=== PATIENT | female | born 1945 | race African-American/Black ===

== ENCOUNTER 2017-03-17 23:43 | Inpatient (IN) ==
[2017-03-18] MEDS ORDERED: NITROGLYCERIN 2% OINT 1 INCH/GM PACK TOP ONE (00:35)
[2017-03-18] MEDS ORDERED: DOCUSATE SODIUM 100 MG CAPSULE PO PRN (00:55)
[2017-03-18] MEDS ORDERED: ACETAMINOPHEN 325 MG TABLET PO PRN (00:55)
[2017-03-18] MEDS ORDERED: ONDANSETRON 4 MG/2 ML VIAL IV PRN (00:55)
--- NOTE | 2017-03-18 00:58 | Emergency Department Note ---
Neymar Mcfadden Rolonda, am scribing for, and in the presence of, Gerald Paetl M.D. 00:25. Amanda Mcfadden Howard T, M.D., personally performed the services described in this documentation, ascribed by Madeline Blackmon in my presence, and it is both accurate and complete . Arrival - Arrival Chief Complaint: Chest Pain Stated Complaint: CHest pain ED Nursing Triage Note: C/C pt went to ER with c/0 chest pain x 2-3 weeks. Pt had elevated Troponin and tranferred here for further eval. Pt was given ASA 325mg, Demerol 12.5mg, Phenergan 12.5 mg, Lovenox 60mg, Lopressor 2.5mg. Pt states she is having CP 9/10 at this time, pain non-radiating. Mode of Arrival: Stretcher Limitations: No Limitations Source: Patient, Old Records Reviewed, RN Notes Reviewed - History of Present Illness HPI Narrative: Pt is a 71 y/o female who was transferred from [place] for further evaluation of chest pain with an onset of x2-3 weeks. Pt has a PMHx of HTN, CHF, [place], and CAD. Pt has a PSHx of Cardiac Catherization and CABG. Pt stated that the pain has been going on for weeks but worsened tonight which prompted visit to ED. She states that she had been chewing ASA and placing NTG tablets under her tongue in which she did tonight but the pain did not go away. at [place] gave pt medication and IV for pain. Pt f/u with her literacy consultant recently and told him about her chest pain. She denies vomiting but confirms SOB. No other complaint/ pain in ED. Onset (ago): week(s) Consistency: constant Severity: moderate Severity scale (1-10): 4 Allergies/Adverse Reactions: Allergies Allergy/AdvReac Type Severity Reaction Status Date / Time ketorolac [From Toradol] AdvReac HIVES Verified 03/17/17 23:55 sulfamethoxazole AdvReac Swelling Verified 03/17/17 23:55 [From Bactrim] of Lip/Tongue/Throat trimethoprim [From Bactrim] AdvReac Swelling Verified 03/17/17 23:55 of Lip/Tongue/Throat Home Medications: Home Medications Medication Instructions Recorded Confirmed Type Aspirin [Ecotrin] 325 mg PO DAILY 05/28/15 10/11/16 History Atorvastatin [Lipitor] 40 mg PO BEDTIME 05/28/15 10/11/16 History Furosemide Tab [Lasix Tab] 40 mg PO DAILY 05/28/15 10/11/16 History Perphenazine/Amitriptyline HCl 1 each PO BID PRN 05/28/15 10/11/16 History [Perphen-Amitrip 2 mg-25 mg Tab] Ranolazine [Ranexa] 1,000 mg PO BID 05/28/15 10/11/16 History raNITIdine HCl [Ranitidine HCl] 300 mg PO BID 05/28/15 10/11/16 History Amiodarone HCl 200 mg PO DAILY 08/13/15 10/11/16 History Cilostazol 100 mg PO BID 08/13/15 10/11/16 History Duloxetine HCl [Duloxetine] 60 mg PO DAILY 08/13/15 10/11/16 History Omeprazole 20 mg PO BID 08/13/15 10/11/16 History Potassium Chloride 20 meq PO BID 08/13/15 10/11/16 History Zolpidem [Ambien] 5 mg PO BEDTIME PRN 08/13/15 10/11/16 History amLODIPine [Norvasc] 5 mg PO DAILY 08/13/15 10/11/16 History glipiZIDE [Glipizide] 5 mg PO DAILY 08/13/15 10/11/16 History fentaNYL 12 MCG/HR PATCH 12 mcg TOP Q3DAY 01/21/16 10/11/16 History [Duragesic 12 Patch] Carvedilol [Coreg] 25 mg PO BID #60 tablet 01/29/16 10/11/16 Rx Losartan/Hydrochlorothiazide 1 each PO DAILY #30 tablet 10/01/16 10/11/16 Rx [Losartan-Hctz 100-12.5 mg Tab] Review of System - Review of System 12 point system: reviewed and no additional remarkable complaints except as stated - Review of System Constitutional: Absent: chills, fever Eyes: Absent: pain Head/Ears/Nose/Throat: Absent: earache, epistaxis Respiratory: Present: respiratory distress (SOB). Absent: cough Cardiovascular: Present: chest pain Gastrointestinal: Absent: abdominal pain, nausea, vomiting, diarrhea Genitourinary female: Absent: dysuria Musculoskeletal: Absent: arm pain, back pain, leg pain, neck pain Skin: Absent: rash Neurological: Absent: headache, weakness, numbness, paresthesias Medical,Surgical,& Family Hx - Medical History Cardio: History of: CHF, CAD, Hypertension, [place], Cardiovascular Problems Psychological: History of: Anxiety Disorders, Depression Neurology: History of: Migraine, Seizures (seizures when child) No history of: Cerebrovascular Accident HEENT: History of: Eye Problem (CATARACT) Endocrine: History of: Diabetes Mellitus (NIDDM) No history of: Adrenal Disease Respiratory: History of: Asthma, COPD, Obstructive Sleep Apnea Renal: History of: Renal Failure Gastrointestinal: History of: GERD Musculoskeletal: History of: Back/Neck Problems (previous back surgery) - Surgical History Cardiac Surgeries: Sugical HX of: Cardiac Catheterization (stents 2008), Cardiac Surgery (CABG 2006) Thoracic Surgeries: Patient denies;: Organ Transplant, Lobectomy Neurologic Surgeries: Patient denies: Neurologic Surgery Reproductive Surgeries: Surgical HX of;: Breast Surgery (LEFT BREASE LYMPH NODE) , Hysterectomy - Family History Family History: Reports;: Family Diabetes (mother and father), Family Heart Disease (mother and father), Family Hypertension, Family Psychiatric Problems Denies;: Family Anesthesia Reaction, Family Cancer, Family Stroke - Social History Smoking Status: Never smoker Frequency of Alcohol Use: None Type of Drug Use: None Exam Vital Signs: Vital Signs Temperature 97.6 F 03/17/17 23:45 Pulse Rate 64 03/17/17 23:45 Respiratory Rate 18 03/18/17 00:01 Blood Pressure 203/80 03/17/17 23:45 O2 Sat by Pulse Oximetry 96 03/17/17 23:45 - General General appearance: alert, in no apparent distress - Head Head exam: Present: atraumatic, normocephalic - Eye Eye exam: Present: PERRL, EOMI - ENT ENT exam: Present: mucous membranes moist. Absent: mucous membranes dry - Neck Neck exam: Present: full ROM. Absent: tenderness - Chest Chest inspection: Present: symmetric chest wall rise. Absent: tenderness - Respiratory Respiratory exam: Present: normal lung sounds bilaterally. Absent: wheezes - Cardiovascular Cardiovascular exam: Present: regular rate, normal rhythm, normal heart sounds. Absent: bradycardia - Abdominal Exam Abdominal exam: Present: soft, normal bowel sounds. Absent: tenderness - Extremities Exam Extremities exam: Present: full ROM. Absent: tenderness - Back Exam Back exam: Present: full ROM. Absent: tenderness - Neurological Exam Neurological exam: Present: alert, oriented X3, CN II-XII intact - Psychiatric Psychiatric exam: Present: normal affect, normal mood - Skin Skin exam: Present: warm, dry, intact, normal color. Absent: rash Course Course Narrative: Medical decision making: Patient has cardiac history and risk factors, is concerned about pain that was not initially relieved by nitroglycerin at home, transferred and probably warrants overnight observation and perhaps cardiology evaluation in the morning. Discussed with hospitalist for admission and continued treatment Disposition Clinical Impression: Unstable angina pectoris, Chest pain Case discussed with: patient Disposition: Still a Patient Condition: Stable Time of Disposition: 00:58
[2017-03-18] MEDS ORDERED: NITROGLYCERIN SL 0.4 MG TABLET SL PRN (01:06)
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
[2017-03-18] MEDS ORDERED: GLUCAGON 1 MG VIAL IM PRN (01:32)
[2017-03-18] MEDS ORDERED: DEXTROSE 50% 25 GM/50 ML VIAL IV PRN (01:32)
[2017-03-18 05:44] LABS: Basophils % 0.2 % (0.0-0.8); Eosinophils # 0.2 10*3/uL (0.0-0.87); Eosinophils % 3.7 % (0.00-10.9); Hemoglobin 10.2 GM/DL (12.0-16.0); Immature Granulocytes % 0.7 %; Immature Granulocytes Absolute 0.03 #; Lymphocytes # 1.9 10*3/uL (1.4-4.0); Lymphocytes % 47.6 % (21.3-54.2); Mean Corpuscular HGB Conc 31.9 GM/DL (32-36); Mean Corpuscular Hemoglobin 28 PG (27-34); Mean Corpuscular Volume 87.2 FL (87-102); Mean Platelet Volume 10.8 FL (9.6-12.0); Monocytes # 0.4 10*3/uL (0.11-0.8); Monocytes % 9.2 % (1.7-12.7); Neutrophils # 1.5 10*3/uL (1.4-7.4); Neutrophils % 38.6 % (38.7-73.9); Platelet Count 180 T/CUMM (130-400); Red Blood Count 3.67 MC/CUMM (3.8-5.5); Red Cell Distribution Width 18.3 % (9.3-17.3)
[2017-03-18 06:23] LABS: Albumin 3.3 G/DL (3.4-5.0); Bilirubin,Total 0.6 MG/DL (0.2-1.0); Calcium 9.1 MG/DL (8.5-10.1); Osmolality,Calculated 279.4 MOS/KG (273-304); Potassium 3.9 MMOL/L (3.5-5.1); Total Protein 6.2 G/DL (6.4-8.3)
[2017-03-18 06:24] LABS: Risk Ratio 1.88
[2017-03-18 07:05] LABS: Eosinophils 3 % (0-10); Hypochromasia 1+; Lymphocytes 51 % (20-55); Microcytosis 1+; Ovalocytes Slight; Segmented Neutrophils 43 % (50-85); Total Cells Counted 100
[2017-03-18 07:06] LABS: Platelet Estimate Adequate
--- NOTE | 2017-03-18 07:38 | EKG Report ---
Stationary ECG Study [facility] Test Date: 03/18/2017 7:39:10 AM Pat Name: JOVANNA HILLS Department: Room: 272 Gender: F Supervisor [employer]: OSBALDO : 1945 Requested by: Adolfo Cardoza Order Number: [id number] Reading MD: NELLI AYON Intervals [place] Rate: 56 P: 93 DC: 233 QRS: 5 QRSD: 124 T: 90 QT: 476 QTc: 468 Interpretive Statements SINUS RHYTHM WITH PROLONGED DC INTERVAL MODERATE INTRAVENTRICULAR CONDUCTION DELAY Electronically Signed On 03-19-17 06:15:28 CDT by NELLI AYON [email or web address]
[2017-03-18] MEDS: INSULIN LISPRO 100 UNIT/ML SUBCUT SCH ×2 (08:23→16:34)
--- NOTE | 2017-03-18 08:25 | Cardiology History & Physical ---
Assessment and Plan (1) Chest pain Status: Acute Current Visit: Yes (2) Atypical chest pain Status: Acute Assessment and plan: The pain she is describing is atypical for angina. She apparently has chronic elevations in her troponins likely related to her renal insufficiency. Continue cycling her troponins and adjusting meds. Current Visit: No (3) CKD (chronic kidney disease) stage 4, GFR 15-29 ml/min Status: Acute Current Visit: No (4) Coronary artery disease Status: Chronic Current Visit: No Qualifiers: (5) DM2 (diabetes mellitus, type 2) Status: Chronic Current Visit: No (6) HTN (hypertension) Status: Chronic Current Visit: No Qualifiers: Hypertension type: essential hypertension Qualified Code(s): I10 - Essential (primary) hypertension History of Present Illness Chief complaint: I have been hurting in my chest History of present illness: Ms. Reeder is a 71 year old female This is a 71-year-old lady who has a history of coronary artery disease history of peripheral vascular disease elevated troponins which are chronically bumped. She has had numerous admissions. She describes chest discomfort this time which is somewhat atypical for angina. That has been her usual presentation. She does have coronary disease had 4 vessel bypass in 2006. She has had heart cath done in January 2016 was found to have no real significant restenosis at that time. She did not have what was felt to be occlusive coronary disease that would be causing symptoms at that time. She presents now with a several day history of atypical chest discomfort which she describes as a sharp jabbing discomfort which is relieved with aspirin and nitroglycerin. She is having some discomfort now in it is clearly reproducible with pressure to her anterior chest. She denies any increasing dyspnea orthopnea or PND. She has had no other real significant complaints. Her troponin is 0.163 and we are repeating. She has no history of recent fever or chills or cough or sputum production. Home Medications Medication Instructions Recorded Confirmed Type Aspirin [Ecotrin] 325 mg PO DAILY 05/28/15 03/18/17 History Atorvastatin [Lipitor] 40 mg PO BEDTIME 05/28/15 03/18/17 History Furosemide Tab [Lasix Tab] 40 mg PO DAILY 05/28/15 03/18/17 History Ranolazine [Ranexa] 1,000 mg PO BID 05/28/15 03/18/17 History raNITIdine HCl [Ranitidine HCl] 300 mg PO BID 05/28/15 03/18/17 History Cilostazol 50 mg PO BID 08/13/15 03/18/17 History Duloxetine HCl [Duloxetine] 60 mg PO DAILY 08/13/15 03/18/17 History Omeprazole 20 mg PO BID 08/13/15 03/18/17 History Potassium Chloride 20 meq PO BID 08/13/15 03/18/17 History Zolpidem [Ambien] 5 mg PO BEDTIME PRN 08/13/15 03/18/17 History amLODIPine [Norvasc] 2.5 mg PO DAILY 08/13/15 03/18/17 History glipiZIDE [Glipizide] 5 mg PO DAILY 08/13/15 03/18/17 History Losartan/Hydrochlorothiazide 1 each PO DAILY #30 tablet 10/01/16 03/18/17 Rx [Losartan-Hctz 100-12.5 mg Tab] Azelastine Nasal 137 Mcg/[place] 1 spray BID 03/18/17 03/18/17 History [Astelin Nasal [place]] Carvedilol [Coreg] 3.125 mg PO BID 03/18/17 03/18/17 History HYDROcodone/ACETAMIN 5-325 [[place] 1 tablet PO TID PRN 03/18/17 03/18/17 History 5-325] Sennosides [Senna] 8.6 mg PO DAILY 03/18/17 03/18/17 History Allergies Allergy/AdvReac Type Severity Reaction Status Date / Time ketorolac [From Toradol] AdvReac HIVES Verified 03/17/17 23:55 sulfamethoxazole AdvReac Swelling Verified 03/17/17 23:55 [From Bactrim] of Lip/Tongue/Throat trimethoprim [From Bactrim] AdvReac Swelling Verified 03/17/17 23:55 of Lip/Tongue/Throat Medical,Surgical,& Family Hx - Medical History Cardio: History of: CHF, CAD, Hypertension, [place], Cardiovascular Problems Psychological: History of: Anxiety Disorders, Depression Neurology: History of: Migraine, Seizures (seizures when child) No history of: Cerebrovascular Accident HEENT: History of: Eye Problem (CATARACT) Endocrine: History of: Diabetes Mellitus (NIDDM) No history of: Adrenal Disease Respiratory: History of: Asthma, COPD, Obstructive Sleep Apnea Renal: History of: Renal Failure Gastrointestinal: History of: GERD Musculoskeletal: History of: Back/Neck Problems (previous back surgery) - Surgical History Cardiac Surgeries: Sugical HX of: Cardiac Catheterization (stents 2008), Cardiac Surgery (CABG 2006) Thoracic Surgeries: Patient denies;: Organ Transplant, Lobectomy Neurologic Surgeries: Patient denies: Neurologic Surgery Reproductive Surgeries: Surgical HX of;: Breast Surgery (LEFT BREASE LYMPH NODE) , Hysterectomy - Family History Family History: Reports;: Family Diabetes (mother and father), Family Heart Disease (mother and father), Family Hypertension, Family Psychiatric Problems Denies;: Family Anesthesia Reaction, Family Cancer, Family Stroke - Social History Smoking Status: Never smoker Frequency of Alcohol Use: None Type of Drug Use: None Cardiology Physical Exam - Constitutional Vitals: Vital Signs Temp Pulse Resp BP Pulse Ox 97.4 F L 56 L 16 162/69 100 03/18/17 04:00 03/18/17 04:00 03/18/17 04:00 03/18/17 04:00 03/18/17 04:00 Intake and Output 03/17/17 03/18/17 03/18/17 23:59 07:59 15:59 Intake Total 120 / 120 Output Total 800 / 800 Balance -680 / -680 Intake: Oral 120 / 120 Output: Urine 800 / 800 Other: Voiding Method Bedside Commode Weight 102.965 kg 104.372 kg Patient Weight 03/18/17 23:59 Weight 104.372 kg Exam: Physical examination: General: The patient is awake and alert and oriented -3. Mood and affect are normal. HEENT: Normocephalic, sclera are clear there are no lid xanthelasmas noted. Oral mucosa is free of cyanosis or pallor. Neck: The neck is supple without JVD. Carotid upstrokes are normal volume and amplitude. There is no audible bruit. There is no palpable thyroid. Trachea is midline. Chest: Lungs: The patient is comfortable at rest without intercostal retractions or abdominal breathing. There are no adventitial sounds rales rubs rhonchi or wheezes noted. Cardiovascular: The PMI is nondisplaced. No palpable thrill S3 or S4. There is a regular rate and rhythm with no murmur rub or gallop noted. Dorsalis pedis posterior tibial are 0-1+ and femoral pulses are 2+ and equal bilaterally. Abdomen: Abdomen is soft and nontender with normal active bowel sounds. There is no palpable mass or organomegaly noted. There is no midline bruit. Extremities exam: There is no cyanosis clubbing or edema. Skin: Skin is warm and dry without ecchymosis or urticaria or skin rash. There are no palpable nodules. Musculoskeletal: There is no kyphosis or scoliosis noted. Result/EKG - Labs CBC & BMP: 03/18/17 05:17 03/18/17 05:17 Labs: Laboratory Results - last 24 hr 03/18/17 03/18/17 03/18/17 05:17 05:17 05:17 WBC 4.0 RBC 3.67 L Hgb 10.2 L Hct 32.0 L MCV 87.2 MCH 28 MCHC 31.9 L RDW 18.3 H Plt Count 180 MPV 10.8 Neut % (Auto) 38.6 L Lymph % (Auto) 47.6 [place] % (Auto) 9.2 Eos % (Auto) 3.7 Baso % (Auto) 0.2 Neut # (Auto) 1.5 Lymph # (Auto) 1.9 [place] # (Auto) 0.4 Eos # (Auto) 0.2 Baso # (Auto) 0.0 Total Counted 100 Immature Gran % 0.7 Nucleated RBC % 0.0 Immature Gran # 0.03 Segmented Neutrophils 43 L Lymphocytes 51 Monocytes 3 Eosinophils 3 Nucleated RBCs # 0.00 Platelet Estimate Adequate Hypochromasia 1+ Microcytosis 1+ Ovalocytes Slight Sodium 140 Potassium 3.9 Chloride 104 Carbon Dioxide 30 Anion Gap 9.9 BUN 18 Creatinine 1.60 H GFR Calculation 48 BUN/Creatinine Ratio 11.00 Glucose 76 POC Glucose Calculated Osmolality 279.4 Calcium 9.1 Total Bilirubin 0.60 AST 12 ALT 13 Alkaline Phosphatase 75 Troponin I Total Protein 6.2 L Albumin 3.3 L Globulin 2.9 Albumin/Globulin Ratio 1.1 Triglycerides 45 Cholesterol 197 LDL Cholesterol 82.0 VLDL Cholesterol 9.0 HDL Cholesterol 105 H Heart Disease Risk Ratio 1.88 03/18/17 03/18/17 07:56 Unknown WBC RBC Hgb Hct MCV MCH MCHC RDW Plt Count MPV Neut % (Auto) Lymph % (Auto) [place] % (Auto) Eos % (Auto) Baso % (Auto) Neut # (Auto) Lymph # (Auto) [place] # (Auto) Eos # (Auto) Baso # (Auto) Total Counted Immature Gran % Nucleated RBC % Immature Gran # Segmented Neutrophils Lymphocytes Monocytes Eosinophils Nucleated RBCs # Platelet Estimate Hypochromasia Microcytosis Ovalocytes Sodium Potassium Chloride Carbon Dioxide Anion Gap BUN Creatinine GFR Calculation BUN/Creatinine Ratio Glucose POC Glucose 80 Calculated Osmolality Calcium Total Bilirubin AST ALT Alkaline Phosphatase Troponin I 0.163 H Total Protein Albumin Globulin Albumin/Globulin Ratio Triglycerides Cholesterol LDL Cholesterol VLDL Cholesterol HDL Cholesterol Heart Disease Risk Ratio
[2017-03-18] MEDS: ASPIRIN 325 MG TABLET PO SCH (09:07)
[2017-03-18] MEDS: PANTOPRAZOLE 40 MG TABLET PO SCH (09:07)
[2017-03-18] MEDS: amLODIPine 10 MG TABLET PO SCH (09:07)
[2017-03-18] MEDS: LOSARTAN/HCTZ 50-12.5 MG TABLET PO SCH (09:08)
[2017-03-18] MEDS: CARVEDILOL 12.5 MG TABLET PO SCH ×2 (09:08→22:01)
[2017-03-18] MEDS: ENOXAPARIN 40 MG/0.4 ML SYRINGE SUBCUT SCH (09:10)
[2017-03-18] MEDS: ATORVASTATIN 40 MG TABLET PO SCH (22:01)
--- NOTE | 2017-03-19 04:51 | EKG Report ---
Stationary ECG Study [facility] ER Test Date: 03/17/2017 11:52:41 PM Pat Name: JOVANNA HILLS Department: Room: 272 Gender: F Tile Installer: PEPE : 1945 Requested by: Gerald Mata Order Number: [id number] Reading MD: NELLI AOYN Intervals [place] Rate: 61 P: 92 DC: 233 QRS: -43 QRSD: 137 T: 85 QT: 451 QTc: 454 Interpretive Statements SINUS RHYTHM WITH PROLONGED DC INTERVAL INDETERMINATE AXIS INTRAVENTRICULAR CONDUCTION DELAY POSSIBLE ANTERIOR MYOCARDIAL INFARCTION, OF INDETERMINATE AGE Electronically Signed On 03-19-17 06:14:48 CDT by NELLI AYON [email or web address]
[2017-03-19] MEDS: INSULIN LISPRO 100 UNIT/ML SUBCUT SCH ×2 (08:42→17:32)
[2017-03-19] MEDS: LOSARTAN/HCTZ 50-12.5 MG TABLET PO SCH (08:42)
[2017-03-19] MEDS: ENOXAPARIN 40 MG/0.4 ML SYRINGE SUBCUT SCH (08:42)
[2017-03-19] MEDS: ASPIRIN 325 MG TABLET PO SCH (08:43)
[2017-03-19] MEDS: PANTOPRAZOLE 40 MG TABLET PO SCH (08:43)
[2017-03-19] MEDS: CARVEDILOL 12.5 MG TABLET PO SCH ×2 (08:43→21:09)
[2017-03-19] MEDS: amLODIPine 10 MG TABLET PO SCH (08:43)
--- NOTE | 2017-03-19 09:28 | Cardiology Progress Note ---
Assessment and Plan (1) Chest pain Status: Acute Assessment and plan: The patient has atypical chest pain symptoms with history known coronary disease and for that reason we will proceed with invasive evaluation. She is agreeable to proceeding with cardiac catheterization and intervention if indicated. Current Visit: Yes (2) Atypical chest pain Status: Acute Assessment and plan: The pain she is describing is atypical for angina. She apparently has chronic elevations in her troponins likely related to her renal insufficiency. Continue cycling her troponins and adjusting meds. Current Visit: No (3) CKD (chronic kidney disease) stage 4, GFR 15-29 ml/min Status: Acute Current Visit: No (4) Coronary artery disease Status: Chronic Current Visit: No Qualifiers: (5) DM2 (diabetes mellitus, type 2) Status: Chronic Current Visit: No (6) HTN (hypertension) Status: Chronic Current Visit: No Qualifiers: Hypertension type: essential hypertension Qualified Code(s): I10 - Essential (primary) hypertension Cardiology - PN: Subj Interval history: This patient feels better today. She has had no further chest pain symptoms. He has been over a year since she has been evaluated and with continued chest pain and elevated troponins I feel it necessary to proceed with invasive evaluation. This will be scheduled for in the morning. I reviewed with her the risks benefits and alternatives of the procedure. She appears to understand these and is agreeable to proceeding. Exam (Progress Note) - Constitutional Vitals: Period Temp Pulse Resp BP Sys/Blackman Pulse Ox Last 24 Hr 97.2 F-99.1 F 50-75 16-18 119-159/55-68 94-100 Exam: Physical examination: General: The patient is awake and alert and oriented -3. Mood and affect are normal. HEENT: Normocephalic, sclera are clear there are no lid xanthelasmas noted. Oral mucosa is free of cyanosis or pallor. Neck: The neck is supple without JVD. Carotid upstrokes are normal volume and amplitude. There is no audible bruit. There is no palpable thyroid. Trachea is midline. Chest: Lungs: The patient is comfortable at rest without intercostal retractions or abdominal breathing. There are no adventitial sounds rales rubs rhonchi or wheezes noted. Cardiovascular: The PMI is nondisplaced. No palpable thrill S3 or S4. There is a regular rate and rhythm with no murmur rub or gallop noted. Dorsalis pedis posterior tibial and femoral pulses are 2+ and equal bilaterally. Abdomen: Abdomen is soft and nontender with normal active bowel sounds. There is no palpable mass or organomegaly noted. There is no midline bruit. Extremities exam: There is no cyanosis clubbing or edema. Skin: Skin is warm and dry without ecchymosis or urticaria or skin rash. There are no palpable nodules. Musculoskeletal: There is no kyphosis or scoliosis noted. Result/EKG - Labs CBC & BMP: 03/18/17 05:17 03/18/17 05:17 Labs: Laboratory Results - last 24 hr 03/18/17 03/18/17 03/18/17 12:07 12:12 16:32 POC Glucose 103 97 Troponin I 0.138 H 03/18/17 03/19/17 18:56 08:22 POC Glucose 186 H 130 H Troponin I
[2017-03-19] MEDS ORDERED: POTASSIUM CHLORIDE RIDER 10 MEQ in PREMIX 1 EACH IV PRN (09:29)
[2017-03-19] MEDS ORDERED: MAGNESIUM SULF RIDER 2 GM in PREMIX 1 EACH IV PRN (09:29)
[2017-03-19] MEDS ORDERED: diphenhydrAMINE CAP 25 MG CAPSULE PO ONE (09:29)
[2017-03-19] MEDS ORDERED: DIAZEPAM 5 MG TABLET PO ONE (09:29)
--- NOTE | 2017-03-19 13:47 | Hospitalist Progress Note ---
Assessment and Plan (1) Coronary artery disease Status: Chronic Assessment and plan: The patient is admitted to the hospital with some dull atypical chest pain. She has a history of coronary artery disease. The patient has chronic kidney disease and her troponin remains in keith zone. Dr. Manriquez anticipates coronary arteriogram tomorrow to reevaluate coronary anatomy. Current Visit: No Qualifiers: Coronary Disease-Associated Artery/Lesion type: bypass graft [place] vs. transplanted heart: [place] heart Associated angina: with stable angina Qualified Code(s): I25.708 - Atherosclerosis of coronary artery bypass graft(s) , unspecified, with other forms of angina pectoris (2) HTN (hypertension) Status: Chronic Current Visit: No Qualifiers: Hypertension type: essential hypertension Qualified Code(s): I10 - Essential (primary) hypertension (3) DM2 (diabetes mellitus, type 2) Status: Chronic Current Visit: No Hospitalist: Subjective Interval history: The patient had some dull chest discomfort through the night. Troponin test remains keith zone. Dr. Manriquez anticipates coronary arteriogram tomorrow. Exam - Constitutional Vitals: Period Temp Pulse Resp BP Sys/Blackman Pulse Ox Last 24 Hr 97.2 F-99.1 F 50-75 16-18 119-159/55-69 94-100 General appearance: normal weight - Head Head exam: Present: normal inspection - Respiratory Respiratory exam: Present: clear to auscultation bilaterally - Cardiovascular Cardiovascular exam: Present: regular rate and rhythm, other (Healed thoracotomy scar) - GI/Abdominal GI/Abdominal exam: Present: normal bowel sounds Results - Labs CBC & BMP: 03/18/17 05:17 03/18/17 05:17 Lab Results: I have reviewed the past 24 hour labs
[2017-03-19] MEDS ORDERED: ACETAMINOPHEN 325 MG TABLET PO PRN (18:44)
[2017-03-19] MEDS: guaiFENesin 200 MG/10 ML UDCUP PO PRN (18:55)
[2017-03-19] MEDS: ATORVASTATIN 40 MG TABLET PO SCH (21:09)
[2017-03-19] MEDS: MORPHINE 2 MG/1 ML SYRINGE IV PRN (22:45)
[2017-03-20] MEDS: guaiFENesin 200 MG/10 ML UDCUP PO PRN ×2 (00:57→19:54)
[2017-03-20] MEDS ORDERED: SODIUM CHLORIDE 0.45% 1,000 ML IV SCH (04:00)
[2017-03-20 05:59] LABS: Basophils % 0.3 % (0.0-0.8); Eosinophils # 0.2 10*3/uL (0.0-0.87); Eosinophils % 4.6 % (0.00-10.9); Hematocrit 30.2 VOL% (35.7-47.0); Hemoglobin 9.9 GM/DL (12.0-16.0); Immature Granulocytes % 0.5 %; Immature Granulocytes Absolute 0.02 #; Lymphocytes # 1.4 10*3/uL (1.4-4.0); Lymphocytes % 36.6 % (21.3-54.2); Mean Corpuscular HGB Conc 32.8 GM/DL (32-36); Mean Corpuscular Hemoglobin 28 PG (27-34); Mean Platelet Volume 10.3 FL (9.6-12.0); Monocytes # 0.4 10*3/uL (0.11-0.8); Neutrophils # 1.8 10*3/uL (1.4-7.4); Platelet Count 185 T/CUMM (130-400); Red Blood Count 3.51 MC/CUMM (3.8-5.5); Red Cell Distribution Width 17.3 % (9.3-17.3); White Blood Count 3.9 T/CUMM (4-12)
[2017-03-20 06:07] LABS: INR 0.9; PT Patient Result 9.9 SECS
[2017-03-20 06:33] LABS: Calcium 8.5 MG/DL (8.5-10.1); Magnesium 2.4 MG/DL (1.8-2.4); Osmolality,Calculated 274.1 MOS/KG (273-304); Potassium 4.1 MMOL/L (3.5-5.1)
[2017-03-20 06:35] LABS: Eosinophils 2 % (0-10); Hypochromasia 1+; Lymphocytes 39 % (20-55); Ovalocytes Slight; Platelet Estimate Normal; Segmented Neutrophils 45 % (50-85); Total Cells Counted 100
[2017-03-20 06:36] LABS: Microcytosis Slight
[2017-03-20] MEDS: ENOXAPARIN 40 MG/0.4 ML SYRINGE SUBCUT SCH (08:13)
[2017-03-20] MEDS: CARVEDILOL 12.5 MG TABLET PO SCH ×3 (08:14→21:31)
[2017-03-20] MEDS: ASPIRIN 325 MG TABLET PO SCH (08:14)
[2017-03-20] MEDS: PANTOPRAZOLE 40 MG TABLET PO SCH (08:14)
[2017-03-20] MEDS: amLODIPine 10 MG TABLET PO SCH (08:14)
[2017-03-20] MEDS: LOSARTAN/HCTZ 50-12.5 MG TABLET PO SCH (08:14)
[2017-03-20] MEDS: INSULIN LISPRO 100 UNIT/ML SUBCUT SCH ×2 (09:28→17:19)
--- NOTE | 2017-03-20 11:19 | XRay Report ---
History short of breath Comparison 03/17/2017 The heart is enlarged with prior median sternotomy Scarring the left lung base present without acute infiltrate seen Impression: Cardiomegaly without CHF PROCEDURE INTERPRETED AT [facility] DEPARTMENT OF RADIOLOGY Final Report Signed by: Dr. Jaqui Brandt
[2017-03-20] MEDS ORDERED: diphenhydrAMINE CAP 25 MG CAPSULE ONE (11:53)
[2017-03-20] MEDS ORDERED: DIAZEPAM 5 MG TABLET ONE (11:53)
[2017-03-20] MEDS ORDERED: HEPARIN/NACL 0.9% 2 UNITS/ML 1,000 ML IV ONE (12:03)
[2017-03-20] MEDS ORDERED: LIDOCAINE 1%/EPI INJ 20 ML VIAL ONE (12:03)
--- NOTE | 2017-03-20 12:45 | History and Physical Update ---
Sedation H&P Update - History and Physical H&P was reviewed, the patient examined and there: are no changes in the patients condition since last H&P was completed. - Sedation Plan for Sedation: moderate Patient Consent: Procedure disscussed with patient and patinet has consented., Risks and benefits were discussed with patient,including infection,, bleeding, injury to surrounding structures, seizure, temporary nerve, Patient understands and accepts potential risks/benefits and agrees to, proceed. ASA Class: III Airway Assessment: Class III: Soft palate, base of uvula visible
[2017-03-20] MEDS ORDERED: MIDAZOLAM 2 MG/2 ML VIAL ONE (12:46)
[2017-03-20] MEDS ORDERED: fentaNYL 100 MCG/2 ML VIAL ONE (12:47)
[2017-03-20] MEDS ORDERED: hydrALAZINE 20 MG/1 ML VIAL ONE (13:06)
--- NOTE | 2017-03-20 13:39 | Cardiac Catheterization ---
Date of Procedure:: 03/20/17 Pre-op Diagnosis: Chest discomfort known coronary disease for evaluation Post-op diagnosis: same Procedure: Procedures performed: Left heart catheterization Coronary arteriography Vein graft injection MYESHA graft injection Left ventriculography [Right] femoral sheath angiography Mynx closure femoral arteriotomy site After obtaining informed consent the patient was brought to the catheterization lab where the [right] groin was prepped and draped in the usual sterile manner. After intravenous sedation and local anesthesia a needle stick was made to the right femoral artery and a [6 [place] sheath] was positioned without difficulty. A left heart catheterization was undertaken using first a Familia left diagnostic catheter. The catheter was advanced under fluoroscopy over a guidewire and positioned with its tip in the ostium of the left main coronary artery. Multiple angiograms were obtained of the left coronary artery in multiple views. After adequate angiogram to left coronary obtain this catheter was withdrawn and an AMRM right coronary catheter was advanced over a guidewire under fluoroscopic control where angiography of the right coronary artery was undertaken in a single view. After adequate angiograms of the right coronary artery were obtained this catheter was withdrawn. An MYESHA graft catheter was advanced over guidewire under fluoroscopic control the ascending aorta where it was advanced under fluoroscopy into the ostium of the MYESHA graft and multiple angiograms of the MYESHA graft were undertaken in multiple views. After adequate range grams MYESHA graft were obtained this catheter was withdrawn and a right coronary bypass catheter was advanced over guidewire under fluoroscopic control using her where right coronary bypass graft was engaged and multiple angiograms the right coronary bypass graft were undertaken multiple views. After adequate range grams the right coronary bypass graft were obtained this catheter was manipulated into the origin of the diagonal vein graft. Multiple angiograms of the diagonal vein graft were undertaken multiple views. After adequate imaging of the diagonal vein graft this catheter was manipulated in the arch of the circumflex vein graft where a single injection documented graft closure. This catheter then was withdrawn and a pigtail ventriculographic catheter was advanced over a guidewire under fluoroscopic control to the ascending aorta where it was advanced across the aortic valve and intraventricular hemodynamics were measured. A ventriculogram was obtained in the VICENTE projection and afterward a pullback was obtained from the ventricle to the aorta under hemodynamic monitoring and removed. At this point the patient underwent right femoral sheath angiography which demonstrated anatomy appropriate for Mynx closure. This was performed without difficulty and good hemostasis was obtained. The patient then was transferred back to the [facility] having suffered no significant immediate complications. Hemodynamics: Please see the accompanying data sheet Coronary arteriography: Left coronary artery: The left main coronary artery is well-developed and free of significant obstructing lesions. The circumflex coronary is a large nondominant vessel that consists of a single large marginal branch. The circumflex and its branch appear to be free of significant obstructing lesions. The left anterior descending coronary artery is a large vessel that extends around the apex of the ventricle. The LAD possesses no significant lesions throughout its course. There is an intracoronary stent noted in the mid vessel which is free of significant obstructing lesions. The proximal diagonal was not noted to fill injection of the resighini left system. Right coronary artery: Right coronary is completely occluded at its origin. No filling of the distal right coronary is noted on injection of the resighini right ostium. Vein grafts: Right coronary vein graft: Right coronary vein graft is widely patent with excellent distal flow no evidence of significant flow-limiting stenosis. The distal anastomosis likewise is free of significant obstructing lesions. And there is good filling of both PDA and posterolateral branches. No significant lesions can be identified. Circumflex vein graft: Circumflex vein graft is completely occluded at its origin Diagonal vein graft: The diagonal vein graft is widely patent with excellent distal flow. No evidence of significant flow-limiting stenosis can be identified. The distal vessel is free of significant lesions. It fills the circumflex marginal promptly via collaterals. No significant lesions of the diagonal graft or its the distal anastomosis or distal vessels can be noted. MYESHA graft injection: The MYESHA graft does not fill the LAD appreciably. It appears to be occluded in its midportion. Left ventriculography: After injection of contrast left ventricle is noted normal size with normal contractility. Ejection fraction is estimated to be in the 60-65% range. Mitral and aortic structures are noted to be free of significant abnormality by ventriculography. Right femoral sheath angiography: After injection of contrast in the right femoral arterial sheath it is noted be of normal caliber and enters above the bifurcation. The distal iliac, common femoral and bifurcation appear to be free of significant obstructing lesions based on this limited angiographic study. There is moderate to severe calcification of the iliofemoral vessels on the right side. Conclusions: 3 of 4 grafts patent Severe resighini multivessel coronary artery disease Good collateral filling of the circumflex marginal from the diagonal graft No significant residual disease of the LAD proper after stenting Normal left ventricular size and function. Normal end-diastolic pressures at rest Mynx closure right femoral arteriotomy site Discussion and recommendations: The patient presents with chest discomfort. She has 3 of 4 grafts patent with good collaterals to the circumflex marginal. She is for continued medical management. She needs continued risk factor modification. Her chest pain is atypical and other etiologies of her chest discomfort will be pursued. Surgeon / Physician: Tirso Manriquez Estimated blood loss: minimal Specimens: none sent Condition: stable - Medications / Follow-up
[2017-03-20] MEDS: MORPHINE 2 MG/1 ML SYRINGE IV PRN ×2 (14:54→21:32)
--- NOTE | 2017-03-20 15:36 | Hospitalist Progress Note ---
Assessment and Plan (1) NSTEMI (non-ST elevated myocardial infarction) Status: Acute Assessment and plan: s/p heart cath by Dr. Caceres today, shows patent grafts 3 of 4, severe [place] CAD, ef 65% Current Visit: Yes (2) SOB (shortness of breath) Status: Acute Current Visit: No (3) Depression Status: Acute Current Visit: No (4) Cardiomyopathy, ischemic Status: Chronic Assessment and plan: ef on cardiac cath 65% Current Visit: No (5) CKD (chronic kidney disease) stage 3, GFR 30-59 ml/min Status: Chronic Assessment and plan: monitor after heart cath, bmp in am Current Visit: No (6) HTN (hypertension) Status: Chronic Assessment and plan: controlled on coreg, losartan/hctz, norvasc Current Visit: No Qualifiers: Hypertension type: essential hypertension Qualified Code(s): I10 - Essential (primary) hypertension (7) DM2 (diabetes mellitus, type 2) Status: Chronic Assessment and plan: BS controlled Current Visit: No (8) Anemia Status: Acute Assessment and plan: cont protonix Current Visit: Yes (9) Bronchitis Status: Acute Assessment and plan: levaquin 500 mg IV daily Current Visit: Yes Hospitalist: Subjective Interval history: Patient received a heart cath today. Patient was coughing up mucus yellow in nature. She reports that she is coughing up cold Exam - Constitutional Vitals: Period Temp Pulse Resp BP Sys/Blackman Pulse Ox Last 24 Hr 96 F-98.9 F 50-63 14-20 127-197/38-71 92-100 Exam: Heart Rate-[remberto] Lungs-[Clear but diminished GI-[+bs soft, NT, obese ] Ext-[no edema] Neuro [Motor 5/5], [alert and oriented times 3] psych [normal mood and affect] General [no acute distress] Results - Labs CBC & BMP: 03/20/17 05:38 03/20/17 05:38 Lab Results: I have reviewed the past 24 hour labs - Diagnostic Findings Procedure: Chest x-ray: report reviewed by me (CM without chf ) Quality Measures - VTE Contraindication to Pharmacological VTE Prophylaxis: High Risk of Bleeding Specialty Discharge - Follow Up or Referrals
[2017-03-20] MEDS ORDERED: LEVOFLOXACIN INJ 500 MG in PREMIX 1 EACH IV ONE (16:00)
[2017-03-20] MEDS: ALBUTEROL/IPRATROPIUM 3 ML NEB RESP TX SCH (19:35)
[2017-03-20] MEDS: ATORVASTATIN 40 MG TABLET PO SCH ×2 (19:54→21:31)
[2017-03-21] MEDS: ALBUTEROL/IPRATROPIUM 3 ML NEB RESP TX SCH ×3 (00:40→12:13)
[2017-03-21 05:54] LABS: Calcium 8.3 MG/DL (8.5-10.1); Magnesium 2.6 MG/DL (1.8-2.4); Potassium 4.3 MMOL/L (3.5-5.1)
[2017-03-21] MEDS: INSULIN LISPRO 100 UNIT/ML SUBCUT SCH (08:37)
[2017-03-21] MEDS: ASPIRIN 325 MG TABLET PO SCH (08:38)
[2017-03-21] MEDS: PANTOPRAZOLE 40 MG TABLET PO SCH (08:38)
[2017-03-21] MEDS: amLODIPine 10 MG TABLET PO SCH (08:38)
[2017-03-21] MEDS: LOSARTAN/HCTZ 50-12.5 MG TABLET PO SCH (08:38)
[2017-03-21] MEDS: CARVEDILOL 12.5 MG TABLET PO SCH (08:38)
[2017-03-21] MEDS: ENOXAPARIN 40 MG/0.4 ML SYRINGE SUBCUT SCH (08:39)
--- NOTE | 2017-03-21 09:32 | Discharge Summary ---
<Sulaiman Hernandez - Last Filed: 03/21/17 10:26> Hospital Course - Hospital Course Hospital Course: Ms. Reeder is a 71 year old female with past medical history significant for hypertension, diabetes mellitus, dyslipidemia, CAD s/p ME in 2005 requiring CABG in 2006 and cardiomyopathy. She was transferred to [facility] on 03/18/2017 from [facility] for further evaluation of chest pain. On admission, EKG revealed sinus rhythm with a first-degree heart block. She had a SBP greater than 200. She was admitted to the hospitalist service with serial troponins. Troponins remained elevated (0.138-0.163), cardiology was consulted, and the patient underwent a LHC per Dr. Manriquez on 03/20/2017 with no PCI. The remainder of her hospitalization was uncomplicated, highlighted by management of her chronic conditions. At this time she is stable for discharge. She will be discharged to self and has voiced a desire to not return home. Case management has worked with her to find a place for her to stay. Patient had some mild shortness of breath on admission but her chest x-ray was negative. She was coughing yellowish sputum. I have treated her for bronchitis. She has been instructed to follow up with Dr. Enriquez and Dr. Manriquez in 2 weeks. Patient seen and examined. Hospital course reviewed and edited. Specialty Discharge - Follow Up or Referrals Follow up with: Prudencio Enriquez DO [Primary Care Provider] - 2 Weeks Tirso Manriquez MD [Physician] - 2 Weeks Discharge Plan - Discharge Data Disposition: Disch To Home/Self Care - Discharge Medications New Ipratropium/Albuterol Inhaler [Combivent Respimat Inhaler] 1 puff INH QID #1 inhaler Levofloxacin Tab [Levaquin Tab] 500 mg PO DAILY #7 tablet Continue raNITIdine HCl [Ranitidine HCl] 300 mg PO BID Azelastine Nasal 137 Mcg/[place] [Astelin Nasal [place]] 1 spray BID Aspirin [Ecotrin] 81 mg PO DAILY #0 Cilostazol 50 mg PO BID #60 tablet Duloxetine HCl [Duloxetine] 60 mg PO DAILY #30 tablet HYDROcodone/ACETAMIN 5-325 [[place] 5-325] 1 tablet PO TID PRN #30 tablet PRN Reason: Pain Losartan/Hydrochlorothiazide [Losartan-Hctz 100-12.5 mg Tab] 1 each PO DAILY #30 tablet Omeprazole 20 mg PO BID #60 tablet Sennosides [Senna] 8.6 mg PO DAILY Atorvastatin [Lipitor] 40 mg PO BEDTIME #30 tablet glipiZIDE [Glipizide] 5 mg PO DAILY #30 tablet Ranolazine [Ranexa] 1,000 mg PO BID #30 tablet Changed Carvedilol [Coreg] 12.5 mg PO BID #60 tablet amLODIPine [Norvasc] 10 mg PO DAILY #60 tablet Discontinued Furosemide Tab [Lasix Tab] 40 mg PO DAILY Zolpidem [Ambien] 5 mg PO BEDTIME PRN PRN Reason: Insomnia Potassium Chloride 20 meq PO BID - Follow Up or Referral Follow Up: Prudencio Enriquez DO [Primary Care Provider] - 2 Weeks Tirso Manriquez MD [Physician] - 2 Weeks - Forms/Instructions Instructions: Myocardial Infarction (GEN), Coronary Artery Disease (GEN), Left Heart Catheterization (DC), Heart Healthy Diet (GEN) Exam - Constitutional Vitals: Period Temp Pulse Resp BP Sys/Blackman Pulse Ox Last 24 Hr 97.5 F-100.4 F 57-96 16-20 127-171/53-90 92-99 Discharge Results Labs on day of discharge: Labs from last 24 hours 03/21/17 03/21/17 03/20/17 07:33 03:28 19:17 Sodium 136 Potassium 4.3 Chloride 99 Carbon Dioxide 29 Anion Gap 12.3 BUN 28 H Creatinine 1.80 H GFR Calculation 41 BUN/Creatinine Ratio 15.00 Glucose 137 H POC Glucose 127 H 221 H Calculated Osmolality 279.0 Calcium 8.3 L Magnesium 2.6 H 03/20/17 03/20/17 15:40 11:22 Sodium Potassium Chloride Carbon Dioxide Anion Gap BUN Creatinine GFR Calculation BUN/Creatinine Ratio Glucose POC Glucose 125 H 134 H Calculated Osmolality Calcium Magnesium DS: Provider Date of admission: 03/18/17 00:55 Primary care physician: Prudencio Enriquez Attending physician on admission: Adolfo Cardoza MD Consults: 03/18/17 00:55 Consult to Physician [CONS] Routine Comment: Chest pain/NSTEMI Consulting Provider: Consult to Specialist Group: Cardiology When should Consulting Provider be notified: In am 03/18/17 03:21 Consult to Dietitian [CONS] Routine Reason for Dietitian: Dietary Consult 03/18/17 07:42 Consult to Physician [CONS] Routine Comment: chest pain, htn Consulting Provider: Tirso Manriquez 03/20/17 06:33 Consult to Cardiac Rehabilitation [CONS] Routine Reason for Cardiac Rehabilitation: Other Consult Comment: NSTEMI report 03/20/17 13:40 Consult to Cardiac Rehabilitation [CONS] Routine Reason for Cardiac Rehabilitation: Risk Factor Modification Discharging clinician: Sulaiman NARAYAN Expected date of discharge: 03/21/17 <Sachi Wright - Last Filed: 03/21/17 10:48> Hospital Course - Time spent with patient Time with patient DS: Greater than 30 minutes Diagnosis - Discharge Diagnosis (1) NSTEMI (non-ST elevated myocardial infarction) Status: Acute (2) SOB (shortness of breath) Status: Acute (3) Depression Status: Acute (4) Cardiomyopathy, ischemic Status: Chronic (5) CKD (chronic kidney disease) stage 3, GFR 30-59 ml/min Status: Chronic (6) HTN (hypertension) Status: Chronic (7) DM2 (diabetes mellitus, type 2) Status: Chronic (8) Anemia Status: Acute (9) Bronchitis Status: Acute Discharge Plan - Discharge Data Condition at Discharge: Stable Discharge Diet: diabetic diet Activity: resume usual activities as tolerated Hygiene: no restrictions Weight Bearing at Discharge: full weight bearing Exam - Constitutional General appearance: no acute distress, over weight - Head Head exam: Present: normal inspection, normocephalic - Respiratory Respiratory exam: Present: clear to auscultation bilaterally. Absent: rhonchi, wheezes - Cardiovascular Cardiovascular exam: Present: regular rate and rhythm. Absent: systolic murmur - GI/Abdominal GI/Abdominal exam: Present: normal bowel sounds, soft. Absent: tenderness - Extremities Exam Extremities exam: Present: normal inspection, normal capillary refill - Neurological Exam Neurological exam: Present: alert - Psychiatric Psychiatric exam: Present: normal affect, normal mood
[2017-03-21 12:10] VITALS: BP 134/61
--- NOTE | 2017-03-21 13:59 | Cardiology Progress Note ---
I, Reyna Kapadia RN, am scribing for, and in the presence of, Emery Mohr MD 13:59. Assessment and Plan (1) Chest pain Status: Acute Assessment and plan: 1. Ms. Reeder is status post catheterization yesterday which showed no new disease; her PARSON was occluded but she did not have significant LAD disease. 2. Her right groin site is without bruit hematoma or tenderness. 3. Very slight increase in her creatinine from 1.6-1.8 4. She can be transferred to [facility] today. She is very distraught about a severe dispute in her family, and she says "I do not want to go back to my house again, I lived with my cousin for the last month". It appears she does not have a place to go currently. 5. Return to follow-up with me in about 2 weeks time per Current Visit: Yes (2) CKD (chronic kidney disease) stage 3, GFR 30-59 ml/min Status: Chronic Current Visit: Yes (3) Coronary artery disease Status: Chronic Current Visit: Yes Qualifiers: Coronary Disease-Associated Artery/Lesion type: bypass graft [place] vs. transplanted heart: redding heart Associated angina: with stable angina Qualified Code(s): I25.708 - Atherosclerosis of coronary artery bypass graft(s) , unspecified, with other forms of angina pectoris (4) DM2 (diabetes mellitus, type 2) Status: Chronic Current Visit: Yes (5) HTN (hypertension) Status: Chronic Current Visit: Yes Qualifiers: Hypertension type: essential hypertension Qualified Code(s): I10 - Essential (primary) hypertension Cardiology - PN: Subj Interval history: Dog Or Animal Sitter: Dr. Mohr Summary: Ms. Reeder is a 71-year-old female who was admitted March 18, 2017 for complaints of chest pain. She has a history of CAD and PVD. She had four- vessel bypass 2006, heart cath done in January 2016 was found to have no real significant stenosis. She presented this admission with a several day history of atypical chest discomfort which she described as a sharp jabbing pain that was relieved with aspirin nitroglycerin. Troponin elevated as high as 0.163. She had heart cath by Dr. Manriquez March 20, 2017 with the following findings: 3 of 4 grafts patent Severe redding multivessel coronary artery disease Good collateral filling of the circumflex marginal from the diagonal graft No significant residual disease of the LAD proper after stenting Normal left ventricular size and function. Normal end-diastolic pressures at rest March 21, 2017: Today she is seen sitting up on side of bed in no acute distress. She is crying and is very upset regarding her home situation. Apparently she has no place to go at discharge, social work is working on getting her placement. She reports she is having some mild chest pain this morning, but states it is the same type of pain she was having for heart catheterization. The pain started after she got upset about trying to find a place to go upon discharge. Right groin is stable without evidence of bleeding or hematoma, no bruit detected. She is slightly tender at site but no pain at site or down leg. Exam (Progress Note) - Constitutional Vitals: Period Temp Pulse Resp BP Sys/Blackman Pulse Ox Last 24 Hr 97.5 F-100.4 F 57-96 16-20 127-171/53-90 92-99 General appearance: no acute distress, morbidly obese - Head Head exam: Absent: abrasion, hematoma - Eye Eye exam: Absent: periorbital swelling, laceration to eyelids - Neck Neck exam: Absent: tenderness - Respiratory Respiratory exam: Present: clear to auscultation bilaterally. Absent: accessory muscle use, chest wall tenderness - Cardiovascular Cardiovascular exam: Present: regular rate and rhythm - GI/Abdominal GI/Abdominal exam: Present: normal bowel sounds, soft. Absent: distended, tenderness - Extremities Exam Extremities exam: Present: edema, other (Right groin without evidence of bleeding or hematoma, no bruit detected). Absent: calf tenderness - Neurological Exam Neurological exam: Present: alert, oriented X3 - Psychiatric Psychiatric exam: Present: anxious, other (Crying, very visibly upset) - Skin Skin exam: Present: warm, dry Result/EKG - Labs CBC & BMP: 03/20/17 05:38 03/21/17 03:28 Lab Results: I have reviewed the past 24 hour labs Labs: Laboratory Results - last 24 hr 03/20/17 03/20/17 03/20/17 11:22 15:40 19:17 Sodium Potassium Chloride Carbon Dioxide Anion Gap BUN Creatinine GFR Calculation BUN/Creatinine Ratio Glucose POC Glucose 134 H 125 H 221 H Calculated Osmolality Calcium Magnesium 03/21/17 03/21/17 03:28 07:33 Sodium 136 Potassium 4.3 Chloride 99 Carbon Dioxide 29 Anion Gap 12.3 BUN 28 H Creatinine 1.80 H GFR Calculation 41 BUN/Creatinine Ratio 15.00 Glucose 137 H POC Glucose 127 H Calculated Osmolality 279.0 Calcium 8.3 L Magnesium 2.6 H - EKG EKG results: interpreted by me EKG shows: sinus rhythm Quality Measures - VTE Contraindication to Pharmacological VTE Prophylaxis: High Risk of Bleeding Specialty Discharge - Follow Up or Referrals Follow up with: Prudencio Enriquez DO [Primary Care Provider] - 2 Weeks Tirso Manriquez MD [Physician] - 2 Weeks Onur Mcfadden Randall Scott, MD, personally performed the services described in this documentation, ascribed by Reyna Kapadia RN in my presence, and it is both accurate and complete 359 .
[2017-03-21] MEDS ORDERED: LEVOFLOXACIN INJ 250 MG in PREMIX 1 EACH IV SCH (16:00)
--- NOTE | 2017-03-22 14:54 | Physician Query Form ---
CLICK EDIT DOCUMENT TO SELECT QUERY ANSWER --> OK --> SIGN Carol Sam RN Clinical Division Engineer W) [phone] (f) [phone] [email or web address] PROVIDERS: Make your selection(s) from the choices in EACH section by typing an "x" and enter comments in the comment section. Please use your independent medical judgment in providing your response. This request does not imply that any particular answer is desired or expected. CLINICAL INDICATORS: (Providers should not edit this section) Based on conflicting documentation of "NSTEMI". Heart catheterization report states "Severe [place] multivessel coronary artery disease. Her chest pain is atypical and other etiologies of her chest discomfort will be pursued". Troponin =0.163. Based on the above, could you clarify the appropriate diagnosis, if significant , that supports the above abnormalities and additional evaluation, monitoring, and/or treatment rendered: ( ) Pt. did have a NSTEMI ( ) Pt. did not have a NSTEMI ( x) Other, please specify: this should be answered by cardiology ( ) Clinically unable to determine COMMENTS: PLEASE ALSO DOCUMENT RESPONSE IN PROGRESS NOTES AND/OR DISCHARGE SUMMARY Use of terms such as suspected, likely, or probable (associated with a specific diagnosis that is being evaluated, monitored, or treated as if it exists) are acceptable and can be restated in the discharge summary if not ruled out. MTDD
--- NOTE | 2017-03-22 14:57 | Physician Query Form ---
CLICK EDIT DOCUMENT TO SELECT QUERY ANSWER --> OK --> SIGN Carol Sam RN Clinical Sand Polisher W) [phone] (f) [phone] [email or web address] PROVIDERS: Make your selection(s) from the choices in EACH section by typing an "x" and enter comments in the comment section. Please use your independent medical judgment in providing your response. This request does not imply that any particular answer is desired or expected. CLINICAL INDICATORS: (Providers should not edit this section) Based on documentation of "history of CHF", heart catheterization report states Ejection fraction is estimated to be in the 60-65% range. Pt. treated with Lasix as home medication. Please provide further specificity regarding CHF. TYPE: ( ) Systolic (HFrEF - heart failure with reduced systolic function/EF) ( ) Diastolic (HFpEF - heart failure with preserved systolic function/EF) ( ) Combined Systolic/Diastolic ( ) Other, please specify: ( ) Clinically unable to determine ( x) The patient does NOT have CHF COMMENTS: PLEASE ALSO DOCUMENT RESPONSE IN PROGRESS NOTES AND/OR DISCHARGE SUMMARY Use of terms such as suspected, likely, or probable (associated with a specific diagnosis that is being evaluated, monitored, or treated as if it exists) are acceptable and can be restated in the discharge summary if not ruled out. MTDD
--- NOTE | 2017-03-22 16:16 | Physician Query Form ---
CLICK EDIT DOCUMENT TO SELECT QUERY ANSWER --> OK --> SIGN Craol Sam RN Clinical Paper Products Inspector W) [phone] (f) [phone] [email or web address] PROVIDERS: Make your selection(s) from the choices in EACH section by typing an "x" and enter comments in the comment section. Please use your independent medical judgment in providing your response. This request does not imply that any particular answer is desired or expected. CLINICAL INDICATORS: (Providers should not edit this section) There is conflicting documentation of "NSTEMI". Heart catheterization report states "Severe [place] multivessel coronary artery disease. Her chest pain is atypical and other etiologies of her chest discomfort will be pursued". Troponin =0.163. As the attending physician, can you please clarify the diagnosis of NSTEMI. Based on the above, could you clarify the appropriate diagnosis, if significant , that supports the above abnormalities and additional evaluation, monitoring, and/or treatment rendered: ( ) Pt. did have a NSTEMI (x ) Pt. did not have a NSTEMI, these questions are better answered by CARDIOLOGY ( ) Other, please specify: ( ) Clinically unable to determine COMMENTS: PLEASE ALSO DOCUMENT RESPONSE IN PROGRESS NOTES AND/OR DISCHARGE SUMMARY Use of terms such as suspected, likely, or probable (associated with a specific diagnosis that is being evaluated, monitored, or treated as if it exists) are acceptable and can be restated in the discharge summary if not ruled out. MTDD
== END 2017-03-21 15:20 | disposition home or self-care (01) | DRG 287 ==
LOC: EDBD → EDUNIT# → N.ED 23:43 → SUATTDRO 03-18 00:55 → N.EDINP 03-18 00:55 → N.TELES 03-18 01:29
PROVIDERS: ADMIT Internal Medicine; ATTEND Internal Medicine

== ENCOUNTER 2017-07-11 17:12 | Inpatient (IN) ==
[2017-07-11] MEDS ORDERED: ONDANSETRON 4 MG/2 ML VIAL IV STA ×2 (17:26→20:31)
[2017-07-11] MEDS ORDERED: ENOXAPARIN 100 MG/ML SYRINGE SUBCUT STA (17:33)
[2017-07-11] MEDS ORDERED: NITROGLYCERIN 2% OINT 1 INCH/GM PACK TOP STA (17:33)
[2017-07-11] MEDS ORDERED: NITROGLYCERIN SL 0.4 MG TABLET SL PRN (17:33)
[2017-07-11] MEDS ORDERED: ONDANSETRON 4 MG/2 ML VIAL ONE ×2 (17:34→20:33)
[2017-07-11] MEDS ORDERED: MORPHINE 2 MG/1 ML SYRINGE IV STA ×2 (17:35→20:31)
[2017-07-11] MEDS ORDERED: ENOXAPARIN 100 MG/ML SYRINGE SUBCUT ONE (17:35)
[2017-07-11] MEDS ORDERED: NITROGLYCERIN 2% OINT 1 INCH/GM PACK TOP ONE (17:35)
[2017-07-11] MEDS ORDERED: MORPHINE 2 MG/1 ML SYRINGE ONE ×3 (17:38→20:33)
[2017-07-11 18:20] LABS: Basophils % 0.3 % (0.0-0.8); Eosinophils # 0.1 10*3/uL (0.0-0.87); Eosinophils % 3.1 % (0.00-10.9); Hematocrit 30.6 VOL% (35.7-47.0); Hemoglobin 9.8 GM/DL (12.0-16.0); Immature Granulocytes % 0.3 %; Immature Granulocytes Absolute 0.01 #; Lymphocytes # 1.8 10*3/uL (1.4-4.0); Lymphocytes % 47.5 % (21.3-54.2); Mean Corpuscular Hemoglobin 26 PG (27-34); Mean Corpuscular Volume 81.2 FL (87-102); Mean Platelet Volume 9.9 FL (9.6-12.0); Monocytes # 0.3 10*3/uL (0.11-0.8); Monocytes % 8.7 % (1.7-12.7); Neutrophils # 1.5 10*3/uL (1.4-7.4); Neutrophils % 40.1 % (38.7-73.9); Platelet Count 277 T/CUMM (130-400); Red Blood Count 3.77 MC/CUMM (3.8-5.5); Red Cell Distribution Width 19.1 % (9.3-17.3); White Blood Count 3.8 T/CUMM (4-12)
[2017-07-11 19:18] LABS: Albumin 3.5 G/DL (3.4-5.0); Bilirubin,Total 0.4 MG/DL (0.2-1.0); Calcium 8.2 MG/DL (8.5-10.1); Osmolality,Calculated 274.8 MOS/KG (273-304); Potassium 4.2 MMOL/L (3.5-5.1); Total Protein 6.9 G/DL (6.4-8.3)
[2017-07-11 19:23] LABS: PT Patient Result 10.9 SECS; Partial Thromboplastin Time 29.6 SECS (0-40)
[2017-07-11] MEDS ORDERED: MAGNESIUM SULF RIDER 4 GM in PREMIX 1 EACH IV PRN (20:29)
[2017-07-11] MEDS ORDERED: DEXTROSE 50% 25 GM/50 ML VIAL IV PRN (20:29)
[2017-07-11] MEDS ORDERED: MAGNESIUM SULF RIDER 2 GM in PREMIX 1 EACH IV PRN (20:29)
[2017-07-11] MEDS ORDERED: ONDANSETRON 4 MG/2 ML VIAL IV PRN (20:29)
[2017-07-11] MEDS ORDERED: GLUCAGON 1 MG VIAL IM PRN (20:29)
[2017-07-11] MEDS: ATORVASTATIN 10 MG TABLET PO SCH (23:22)
[2017-07-11] MEDS: CARVEDILOL 12.5 MG TABLET PO SCH (23:22)
[2017-07-12] MEDS ORDERED: PNEUMOCOCCAL VACCINE (13 VALENT) 0.5 ML SYRINGE IM ONE (00:11)
[2017-07-12] MEDS: NITROGLYCERIN 2% OINT 1 INCH/GM PACK TOP SCH ×2 (02:05→06:20)
[2017-07-12 09:00] LABS: Troponin I Only 0.127 NG/ML (0.00-0.045)
[2017-07-12] MEDS ORDERED: PANTOPRAZOLE 40 MG TABLET PO SCH (09:00)
[2017-07-12] MEDS ORDERED: ALBUTEROL/IPRATROPIUM 3 ML NEB RESP TX PRN (09:20)
[2017-07-12] MEDS ORDERED: DEXTROSE 50% 25 GM/50 ML VIAL IV PRN (09:20)
[2017-07-12] MEDS ORDERED: GLUCAGON 1 MG VIAL IM PRN (09:20)
[2017-07-12] MEDS ORDERED: diphenhydrAMINE CAP 25 MG CAPSULE PO PRN (09:39)
[2017-07-12] MEDS ORDERED: ONDANSETRON 4 MG/2 ML VIAL IV PRN (09:39)
[2017-07-12] MEDS ORDERED: ACETAMINOPHEN 325 MG TABLET PO PRN (09:39)
[2017-07-12] MEDS: SENNA 8.6 MG TABLET PO SCH (10:27)
[2017-07-12] MEDS: LORATADINE 10 MG TABLET PO SCH (10:27)
[2017-07-12] MEDS: PANTOPRAZOLE 40 MG TABLET PO SCH ×2 (10:27→22:14)
[2017-07-12] MEDS: FUROSEMIDE 40 MG TABLET PO SCH (10:27)
[2017-07-12] MEDS: TOPIRAMATE 25 MG TABLET PO SCH ×2 (10:27→22:14)
[2017-07-12] MEDS: RANOLAZINE 500 MG TABLET PO SCH ×2 (10:28→22:13)
[2017-07-12] MEDS: POTASSIUM CHLORIDE 20 MEQ TABLET PO SCH ×2 (10:28→22:13)
[2017-07-12] MEDS: glipiZIDE 5 MG TABLET PO SCH (10:28)
[2017-07-12] MEDS: CILOSTAZOL 50 MG TABLET PO SCH ×2 (10:28→22:13)
[2017-07-12] MEDS: ISOSORBIDE MONONITRATE 30 MG TABLET PO SCH (10:28)
[2017-07-12] MEDS: OMEGA 3 ACID ETHYL ESTERS 1 GM CAPSULE PO SCH (10:29)
[2017-07-12] MEDS: AZELASTINE NASAL 137 MCG/SPRAY 30 ML BOTTLE BOTH NARES SCH ×2 (10:29→23:10)
[2017-07-12] MEDS: DULoxetine 30 MG CAPSULE PO SCH (10:29)
[2017-07-12] MEDS: ASPIRIN EC 81 MG TABLET PO SCH (10:31)
[2017-07-12] MEDS: CARVEDILOL 12.5 MG TABLET PO SCH ×2 (10:31→17:21)
[2017-07-12] MEDS: RANITIDINE HCL 300 MG PO SCH ×2 (10:31→22:15)
[2017-07-12] MEDS: INSULIN LISPRO 100 UNIT/ML SUBCUT SCH ×3 (12:37→23:09)
[2017-07-12] MEDS ORDERED: ZALEPLON 5 MG CAPSULE PO PRN (17:13)
[2017-07-12] MEDS ORDERED: DOCUSATE SODIUM 100 MG CAPSULE PO PRN (17:13)
[2017-07-12] MEDS ORDERED: guaiFENesin 200 MG/10 ML UDCUP PO PRN (17:27)
[2017-07-12] MEDS: ATORVASTATIN 10 MG TABLET PO SCH (22:13)
[2017-07-12] MEDS: TEMAZEPAM 15 MG CAPSULE PO SCH (22:14)
[2017-07-13 04:40] LABS: Basophils % 0.2 % (0.0-0.8); Eosinophils # 0.2 10*3/uL (0.0-0.87); Eosinophils % 4.3 % (0.00-10.9); Hematocrit 27.4 VOL% (35.7-47.0); Hemoglobin 8.6 GM/DL (12.0-16.0); Immature Granulocytes % 0.2 %; Immature Granulocytes Absolute 0.01 #; Lymphocytes # 2.1 10*3/uL (1.4-4.0); Lymphocytes % 49.2 % (21.3-54.2); Mean Corpuscular HGB Conc 31.4 GM/DL (32-36); Mean Corpuscular Hemoglobin 26 PG (27-34); Mean Corpuscular Volume 81.3 FL (87-102); Mean Platelet Volume 9.3 FL (9.6-12.0); Monocytes # 0.4 10*3/uL (0.11-0.8); Monocytes % 8.6 % (1.7-12.7); Neutrophils # 1.6 10*3/uL (1.4-7.4); Neutrophils % 37.5 % (38.7-73.9); Platelet Count 249 T/CUMM (130-400); Red Blood Count 3.37 MC/CUMM (3.8-5.5); Red Cell Distribution Width 18.7 % (9.3-17.3); White Blood Count 4.2 T/CUMM (4-12)
[2017-07-13 05:14] LABS: Calcium 8.2 MG/DL (8.5-10.1); Magnesium 2.1 MG/DL (1.8-2.4); Osmolality,Calculated 278.5 MOS/KG (273-304); Potassium 4.3 MMOL/L (3.5-5.1); VLDL CHOLESTEROL 11.2 MG/DL
[2017-07-13 05:47] LABS: Burr Cells Slight; Elliptocytes Few; Eosinophils 2 % (0-10); Giant Platelets Few; Hypochromasia 1+; Lymphocytes 45 % (20-55); Platelet Estimate Adequate; Segmented Neutrophils 44 % (50-85); Total Cells Counted 100
[2017-07-13 05:48] LABS: Microcytosis Slight
[2017-07-13] MEDS: INSULIN LISPRO 100 UNIT/ML SUBCUT SCH ×4 (08:17→22:16)
[2017-07-13] MEDS: SENNA 8.6 MG TABLET PO SCH (08:37)
[2017-07-13] MEDS: FUROSEMIDE 40 MG TABLET PO SCH (08:38)
[2017-07-13] MEDS: LORATADINE 10 MG TABLET PO SCH (08:38)
[2017-07-13] MEDS: PANTOPRAZOLE 40 MG TABLET PO SCH ×2 (08:38→21:24)
[2017-07-13] MEDS: CILOSTAZOL 50 MG TABLET PO SCH ×2 (08:38→21:24)
[2017-07-13] MEDS: ASPIRIN EC 81 MG TABLET PO SCH (08:39)
[2017-07-13] MEDS: ISOSORBIDE MONONITRATE 30 MG TABLET PO SCH (08:39)
[2017-07-13] MEDS: DULoxetine 30 MG CAPSULE PO SCH (08:39)
[2017-07-13] MEDS: CARVEDILOL 12.5 MG TABLET PO SCH ×2 (08:39→18:00)
[2017-07-13] MEDS: POTASSIUM CHLORIDE 20 MEQ TABLET PO SCH ×2 (08:40→21:23)
[2017-07-13] MEDS: glipiZIDE 5 MG TABLET PO SCH (08:40)
[2017-07-13] MEDS: RANOLAZINE 500 MG TABLET PO SCH ×2 (08:40→21:24)
[2017-07-13] MEDS: TOPIRAMATE 25 MG TABLET PO SCH ×2 (08:40→21:24)
[2017-07-13] MEDS: OMEGA 3 ACID ETHYL ESTERS 1 GM CAPSULE PO SCH (08:41)
[2017-07-13] MEDS: RANITIDINE HCL 300 MG PO SCH ×2 (08:41→21:25)
[2017-07-13] MEDS: AZELASTINE NASAL 137 MCG/SPRAY 30 ML BOTTLE BOTH NARES SCH ×2 (08:42→21:25)
[2017-07-13] MEDS ORDERED: ISOSORBIDE MONONITRATE 30 MG TABLET PO SCH (21:00)
[2017-07-13] MEDS: TEMAZEPAM 15 MG CAPSULE PO SCH (21:24)
[2017-07-13] MEDS: ATORVASTATIN 10 MG TABLET PO SCH (21:24)
[2017-07-14 05:41] LABS: Basophils % 0.5 % (0.0-0.8); Eosinophils # 0.3 10*3/uL (0.0-0.87); Eosinophils % 6.3 % (0.00-10.9); Hematocrit 27.2 VOL% (35.7-47.0); Hemoglobin 8.5 GM/DL (12.0-16.0); Immature Granulocytes % 0.3 %; Immature Granulocytes Absolute 0.01 #; Lymphocytes % 49.3 % (21.3-54.2); Mean Corpuscular HGB Conc 31.3 GM/DL (32-36); Mean Corpuscular Hemoglobin 25 PG (27-34); Mean Corpuscular Volume 81.4 FL (87-102); Mean Platelet Volume 9.8 FL (9.6-12.0); Monocytes # 0.3 10*3/uL (0.11-0.8); Monocytes % 7.5 % (1.7-12.7); Neutrophils # 1.5 10*3/uL (1.4-7.4); Neutrophils % 36.1 % (38.7-73.9); Platelet Count 265 T/CUMM (130-400); Red Blood Count 3.34 MC/CUMM (3.8-5.5); Red Cell Distribution Width 18.6 % (9.3-17.3)
[2017-07-14 06:09] LABS: Eosinophils 4 % (0-10); Lymphocytes 44 % (20-55); Platelet Estimate Adequate; Segmented Neutrophils 39 % (50-85); Total Cells Counted 100
[2017-07-14 06:10] LABS: Burr Cells Slight; Giant Platelets Few; Hypochromasia 1+; Microcytosis Slight; Ovalocytes Slight
[2017-07-14 06:23] LABS: Calcium 7.9 MG/DL (8.5-10.1); Magnesium 2.3 MG/DL (1.8-2.4); Osmolality,Calculated 279.4 MOS/KG (273-304); Potassium 4.6 MMOL/L (3.5-5.1)
[2017-07-14] MEDS: CILOSTAZOL 50 MG TABLET PO SCH (09:24)
[2017-07-14] MEDS: RANOLAZINE 500 MG TABLET PO SCH (09:24)
[2017-07-14] MEDS: OMEGA 3 ACID ETHYL ESTERS 1 GM CAPSULE PO SCH (09:24)
[2017-07-14] MEDS: DULoxetine 30 MG CAPSULE PO SCH (09:24)
[2017-07-14] MEDS: FUROSEMIDE 40 MG TABLET PO SCH (09:24)
[2017-07-14] MEDS: LORATADINE 10 MG TABLET PO SCH (09:25)
[2017-07-14] MEDS: PANTOPRAZOLE 40 MG TABLET PO SCH (09:25)
[2017-07-14] MEDS: SENNA 8.6 MG TABLET PO SCH (09:25)
[2017-07-14] MEDS: ASPIRIN EC 81 MG TABLET PO SCH (09:25)
[2017-07-14] MEDS: TOPIRAMATE 25 MG TABLET PO SCH (09:25)
[2017-07-14] MEDS: POTASSIUM CHLORIDE 20 MEQ TABLET PO SCH (09:25)
[2017-07-14] MEDS: glipiZIDE 5 MG TABLET PO SCH (09:26)
[2017-07-14] MEDS: CARVEDILOL 12.5 MG TABLET PO SCH (09:26)
[2017-07-14] MEDS: RANITIDINE HCL 300 MG PO SCH (09:27)
[2017-07-14] MEDS: INSULIN LISPRO 100 UNIT/ML SUBCUT SCH ×2 (09:27→12:16)
[2017-07-14] MEDS: AZELASTINE NASAL 137 MCG/SPRAY 30 ML BOTTLE BOTH NARES SCH (09:27)
[2017-07-14] MEDS ORDERED: APIXABAN 5 MG TABLET PO SCH (09:30)
[2017-07-14] MEDS ORDERED: ASCORBIC ACID 500 MG TABLET PO SCH (11:00)
[2017-07-14 12:10] VITALS: BP 135/72
== END 2017-07-14 14:04 | disposition home or self-care (01) | DRG 303 ==
LOC: EDUNIT# → N.ED 17:12 → N.EDINP 20:29 → N.TELEN 20:56
PROVIDERS: ADMIT Internal Medicine Cardiovascular Disease; ATTEND Internal Medicine Cardiovascular Disease

== ENCOUNTER 2017-12-23 21:04 | Inpatient (IN) ==
[2017-12-23] MEDS ORDERED: ASPIRIN 325 MG TABLET PO STA (21:48)
[2017-12-23] MEDS ORDERED: MORPHINE 4 MG/1 ML VIAL IV STA (21:48)
[2017-12-23] MEDS ORDERED: ONDANSETRON 4 MG/2 ML VIAL IV STA (21:48)
[2017-12-23] MEDS ORDERED: METOPROLOL TARTRATE 5 MG/5 ML VIAL IV STA (21:48)
[2017-12-23 21:59] LABS: Basophils % 0.5 % (0.0-0.8); Eosinophils # 0.2 10*3/uL (0.0-0.87); Eosinophils % 4.3 % (0.00-10.9); Hematocrit 30.1 VOL% (35.7-47.0); Hemoglobin 9.3 GM/DL (12.0-16.0); Immature Granulocytes % 0.3 %; Immature Granulocytes Absolute 0.01 #; Lymphocytes % 49.2 % (21.3-54.2); Mean Corpuscular HGB Conc 30.9 GM/DL (32-36); Mean Corpuscular Hemoglobin 26 PG (27-34); Mean Corpuscular Volume 85.5 FL (87-102); Mean Platelet Volume 10.4 FL (9.6-12.0); Monocytes # 0.3 10*3/uL (0.11-0.8); Monocytes % 7.5 % (1.7-12.7); Neutrophils # 1.5 10*3/uL (1.4-7.4); Neutrophils % 38.2 % (38.7-73.9); Platelet Count 200 T/CUMM (130-400); Red Blood Count 3.52 MC/CUMM (3.8-5.5); Red Cell Distribution Width 18.4 % (9.3-17.3)
[2017-12-23 22:08] LABS: PT Patient Result 10.4 SECS; Partial Thromboplastin Time 27.1 SECS (0-40)
[2017-12-23 22:11] LABS: Alanine Aminotransferase 15 U/L (13-56); Albumin 3.5 G/DL (3.4-5.0); Alkaline Phosphatase 69 U/L (45-117); Aspartate Amino Transferase 16 U/L (0-37); Bilirubin,Total < 0.39 MG/DL (0.2-1.0); Blood Urea Nitrogen 22 MG/DL (7-18); Calcium 8.2 MG/DL (8.5-10.1); Glucose 157 MG/DL (74-106); Potassium 3.6 MMOL/L (3.5-5.1); Sodium 143 MMOL/L (136-145); Total Protein 6.2 G/DL (6.4-8.3)
[2017-12-23] MEDS ORDERED: ONDANSETRON 4 MG/2 ML VIAL ONE (22:21)
[2017-12-23] MEDS ORDERED: MORPHINE 10 MG/1 ML VIAL ONE (22:22)
[2017-12-23] MEDS ORDERED: METOPROLOL TARTRATE 5 MG/5 ML VIAL IV ONE (22:23)
[2017-12-23] MEDS ORDERED: NITROGLYCERIN SL 0.4 MG TABLET SL ONE (22:23)
[2017-12-23] MEDS: NITROGLYCERIN SL 0.4 MG TABLET SL PRN ×3 (22:27→22:51)
[2017-12-23 22:31] LABS: Anisocytosis 1+; Band Neutrophils 2 % (0-10); Eosinophils 2 % (0-10); Lymphocytes 47 % (20-55); Segmented Neutrophils 43 % (50-85); Total Cells Counted 100
[2017-12-23 22:32] LABS: Acanthocytes 1+; Poikilocytosis 2+; Target Cells Slight
[2017-12-23] MEDS ORDERED: LORazepam 2 MG/1 ML VIAL IV STA (23:46)
[2017-12-24] MEDS: NITROGLYCERIN SL 0.4 MG TABLET SL PRN ×3 (03:17→03:27)
[2017-12-24] MEDS ORDERED: ZOLPIDEM 5 MG TABLET PO PRN (04:45)
[2017-12-24] MEDS: CLORAZEPATE 7.5 MG TABLET PO PRN ×2 (06:11→21:16)
[2017-12-24] MEDS: ENOXAPARIN 100 MG/ML SYRINGE SUBCUT SCH ×2 (06:11→18:25)
[2017-12-24] MEDS: MORPHINE 4 MG/1 ML VIAL IV PRN (06:11)
[2017-12-24] MEDS ORDERED: ATORVASTATIN 10 MG TABLET PO SCH (09:00)
[2017-12-24] MEDS: RANOLAZINE 500 MG TABLET PO SCH ×2 (10:17→21:16)
[2017-12-24] MEDS: DULoxetine 30 MG CAPSULE PO SCH (10:17)
[2017-12-24] MEDS: CILOSTAZOL 50 MG TABLET PO SCH ×2 (10:17→21:16)
[2017-12-24] MEDS: FAMOTIDINE 20 MG TABLET PO SCH (10:17)
[2017-12-24] MEDS: LORATADINE 10 MG TABLET PO SCH (10:17)
[2017-12-24] MEDS: OMEGA 3 ACID ETHYL ESTERS 1 GM CAPSULE PO SCH ×2 (10:18→21:16)
[2017-12-24] MEDS: PANTOPRAZOLE 40 MG TABLET PO SCH ×2 (10:18→21:16)
[2017-12-24] MEDS: ASCORBIC ACID 500 MG TABLET PO SCH ×2 (10:18→21:16)
[2017-12-24] MEDS: glipiZIDE 5 MG TABLET PO SCH (10:18)
[2017-12-24] MEDS: SENNA 8.6 MG TABLET PO SCH (10:19)
[2017-12-24] MEDS: TOPIRAMATE 25 MG TABLET PO SCH ×2 (10:19→21:16)
[2017-12-24] MEDS: CARVEDILOL 12.5 MG TABLET PO SCH (10:19)
[2017-12-24] MEDS: ISOSORBIDE MONONITRATE 30 MG TABLET PO SCH (10:19)
[2017-12-24] MEDS: POTASSIUM CHLORIDE 20 MEQ TABLET PO SCH ×2 (10:20→21:16)
[2017-12-24] MEDS: FUROSEMIDE 40 MG TABLET PO SCH (10:20)
[2017-12-24] MEDS: ASPIRIN EC 81 MG TABLET PO SCH (10:20)
[2017-12-24] MEDS ORDERED: AMIODARONE INJ 150 MG in DEXTROSE 5% 100 ML IV ONE (11:40)
[2017-12-24] MEDS ORDERED: MAGNESIUM SULF RIDER 2 GM in PREMIX 1 EACH IV PRN (11:41)
[2017-12-24] MEDS ORDERED: POTASSIUM CHLORIDE RIDER 10 MEQ in PREMIX 1 EACH IV PRN (11:41)
[2017-12-24] MEDS: AMIODARONE INJ 450 MG in DEXTROSE 5% 241 ML IV SCH (13:19)
[2017-12-24] MEDS: ACETAMINOPHEN 325 MG TABLET PO PRN (13:57)
[2017-12-24] MEDS: SODIUM CHLORIDE 0.9% 1,000 ML IV SCH ×2 (18:25→21:15)
[2017-12-25] MEDS: AMIODARONE INJ 450 MG in DEXTROSE 5% 241 ML IV SCH ×3 (01:33→17:18)
[2017-12-25] MEDS: MORPHINE 4 MG/1 ML VIAL IV PRN ×3 (01:53→20:19)
[2017-12-25] MEDS: SODIUM CHLORIDE 0.9% 1,000 ML IV SCH ×4 (01:53→22:20)
[2017-12-25 04:53] LABS: Calcium 8.1 MG/DL (8.5-10.1); Potassium 4.1 MMOL/L (3.5-5.1)
[2017-12-25] MEDS ORDERED: DIAZEPAM 5 MG TABLET PO ONE (06:00)
[2017-12-25] MEDS ORDERED: diphenhydrAMINE CAP 25 MG CAPSULE PO ONE (06:00)
[2017-12-25] MEDS: ENOXAPARIN 100 MG/ML SYRINGE SUBCUT SCH (06:32)
[2017-12-25] MEDS ORDERED: HEPARIN/NACL 0.9% 2 UNITS/ML 1,000 ML IV ONE (07:25)
[2017-12-25] MEDS: RANOLAZINE 500 MG TABLET PO SCH ×3 (07:46→22:21)
[2017-12-25] MEDS: ASPIRIN EC 81 MG TABLET PO SCH ×2 (07:47→10:01)
[2017-12-25] MEDS: FAMOTIDINE 20 MG TABLET PO SCH ×2 (07:47→10:01)
[2017-12-25] MEDS: CARVEDILOL 12.5 MG TABLET PO SCH ×2 (07:47→10:01)
[2017-12-25] MEDS: ISOSORBIDE MONONITRATE 30 MG TABLET PO SCH ×2 (07:47→10:01)
[2017-12-25] MEDS ORDERED: HYDROmorphone 2 MG/1 ML VIAL ONE ×2 (08:28→08:56)
[2017-12-25] MEDS ORDERED: MIDAZOLAM 2 MG/2 ML VIAL ONE ×2 (08:29→08:56)
[2017-12-25] MEDS ORDERED: ONDANSETRON 4 MG/2 ML VIAL IV PRN (10:11)
[2017-12-25] MEDS: glipiZIDE 5 MG TABLET PO SCH (13:24)
[2017-12-25] MEDS: FUROSEMIDE 40 MG TABLET PO SCH (13:24)
[2017-12-25] MEDS: CILOSTAZOL 50 MG TABLET PO SCH ×2 (13:31→23:11)
[2017-12-25] MEDS: PANTOPRAZOLE 40 MG TABLET PO SCH ×2 (13:32→22:21)
[2017-12-25] MEDS: SENNA 8.6 MG TABLET PO SCH (13:32)
[2017-12-25] MEDS: POTASSIUM CHLORIDE 20 MEQ TABLET PO SCH ×2 (13:32→22:22)
[2017-12-25] MEDS: OMEGA 3 ACID ETHYL ESTERS 1 GM CAPSULE PO SCH ×2 (13:32→22:21)
[2017-12-25] MEDS: TOPIRAMATE 25 MG TABLET PO SCH ×2 (13:32→22:21)
[2017-12-25] MEDS: LORATADINE 10 MG TABLET PO SCH (13:32)
[2017-12-25] MEDS: ASCORBIC ACID 500 MG TABLET PO SCH ×2 (13:32→22:22)
[2017-12-25] MEDS: DULoxetine 30 MG CAPSULE PO SCH (13:32)
[2017-12-25] MEDS: ATORVASTATIN 10 MG TABLET PO SCH (22:21)
[2017-12-25] MEDS: ZALEPLON 5 MG CAPSULE PO PRN (22:21)
[2017-12-25] MEDS: CLORAZEPATE 7.5 MG TABLET PO PRN (22:21)
[2017-12-25] MEDS ORDERED: ENOXAPARIN 100 MG/ML SYRINGE SUBCUT SCH (23:30)
[2017-12-25 23:44] LABS: Basophils % 0.4 % (0.0-0.8); Eosinophils # 0.2 10*3/uL (0.0-0.87); Eosinophils % 4.3 % (0.00-10.9); Hematocrit 24.3 VOL% (35.7-47.0); Immature Granulocytes % 0.4 %; Immature Granulocytes Absolute 0.02 #; Lymphocytes # 1.5 10*3/uL (1.4-4.0); Lymphocytes % 34.5 % (21.3-54.2); Mean Corpuscular HGB Conc 29.6 GM/DL (32-36); Mean Corpuscular Hemoglobin 27 PG (27-34); Mean Corpuscular Volume 89.3 FL (87-102); Monocytes # 0.4 10*3/uL (0.11-0.8); Monocytes % 9.9 % (1.7-12.7); Neutrophils # 2.3 10*3/uL (1.4-7.4); Neutrophils % 50.5 % (38.7-73.9); Platelet Count 156 T/CUMM (130-400); Red Blood Count 2.72 MC/CUMM (3.8-5.5); Red Cell Distribution Width 18.7 % (9.3-17.3); White Blood Count 4.5 T/CUMM (4-12)
[2017-12-25 23:49] LABS: Hemoglobin 7.2 GM/DL (12.0-16.0)
[2017-12-26] MEDS: MORPHINE 4 MG/1 ML VIAL IV PRN ×3 (00:29→09:53)
[2017-12-26] MEDS ORDERED: SODIUM CHLORIDE 0.9% 1,000 ML IV PRN (00:42)
[2017-12-26] MEDS: SODIUM CHLORIDE 0.9% 1,000 ML IV SCH ×4 (05:02→22:24)
[2017-12-26] MEDS: ASPIRIN EC 81 MG TABLET PO SCH (08:21)
[2017-12-26] MEDS: glipiZIDE 5 MG TABLET PO SCH (08:21)
[2017-12-26] MEDS: RANOLAZINE 500 MG TABLET PO SCH ×2 (08:23→22:24)
[2017-12-26] MEDS: OMEGA 3 ACID ETHYL ESTERS 1 GM CAPSULE PO SCH ×2 (08:23→22:24)
[2017-12-26] MEDS: CILOSTAZOL 50 MG TABLET PO SCH ×2 (08:23→22:24)
[2017-12-26] MEDS: POTASSIUM CHLORIDE 20 MEQ TABLET PO SCH ×2 (08:24→22:23)
[2017-12-26] MEDS: ISOSORBIDE MONONITRATE 30 MG TABLET PO SCH (08:24)
[2017-12-26] MEDS: SENNA 8.6 MG TABLET PO SCH (08:24)
[2017-12-26] MEDS: CARVEDILOL 12.5 MG TABLET PO SCH (08:24)
[2017-12-26] MEDS: PANTOPRAZOLE 40 MG TABLET PO SCH ×2 (08:24→22:23)
[2017-12-26] MEDS: FAMOTIDINE 20 MG TABLET PO SCH (08:24)
[2017-12-26] MEDS: ASCORBIC ACID 500 MG TABLET PO SCH ×2 (08:24→22:24)
[2017-12-26] MEDS: FUROSEMIDE 40 MG TABLET PO SCH (08:25)
[2017-12-26] MEDS: DULoxetine 30 MG CAPSULE PO SCH (08:25)
[2017-12-26] MEDS: LORATADINE 10 MG TABLET PO SCH (08:25)
[2017-12-26] MEDS: TOPIRAMATE 25 MG TABLET PO SCH ×2 (08:25→22:24)
[2017-12-26] MEDS ORDERED: ENOXAPARIN 100 MG/ML SYRINGE SUBCUT SCH (11:00)
[2017-12-26] MEDS: AMIODARONE INJ 450 MG in DEXTROSE 5% 241 ML IV SCH (11:09)
[2017-12-26] MEDS ORDERED: HEPARIN 5,000 UNIT/1 ML VIAL ONE (11:52)
[2017-12-26] MEDS ORDERED: VANCOMYCIN INJ 1,000 MG in SODIUM CHLORIDE 0.9% 250 ML IV ONE (12:00)
[2017-12-26 13:19] LABS: Hematocrit 27.4 VOL% (35.7-47.0); Hemoglobin 8.6 GM/DL (12.0-16.0)
[2017-12-26] MEDS ORDERED: ETOMIDATE 40 MG/20 ML VIAL IV ONE (13:43)
[2017-12-26] MEDS ORDERED: MIDAZOLAM 2 MG/2 ML VIAL ONE (13:43)
[2017-12-26] MEDS ORDERED: GLYCOPYRROLATE 0.4 MG/2 ML VIAL ONE (13:43)
[2017-12-26] MEDS ORDERED: SEVOFLURANE 1 UNIT/15 MINUTE INH ONE (13:43)
[2017-12-26] MEDS ORDERED: ONDANSETRON 4 MG/2 ML VIAL ONE (13:43)
[2017-12-26] MEDS ORDERED: fentaNYL 100 MCG/2 ML VIAL ONE (13:43)
[2017-12-26] MEDS ORDERED: NEOSTIGMINE 10 MG/10 ML VIAL ONE (13:44)
[2017-12-26] MEDS ORDERED: ROCURONIUM 100 MG/10 ML VIAL IV ONE (13:44)
[2017-12-26] MEDS ORDERED: PHENYLEPHRINE 1 MG/10 ML SYRINGE IV ONE (13:44)
[2017-12-26] MEDS: CLORAZEPATE 7.5 MG TABLET PO PRN (22:23)
[2017-12-26] MEDS: ATORVASTATIN 10 MG TABLET PO SCH (22:23)
[2017-12-26] MEDS: ZALEPLON 5 MG CAPSULE PO PRN (22:23)
[2017-12-27] MEDS: AMIODARONE INJ 450 MG in DEXTROSE 5% 241 ML IV SCH ×2 (03:18→17:18)
[2017-12-27] MEDS ORDERED: MAGNESIUM HYDROXIDE SUSP 30 ML UDCUP PO PRN (05:29)
[2017-12-27] MEDS: SODIUM CHLORIDE 0.9% 1,000 ML IV SCH ×2 (05:32→13:21)
[2017-12-27] MEDS ORDERED: LACTULOSE 20 GM/30 ML UDCUP PO PRN (07:54)
[2017-12-27 08:21] LABS: Basophils % 0.1 % (0.0-0.8); Eosinophils % 0.1 % (0.00-10.9); Hematocrit 29.3 VOL% (35.7-47.0); Hemoglobin 9.5 GM/DL (12.0-16.0); Immature Granulocytes % 0.8 %; Immature Granulocytes Absolute 0.06 #; Lymphocytes # 0.8 10*3/uL (1.4-4.0); Lymphocytes % 11.6 % (21.3-54.2); Mean Corpuscular HGB Conc 32.4 GM/DL (32-36); Mean Corpuscular Hemoglobin 28 PG (27-34); Mean Corpuscular Volume 84.7 FL (87-102); Mean Platelet Volume 11.1 FL (9.6-12.0); Monocytes # 0.7 10*3/uL (0.11-0.8); Monocytes % 9.5 % (1.7-12.7); Neutrophils # 5.6 10*3/uL (1.4-7.4); Neutrophils % 77.9 % (38.7-73.9); Platelet Count 151 T/CUMM (130-400); Red Blood Count 3.46 MC/CUMM (3.8-5.5); Red Cell Distribution Width 18.1 % (9.3-17.3); White Blood Count 7.2 T/CUMM (4-12)
[2017-12-27] MEDS ORDERED: MAGNESIUM CITRATE 300 ML BOTTLE PO PRN (08:55)
[2017-12-27 08:56] LABS: Calcium 8.1 MG/DL (8.5-10.1); Osmolality,Calculated 280.7 MOS/KG (273-304); Potassium 4.5 MMOL/L (3.5-5.1)
[2017-12-27] MEDS: glipiZIDE 5 MG TABLET PO SCH (09:22)
[2017-12-27] MEDS: OMEGA 3 ACID ETHYL ESTERS 1 GM CAPSULE PO SCH ×2 (09:23→21:29)
[2017-12-27] MEDS: FAMOTIDINE 20 MG TABLET PO SCH (09:23)
[2017-12-27] MEDS: DULoxetine 30 MG CAPSULE PO SCH (09:23)
[2017-12-27] MEDS: RANOLAZINE 500 MG TABLET PO SCH ×2 (09:24→21:29)
[2017-12-27] MEDS: SENNA 8.6 MG TABLET PO SCH (09:24)
[2017-12-27] MEDS: LORATADINE 10 MG TABLET PO SCH (09:25)
[2017-12-27] MEDS: PANTOPRAZOLE 40 MG TABLET PO SCH ×2 (09:26→21:30)
[2017-12-27] MEDS: TOPIRAMATE 25 MG TABLET PO SCH ×2 (09:26→21:35)
[2017-12-27] MEDS: POTASSIUM CHLORIDE 20 MEQ TABLET PO SCH ×2 (09:26→21:30)
[2017-12-27] MEDS: ISOSORBIDE MONONITRATE 30 MG TABLET PO SCH (09:27)
[2017-12-27] MEDS: CARVEDILOL 25 MG TABLET PO SCH ×2 (09:27→21:29)
[2017-12-27] MEDS: ASCORBIC ACID 500 MG TABLET PO SCH ×2 (09:27→21:30)
[2017-12-27] MEDS: FUROSEMIDE 40 MG TABLET PO SCH (09:27)
[2017-12-27] MEDS: ASPIRIN EC 81 MG TABLET PO SCH (09:43)
[2017-12-27] MEDS: CILOSTAZOL 50 MG TABLET PO SCH ×2 (09:43→21:31)
[2017-12-27] MEDS: DOCUSATE SODIUM 100 MG CAPSULE PO SCH ×2 (18:10→21:30)
[2017-12-27] MEDS: ACETAMINOPHEN 325 MG TABLET PO PRN (21:30)
[2017-12-27] MEDS: ZALEPLON 5 MG CAPSULE PO PRN (21:30)
[2017-12-27] MEDS: AMIODARONE 200 MG TABLET PO SCH (21:30)
[2017-12-27] MEDS: ATORVASTATIN 10 MG TABLET PO SCH (21:30)
[2017-12-27] MEDS: CLORAZEPATE 7.5 MG TABLET PO PRN (21:30)
[2017-12-28] MEDS: MORPHINE 4 MG/1 ML VIAL IV PRN ×2 (05:04→21:37)
[2017-12-28 05:06] LABS: Basophils % 0.2 % (0.0-0.8); Eosinophils % 0.8 % (0.00-10.9); Hematocrit 23.7 VOL% (35.7-47.0); Hemoglobin 7.5 GM/DL (12.0-16.0); Immature Granulocytes % 0.4 %; Immature Granulocytes Absolute 0.02 #; Lymphocytes # 0.9 10*3/uL (1.4-4.0); Lymphocytes % 18.1 % (21.3-54.2); Mean Corpuscular HGB Conc 31.6 GM/DL (32-36); Mean Corpuscular Hemoglobin 27 PG (27-34); Mean Corpuscular Volume 85.9 FL (87-102); Mean Platelet Volume 10.8 FL (9.6-12.0); Monocytes # 0.6 10*3/uL (0.11-0.8); Monocytes % 12.2 % (1.7-12.7); Neutrophils # 3.5 10*3/uL (1.4-7.4); Neutrophils % 68.3 % (38.7-73.9); Platelet Count 122 T/CUMM (130-400); Red Blood Count 2.76 MC/CUMM (3.8-5.5); Red Cell Distribution Width 17.9 % (9.3-17.3); White Blood Count 5.2 T/CUMM (4-12)
[2017-12-28 05:29] LABS: Hypochromasia 1+; Lymphocytes 16 % (20-55); Ovalocytes Slight; Platelet Estimate Normal; Segmented Neutrophils 74 % (50-85); Total Cells Counted 100
[2017-12-28 05:37] LABS: Calcium 8.2 MG/DL (8.5-10.1); Osmolality,Calculated 277.5 MOS/KG (273-304); Potassium 4.8 MMOL/L (3.5-5.1)
[2017-12-28] MEDS: AMIODARONE INJ 450 MG in DEXTROSE 5% 241 ML IV SCH (05:43)
[2017-12-28] MEDS ORDERED: SODIUM CHLORIDE 0.9% 1,000 ML IV PRN ×2 (06:30→08:23)
[2017-12-28] MEDS: OMEGA 3 ACID ETHYL ESTERS 1 GM CAPSULE PO SCH ×2 (09:52→21:40)
[2017-12-28] MEDS: RANOLAZINE 500 MG TABLET PO SCH ×2 (09:53→21:28)
[2017-12-28] MEDS: FAMOTIDINE 20 MG TABLET PO SCH (09:54)
[2017-12-28] MEDS: SENNA 8.6 MG TABLET PO SCH (09:54)
[2017-12-28] MEDS: CARVEDILOL 25 MG TABLET PO SCH ×2 (09:54→21:36)
[2017-12-28] MEDS: AMIODARONE 200 MG TABLET PO SCH ×2 (09:54→21:36)
[2017-12-28] MEDS: PANTOPRAZOLE 40 MG TABLET PO SCH ×2 (09:54→21:36)
[2017-12-28] MEDS: ISOSORBIDE MONONITRATE 30 MG TABLET PO SCH (09:54)
[2017-12-28] MEDS: ACETAMINOPHEN 325 MG TABLET PO PRN (09:54)
[2017-12-28] MEDS: glipiZIDE 5 MG TABLET PO SCH (09:54)
[2017-12-28] MEDS: POTASSIUM CHLORIDE 20 MEQ TABLET PO SCH ×2 (09:54→21:28)
[2017-12-28] MEDS: CILOSTAZOL 50 MG TABLET PO SCH ×2 (09:55→21:35)
[2017-12-28] MEDS: DOCUSATE SODIUM 100 MG CAPSULE PO SCH ×2 (09:55→21:37)
[2017-12-28] MEDS: TOPIRAMATE 25 MG TABLET PO SCH ×2 (09:55→21:28)
[2017-12-28] MEDS: ASPIRIN EC 81 MG TABLET PO SCH (09:55)
[2017-12-28] MEDS: FUROSEMIDE 40 MG TABLET PO SCH (09:55)
[2017-12-28] MEDS: ASCORBIC ACID 500 MG TABLET PO SCH ×2 (09:55→21:36)
[2017-12-28] MEDS: LORATADINE 10 MG TABLET PO SCH (09:55)
[2017-12-28] MEDS: DULoxetine 30 MG CAPSULE PO SCH (10:01)
[2017-12-28 21:33] LABS: Hematocrit 29.1 VOL% (35.7-47.0); Hemoglobin 9.6 GM/DL (12.0-16.0)
[2017-12-28] MEDS: ATORVASTATIN 10 MG TABLET PO SCH (21:36)
[2017-12-28] MEDS: ZALEPLON 5 MG CAPSULE PO PRN (21:40)
[2017-12-29 06:17] LABS: Basophils % 0.4 % (0.0-0.8); Eosinophils # 0.2 10*3/uL (0.0-0.87); Eosinophils % 3.7 % (0.00-10.9); Hematocrit 27.2 VOL% (35.7-47.0); Hemoglobin 9.2 GM/DL (12.0-16.0); Immature Granulocytes % 0.4 %; Immature Granulocytes Absolute 0.02 #; Lymphocytes # 0.7 10*3/uL (1.4-4.0); Lymphocytes % 13.4 % (21.3-54.2); Mean Corpuscular HGB Conc 33.8 GM/DL (32-36); Mean Corpuscular Hemoglobin 29 PG (27-34); Mean Corpuscular Volume 84.5 FL (87-102); Mean Platelet Volume 9.8 FL (9.6-12.0); Monocytes # 0.6 10*3/uL (0.11-0.8); NRBC # 0.05 10*3/uL; Neutrophils # 3.6 10*3/uL (1.4-7.4); Neutrophils % 70.1 % (38.7-73.9); Platelet Count 129 T/CUMM (130-400); Red Blood Count 3.22 MC/CUMM (3.8-5.5); Red Cell Distribution Width 17.3 % (9.3-17.3); White Blood Count 5.1 T/CUMM (4-12)
[2017-12-29] MEDS: FAMOTIDINE 20 MG TABLET PO SCH (08:53)
[2017-12-29] MEDS: OMEGA 3 ACID ETHYL ESTERS 1 GM CAPSULE PO SCH ×2 (08:53→21:26)
[2017-12-29] MEDS: ASCORBIC ACID 500 MG TABLET PO SCH ×2 (08:54→22:08)
[2017-12-29] MEDS: DULoxetine 30 MG CAPSULE PO SCH (08:54)
[2017-12-29] MEDS: TOPIRAMATE 25 MG TABLET PO SCH ×2 (08:54→22:08)
[2017-12-29] MEDS: RANOLAZINE 500 MG TABLET PO SCH ×2 (08:54→21:26)
[2017-12-29] MEDS: CILOSTAZOL 50 MG TABLET PO SCH ×2 (08:54→21:26)
[2017-12-29] MEDS: ISOSORBIDE MONONITRATE 30 MG TABLET PO SCH (08:54)
[2017-12-29] MEDS: SENNA 8.6 MG TABLET PO SCH ×2 (08:54→09:00)
[2017-12-29] MEDS: POTASSIUM CHLORIDE 20 MEQ TABLET PO SCH ×2 (08:54→21:26)
[2017-12-29] MEDS: DOCUSATE SODIUM 100 MG CAPSULE PO SCH ×3 (08:54→21:26)
[2017-12-29] MEDS: glipiZIDE 5 MG TABLET PO SCH (08:54)
[2017-12-29] MEDS: LORATADINE 10 MG TABLET PO SCH (08:55)
[2017-12-29] MEDS: CARVEDILOL 25 MG TABLET PO SCH ×2 (08:55→21:26)
[2017-12-29] MEDS: PANTOPRAZOLE 40 MG TABLET PO SCH ×2 (08:55→21:26)
[2017-12-29] MEDS: FUROSEMIDE 40 MG TABLET PO SCH (08:55)
[2017-12-29] MEDS: AMIODARONE 200 MG TABLET PO SCH ×2 (08:55→21:26)
[2017-12-29] MEDS: ASPIRIN EC 81 MG TABLET PO SCH (08:55)
[2017-12-29] MEDS: ATORVASTATIN 10 MG TABLET PO SCH (21:26)
[2017-12-29] MEDS: ZALEPLON 5 MG CAPSULE PO PRN (21:30)
[2017-12-29] MEDS: MORPHINE 4 MG/1 ML VIAL IV PRN (22:12)
[2017-12-30] MEDS: MORPHINE 4 MG/1 ML VIAL IV PRN ×5 (02:33→21:07)
[2017-12-30 04:47] LABS: Basophils % 0.3 % (0.0-0.8); Eosinophils # 0.2 10*3/uL (0.0-0.87); Eosinophils % 5.9 % (0.00-10.9); Hematocrit 25.8 VOL% (35.7-47.0); Hemoglobin 8.5 GM/DL (12.0-16.0); Immature Granulocytes % 0.5 %; Immature Granulocytes Absolute 0.02 #; Lymphocytes # 1.1 10*3/uL (1.4-4.0); Lymphocytes % 27.2 % (21.3-54.2); Mean Corpuscular HGB Conc 32.9 GM/DL (32-36); Mean Corpuscular Hemoglobin 28 PG (27-34); Mean Corpuscular Volume 84.9 FL (87-102); Mean Platelet Volume 10.2 FL (9.6-12.0); Monocytes # 0.4 10*3/uL (0.11-0.8); Monocytes % 9.5 % (1.7-12.7); Neutrophils # 2.2 10*3/uL (1.4-7.4); Neutrophils % 56.6 % (38.7-73.9); Platelet Count 149 T/CUMM (130-400); Red Blood Count 3.04 MC/CUMM (3.8-5.5); Red Cell Distribution Width 17.9 % (9.3-17.3); White Blood Count 3.9 T/CUMM (4-12)
[2017-12-30 05:07] LABS: Calcium 7.8 MG/DL (8.5-10.1); Osmolality,Calculated 277.7 MOS/KG (273-304)
[2017-12-30] MEDS: DULoxetine 30 MG CAPSULE PO SCH (08:03)
[2017-12-30] MEDS: CILOSTAZOL 50 MG TABLET PO SCH ×2 (08:03→21:11)
[2017-12-30] MEDS: LORATADINE 10 MG TABLET PO SCH (08:03)
[2017-12-30] MEDS: CARVEDILOL 25 MG TABLET PO SCH ×2 (08:03→21:13)
[2017-12-30] MEDS: PANTOPRAZOLE 40 MG TABLET PO SCH ×2 (08:03→21:12)
[2017-12-30] MEDS: RANOLAZINE 500 MG TABLET PO SCH ×2 (08:03→21:09)
[2017-12-30] MEDS: OMEGA 3 ACID ETHYL ESTERS 1 GM CAPSULE PO SCH ×2 (08:03→21:09)
[2017-12-30] MEDS: FUROSEMIDE 40 MG TABLET PO SCH (08:03)
[2017-12-30] MEDS: FAMOTIDINE 20 MG TABLET PO SCH (08:03)
[2017-12-30] MEDS: TOPIRAMATE 25 MG TABLET PO SCH ×2 (08:04→21:13)
[2017-12-30] MEDS: ISOSORBIDE MONONITRATE 30 MG TABLET PO SCH (08:04)
[2017-12-30] MEDS: DOCUSATE SODIUM 100 MG CAPSULE PO SCH ×2 (08:04→21:10)
[2017-12-30] MEDS: ASPIRIN EC 81 MG TABLET PO SCH (08:04)
[2017-12-30] MEDS: ASCORBIC ACID 500 MG TABLET PO SCH ×2 (08:04→21:11)
[2017-12-30] MEDS: AMIODARONE 200 MG TABLET PO SCH ×2 (08:04→21:12)
[2017-12-30] MEDS: glipiZIDE 5 MG TABLET PO SCH (08:04)
[2017-12-30] MEDS: POTASSIUM CHLORIDE 20 MEQ TABLET PO SCH ×2 (08:05→21:12)
[2017-12-30] MEDS: SENNA 8.6 MG TABLET PO SCH (08:05)
[2017-12-30] MEDS: ZALEPLON 5 MG CAPSULE PO PRN (21:10)
[2017-12-30] MEDS: ATORVASTATIN 10 MG TABLET PO SCH (21:10)
[2017-12-30] MEDS: NITROGLYCERIN SL 0.4 MG TABLET SL PRN (23:49)
[2017-12-30] MEDS: CLORAZEPATE 7.5 MG TABLET PO PRN (23:55)
[2017-12-31 05:58] LABS: Basophils % 0.3 % (0.0-0.8); Eosinophils # 0.3 10*3/uL (0.0-0.87); Eosinophils % 7.8 % (0.00-10.9); Hematocrit 26.3 VOL% (35.7-47.0); Hemoglobin 8.6 GM/DL (12.0-16.0); Immature Granulocytes % 0.6 %; Immature Granulocytes Absolute 0.02 #; Lymphocytes # 0.9 10*3/uL (1.4-4.0); Lymphocytes % 26.1 % (21.3-54.2); Mean Corpuscular HGB Conc 32.7 GM/DL (32-36); Mean Corpuscular Hemoglobin 28 PG (27-34); Mean Corpuscular Volume 85.4 FL (87-102); Mean Platelet Volume 9.9 FL (9.6-12.0); Monocytes # 0.4 10*3/uL (0.11-0.8); Neutrophils % 55.2 % (38.7-73.9); Platelet Count 179 T/CUMM (130-400); Red Blood Count 3.08 MC/CUMM (3.8-5.5); Red Cell Distribution Width 17.7 % (9.3-17.3); White Blood Count 3.6 T/CUMM (4-12)
[2017-12-31 06:24] LABS: Calcium 8.4 MG/DL (8.5-10.1); Osmolality,Calculated 281.4 MOS/KG (273-304); Potassium 4.7 MMOL/L (3.5-5.1)
[2017-12-31] MEDS: CLORAZEPATE 7.5 MG TABLET PO PRN (08:25)
[2017-12-31] MEDS: CILOSTAZOL 50 MG TABLET PO SCH ×2 (08:25→22:40)
[2017-12-31] MEDS: DOCUSATE SODIUM 100 MG CAPSULE PO SCH ×2 (08:25→22:44)
[2017-12-31] MEDS: FAMOTIDINE 20 MG TABLET PO SCH (08:25)
[2017-12-31] MEDS: RANOLAZINE 500 MG TABLET PO SCH ×2 (08:25→22:41)
[2017-12-31] MEDS: OMEGA 3 ACID ETHYL ESTERS 1 GM CAPSULE PO SCH ×2 (08:25→22:41)
[2017-12-31] MEDS: DULoxetine 30 MG CAPSULE PO SCH (08:26)
[2017-12-31] MEDS: PANTOPRAZOLE 40 MG TABLET PO SCH ×2 (08:26→22:43)
[2017-12-31] MEDS: CARVEDILOL 25 MG TABLET PO SCH ×2 (08:26→22:44)
[2017-12-31] MEDS: ISOSORBIDE MONONITRATE 30 MG TABLET PO SCH (08:26)
[2017-12-31] MEDS: TOPIRAMATE 25 MG TABLET PO SCH ×2 (08:26→22:43)
[2017-12-31] MEDS: AMIODARONE 200 MG TABLET PO SCH ×2 (08:26→22:42)
[2017-12-31] MEDS: SENNA 8.6 MG TABLET PO SCH (08:26)
[2017-12-31] MEDS: ASPIRIN EC 81 MG TABLET PO SCH (08:26)
[2017-12-31] MEDS: POTASSIUM CHLORIDE 20 MEQ TABLET PO SCH ×2 (08:26→22:41)
[2017-12-31] MEDS: glipiZIDE 5 MG TABLET PO SCH (08:26)
[2017-12-31] MEDS: LORATADINE 10 MG TABLET PO SCH (08:26)
[2017-12-31] MEDS: ASCORBIC ACID 500 MG TABLET PO SCH ×2 (08:26→22:41)
[2017-12-31] MEDS: FUROSEMIDE 40 MG TABLET PO SCH (08:27)
[2017-12-31] MEDS: MORPHINE 4 MG/1 ML VIAL IV PRN (12:39)
[2017-12-31] MEDS: LISINOPRIL 2.5 MG TABLET PO SCH (16:23)
[2017-12-31] MEDS: oxyCODONE/ACETAMINOPHEN 5-325 MG TABLET PO PRN ×2 (16:24→22:44)
[2017-12-31] MEDS: ZALEPLON 5 MG CAPSULE PO PRN (22:40)
[2017-12-31] MEDS: ATORVASTATIN 10 MG TABLET PO SCH (22:43)
[2018-01-01] MEDS: ACETAMINOPHEN 325 MG TABLET PO PRN (00:29)
[2018-01-01 05:18] LABS: Basophils % 0.3 % (0.0-0.8); Eosinophils # 0.2 10*3/uL (0.0-0.87); Eosinophils % 6.6 % (0.00-10.9); Hematocrit 27.3 VOL% (35.7-47.0); Hemoglobin 8.8 GM/DL (12.0-16.0); Immature Granulocytes % 0.5 %; Immature Granulocytes Absolute 0.02 #; Lymphocytes % 28.6 % (21.3-54.2); Mean Corpuscular HGB Conc 32.2 GM/DL (32-36); Mean Corpuscular Hemoglobin 28 PG (27-34); Mean Corpuscular Volume 86.7 FL (87-102); Mean Platelet Volume 9.3 FL (9.6-12.0); Monocytes # 0.4 10*3/uL (0.11-0.8); Monocytes % 11.8 % (1.7-12.7); Neutrophils # 1.9 10*3/uL (1.4-7.4); Neutrophils % 52.2 % (38.7-73.9); Platelet Count 189 T/CUMM (130-400); Red Blood Count 3.15 MC/CUMM (3.8-5.5); Red Cell Distribution Width 17.7 % (9.3-17.3); White Blood Count 3.6 T/CUMM (4-12)
[2018-01-01 05:46] LABS: Calcium 8.3 MG/DL (8.5-10.1); Osmolality,Calculated 281.4 MOS/KG (273-304); Potassium 4.6 MMOL/L (3.5-5.1)
[2018-01-01] MEDS: SENNA 8.6 MG TABLET PO SCH (08:40)
[2018-01-01] MEDS: OMEGA 3 ACID ETHYL ESTERS 1 GM CAPSULE PO SCH (08:40)
[2018-01-01] MEDS: LISINOPRIL 2.5 MG TABLET PO SCH (08:40)
[2018-01-01] MEDS: CILOSTAZOL 50 MG TABLET PO SCH (08:40)
[2018-01-01] MEDS: FUROSEMIDE 40 MG TABLET PO SCH (08:40)
[2018-01-01] MEDS: AMIODARONE 200 MG TABLET PO SCH (08:40)
[2018-01-01] MEDS: RANOLAZINE 500 MG TABLET PO SCH (08:40)
[2018-01-01] MEDS: DOCUSATE SODIUM 100 MG CAPSULE PO SCH (08:40)
[2018-01-01] MEDS: glipiZIDE 5 MG TABLET PO SCH (08:41)
[2018-01-01] MEDS: ISOSORBIDE MONONITRATE 30 MG TABLET PO SCH (08:41)
[2018-01-01] MEDS: ASPIRIN EC 81 MG TABLET PO SCH (08:41)
[2018-01-01] MEDS: LORATADINE 10 MG TABLET PO SCH (08:41)
[2018-01-01] MEDS: DULoxetine 30 MG CAPSULE PO SCH (08:41)
[2018-01-01] MEDS: ASCORBIC ACID 500 MG TABLET PO SCH (08:41)
[2018-01-01] MEDS: TOPIRAMATE 25 MG TABLET PO SCH (08:41)
[2018-01-01] MEDS: POTASSIUM CHLORIDE 20 MEQ TABLET PO SCH (08:41)
[2018-01-01] MEDS: CARVEDILOL 25 MG TABLET PO SCH (08:41)
[2018-01-01] MEDS: FAMOTIDINE 20 MG TABLET PO SCH (08:41)
[2018-01-01] MEDS: PANTOPRAZOLE 40 MG TABLET PO SCH (08:41)
[2018-01-01 12:30] VITALS: BP 184/81
[2018-01-02] MEDS ORDERED: AMIODARONE 200 MG TABLET PO SCH (09:00)
== END 2018-01-01 14:22 | disposition home or self-care (01) | DRG 253 ==
LOC: EDUNIT# → EDBD → N.ED 21:04 → N.EDINP 23:38 → N.TELES 23:58
PROVIDERS: ADMIT Internal Medicine Cardiovascular Disease; ATTEND Internal Medicine Cardiovascular Disease

== ENCOUNTER 2018-02-07 12:55 | Observation (INO) ==
[2018-02-07] MEDS ORDERED: ENOXAPARIN 100 MG/ML SYRINGE SUBCUT STA (13:24)
[2018-02-07 13:58] LABS: Basophils % 0.6 % (0.0-0.8); Eosinophils # 0.1 10*3/uL (0.0-0.87); Eosinophils % 2.9 % (0.00-10.9); Hematocrit 31.1 VOL% (35.7-47.0); Immature Granulocytes % 0.6 %; Immature Granulocytes Absolute 0.02 #; Lymphocytes # 0.9 10*3/uL (1.4-4.0); Lymphocytes % 26.9 % (21.3-54.2); Mean Corpuscular HGB Conc 32.2 GM/DL (32-36); Mean Corpuscular Hemoglobin 29 PG (27-34); Mean Corpuscular Volume 89.9 FL (87-102); Mean Platelet Volume 11.4 FL (9.6-12.0); Monocytes # 0.3 10*3/uL (0.11-0.8); Monocytes % 8.3 % (1.7-12.7); Neutrophils # 2.1 10*3/uL (1.4-7.4); Neutrophils % 60.7 % (38.7-73.9); Platelet Count 203 T/CUMM (130-400); Red Blood Count 3.46 MC/CUMM (3.8-5.5); White Blood Count 3.5 T/CUMM (4-12)
[2018-02-07] MEDS ORDERED: NITROGLYCERIN SL 0.4 MG TABLET SL STA (14:32)
[2018-02-07 14:37] LABS: Albumin 3.5 G/DL (3.4-5.0); Bilirubin,Total 0.4 MG/DL (0.2-1.0); Calcium 8.1 MG/DL (8.5-10.1); Potassium 4.3 MMOL/L (3.5-5.1); Total Protein 6.3 G/DL (6.4-8.3)
[2018-02-07] MEDS ORDERED: ONDANSETRON 4 MG/2 ML VIAL IV PRN (16:22)
[2018-02-07] MEDS ORDERED: LACTULOSE 20 GM/30 ML UDCUP PO PRN (16:22)
[2018-02-07] MEDS ORDERED: ACETAMINOPHEN 325 MG TABLET PO PRN (16:22)
[2018-02-07] MEDS ORDERED: AZELASTINE NASAL 137 MCG/SPRAY 30 ML BOTTLE BOTH NARES PRN (16:24)
[2018-02-07] MEDS ORDERED: ALBUTEROL/IPRATROPIUM 3 ML NEB RESP TX PRN (16:24)
[2018-02-07] MEDS ORDERED: NITROGLYCERIN SL 0.4 MG TABLET SL PRN (16:24)
[2018-02-07] MEDS ORDERED: ZALEPLON 5 MG CAPSULE PO PRN (16:24)
[2018-02-07] MEDS ORDERED: GLUCAGON 1 MG VIAL IM PRN (16:27)
[2018-02-07] MEDS ORDERED: DEXTROSE 50% 25 GM/50 ML VIAL IV PRN (16:27)
[2018-02-07] MEDS ORDERED: PANTOPRAZOLE 40 MG TABLET PO SCH (16:30)
[2018-02-07] MEDS: MORPHINE 4 MG/1 ML VIAL IV PRN ×2 (18:49→22:42)
[2018-02-07] MEDS: INSULIN LISPRO 100 UNIT/ML SUBCUT SCH ×2 (19:36→21:16)
[2018-02-07] MEDS: CILOSTAZOL 50 MG TABLET PO SCH (21:15)
[2018-02-07] MEDS: ISOSORBIDE MONONITRATE 30 MG TABLET PO SCH (21:15)
[2018-02-07] MEDS: FAMOTIDINE 20 MG TABLET PO SCH (21:15)
[2018-02-07] MEDS: ATORVASTATIN 10 MG TABLET PO SCH (21:16)
[2018-02-07] MEDS: PANTOPRAZOLE 40 MG TABLET PO SCH (21:16)
[2018-02-07] MEDS: TOPIRAMATE 25 MG TABLET PO SCH (21:16)
[2018-02-07] MEDS: AMIODARONE 200 MG TABLET PO SCH (21:16)
[2018-02-07] MEDS: RANOLAZINE 500 MG TABLET PO SCH (21:16)
[2018-02-07] MEDS: CARVEDILOL 25 MG TABLET PO SCH (21:16)
[2018-02-07] MEDS: OMEGA 3 ACID ETHYL ESTERS 1 GM CAPSULE PO SCH (21:16)
[2018-02-07] MEDS: APIXABAN 5 MG TABLET PO SCH (21:16)
[2018-02-07] MEDS: ASCORBIC ACID 500 MG TABLET PO SCH (21:16)
[2018-02-07] MEDS: POTASSIUM CHLORIDE 20 MEQ TABLET PO SCH (21:16)
[2018-02-08] MEDS: MORPHINE 4 MG/1 ML VIAL IV PRN ×3 (02:25→10:20)
[2018-02-08 06:32] LABS: Calcium 8.2 MG/DL (8.5-10.1); Osmolality,Calculated 284.3 MOS/KG (273-304); Potassium 3.7 MMOL/L (3.5-5.1)
[2018-02-08] MEDS: INSULIN LISPRO 100 UNIT/ML SUBCUT SCH ×4 (08:02→20:38)
[2018-02-08] MEDS ORDERED: LISINOPRIL 2.5 MG TABLET PO SCH (09:00)
[2018-02-08] MEDS: SENNA 8.6 MG TABLET PO SCH (09:33)
[2018-02-08] MEDS: RANOLAZINE 500 MG TABLET PO SCH ×2 (09:33→21:32)
[2018-02-08] MEDS: TOPIRAMATE 25 MG TABLET PO SCH ×2 (09:33→21:34)
[2018-02-08] MEDS: POTASSIUM CHLORIDE 20 MEQ TABLET PO SCH ×2 (09:33→21:33)
[2018-02-08] MEDS: ASCORBIC ACID 500 MG TABLET PO SCH ×2 (09:33→21:34)
[2018-02-08] MEDS: FAMOTIDINE 20 MG TABLET PO SCH ×2 (09:33→21:32)
[2018-02-08] MEDS: OMEGA 3 ACID ETHYL ESTERS 1 GM CAPSULE PO SCH ×2 (09:33→21:33)
[2018-02-08] MEDS: CILOSTAZOL 50 MG TABLET PO SCH ×2 (09:33→21:34)
[2018-02-08] MEDS: LISINOPRIL 5 MG TABLET PO SCH (09:34)
[2018-02-08] MEDS: ASPIRIN EC 81 MG TABLET PO SCH (09:34)
[2018-02-08] MEDS: AMIODARONE 200 MG TABLET PO SCH ×2 (09:34→21:32)
[2018-02-08] MEDS: FUROSEMIDE 40 MG TABLET PO SCH (09:34)
[2018-02-08] MEDS: APIXABAN 5 MG TABLET PO SCH ×2 (09:34→21:33)
[2018-02-08] MEDS: CARVEDILOL 25 MG TABLET PO SCH ×2 (09:34→21:34)
[2018-02-08] MEDS: PANTOPRAZOLE 40 MG TABLET PO SCH ×2 (09:34→21:33)
[2018-02-08] MEDS: DULoxetine 30 MG CAPSULE PO SCH (09:34)
[2018-02-08] MEDS: glipiZIDE 5 MG TABLET PO SCH (09:34)
[2018-02-08] MEDS ORDERED: traMADol 50 MG TABLET PO ONE (17:50)
[2018-02-08] MEDS ORDERED: GABAPENTIN 100 MG CAPSULE PO ONE (17:51)
[2018-02-08] MEDS: ATORVASTATIN 10 MG TABLET PO SCH (21:33)
[2018-02-08] MEDS: ISOSORBIDE MONONITRATE 30 MG TABLET PO SCH (21:33)
[2018-02-09 07:32] VITALS: BP 149/60
[2018-02-09] MEDS: INSULIN LISPRO 100 UNIT/ML SUBCUT SCH (08:31)
[2018-02-09] MEDS: AMIODARONE 200 MG TABLET PO SCH (08:52)
[2018-02-09] MEDS: DULoxetine 30 MG CAPSULE PO SCH (08:52)
[2018-02-09] MEDS: RANOLAZINE 500 MG TABLET PO SCH (08:52)
[2018-02-09] MEDS: SENNA 8.6 MG TABLET PO SCH (08:52)
[2018-02-09] MEDS: OMEGA 3 ACID ETHYL ESTERS 1 GM CAPSULE PO SCH (08:53)
[2018-02-09] MEDS: ASCORBIC ACID 500 MG TABLET PO SCH (08:53)
[2018-02-09] MEDS: CARVEDILOL 25 MG TABLET PO SCH (08:53)
[2018-02-09] MEDS: TOPIRAMATE 25 MG TABLET PO SCH (08:53)
[2018-02-09] MEDS: FAMOTIDINE 20 MG TABLET PO SCH (08:53)
[2018-02-09] MEDS: POTASSIUM CHLORIDE 20 MEQ TABLET PO SCH (08:53)
[2018-02-09] MEDS: PANTOPRAZOLE 40 MG TABLET PO SCH (08:54)
[2018-02-09] MEDS: ASPIRIN EC 81 MG TABLET PO SCH (08:54)
[2018-02-09] MEDS: FUROSEMIDE 40 MG TABLET PO SCH (08:54)
[2018-02-09] MEDS: glipiZIDE 5 MG TABLET PO SCH (08:54)
[2018-02-09] MEDS: APIXABAN 5 MG TABLET PO SCH (08:54)
[2018-02-09] MEDS: LISINOPRIL 5 MG TABLET PO SCH (08:55)
[2018-02-09] MEDS: CILOSTAZOL 50 MG TABLET PO SCH (08:55)
[2018-02-09 09:23] LABS: Calcium 8.2 MG/DL (8.5-10.1); Osmolality,Calculated 285.3 MOS/KG (273-304); Potassium 4.8 MMOL/L (3.5-5.1)
[2018-02-09 09:48] LABS: Basophils % 0.2 % (0.0-0.8); Eosinophils # 0.2 10*3/uL (0.0-0.87); Eosinophils % 3.7 % (0.00-10.9); Hematocrit 32.3 VOL% (35.7-47.0); Hemoglobin 10.2 GM/DL (12.0-16.0); Immature Granulocytes % 0.9 %; Immature Granulocytes Absolute 0.04 #; Lymphocytes % 23.6 % (21.3-54.2); Mean Corpuscular HGB Conc 31.6 GM/DL (32-36); Mean Corpuscular Hemoglobin 29 PG (27-34); Mean Platelet Volume 10.9 FL (9.6-12.0); Monocytes # 0.4 10*3/uL (0.11-0.8); Monocytes % 8.3 % (1.7-12.7); Neutrophils # 2.7 10*3/uL (1.4-7.4); Neutrophils % 63.3 % (38.7-73.9); Platelet Count 174 T/CUMM (130-400); Red Blood Count 3.51 MC/CUMM (3.8-5.5); Red Cell Distribution Width 20.6 % (9.3-17.3); White Blood Count 4.3 T/CUMM (4-12)
[2018-02-09] MEDS ORDERED: MECLIZINE 12.5 MG TABLET PO PRN (10:40)
== END 2018-02-09 11:02 | disposition home or self-care (01) ==
LOC: EDBD → EDUNIT# → N.ED 12:55 → N.EDINP 12:55 → SUATTDRO 16:22 → N.TELEN 17:00
PROVIDERS: ADMIT Internal Medicine; ATTEND Internal Medicine

== ENCOUNTER 2018-03-18 19:11 | Inpatient (IN) ==
[2018-03-20 07:54] VITALS: BP 103/44
== END 2018-03-20 10:27 | disposition home or self-care (01) | DRG 881 ==
LOC: N.ED 19:11 → N.EDINP 22:06 → N.TELEN 23:35
PROVIDERS: ADMIT Internal Medicine Cardiovascular Disease; ATTEND Internal Medicine Cardiovascular Disease

== ENCOUNTER 2018-06-30 16:19 | Inpatient (IN) ==
[2018-06-30] MEDS ORDERED: SODIUM CHLORIDE 0.9% 500 ML IV STA (16:40)
[2018-06-30] MEDS ORDERED: ONDANSETRON 4 MG/2 ML VIAL IV STA (16:40)
[2018-06-30] MEDS ORDERED: PANTOPRAZOLE 40 MG VIAL IV STA (16:40)
[2018-06-30 17:16] LABS: Basophils % 0.3 % (0.0-0.8); Eosinophils # 0.2 10*3/uL (0.0-0.87); Eosinophils % 5.8 % (0.00-10.9); Hematocrit 33.1 VOL% (35.7-47.0); Hemoglobin 10.4 GM/DL (12.0-16.0); Immature Granulocytes % 0.3 %; Immature Granulocytes Absolute 0.01 #; Lymphocytes # 1.3 10*3/uL (1.4-4.0); Lymphocytes % 33.7 % (21.3-54.2); Mean Corpuscular HGB Conc 31.4 GM/DL (32-36); Mean Corpuscular Hemoglobin 28 PG (27-34); Mean Corpuscular Volume 89.2 FL (87-102); Mean Platelet Volume 11.1 FL (9.6-12.0); Monocytes # 0.4 10*3/uL (0.11-0.8); Monocytes % 10.1 % (1.7-12.7); Neutrophils # 1.9 10*3/uL (1.4-7.4); Neutrophils % 49.8 % (38.7-73.9); Platelet Count 201 T/CUMM (130-400); Red Blood Count 3.71 MC/CUMM (3.8-5.5); Red Cell Distribution Width 16.7 % (9.3-17.3); White Blood Count 3.8 T/CUMM (4-12)
[2018-06-30 17:28] LABS: INR 1.1; PT Patient Result 11.4 SECS; Partial Thromboplastin Time 28.9 SECS (0-40)
[2018-06-30 17:58] LABS: Alanine Aminotransferase 25 U/L (13-56); Albumin 3.3 G/DL (3.4-5.0); Alkaline Phosphatase 61 U/L (45-117); Aspartate Amino Transferase 17 U/L (0-37); Blood Urea Nitrogen 17 MG/DL (7-18); Calcium 8.5 MG/DL (8.5-10.1); Glucose 62 MG/DL (74-106); Osmolality,Calculated 280.3 MOS/KG (273-304); Sodium 141 MMOL/L (136-145); Total Protein 6.2 G/DL (6.4-8.3)
[2018-06-30 17:59] LABS: Troponin I 0.098 NG/ML (0.00-0.045)
[2018-06-30 18:49] LABS: Apearance,Urine Slightly Hazy (Clear); Bacteria,Urine Occasional /HPF (Few); Bilirubin,Urine Negative (Negative); Blood, Urine Moderate mg/dL (Negative); Glucose,Urine (UA) Negative (Negative); Ketones,Urine Negative (Negative); Mucus,Urine Occasional /LPF (Occasional); Nitrite,Urine Negative (Negative); Protein,Urine Negative; RBC,Urine 1 /HPF (0-4); Squamous Epithelial Cell,Urine Occasional /HPF (0-10); Urine Color Yellow (Yellow); Urine Specific Gravity 1.006 (1.001-1.035); Urine Urobilinogen < 2.0 EU/DL (0.2-1.0); WBC,Urine 2 /HPF (0-6)
[2018-06-30] MEDS ORDERED: ACETAMINOPHEN 325 MG TABLET PO PRN (19:09)
[2018-06-30] MEDS ORDERED: ONDANSETRON 4 MG/2 ML VIAL IV PRN (19:09)
[2018-06-30] MEDS: DEXTROSE 5% NACL 0.9% 1,000 ML IV SCH (19:32)
[2018-06-30] MEDS: NITROGLYCERIN SL 0.4 MG TABLET SL PRN ×3 (20:16→20:27)
[2018-06-30] MEDS: MORPHINE 4 MG/1 ML VIAL IV PRN ×2 (20:21→20:26)
[2018-06-30] MEDS ORDERED: ASPIRIN CHEW 81 MG TABLET PO ONE (20:30)
[2018-06-30 20:57] LABS: Hematocrit 27.5 VOL% (35.7-47.0); Hemoglobin 8.7 GM/DL (12.0-16.0)
[2018-06-30 21:21] LABS: Albumin 2.8 G/DL (3.4-5.0); Bilirubin,Total 0.5 MG/DL (0.2-1.0); Calcium 8.1 MG/DL (8.5-10.1); Potassium 3.8 MMOL/L (3.5-5.1); Total Protein 5.5 G/DL (6.4-8.3)
[2018-06-30] MEDS: RANOLAZINE 500 MG TABLET PO SCH (22:47)
[2018-06-30] MEDS: PANTOPRAZOLE 40 MG TABLET PO SCH (22:47)
[2018-06-30] MEDS: FAMOTIDINE 20 MG TABLET PO SCH (22:47)
[2018-06-30] MEDS: TOPIRAMATE 25 MG TABLET PO SCH (22:47)
[2018-07-01] MEDS ORDERED: ZALEPLON 5 MG CAPSULE PO ONE (00:30)
[2018-07-01 02:16] LABS: Basophils % 0.3 % (0.0-0.8); Eosinophils # 0.2 10*3/uL (0.0-0.87); Eosinophils % 6.4 % (0.00-10.9); Hematocrit 27.2 VOL% (35.7-47.0); Hemoglobin 8.4 GM/DL (12.0-16.0); Immature Granulocytes % 0.3 %; Immature Granulocytes Absolute 0.01 #; Lymphocytes # 1.1 10*3/uL (1.4-4.0); Lymphocytes % 36.5 % (21.3-54.2); Mean Corpuscular HGB Conc 30.9 GM/DL (32-36); Mean Corpuscular Hemoglobin 28 PG (27-34); Mean Corpuscular Volume 89.8 FL (87-102); Mean Platelet Volume 10.2 FL (9.6-12.0); Monocytes # 0.3 10*3/uL (0.11-0.8); Neutrophils # 1.4 10*3/uL (1.4-7.4); Neutrophils % 47.5 % (38.7-73.9); Platelet Count 155 T/CUMM (130-400); Red Blood Count 3.03 MC/CUMM (3.8-5.5); Red Cell Distribution Width 16.9 % (9.3-17.3)
[2018-07-01 02:34] LABS: Calcium 7.7 MG/DL (8.5-10.1); Osmolality,Calculated 287.3 MOS/KG (273-304); Potassium 3.8 MMOL/L (3.5-5.1)
[2018-07-01 02:42] LABS: Troponin I 0.09 NG/ML (0.00-0.045)
[2018-07-01 02:53] LABS: Acanthocytes 1+; Ovalocytes 1+; Platelet Estimate Normal; Schistocytes Few
[2018-07-01 02:55] LABS: Poikilocytosis 1+
[2018-07-01] MEDS: DEXTROSE 5% NACL 0.9% 1,000 ML IV SCH ×3 (03:29→19:12)
[2018-07-01] MEDS ORDERED: MORPHINE 4 MG/1 ML VIAL IV ONE (03:30)
[2018-07-01 07:51] LABS: Hematocrit 28.6 VOL% (35.7-47.0); Hemoglobin 8.9 GM/DL (12.0-16.0)
[2018-07-01] MEDS: PANTOPRAZOLE 40 MG TABLET PO SCH ×2 (09:25→20:11)
[2018-07-01] MEDS: TOPIRAMATE 25 MG TABLET PO SCH ×2 (09:25→20:10)
[2018-07-01] MEDS: RANOLAZINE 500 MG TABLET PO SCH ×2 (09:25→20:11)
[2018-07-01] MEDS: FAMOTIDINE 20 MG TABLET PO SCH ×2 (09:25→20:11)
[2018-07-01] MEDS: NITROGLYCERIN SL 0.4 MG TABLET SL PRN ×2 (13:13→13:20)
[2018-07-01] MEDS: MORPHINE 4 MG/1 ML VIAL IV PRN (13:28)
[2018-07-01] MEDS: ZALEPLON 5 MG CAPSULE PO PRN (22:34)
[2018-07-02] MEDS: DEXTROSE 5% NACL 0.9% 1,000 ML IV SCH ×3 (03:20→20:15)
[2018-07-02 06:44] LABS: Basophils % 0.6 % (0.0-0.8); Eosinophils # 0.2 10*3/uL (0.0-0.87); Hematocrit 27.1 VOL% (35.7-47.0); Hemoglobin 8.5 GM/DL (12.0-16.0); Immature Granulocytes % 0.6 %; Immature Granulocytes Absolute 0.02 #; Lymphocytes # 1.1 10*3/uL (1.4-4.0); Lymphocytes % 32.2 % (21.3-54.2); Mean Corpuscular HGB Conc 31.4 GM/DL (32-36); Mean Corpuscular Hemoglobin 29 PG (27-34); Mean Corpuscular Volume 91.2 FL (87-102); Mean Platelet Volume 9.4 FL (9.6-12.0); Monocytes # 0.4 10*3/uL (0.11-0.8); Monocytes % 10.7 % (1.7-12.7); Neutrophils # 1.7 10*3/uL (1.4-7.4); Neutrophils % 49.9 % (38.7-73.9); Platelet Count 143 T/CUMM (130-400); Red Blood Count 2.97 MC/CUMM (3.8-5.5); Red Cell Distribution Width 17.1 % (9.3-17.3); White Blood Count 3.4 T/CUMM (4-12)
[2018-07-02 07:07] LABS: Calcium 7.9 MG/DL (8.5-10.1); Potassium 3.6 MMOL/L (3.5-5.1)
[2018-07-02] MEDS: FAMOTIDINE 20 MG TABLET PO SCH (08:53)
[2018-07-02] MEDS: PANTOPRAZOLE 40 MG TABLET PO SCH ×2 (08:53→21:51)
[2018-07-02] MEDS: TOPIRAMATE 25 MG TABLET PO SCH ×2 (08:54→21:51)
[2018-07-02] MEDS: RANOLAZINE 500 MG TABLET PO SCH ×2 (08:54→21:51)
[2018-07-02] MEDS: hydrALAZINE 25 MG TABLET PO SCH ×2 (14:38→21:51)
[2018-07-02] MEDS: ISOSORBIDE MONONITRATE 30 MG TABLET PO SCH (21:51)
[2018-07-02] MEDS: CARVEDILOL 25 MG TABLET PO SCH (21:51)
[2018-07-02] MEDS: POLYETHYLENE GLYCOL POWDER 17 GM PACK PO SCH (21:52)
[2018-07-02] MEDS: ZALEPLON 5 MG CAPSULE PO PRN (21:57)
[2018-07-03] MEDS ORDERED: diphenhydrAMINE 50 MG/1 ML VIAL IV ONE (00:05)
[2018-07-03] MEDS ORDERED: PROCHLORPERAZINE 5 MG TABLET PO PRN (00:05)
[2018-07-03] MEDS ORDERED: BUTALBITAL/ACETAMIN/CAFFEINE 50-325-40 MG TABLET PO PRN (00:05)
[2018-07-03] MEDS ORDERED: METOCLOPRAMIDE 10 MG/2 ML VIAL IV PRN (00:05)
[2018-07-03] MEDS ORDERED: diphenhydrAMINE CAP 25 MG CAPSULE PO ONE (01:00)
[2018-07-03] MEDS: DEXTROSE 5% NACL 0.9% 1,000 ML IV SCH ×3 (04:22→20:15)
[2018-07-03 08:49] LABS: Basophils % 0.3 % (0.0-0.8); Eosinophils # 0.2 10*3/uL (0.0-0.87); Eosinophils % 5.1 % (0.00-10.9); Hematocrit 27.4 VOL% (35.7-47.0); Hemoglobin 8.5 GM/DL (12.0-16.0); Immature Granulocytes % 0.6 %; Immature Granulocytes Absolute 0.02 #; Lymphocytes # 0.9 10*3/uL (1.4-4.0); Lymphocytes % 27.9 % (21.3-54.2); Mean Corpuscular Hemoglobin 29 PG (27-34); Mean Corpuscular Volume 92.6 FL (87-102); Mean Platelet Volume 11.4 FL (9.6-12.0); Monocytes # 0.3 10*3/uL (0.11-0.8); Monocytes % 9.6 % (1.7-12.7); Neutrophils # 1.9 10*3/uL (1.4-7.4); Neutrophils % 56.5 % (38.7-73.9); Platelet Count 161 T/CUMM (130-400); Red Blood Count 2.96 MC/CUMM (3.8-5.5); Red Cell Distribution Width 17.3 % (9.3-17.3); White Blood Count 3.3 T/CUMM (4-12)
[2018-07-03] MEDS ORDERED: FERROUS SULFATE 325 MG TABLET PO SCH (09:00)
[2018-07-03 09:13] LABS: Calcium 7.9 MG/DL (8.5-10.1); Osmolality,Calculated 286.8 MOS/KG (273-304); Potassium 3.8 MMOL/L (3.5-5.1)
[2018-07-03] MEDS: hydrALAZINE 25 MG TABLET PO SCH ×3 (09:15→20:18)
[2018-07-03] MEDS: ATORVASTATIN 10 MG TABLET PO SCH (09:16)
[2018-07-03] MEDS: POLYETHYLENE GLYCOL POWDER 17 GM PACK PO SCH ×4 (09:16→20:19)
[2018-07-03] MEDS: CARVEDILOL 25 MG TABLET PO SCH ×2 (09:16→20:18)
[2018-07-03] MEDS: amLODIPine 5 MG TABLET PO SCH (09:16)
[2018-07-03] MEDS: LISINOPRIL 5 MG TABLET PO SCH (09:16)
[2018-07-03] MEDS: PANTOPRAZOLE 40 MG TABLET PO SCH ×2 (09:17→20:18)
[2018-07-03] MEDS: RANOLAZINE 500 MG TABLET PO SCH ×2 (09:17→20:18)
[2018-07-03] MEDS: TOPIRAMATE 25 MG TABLET PO SCH ×2 (09:17→20:17)
[2018-07-03] MEDS: ISOSORBIDE MONONITRATE 30 MG TABLET PO SCH (20:18)
[2018-07-03] MEDS: ZALEPLON 5 MG CAPSULE PO PRN (20:18)
[2018-07-04] MEDS: NITROGLYCERIN SL 0.4 MG TABLET SL PRN ×3 (00:45→00:56)
[2018-07-04] MEDS ORDERED: MORPHINE 4 MG/1 ML VIAL IV ONE (01:04)
[2018-07-04 01:27] LABS: Basophils % 0.3 % (0.0-0.8); Eosinophils # 0.2 10*3/uL (0.0-0.87); Eosinophils % 5.1 % (0.00-10.9); Hemoglobin 7.9 GM/DL (12.0-16.0); Lymphocytes # 1.2 10*3/uL (1.4-4.0); Lymphocytes % 34.6 % (21.3-54.2); Mean Corpuscular HGB Conc 30.4 GM/DL (32-36); Mean Corpuscular Hemoglobin 28 PG (27-34); Mean Corpuscular Volume 92.2 FL (87-102); Mean Platelet Volume 10.4 FL (9.6-12.0); Monocytes # 0.4 10*3/uL (0.11-0.8); Monocytes % 10.4 % (1.7-12.7); Neutrophils # 1.8 10*3/uL (1.4-7.4); Neutrophils % 49.6 % (38.7-73.9); Platelet Count 152 T/CUMM (130-400); Red Blood Count 2.82 MC/CUMM (3.8-5.5); Red Cell Distribution Width 17.3 % (9.3-17.3); White Blood Count 3.6 T/CUMM (4-12)
[2018-07-04] MEDS: DEXTROSE 5% NACL 0.9% 1,000 ML IV SCH (03:06)
[2018-07-04 03:36] LABS: Calcium 8.1 MG/DL (8.5-10.1); Osmolality,Calculated 284.1 MOS/KG (273-304); Potassium 3.8 MMOL/L (3.5-5.1)
[2018-07-04] MEDS ORDERED: ASPIRIN CHEW 81 MG TABLET PO ONE (04:33)
[2018-07-04 07:59] VITALS: BP 142/74
[2018-07-04] MEDS: hydrALAZINE 25 MG TABLET PO SCH (09:30)
[2018-07-04] MEDS: CARVEDILOL 25 MG TABLET PO SCH (09:31)
[2018-07-04] MEDS: amLODIPine 5 MG TABLET PO SCH (09:31)
[2018-07-04] MEDS: LISINOPRIL 5 MG TABLET PO SCH (09:31)
[2018-07-04] MEDS: TOPIRAMATE 25 MG TABLET PO SCH (09:31)
[2018-07-04] MEDS: RANOLAZINE 500 MG TABLET PO SCH (09:31)
[2018-07-04] MEDS: PANTOPRAZOLE 40 MG TABLET PO SCH (09:31)
[2018-07-04] MEDS: ATORVASTATIN 10 MG TABLET PO SCH (09:31)
[2018-07-04] MEDS: POLYETHYLENE GLYCOL POWDER 17 GM PACK PO SCH (09:34)
== END 2018-07-04 11:35 | disposition home health service (06) | DRG 813 ==
LOC: EDUNIT# → EDBD → N.ED 16:19 → SUATTDRO 18:18 → N.EDINP 18:18 → N.3E 19:08
PROVIDERS: ADMIT Hospitalist; ATTEND Hospitalist

== ENCOUNTER 2018-07-09 05:50 | Inpatient (IN) ==
[2018-07-09] MEDS ORDERED: FUROSEMIDE 100 MG/10 ML VIAL IV STA (06:28)
[2018-07-09] MEDS ORDERED: ONDANSETRON ODT 4 MG TABLET PO STA (06:28)
[2018-07-09 06:54] LABS: Basophils % 0.2 % (0.0-0.8); Eosinophils # 0.1 10*3/uL (0.0-0.87); Eosinophils % 3.2 % (0.00-10.9); Hematocrit 28.2 VOL% (35.7-47.0); Hemoglobin 8.9 GM/DL (12.0-16.0); Immature Granulocytes % 0.5 %; Immature Granulocytes Absolute 0.02 #; Lymphocytes % 24.7 % (21.3-54.2); Mean Corpuscular HGB Conc 31.6 GM/DL (32-36); Mean Corpuscular Hemoglobin 28 PG (27-34); Mean Corpuscular Volume 89.8 FL (87-102); Mean Platelet Volume 11.1 FL (9.6-12.0); Monocytes # 0.5 10*3/uL (0.11-0.8); Monocytes % 11.7 % (1.7-12.7); Neutrophils # 2.4 10*3/uL (1.4-7.4); Neutrophils % 59.7 % (38.7-73.9); Platelet Count 179 T/CUMM (130-400); Red Blood Count 3.14 MC/CUMM (3.8-5.5); Red Cell Distribution Width 19.1 % (9.3-17.3)
[2018-07-09 07:03] LABS: PT Patient Result 10.8 SECS; Partial Thromboplastin Time 27.2 SECS (0-40)
[2018-07-09 07:19] LABS: Albumin 3.2 G/DL (3.4-5.0); Bilirubin,Total 0.6 MG/DL (0.2-1.0); Calcium 8.8 MG/DL (8.5-10.1); Osmolality,Calculated 282.3 MOS/KG (273-304); Potassium 3.8 MMOL/L (3.5-5.1); Total Protein 6.2 G/DL (6.4-8.3)
[2018-07-09] MEDS ORDERED: LEVOFLOXACIN INJ 500 MG in PREMIX 1 EACH IV STA (07:55)
[2018-07-09] MEDS ORDERED: diphenhydrAMINE CAP 25 MG CAPSULE PO PRN (08:24)
[2018-07-09] MEDS ORDERED: DOCUSATE SODIUM 100 MG CAPSULE PO PRN (08:24)
[2018-07-09] MEDS ORDERED: DEXTROSE 50% 25 GM/50 ML VIAL IV PRN (08:24)
[2018-07-09] MEDS ORDERED: ACETAMINOPHEN 325 MG TABLET PO PRN (08:24)
[2018-07-09] MEDS ORDERED: ONDANSETRON 4 MG/2 ML VIAL IV PRN (08:24)
[2018-07-09] MEDS ORDERED: GLUCAGON 1 MG VIAL IM PRN (08:24)
[2018-07-09] MEDS ORDERED: NITROGLYCERIN SL 0.4 MG TABLET SL PRN (08:28)
[2018-07-09] MEDS ORDERED: BENZONATATE 100 MG CAPSULE PO PRN (08:29)
[2018-07-09] MEDS ORDERED: ALBUTEROL 2.5 MG/3 ML NEB RESP TX PRN (08:29)
[2018-07-09] MEDS ORDERED: FUROSEMIDE 40 MG TABLET PO SCH (09:00)
[2018-07-09] MEDS ORDERED: LISINOPRIL 5 MG TABLET PO SCH (09:00)
[2018-07-09] MEDS: MORPHINE 4 MG/1 ML VIAL IV PRN ×2 (10:27→18:45)
[2018-07-09] MEDS: AZITHROMYCIN INJ 500 MG in SODIUM CHLORIDE 0.9% 250 ML IV SCH (12:18)
[2018-07-09] MEDS: SENNA 8.6 MG TABLET PO SCH (12:21)
[2018-07-09] MEDS: ATORVASTATIN 10 MG TABLET PO SCH (12:21)
[2018-07-09] MEDS: ASCORBIC ACID 500 MG TABLET PO SCH ×2 (12:23→21:07)
[2018-07-09] MEDS: DULoxetine 30 MG CAPSULE PO SCH (12:23)
[2018-07-09] MEDS: RANOLAZINE 500 MG TABLET PO SCH ×2 (12:24→21:09)
[2018-07-09] MEDS: FERROUS SULFATE 325 MG TABLET PO SCH (12:24)
[2018-07-09] MEDS: POTASSIUM CHLORIDE 20 MEQ TABLET PO SCH ×2 (12:25→21:09)
[2018-07-09] MEDS: MULTIVITAMIN (CENTRUM) TABLET PO SCH (12:25)
[2018-07-09] MEDS: OMEGA 3 ACID ETHYL ESTERS 1 GM CAPSULE PO SCH ×2 (12:25→17:21)
[2018-07-09] MEDS: amLODIPine 5 MG TABLET PO SCH (12:25)
[2018-07-09] MEDS: PANTOPRAZOLE 40 MG TABLET PO SCH (12:26)
[2018-07-09] MEDS: CARVEDILOL 25 MG TABLET PO SCH ×2 (12:26→21:09)
[2018-07-09] MEDS: ASPIRIN EC 81 MG TABLET PO SCH (12:27)
[2018-07-09] MEDS: TOPIRAMATE 25 MG TABLET PO SCH ×2 (12:27→21:09)
[2018-07-09] MEDS: hydrALAZINE 25 MG TABLET PO SCH ×3 (12:27→21:08)
[2018-07-09] MEDS: CALCIUM CARBONATE CHEW 500 MG TABLET PO SCH (12:28)
[2018-07-09] MEDS: ALBUTEROL/IPRATROPIUM 3 ML NEB RESP TX SCH ×2 (13:38→19:47)
[2018-07-09] MEDS: glipiZIDE 5 MG TABLET PO SCH (14:13)
[2018-07-09] MEDS: cefTRIAXone 1,000 MG in SYRINGE 1 EACH IV SCH ×2 (14:14→17:31)
[2018-07-09] MEDS: INSULIN LISPRO 100 UNIT/ML SUBCUT SCH ×2 (14:15→16:11)
[2018-07-09] MEDS: FUROSEMIDE 40 MG/4 ML VIAL IV SCH (17:21)
[2018-07-09] MEDS: ISOSORBIDE MONONITRATE 30 MG TABLET PO SCH (21:07)
[2018-07-10] MEDS: MORPHINE 4 MG/1 ML VIAL IV PRN ×2 (00:52→11:06)
[2018-07-10] MEDS: ALBUTEROL/IPRATROPIUM 3 ML NEB RESP TX SCH ×4 (01:54→20:17)
[2018-07-10 04:09] LABS: Basophils % 0.3 % (0.0-0.8); Eosinophils # 0.2 10*3/uL (0.0-0.87); Eosinophils % 5.2 % (0.00-10.9); Hematocrit 25.1 VOL% (35.7-47.0); Hemoglobin 7.6 GM/DL (12.0-16.0); Immature Granulocytes % 0.3 %; Immature Granulocytes Absolute 0.01 #; Lymphocytes % 29.6 % (21.3-54.2); Mean Corpuscular HGB Conc 30.3 GM/DL (32-36); Mean Corpuscular Hemoglobin 28 PG (27-34); Mean Corpuscular Volume 91.3 FL (87-102); Mean Platelet Volume 11.4 FL (9.6-12.0); Monocytes # 0.4 10*3/uL (0.11-0.8); Monocytes % 12.3 % (1.7-12.7); Neutrophils # 1.7 10*3/uL (1.4-7.4); Neutrophils % 52.3 % (38.7-73.9); Platelet Count 168 T/CUMM (130-400); Red Blood Count 2.75 MC/CUMM (3.8-5.5); White Blood Count 3.2 T/CUMM (4-12)
[2018-07-10] MEDS ORDERED: POTASSIUM CHLORIDE 20 MEQ TABLET PO PRN (04:31)
[2018-07-10 04:41] LABS: Calcium 8.2 MG/DL (8.5-10.1); Osmolality,Calculated 282.4 MOS/KG (273-304); Potassium 3.8 MMOL/L (3.5-5.1)
[2018-07-10] MEDS: CALCIUM CARBONATE CHEW 500 MG TABLET PO SCH (08:21)
[2018-07-10] MEDS: DULoxetine 30 MG CAPSULE PO SCH (08:21)
[2018-07-10] MEDS: MULTIVITAMIN (CENTRUM) TABLET PO SCH (08:21)
[2018-07-10] MEDS: SENNA 8.6 MG TABLET PO SCH (08:22)
[2018-07-10] MEDS: RANOLAZINE 500 MG TABLET PO SCH ×2 (08:22→21:07)
[2018-07-10] MEDS: CARVEDILOL 25 MG TABLET PO SCH ×2 (08:22→21:08)
[2018-07-10] MEDS: TOPIRAMATE 25 MG TABLET PO SCH ×2 (08:22→21:08)
[2018-07-10] MEDS: ASCORBIC ACID 500 MG TABLET PO SCH ×2 (08:23→21:08)
[2018-07-10] MEDS: POTASSIUM CHLORIDE 20 MEQ TABLET PO SCH ×2 (08:23→21:08)
[2018-07-10] MEDS: FERROUS SULFATE 325 MG TABLET PO SCH (08:23)
[2018-07-10] MEDS: glipiZIDE 5 MG TABLET PO SCH (08:24)
[2018-07-10] MEDS: hydrALAZINE 25 MG TABLET PO SCH ×3 (08:24→21:08)
[2018-07-10] MEDS: PANTOPRAZOLE 40 MG TABLET PO SCH (08:24)
[2018-07-10] MEDS: ATORVASTATIN 10 MG TABLET PO SCH (08:25)
[2018-07-10] MEDS: ASPIRIN EC 81 MG TABLET PO SCH (08:25)
[2018-07-10] MEDS: OMEGA 3 ACID ETHYL ESTERS 1 GM CAPSULE PO SCH ×3 (08:25→17:40)
[2018-07-10] MEDS: FUROSEMIDE 40 MG/4 ML VIAL IV SCH ×2 (08:26→14:50)
[2018-07-10] MEDS: amLODIPine 5 MG TABLET PO SCH (08:29)
[2018-07-10] MEDS: AZITHROMYCIN INJ 500 MG in SODIUM CHLORIDE 0.9% 250 ML IV SCH (12:17)
[2018-07-10] MEDS ORDERED: AZITHROMYCIN INJ 500 MG in SODIUM CHLORIDE 0.9% 250 ML IV SCH (12:30)
[2018-07-10] MEDS: INSULIN LISPRO 100 UNIT/ML SUBCUT SCH ×3 (13:06→19:18)
[2018-07-10] MEDS: cefTRIAXone 1,000 MG in SYRINGE 1 EACH IV SCH (13:07)
[2018-07-10] MEDS: DICLOFENAC 1% GEL 100 GM TUBE TOP SCH ×3 (14:17→21:10)
[2018-07-10] MEDS: ISOSORBIDE MONONITRATE 30 MG TABLET PO SCH (21:07)
[2018-07-10] MEDS: ZOLPIDEM 5 MG TABLET PO PRN (22:36)
[2018-07-11] MEDS: ALBUTEROL/IPRATROPIUM 3 ML NEB RESP TX SCH ×4 (00:17→19:08)
[2018-07-11 03:56] LABS: Basophils % 0.2 % (0.0-0.8); Eosinophils # 0.3 10*3/uL (0.0-0.87); Eosinophils % 6.5 % (0.00-10.9); Hematocrit 23.8 VOL% (35.7-47.0); Hemoglobin 7.4 GM/DL (12.0-16.0); Immature Granulocytes % 0.7 %; Immature Granulocytes Absolute 0.03 #; Lymphocytes # 1.1 10*3/uL (1.4-4.0); Mean Corpuscular HGB Conc 31.1 GM/DL (32-36); Mean Corpuscular Hemoglobin 28 PG (27-34); Mean Corpuscular Volume 91.2 FL (87-102); Mean Platelet Volume 11.8 FL (9.6-12.0); Monocytes # 0.5 10*3/uL (0.11-0.8); Monocytes % 13.2 % (1.7-12.7); Neutrophils # 2.1 10*3/uL (1.4-7.4); Neutrophils % 52.4 % (38.7-73.9); Platelet Count 167 T/CUMM (130-400); Red Blood Count 2.61 MC/CUMM (3.8-5.5); Red Cell Distribution Width 18.7 % (9.3-17.3)
[2018-07-11 04:29] LABS: Calcium 8.1 MG/DL (8.5-10.1); Potassium 4.5 MMOL/L (3.5-5.1)
[2018-07-11] MEDS ORDERED: POLYETHYLENE GLYCOL POWDER 17 GM PACK PO PRN (06:18)
[2018-07-11] MEDS: INSULIN LISPRO 100 UNIT/ML SUBCUT SCH ×3 (07:21→16:36)
[2018-07-11] MEDS: DULoxetine 30 MG CAPSULE PO SCH (08:39)
[2018-07-11] MEDS: POTASSIUM CHLORIDE 20 MEQ TABLET PO SCH ×2 (08:40→21:10)
[2018-07-11] MEDS: CALCIUM CARBONATE CHEW 500 MG TABLET PO SCH (08:40)
[2018-07-11] MEDS: hydrALAZINE 25 MG TABLET PO SCH ×3 (08:40→21:10)
[2018-07-11] MEDS: CARVEDILOL 25 MG TABLET PO SCH ×2 (08:40→21:10)
[2018-07-11] MEDS: OMEGA 3 ACID ETHYL ESTERS 1 GM CAPSULE PO SCH ×3 (08:40→16:36)
[2018-07-11] MEDS: AZITHROMYCIN 250 MG TABLET PO SCH (08:40)
[2018-07-11] MEDS: PANTOPRAZOLE 40 MG TABLET PO SCH (08:41)
[2018-07-11] MEDS: ATORVASTATIN 10 MG TABLET PO SCH (08:41)
[2018-07-11] MEDS: FERROUS SULFATE 325 MG TABLET PO SCH (08:41)
[2018-07-11] MEDS: MULTIVITAMIN (CENTRUM) TABLET PO SCH (08:41)
[2018-07-11] MEDS: ASCORBIC ACID 500 MG TABLET PO SCH ×2 (08:41→21:10)
[2018-07-11] MEDS: amLODIPine 5 MG TABLET PO SCH (08:41)
[2018-07-11] MEDS: ASPIRIN EC 81 MG TABLET PO SCH (08:41)
[2018-07-11] MEDS: SENNA 8.6 MG TABLET PO SCH (08:41)
[2018-07-11] MEDS: RANOLAZINE 500 MG TABLET PO SCH ×2 (08:41→21:10)
[2018-07-11] MEDS: glipiZIDE 5 MG TABLET PO SCH (08:41)
[2018-07-11] MEDS: cefTRIAXone 1,000 MG in SYRINGE 1 EACH IV SCH (08:42)
[2018-07-11] MEDS: DICLOFENAC 1% GEL 100 GM TUBE TOP SCH ×4 (08:42→21:10)
[2018-07-11] MEDS: FUROSEMIDE 40 MG/4 ML VIAL IV SCH ×2 (08:42→16:36)
[2018-07-11] MEDS: TOPIRAMATE 25 MG TABLET PO SCH ×2 (08:47→21:10)
[2018-07-11] MEDS ORDERED: AZITHROMYCIN 250 MG TABLET PO SCH (09:00)
[2018-07-11] MEDS: MAGNESIUM HYDROXIDE SUSP 30 ML UDCUP PO PRN (14:41)
[2018-07-11] MEDS: ISOSORBIDE MONONITRATE 30 MG TABLET PO SCH (21:10)
[2018-07-11] MEDS: ZOLPIDEM 5 MG TABLET PO PRN (21:10)
[2018-07-12] MEDS: ALBUTEROL/IPRATROPIUM 3 ML NEB RESP TX SCH ×3 (00:09→12:58)
[2018-07-12 03:49] LABS: Basophils % 0.3 % (0.0-0.8); Eosinophils # 0.2 10*3/uL (0.0-0.87); Eosinophils % 6.8 % (0.00-10.9); Hematocrit 24.7 VOL% (35.7-47.0); Hemoglobin 7.7 GM/DL (12.0-16.0); Immature Granulocytes % 0.3 %; Immature Granulocytes Absolute 0.01 #; Lymphocytes % 28.3 % (21.3-54.2); Mean Corpuscular HGB Conc 31.2 GM/DL (32-36); Mean Corpuscular Hemoglobin 28 PG (27-34); Mean Corpuscular Volume 89.5 FL (87-102); Mean Platelet Volume 10.7 FL (9.6-12.0); Monocytes # 0.4 10*3/uL (0.11-0.8); Monocytes % 12.1 % (1.7-12.7); Neutrophils # 1.8 10*3/uL (1.4-7.4); Neutrophils % 52.2 % (38.7-73.9); Platelet Count 162 T/CUMM (130-400); Red Blood Count 2.76 MC/CUMM (3.8-5.5); Red Cell Distribution Width 18.6 % (9.3-17.3); White Blood Count 3.4 T/CUMM (4-12)
[2018-07-12 04:08] LABS: Calcium 8.3 MG/DL (8.5-10.1); Potassium 4.5 MMOL/L (3.5-5.1)
[2018-07-12] MEDS: INSULIN LISPRO 100 UNIT/ML SUBCUT SCH ×2 (08:05→12:20)
[2018-07-12] MEDS: MAGNESIUM HYDROXIDE SUSP 30 ML UDCUP PO PRN (09:35)
[2018-07-12] MEDS: glipiZIDE 5 MG TABLET PO SCH (09:39)
[2018-07-12] MEDS: ASCORBIC ACID 500 MG TABLET PO SCH (09:39)
[2018-07-12] MEDS: amLODIPine 5 MG TABLET PO SCH (09:39)
[2018-07-12] MEDS: CARVEDILOL 25 MG TABLET PO SCH (09:39)
[2018-07-12] MEDS: MULTIVITAMIN (CENTRUM) TABLET PO SCH (09:40)
[2018-07-12] MEDS: RANOLAZINE 500 MG TABLET PO SCH (09:40)
[2018-07-12] MEDS: CALCIUM CARBONATE CHEW 500 MG TABLET PO SCH (09:40)
[2018-07-12] MEDS: ASPIRIN EC 81 MG TABLET PO SCH (09:40)
[2018-07-12] MEDS: DULoxetine 30 MG CAPSULE PO SCH (09:40)
[2018-07-12] MEDS: PANTOPRAZOLE 40 MG TABLET PO SCH (09:41)
[2018-07-12] MEDS: OMEGA 3 ACID ETHYL ESTERS 1 GM CAPSULE PO SCH ×2 (09:41→12:07)
[2018-07-12] MEDS: FERROUS SULFATE 325 MG TABLET PO SCH (09:41)
[2018-07-12] MEDS: SENNA 8.6 MG TABLET PO SCH (09:41)
[2018-07-12] MEDS: POTASSIUM CHLORIDE 20 MEQ TABLET PO SCH (09:41)
[2018-07-12] MEDS: ATORVASTATIN 10 MG TABLET PO SCH (09:42)
[2018-07-12] MEDS: hydrALAZINE 25 MG TABLET PO SCH ×2 (09:42→15:56)
[2018-07-12] MEDS: TOPIRAMATE 25 MG TABLET PO SCH (09:43)
[2018-07-12] MEDS: FUROSEMIDE 40 MG/4 ML VIAL IV SCH ×2 (09:43→15:57)
[2018-07-12] MEDS: DICLOFENAC 1% GEL 100 GM TUBE TOP SCH ×2 (09:43→13:04)
[2018-07-12] MEDS: AZITHROMYCIN 250 MG TABLET PO SCH (09:43)
[2018-07-12] MEDS: cefTRIAXone 1,000 MG in SYRINGE 1 EACH IV SCH (09:44)
[2018-07-12 15:55] VITALS: BP 122/55
== END 2018-07-12 16:45 | disposition home health service (06) | DRG 193 ==
LOC: EDUNIT# → N.ED 05:50 → N.EDINP 08:24 → N.5E 08:58 → N.2W 09:26 → N.TELEN 11:56
PROVIDERS: ADMIT Internal Medicine; ATTEND Internal Medicine

== ENCOUNTER 2018-07-14 19:08 | Observation (INO) ==
[2018-07-14] MEDS ORDERED: methylPREDNISolone SOD SUC 125 MG/2 ML VIAL IV STA (19:31)
[2018-07-14] MEDS: ALBUTEROL 2.5 MG/3 ML NEB RESP TX SCH ×3 (19:59→20:40)
[2018-07-14 20:03] LABS: Basophils % 0.5 % (0.0-0.8); Eosinophils # 0.1 10*3/uL (0.0-0.87); Eosinophils % 3.2 % (0.00-10.9); Hematocrit 28.4 VOL% (35.7-47.0); Hemoglobin 9.2 GM/DL (12.0-16.0); Immature Granulocytes % 0.3 %; Immature Granulocytes Absolute 0.01 #; Lymphocytes # 1.2 10*3/uL (1.4-4.0); Lymphocytes % 33.5 % (21.3-54.2); Mean Corpuscular HGB Conc 32.4 GM/DL (32-36); Mean Corpuscular Hemoglobin 29 PG (27-34); Mean Corpuscular Volume 89.3 FL (87-102); Monocytes # 0.4 10*3/uL (0.11-0.8); Monocytes % 11.1 % (1.7-12.7); Neutrophils # 1.9 10*3/uL (1.4-7.4); Neutrophils % 51.4 % (38.7-73.9); Platelet Count 194 T/CUMM (130-400); Red Blood Count 3.18 MC/CUMM (3.8-5.5); Red Cell Distribution Width 19.2 % (9.3-17.3); White Blood Count 3.7 T/CUMM (4-12)
[2018-07-14 20:15] LABS: Apearance,Urine CLEAR (Clear); Bilirubin,Urine Negative (Negative); Blood, Urine Negative (Negative); Glucose,Urine (UA) Negative (Negative); Ketones,Urine Negative (Negative); Nitrite,Urine Negative (Negative); Protein,Urine Negative; RBC,Urine 1 /HPF (0-4); Squamous Epithelial Cell,Urine Occasional /HPF (0-10); Urine Color Yellow (Yellow); Urine Specific Gravity 1.009 (1.001-1.035); Urine Urobilinogen < 2.0 EU/DL (0.2-1.0); WBC,Urine <1 /HPF (0-6)
[2018-07-14 20:19] LABS: Albumin 3.4 G/DL (3.4-5.0); Bilirubin,Total 0.5 MG/DL (0.2-1.0); Calcium 8.9 MG/DL (8.5-10.1); Osmolality,Calculated 281.3 MOS/KG (273-304); Potassium 4.5 MMOL/L (3.5-5.1); Total Protein 6.1 G/DL (6.4-8.3)
[2018-07-14] MEDS ORDERED: FUROSEMIDE 40 MG/4 ML VIAL IV STA (21:39)
[2018-07-14] MEDS ORDERED: ACETAMINOPHEN 325 MG TABLET PO PRN (22:52)
[2018-07-14] MEDS ORDERED: DEXTROSE 50% 25 GM/50 ML VIAL IV PRN (22:52)
[2018-07-14] MEDS ORDERED: GLUCAGON 1 MG VIAL IM PRN (22:52)
[2018-07-14] MEDS ORDERED: ONDANSETRON 4 MG/2 ML VIAL IV PRN (22:52)
[2018-07-14] MEDS ORDERED: ALBUTEROL 2.5 MG/3 ML NEB RESP TX PRN (23:03)
[2018-07-15] MEDS: ALBUTEROL/IPRATROPIUM 3 ML NEB RESP TX SCH ×2 (01:10→07:05)
[2018-07-15] MEDS ORDERED: ZALEPLON 5 MG CAPSULE PO PRN (01:23)
[2018-07-15] MEDS ORDERED: AZELASTINE NASAL 137 MCG/SPRAY 30 ML BOTTLE BOTH NARES PRN (04:47)
[2018-07-15] MEDS ORDERED: NITROGLYCERIN SL 0.4 MG TABLET SL PRN (04:47)
[2018-07-15 05:32] LABS: Hematocrit 27.1 VOL% (35.7-47.0); Hemoglobin 8.7 GM/DL (12.0-16.0); Immature Granulocytes % 0.7 %; Immature Granulocytes Absolute 0.02 #; Lymphocytes # 0.5 10*3/uL (1.4-4.0); Lymphocytes % 19.3 % (21.3-54.2); Mean Corpuscular HGB Conc 32.1 GM/DL (32-36); Mean Corpuscular Hemoglobin 29 PG (27-34); Mean Corpuscular Volume 88.9 FL (87-102); Monocytes # 0.1 10*3/uL (0.11-0.8); Monocytes % 1.9 % (1.7-12.7); Neutrophils # 2.1 10*3/uL (1.4-7.4); Neutrophils % 78.1 % (38.7-73.9); Platelet Count 188 T/CUMM (130-400); Red Blood Count 3.05 MC/CUMM (3.8-5.5); Red Cell Distribution Width 19.3 % (9.3-17.3); White Blood Count 2.7 T/CUMM (4-12)
[2018-07-15 05:59] LABS: Calcium 8.8 MG/DL (8.5-10.1); Osmolality,Calculated 283.4 MOS/KG (273-304); Potassium 4.1 MMOL/L (3.5-5.1)
[2018-07-15] MEDS ORDERED: amLODIPine 5 MG TABLET PO SCH (07:00)
[2018-07-15] MEDS ORDERED: hydrALAZINE 25 MG TABLET PO SCH (07:00)
[2018-07-15] MEDS ORDERED: LISINOPRIL 5 MG TABLET PO SCH (07:00)
[2018-07-15] MEDS ORDERED: glipiZIDE 5 MG TABLET PO SCH (08:00)
[2018-07-15] MEDS ORDERED: FUROSEMIDE 40 MG/4 ML VIAL IV SCH (08:00)
[2018-07-15] MEDS ORDERED: CILOSTAZOL 50 MG TABLET PO SCH (09:00)
[2018-07-15] MEDS ORDERED: FAMOTIDINE 20 MG TABLET PO SCH (09:00)
[2018-07-15] MEDS ORDERED: CARVEDILOL 25 MG TABLET PO SCH (09:00)
[2018-07-15] MEDS ORDERED: CEFUROXIME 250 MG TABLET PO SCH (09:00)
[2018-07-15] MEDS ORDERED: CALCIUM CARBONATE CHEW 500 MG TABLET PO SCH (09:00)
[2018-07-15] MEDS ORDERED: ASCORBIC ACID 500 MG TABLET PO SCH (09:00)
[2018-07-15] MEDS ORDERED: ASPIRIN EC 81 MG TABLET PO SCH (09:00)
[2018-07-15] MEDS ORDERED: POTASSIUM CHLORIDE 20 MEQ TABLET PO SCH (09:00)
[2018-07-15] MEDS ORDERED: SENNA 8.6 MG TABLET PO SCH (09:00)
[2018-07-15] MEDS ORDERED: DULoxetine 30 MG CAPSULE PO SCH (09:00)
[2018-07-15] MEDS ORDERED: ENOXAPARIN 40 MG/0.4 ML SYRINGE SUBCUT SCH (09:00)
[2018-07-15] MEDS ORDERED: MULTIVITAMIN (CENTRUM) TABLET PO SCH (09:00)
[2018-07-15] MEDS ORDERED: DICLOFENAC 1% GEL 100 GM TUBE TOP SCH (09:00)
[2018-07-15] MEDS ORDERED: predniSONE 20 MG TABLET PO SCH (09:00)
[2018-07-15] MEDS ORDERED: PANTOPRAZOLE 40 MG TABLET PO SCH (09:00)
[2018-07-15] MEDS ORDERED: RANOLAZINE 500 MG TABLET PO SCH (09:00)
[2018-07-15] MEDS ORDERED: TOPIRAMATE 25 MG TABLET PO SCH (09:00)
[2018-07-15] MEDS ORDERED: APIXABAN 2.5 MG TABLET PO SCH (09:00)
[2018-07-15] MEDS ORDERED: ATORVASTATIN 10 MG TABLET PO SCH (09:00)
[2018-07-15] MEDS ORDERED: FERROUS SULFATE 325 MG TABLET PO SCH (09:00)
[2018-07-15] MEDS: INSULIN LISPRO 100 UNIT/ML SUBCUT SCH ×2 (09:31→11:36)
[2018-07-15] MEDS: OMEGA 3 ACID ETHYL ESTERS 1 GM CAPSULE PO SCH ×2 (09:57→11:36)
[2018-07-15 11:42] VITALS: BP 166/87
[2018-07-15] MEDS ORDERED: ISOSORBIDE MONONITRATE 30 MG TABLET PO SCH (21:00)
== END 2018-07-15 13:56 | disposition home or self-care (01) ==
LOC: EDBD → EDUNIT# → N.ED 19:08 → N.EDINP 19:08 → N.2E 23:51
PROVIDERS: ADMIT Internal Medicine; ATTEND Internal Medicine

== ENCOUNTER 2018-11-10 14:29 | Inpatient (IN) ==
[2018-11-10 15:25] LABS: Basophils % 0.4 % (0.0-0.8); Eosinophils # 0.1 10*3/uL (0.0-0.87); Eosinophils % 3.2 % (0.00-10.9); Hematocrit 31.9 VOL% (35.7-47.0); Hemoglobin 9.8 GM/DL (12.0-16.0); Immature Granulocytes % 0.7 %; Immature Granulocytes Absolute 0.02 #; Lymphocytes # 0.9 10*3/uL (1.4-4.0); Lymphocytes % 32.4 % (21.3-54.2); Mean Corpuscular HGB Conc 30.7 GM/DL (32-36); Mean Corpuscular Hemoglobin 28 PG (27-34); Mean Corpuscular Volume 90.1 FL (87-102); Mean Platelet Volume 12.7 FL (9.6-12.0); Monocytes # 0.3 10*3/uL (0.11-0.8); Monocytes % 10.8 % (1.7-12.7); Neutrophils # 1.5 10*3/uL (1.4-7.4); Neutrophils % 52.5 % (38.7-73.9); Platelet Count 165 T/CUMM (130-400); Red Blood Count 3.54 MC/CUMM (3.8-5.5); White Blood Count 2.8 T/CUMM (4-12)
[2018-11-10 15:35] LABS: Calcium 8.8 MG/DL (8.5-10.1); Potassium 4.9 MMOL/L (3.5-5.1)
[2018-11-10] MEDS ORDERED: FUROSEMIDE 40 MG/4 ML VIAL IV STA (15:44)
[2018-11-10] MEDS ORDERED: NITROGLYCERIN SL 0.4 MG TABLET SL STA (15:50)
[2018-11-10] MEDS ORDERED: DEXTROSE 50% 25 GM/50 ML SYRINGE IV PRN (16:58)
[2018-11-10] MEDS ORDERED: GLUCAGON 1 MG VIAL IM PRN (16:58)
[2018-11-10] MEDS ORDERED: ONDANSETRON 4 MG/2 ML VIAL IV PRN (16:58)
[2018-11-10] MEDS ORDERED: NITROGLYCERIN SL 0.4 MG TABLET SL PRN (17:01)
[2018-11-10] MEDS ORDERED: MAGNESIUM SULF RIDER 2 GM in PREMIX 1 EACH IV PRN (17:02)
[2018-11-10] MEDS ORDERED: POTASSIUM CHLORIDE 20 MEQ TABLET PO PRN (17:02)
[2018-11-10] MEDS: ENOXAPARIN 30 MG/0.3 ML SYRINGE SUBCUT SCH (17:58)
[2018-11-10] MEDS ORDERED: ACETAMINOPHEN 325 MG TABLET ONE (19:15)
[2018-11-10] MEDS: ACETAMINOPHEN 325 MG TABLET PO PRN ×2 (19:18→23:10)
[2018-11-10] MEDS: FAMOTIDINE 20 MG TABLET PO SCH (21:21)
[2018-11-10] MEDS: RANOLAZINE 500 MG TABLET PO SCH (21:22)
[2018-11-10] MEDS: FUROSEMIDE 40 MG TABLET PO SCH (21:22)
[2018-11-10] MEDS: MONTELUKAST 10 MG TABLET PO SCH (21:22)
[2018-11-10] MEDS: ISOSORBIDE MONONITRATE 30 MG TABLET PO SCH (21:22)
[2018-11-10] MEDS: TOPIRAMATE 25 MG TABLET PO SCH (21:22)
[2018-11-10] MEDS: CARVEDILOL 25 MG TABLET PO SCH (21:22)
[2018-11-10] MEDS: ZALEPLON 5 MG CAPSULE PO SCH (21:23)
[2018-11-10] MEDS: POTASSIUM CHLORIDE 20 MEQ TABLET PO SCH (21:24)
[2018-11-10] MEDS: INSULIN REGULAR 100 UNIT/ML SUBCUT SCH (21:24)
[2018-11-10] MEDS: PANTOPRAZOLE 40 MG TABLET PO SCH (21:24)
[2018-11-11 04:51] LABS: Basophils % 0.3 % (0.0-0.8); Eosinophils # 0.1 10*3/uL (0.0-0.87); Eosinophils % 3.8 % (0.00-10.9); Hematocrit 26.1 VOL% (35.7-47.0); Hemoglobin 8.2 GM/DL (12.0-16.0); Immature Granulocytes % 0.7 %; Immature Granulocytes Absolute 0.02 #; Lymphocytes # 1.2 10*3/uL (1.4-4.0); Lymphocytes % 40.6 % (21.3-54.2); Mean Corpuscular HGB Conc 31.4 GM/DL (32-36); Mean Corpuscular Hemoglobin 28 PG (27-34); Mean Corpuscular Volume 87.6 FL (87-102); Mean Platelet Volume 12.1 FL (9.6-12.0); Monocytes # 0.3 10*3/uL (0.11-0.8); Monocytes % 10.1 % (1.7-12.7); Neutrophils # 1.3 10*3/uL (1.4-7.4); Neutrophils % 44.5 % (38.7-73.9); Platelet Count 147 T/CUMM (130-400); Red Blood Count 2.98 MC/CUMM (3.8-5.5); Red Cell Distribution Width 17.8 % (9.3-17.3); White Blood Count 2.9 T/CUMM (4-12)
[2018-11-11 05:05] LABS: % Iron Saturation 25.7 % (18-50); Ferritin 31.7 ng/ml (8-252); Iron 57 UG/DL (50-170); Iron Binding Capacity 222 UG/DL (250-450); Rheumatoid Factor < 15 IU/ML (<15)
[2018-11-11 05:07] LABS: Albumin 3.3 G/DL (3.4-5.0); Bilirubin,Direct 0.18 MG/DL (0.0-0.20); Bilirubin,Indirect 0.6 MG/DL (0.0-1.0); Bilirubin,Total 0.8 MG/DL (0.2-1.0); Calcium 8.6 MG/DL (8.5-10.1); Osmolality,Calculated 284.4 MOS/KG (273-304); Potassium 4.6 MMOL/L (3.5-5.1); Risk Ratio 1.78; Total Protein 6.1 G/DL (6.4-8.3)
[2018-11-11 05:26] LABS: Hypochromasia Slight; Platelet Estimate Adequate; Polychromasia Few
[2018-11-11 08:32] LABS: Basophils % 0.4 % (0.0-0.8); Eosinophils # 0.1 10*3/uL (0.0-0.87); Eosinophils % 3.7 % (0.00-10.9); Hematocrit 26.7 VOL% (35.7-47.0); Hemoglobin 8.2 GM/DL (12.0-16.0); Lymphocytes # 1.1 10*3/uL (1.4-4.0); Lymphocytes % 45.7 % (21.3-54.2); Mean Corpuscular HGB Conc 30.7 GM/DL (32-36); Mean Corpuscular Hemoglobin 27 PG (27-34); Mean Platelet Volume 11.1 FL (9.6-12.0); Monocytes # 0.3 10*3/uL (0.11-0.8); Monocytes % 12.2 % (1.7-12.7); Neutrophils # 0.9 10*3/uL (1.4-7.4); Platelet Count 142 T/CUMM (130-400); Red Cell Distribution Width 17.8 % (9.3-17.3); White Blood Count 2.5 T/CUMM (4-12)
[2018-11-11] MEDS: INSULIN REGULAR 100 UNIT/ML SUBCUT SCH ×4 (08:56→21:02)
[2018-11-11] MEDS ORDERED: CLOPIDOGREL 75 MG TABLET PO SCH (09:00)
[2018-11-11 09:04] LABS: Eosinophils 4 % (0-10); Hypochromasia 1+; Lymphocytes 45 % (20-55); Platelet Estimate Adequate; Segmented Neutrophils 43 % (50-85); Total Cells Counted 100
[2018-11-11 09:05] LABS: Ovalocytes Slight
[2018-11-11] MEDS: LISINOPRIL 5 MG TABLET PO SCH (09:09)
[2018-11-11] MEDS: ASPIRIN EC 81 MG TABLET PO SCH (09:09)
[2018-11-11] MEDS: POTASSIUM CHLORIDE 20 MEQ TABLET PO SCH ×2 (09:10→21:02)
[2018-11-11] MEDS: glipiZIDE 5 MG TABLET PO SCH (09:10)
[2018-11-11] MEDS: PANTOPRAZOLE 40 MG TABLET PO SCH ×2 (09:10→21:02)
[2018-11-11] MEDS: DULoxetine 30 MG CAPSULE PO SCH (09:10)
[2018-11-11] MEDS: TOPIRAMATE 25 MG TABLET PO SCH ×2 (09:11→21:01)
[2018-11-11] MEDS: RANOLAZINE 500 MG TABLET PO SCH ×2 (09:11→21:01)
[2018-11-11] MEDS: amLODIPine 5 MG TABLET PO SCH (09:11)
[2018-11-11] MEDS: BISACODYL 5 MG TABLET PO SCH (09:11)
[2018-11-11] MEDS: FUROSEMIDE 40 MG TABLET PO SCH ×2 (09:11→21:02)
[2018-11-11] MEDS: ATORVASTATIN 10 MG TABLET PO SCH (09:11)
[2018-11-11] MEDS: CARVEDILOL 25 MG TABLET PO SCH ×2 (09:11→21:02)
[2018-11-11] MEDS: FAMOTIDINE 20 MG TABLET PO SCH (09:12)
[2018-11-11] MEDS: SENNA 8.6 MG TABLET PO SCH (09:12)
[2018-11-11 09:42] LABS: Sedimentation Rate-Westergren 15 MM/HR (0-30)
[2018-11-11] MEDS: ENOXAPARIN 30 MG/0.3 ML SYRINGE SUBCUT SCH (17:33)
[2018-11-11] MEDS: ZALEPLON 5 MG CAPSULE PO SCH (21:01)
[2018-11-11] MEDS: MONTELUKAST 10 MG TABLET PO SCH (21:01)
[2018-11-11] MEDS: ISOSORBIDE MONONITRATE 30 MG TABLET PO SCH (21:02)
[2018-11-12 05:43] LABS: Basophils % 0.7 % (0.0-0.8); Eosinophils # 0.1 10*3/uL (0.0-0.87); Eosinophils % 3.8 % (0.00-10.9); Immature Granulocytes % 0.3 %; Immature Granulocytes Absolute 0.01 #; Lymphocytes # 1.2 10*3/uL (1.4-4.0); Mean Corpuscular HGB Conc 30.8 GM/DL (32-36); Mean Corpuscular Hemoglobin 27 PG (27-34); Mean Corpuscular Volume 88.4 FL (87-102); Mean Platelet Volume 11.8 FL (9.6-12.0); Monocytes # 0.4 10*3/uL (0.11-0.8); Monocytes % 12.6 % (1.7-12.7); Neutrophils # 1.2 10*3/uL (1.4-7.4); Neutrophils % 41.6 % (38.7-73.9); Platelet Count 131 T/CUMM (130-400); Red Blood Count 2.94 MC/CUMM (3.8-5.5); Red Cell Distribution Width 17.6 % (9.3-17.3); White Blood Count 2.9 T/CUMM (4-12)
[2018-11-12 05:55] LABS: Calcium 8.5 MG/DL (8.5-10.1); Osmolality,Calculated 276.1 MOS/KG (273-304); Potassium 4.5 MMOL/L (3.5-5.1)
[2018-11-12 06:08] LABS: Elliptocytes Few; Hypochromasia 1+; Platelet Estimate Adequate
[2018-11-12] MEDS: INSULIN REGULAR 100 UNIT/ML SUBCUT SCH ×4 (08:58→21:30)
[2018-11-12] MEDS: RANOLAZINE 500 MG TABLET PO SCH ×2 (09:03→21:30)
[2018-11-12] MEDS: FUROSEMIDE 40 MG TABLET PO SCH ×3 (09:03→21:30)
[2018-11-12] MEDS: LISINOPRIL 5 MG TABLET PO SCH (09:03)
[2018-11-12] MEDS: ASPIRIN EC 81 MG TABLET PO SCH (09:04)
[2018-11-12] MEDS: DULoxetine 30 MG CAPSULE PO SCH (09:04)
[2018-11-12] MEDS: SENNA 8.6 MG TABLET PO SCH (09:05)
[2018-11-12] MEDS: ATORVASTATIN 10 MG TABLET PO SCH (09:05)
[2018-11-12] MEDS: PANTOPRAZOLE 40 MG TABLET PO SCH ×2 (09:06→21:30)
[2018-11-12] MEDS: amLODIPine 5 MG TABLET PO SCH (09:06)
[2018-11-12] MEDS: CARVEDILOL 25 MG TABLET PO SCH (09:06)
[2018-11-12] MEDS: glipiZIDE 5 MG TABLET PO SCH (09:06)
[2018-11-12] MEDS: POTASSIUM CHLORIDE 20 MEQ TABLET PO SCH ×2 (09:06→21:30)
[2018-11-12] MEDS: TOPIRAMATE 25 MG TABLET PO SCH ×2 (09:06→21:30)
[2018-11-12] MEDS: FAMOTIDINE 20 MG TABLET PO SCH (09:06)
[2018-11-12] MEDS: BISACODYL 5 MG TABLET PO SCH (09:06)
[2018-11-12 09:14] LABS: Hemoglobin A1 (Alkaline) 97.8 % (96.5-98.5); Hemoglobin A2 (Alkaline) 2.2 % (1.5-3.5)
[2018-11-12] MEDS ORDERED: ALUM/MAG/SIMETH/LIDO VISC 1:1 30 ML BOTTLE PO ONE (11:21)
[2018-11-12 13:54] LABS: Folate 9.5 NG/ML (5.4-24.0); Vitamin B12 234 PG/ML (211-911)
[2018-11-12] MEDS: CARVEDILOL 12.5 MG TABLET PO SCH (21:30)
[2018-11-12] MEDS: ZALEPLON 5 MG CAPSULE PO SCH (21:30)
[2018-11-12] MEDS: ISOSORBIDE MONONITRATE 30 MG TABLET PO SCH (21:30)
[2018-11-12] MEDS: MONTELUKAST 10 MG TABLET PO SCH (21:30)
[2018-11-13 04:29] LABS: Basophils % 0.7 % (0.0-0.8); Eosinophils # 0.1 10*3/uL (0.0-0.87); Eosinophils % 3.4 % (0.00-10.9); Hematocrit 26.6 VOL% (35.7-47.0); Hemoglobin 8.5 GM/DL (12.0-16.0); Immature Granulocytes % 0.3 %; Immature Granulocytes Absolute 0.01 #; Lymphocytes # 1.2 10*3/uL (1.4-4.0); Lymphocytes % 40.6 % (21.3-54.2); Mean Corpuscular Hemoglobin 28 PG (27-34); Mean Corpuscular Volume 87.2 FL (87-102); Mean Platelet Volume 10.9 FL (9.6-12.0); Monocytes # 0.4 10*3/uL (0.11-0.8); Monocytes % 11.7 % (1.7-12.7); Neutrophils # 1.3 10*3/uL (1.4-7.4); Neutrophils % 43.3 % (38.7-73.9); Platelet Count 129 T/CUMM (130-400); Red Blood Count 3.05 MC/CUMM (3.8-5.5); Red Cell Distribution Width 17.5 % (9.3-17.3)
[2018-11-13 05:03] LABS: Platelet Estimate Decreased
[2018-11-13 05:06] LABS: Polychromasia Few
[2018-11-13] MEDS: INSULIN REGULAR 100 UNIT/ML SUBCUT SCH ×4 (10:06→21:00)
[2018-11-13] MEDS: RANOLAZINE 500 MG TABLET PO SCH ×2 (10:17→21:13)
[2018-11-13] MEDS: DULoxetine 30 MG CAPSULE PO SCH (10:17)
[2018-11-13] MEDS: TOPIRAMATE 25 MG TABLET PO SCH ×2 (10:18→21:14)
[2018-11-13] MEDS: ATORVASTATIN 10 MG TABLET PO SCH (10:18)
[2018-11-13] MEDS: POTASSIUM CHLORIDE 20 MEQ TABLET PO SCH ×2 (10:18→21:13)
[2018-11-13] MEDS: amLODIPine 5 MG TABLET PO SCH (10:18)
[2018-11-13] MEDS: glipiZIDE 5 MG TABLET PO SCH (10:18)
[2018-11-13] MEDS: LISINOPRIL 5 MG TABLET PO SCH (10:18)
[2018-11-13] MEDS: CARVEDILOL 12.5 MG TABLET PO SCH ×2 (10:18→21:12)
[2018-11-13] MEDS: SENNA 8.6 MG TABLET PO SCH (10:19)
[2018-11-13] MEDS: PANTOPRAZOLE 40 MG TABLET PO SCH ×2 (10:19→21:13)
[2018-11-13] MEDS: FUROSEMIDE 40 MG TABLET PO SCH (10:19)
[2018-11-13] MEDS: BISACODYL 5 MG TABLET PO SCH (10:19)
[2018-11-13] MEDS ORDERED: LIDOCAINE 2% 5 ML VIAL ONE (12:30)
[2018-11-13] MEDS ORDERED: PROPOFOL 200 MG/20 ML VIAL IV ONE (12:30)
[2018-11-13] MEDS: ISOSORBIDE MONONITRATE 30 MG TABLET PO SCH (21:12)
[2018-11-13] MEDS: ZALEPLON 5 MG CAPSULE PO SCH (21:13)
[2018-11-13] MEDS: MONTELUKAST 10 MG TABLET PO SCH (21:13)
[2018-11-14] MEDS: INSULIN REGULAR 100 UNIT/ML SUBCUT SCH ×4 (09:40→21:55)
[2018-11-14] MEDS: amLODIPine 5 MG TABLET PO SCH (12:03)
[2018-11-14] MEDS: RANOLAZINE 500 MG TABLET PO SCH ×2 (12:04→21:48)
[2018-11-14] MEDS: POTASSIUM CHLORIDE 20 MEQ TABLET PO SCH ×2 (12:04→21:48)
[2018-11-14] MEDS: DULoxetine 30 MG CAPSULE PO SCH (12:04)
[2018-11-14] MEDS: CARVEDILOL 12.5 MG TABLET PO SCH ×2 (12:04→21:48)
[2018-11-14] MEDS: PANTOPRAZOLE 40 MG TABLET PO SCH ×2 (12:05→21:48)
[2018-11-14] MEDS: glipiZIDE 5 MG TABLET PO SCH (12:05)
[2018-11-14] MEDS: ATORVASTATIN 10 MG TABLET PO SCH (12:05)
[2018-11-14] MEDS: SENNA 8.6 MG TABLET PO SCH (12:05)
[2018-11-14] MEDS: BISACODYL 5 MG TABLET PO SCH (12:06)
[2018-11-14] MEDS: TOPIRAMATE 25 MG TABLET PO SCH ×2 (12:06→21:49)
[2018-11-14] MEDS: FUROSEMIDE 40 MG TABLET PO SCH (12:06)
[2018-11-14] MEDS: LISINOPRIL 5 MG TABLET PO SCH (12:09)
[2018-11-14] MEDS: CHOLECALCIFEROL 1,000 UNIT TABLET PO SCH (14:12)
[2018-11-14] MEDS: ISOSORBIDE MONONITRATE 30 MG TABLET PO SCH (21:48)
[2018-11-14] MEDS: ACETAMINOPHEN 325 MG TABLET PO PRN (21:49)
[2018-11-14] MEDS: MONTELUKAST 10 MG TABLET PO SCH (21:49)
[2018-11-14] MEDS: ZALEPLON 5 MG CAPSULE PO SCH (21:49)
[2018-11-15 08:13] VITALS: BP 126/47
[2018-11-15] MEDS: RANOLAZINE 500 MG TABLET PO SCH (08:40)
[2018-11-15] MEDS: CHOLECALCIFEROL 1,000 UNIT TABLET PO SCH (08:40)
[2018-11-15] MEDS: POTASSIUM CHLORIDE 20 MEQ TABLET PO SCH (08:40)
[2018-11-15] MEDS: amLODIPine 5 MG TABLET PO SCH (08:41)
[2018-11-15] MEDS: DULoxetine 30 MG CAPSULE PO SCH (08:41)
[2018-11-15] MEDS: ASPIRIN EC 81 MG TABLET PO SCH (08:41)
[2018-11-15] MEDS: PANTOPRAZOLE 40 MG TABLET PO SCH (08:41)
[2018-11-15] MEDS: ATORVASTATIN 10 MG TABLET PO SCH (08:41)
[2018-11-15] MEDS: glipiZIDE 5 MG TABLET PO SCH (08:41)
[2018-11-15] MEDS: TOPIRAMATE 25 MG TABLET PO SCH (08:41)
[2018-11-15] MEDS: FUROSEMIDE 40 MG TABLET PO SCH (08:41)
[2018-11-15] MEDS: CARVEDILOL 12.5 MG TABLET PO SCH (08:41)
[2018-11-15] MEDS: SENNA 8.6 MG TABLET PO SCH (08:41)
[2018-11-15] MEDS: LISINOPRIL 5 MG TABLET PO SCH (08:41)
[2018-11-15] MEDS: BISACODYL 5 MG TABLET PO SCH (08:42)
[2018-11-15] MEDS: INSULIN REGULAR 100 UNIT/ML SUBCUT SCH (08:44)
== END 2018-11-15 12:53 | disposition home health service (06) | DRG 391 ==
LOC: N.ED 14:29 → N.EDINP 14:29 → SUATTDRO 16:58 → N.TELEN 19:17
PROVIDERS: ADMIT Hospitalist; ATTEND Hospitalist

== ENCOUNTER 2018-11-25 19:12 | Observation (INO) ==
[2018-11-25] MEDS ORDERED: NITROGLYCERIN 2% OINT 1 INCH/GM PACK TOP STA (19:43)
[2018-11-25] MEDS ORDERED: ASPIRIN EC 325 MG TABLET PO STA (19:43)
[2018-11-25] MEDS ORDERED: MORPHINE 4 MG/1 ML VIAL IV STA (19:43)
[2018-11-25 19:45] LABS: Basophils % 0.3 % (0.0-0.8); Eosinophils # 0.1 10*3/uL (0.0-0.87); Eosinophils % 2.4 % (0.00-10.9); Hematocrit 29.7 VOL% (35.7-47.0); Hemoglobin 9.2 GM/DL (12.0-16.0); Immature Granulocytes % 0.3 %; Immature Granulocytes Absolute 0.01 #; Lymphocytes # 1.2 10*3/uL (1.4-4.0); Lymphocytes % 36.7 % (21.3-54.2); Mean Corpuscular Hemoglobin 28 PG (27-34); Mean Corpuscular Volume 90.3 FL (87-102); Mean Platelet Volume 10.6 FL (9.6-12.0); Monocytes # 0.4 10*3/uL (0.11-0.8); Monocytes % 12.8 % (1.7-12.7); Neutrophils # 1.6 10*3/uL (1.4-7.4); Neutrophils % 47.5 % (38.7-73.9); Platelet Count 206 T/CUMM (130-400); Red Blood Count 3.29 MC/CUMM (3.8-5.5); White Blood Count 3.4 T/CUMM (4-12)
[2018-11-25 19:52] LABS: PT Patient Result 10.7 SECS
[2018-11-25 19:52] LABS: Albumin 3.8 G/DL (3.4-5.0); Bilirubin,Total 0.4 MG/DL (0.2-1.0); Calcium 8.6 MG/DL (8.5-10.1); Osmolality,Calculated 284.4 MOS/KG (273-304); Potassium 4.5 MMOL/L (3.5-5.1); Total Protein 6.9 G/DL (6.4-8.3)
[2018-11-25] MEDS ORDERED: ONDANSETRON 4 MG/2 ML VIAL ONE (20:38)
[2018-11-25] MEDS ORDERED: DEXTROSE 50% 25 GM/50 ML SYRINGE IV PRN (20:44)
[2018-11-25] MEDS ORDERED: DOCUSATE SODIUM 100 MG CAPSULE PO PRN (20:44)
[2018-11-25] MEDS ORDERED: ONDANSETRON 4 MG/2 ML VIAL IV PRN (20:44)
[2018-11-25] MEDS ORDERED: GLUCAGON 1 MG VIAL IM PRN (20:44)
[2018-11-25] MEDS ORDERED: ONDANSETRON 4 MG/2 ML VIAL IV STA (20:50)
[2018-11-25] MEDS: MORPHINE 4 MG/1 ML VIAL IV PRN (22:58)
[2018-11-25] MEDS: INSULIN LISPRO 100 UNIT/ML SUBCUT SCH (23:12)
[2018-11-26] MEDS: NITROGLYCERIN SL 0.4 MG TABLET SL PRN ×3 (00:59→02:04)
[2018-11-26 02:46] LABS: Basophils % 0.3 % (0.0-0.8); Eosinophils # 0.1 10*3/uL (0.0-0.87); Eosinophils % 3.9 % (0.00-10.9); Hematocrit 25.7 VOL% (35.7-47.0); Hemoglobin 7.9 GM/DL (12.0-16.0); Immature Granulocytes % 0.3 %; Immature Granulocytes Absolute 0.01 #; Lymphocytes # 1.3 10*3/uL (1.4-4.0); Lymphocytes % 42.1 % (21.3-54.2); Mean Corpuscular HGB Conc 30.7 GM/DL (32-36); Mean Corpuscular Hemoglobin 28 PG (27-34); Mean Corpuscular Volume 90.2 FL (87-102); Mean Platelet Volume 10.1 FL (9.6-12.0); Monocytes # 0.4 10*3/uL (0.11-0.8); Monocytes % 12.5 % (1.7-12.7); Neutrophils # 1.3 10*3/uL (1.4-7.4); Neutrophils % 40.9 % (38.7-73.9); Platelet Count 160 T/CUMM (130-400); Red Blood Count 2.85 MC/CUMM (3.8-5.5); Red Cell Distribution Width 17.6 % (9.3-17.3); White Blood Count 3.1 T/CUMM (4-12)
[2018-11-26] MEDS: MORPHINE 4 MG/1 ML VIAL IV PRN ×3 (03:07→12:20)
[2018-11-26 03:17] LABS: Calcium 8.1 MG/DL (8.5-10.1); Potassium 3.9 MMOL/L (3.5-5.1)
[2018-11-26] MEDS ORDERED: ZALEPLON 5 MG CAPSULE PO PRN (04:28)
[2018-11-26 06:06] LABS: Hypochromasia Slight; Platelet Estimate Adequate; Polychromasia Few
[2018-11-26] MEDS: INSULIN LISPRO 100 UNIT/ML SUBCUT SCH ×3 (06:45→15:48)
[2018-11-26] MEDS ORDERED: amLODIPine 5 MG TABLET PO SCH (09:00)
[2018-11-26] MEDS ORDERED: RANOLAZINE 500 MG TABLET PO SCH (09:00)
[2018-11-26] MEDS ORDERED: ISOSORBIDE MONONITRATE 60 MG TABLET PO SCH (09:00)
[2018-11-26] MEDS ORDERED: DULoxetine 30 MG CAPSULE PO SCH ×2 (09:00)
[2018-11-26] MEDS ORDERED: POTASSIUM CHLORIDE 20 MEQ TABLET PO SCH (09:00)
[2018-11-26] MEDS ORDERED: FUROSEMIDE 40 MG TABLET PO SCH (09:00)
[2018-11-26] MEDS ORDERED: ASPIRIN EC 81 MG TABLET PO SCH (09:00)
[2018-11-26] MEDS ORDERED: ENOXAPARIN 30 MG/0.3 ML SYRINGE SUBCUT SCH (09:00)
[2018-11-26] MEDS ORDERED: TOPIRAMATE 25 MG TABLET PO SCH (09:00)
[2018-11-26] MEDS ORDERED: glipiZIDE 5 MG TABLET PO SCH (09:00)
[2018-11-26] MEDS ORDERED: CARVEDILOL 25 MG TABLET PO SCH (09:00)
[2018-11-26] MEDS ORDERED: PANTOPRAZOLE 40 MG TABLET PO SCH (09:00)
[2018-11-26] MEDS ORDERED: LISINOPRIL 5 MG TABLET PO SCH (09:00)
[2018-11-26] MEDS ORDERED: ATORVASTATIN 10 MG TABLET PO SCH (09:00)
[2018-11-26] MEDS ORDERED: BISACODYL 5 MG TABLET PO SCH (09:00)
[2018-11-26] MEDS ORDERED: CARVEDILOL 12.5 MG TABLET PO SCH (09:00)
[2018-11-26] MEDS ORDERED: SENNA 8.6 MG TABLET PO SCH (09:00)
[2018-11-26] MEDS: ACETAMINOPHEN 325 MG TABLET PO PRN ×2 (10:10→15:00)
[2018-11-26] MEDS ORDERED: METHOCARBAMOL 500 MG TABLET PO PRN (11:25)
[2018-11-26 16:54] VITALS: BP 115/34
[2018-11-26] MEDS ORDERED: ISOSORBIDE MONONITRATE 30 MG TABLET PO SCH (21:00)
[2018-11-26] MEDS ORDERED: FAMOTIDINE 20 MG TABLET PO SCH (21:00)
[2018-11-26] MEDS ORDERED: MONTELUKAST 10 MG TABLET PO SCH (21:00)
== END 2018-11-26 17:04 | disposition home or self-care (01) ==
LOC: EDUNIT# → N.EDINP 19:12 → N.ED 19:12 → N.TELEN 21:39
PROVIDERS: ADMIT Internal Medicine; ATTEND Internal Medicine

== ENCOUNTER 2018-12-06 17:55 | Observation (INO) ==
[2018-12-06 18:34] LABS: Basophils % 0.3 % (0.0-0.8); Eosinophils # 0.1 10*3/uL (0.0-0.87); Eosinophils % 2.7 % (0.00-10.9); Hemoglobin 9.3 GM/DL (12.0-16.0); Immature Granulocytes % 0.3 %; Immature Granulocytes Absolute 0.01 #; Lymphocytes # 0.8 10*3/uL (1.4-4.0); Lymphocytes % 27.6 % (21.3-54.2); Mean Corpuscular Hemoglobin 28 PG (27-34); Mean Corpuscular Volume 90.1 FL (87-102); Mean Platelet Volume 10.7 FL (9.6-12.0); Monocytes # 0.3 10*3/uL (0.11-0.8); Monocytes % 9.3 % (1.7-12.7); Neutrophils # 1.8 10*3/uL (1.4-7.4); Neutrophils % 59.8 % (38.7-73.9); Platelet Count 176 T/CUMM (130-400); Red Blood Count 3.33 MC/CUMM (3.8-5.5); Red Cell Distribution Width 17.5 % (9.3-17.3)
[2018-12-06 18:43] LABS: PT Patient Result 10.6 SECS; Partial Thromboplastin Time 23.5 SECS (0-40)
[2018-12-06 18:54] LABS: Albumin 3.7 G/DL (3.4-5.0); Bilirubin,Total 0.8 MG/DL (0.2-1.0); Calcium 8.2 MG/DL (8.5-10.1); Osmolality,Calculated 282.7 MOS/KG (273-304); Potassium 4.5 MMOL/L (3.5-5.1); Total Protein 6.6 G/DL (6.4-8.3)
[2018-12-06] MEDS ORDERED: DEXTROSE 50% 25 GM/50 ML SYRINGE IV ONE (18:58)
[2018-12-06] MEDS ORDERED: DEXTROSE 50% 25 GM/50 ML VIAL IV STA (19:08)
[2018-12-06] MEDS ORDERED: MORPHINE 4 MG/1 ML VIAL IV STA (20:08)
[2018-12-06] MEDS ORDERED: ONDANSETRON 4 MG/2 ML VIAL IV ONE (20:08)
[2018-12-06] MEDS: DEXTROSE 5% NACL 0.45% 1,000 ML IV SCH (20:56)
[2018-12-06] MEDS ORDERED: ONDANSETRON 4 MG/2 ML VIAL IV PRN (21:04)
[2018-12-06] MEDS ORDERED: GLUCAGON 1 MG VIAL IM PRN (21:04)
[2018-12-06] MEDS ORDERED: NITROGLYCERIN SL 0.4 MG TABLET SL PRN (21:08)
[2018-12-06] MEDS ORDERED: ZALEPLON 5 MG CAPSULE PO PRN (21:08)
[2018-12-06] MEDS ORDERED: ENOXAPARIN 40 MG/0.4 ML SYRINGE SUBCUT SCH (21:30)
[2018-12-07 04:55] LABS: Calcium 7.9 MG/DL (8.5-10.1); Osmolality,Calculated 282.8 MOS/KG (273-304); Potassium 4.5 MMOL/L (3.5-5.1)
[2018-12-07 05:19] LABS: Risk Ratio 1.91; VLDL CHOLESTEROL 8.2 MG/DL
[2018-12-07 07:53] VITALS: BP 155/45
[2018-12-07] MEDS: INSULIN REGULAR 100 UNIT/ML SUBCUT SCH ×2 (08:21→12:39)
[2018-12-07] MEDS ORDERED: TOPIRAMATE 25 MG TABLET PO SCH (09:00)
[2018-12-07] MEDS ORDERED: CARVEDILOL 25 MG TABLET PO SCH (09:00)
[2018-12-07] MEDS ORDERED: POTASSIUM CHLORIDE 20 MEQ TABLET PO SCH (09:00)
[2018-12-07] MEDS ORDERED: ATORVASTATIN 10 MG TABLET PO SCH (09:00)
[2018-12-07] MEDS ORDERED: DULoxetine 30 MG CAPSULE PO SCH (09:00)
[2018-12-07] MEDS ORDERED: amLODIPine 5 MG TABLET PO SCH (09:00)
[2018-12-07] MEDS ORDERED: SENNA 8.6 MG TABLET PO SCH (09:00)
[2018-12-07] MEDS ORDERED: CARVEDILOL 12.5 MG TABLET PO SCH (09:00)
[2018-12-07] MEDS ORDERED: BISACODYL 5 MG TABLET PO SCH (09:00)
[2018-12-07] MEDS ORDERED: RANOLAZINE 500 MG TABLET PO SCH (09:00)
[2018-12-07] MEDS ORDERED: PANTOPRAZOLE 40 MG TABLET PO SCH (09:00)
[2018-12-07] MEDS ORDERED: ASPIRIN EC 81 MG TABLET PO SCH (09:00)
[2018-12-07] MEDS ORDERED: FUROSEMIDE 40 MG TABLET PO SCH (09:00)
[2018-12-07] MEDS ORDERED: ENOXAPARIN 30 MG/0.3 ML SYRINGE SUBCUT SCH (09:00)
[2018-12-07] MEDS: DEXTROSE 5% NACL 0.45% 1,000 ML IV SCH (09:38)
[2018-12-07] MEDS ORDERED: GABAPENTIN 100 MG CAPSULE PO ONE (09:38)
[2018-12-07] MEDS ORDERED: ACETAMINOPHEN 325 MG TABLET PO SCH (10:00)
[2018-12-07] MEDS ORDERED: GABAPENTIN 100 MG CAPSULE PO SCH (15:00)
[2018-12-07] MEDS ORDERED: LORATADINE 10 MG TABLET PO SCH (15:30)
[2018-12-07] MEDS ORDERED: MONTELUKAST 10 MG TABLET PO SCH (21:00)
[2018-12-07] MEDS ORDERED: ISOSORBIDE MONONITRATE 60 MG TABLET PO SCH (21:00)
[2018-12-07] MEDS ORDERED: CARVEDILOL 3.125 MG TABLET PO SCH (21:00)
== END 2018-12-07 15:35 | disposition home or self-care (01) ==
LOC: EDUNIT# → N.ED 17:55 → N.EDINP 17:55 → SUATTDRO 21:04 → N.TELES 21:58
PROVIDERS: ADMIT Internal Medicine; ATTEND Internal Medicine

== ENCOUNTER 2019-02-02 21:31 | Observation (INO) ==
[2019-02-02 22:16] LABS: Basophils % 0.2 % (0.0-0.8); Eosinophils # 0.1 10*3/uL (0.0-0.87); Hemoglobin 9.5 GM/DL (12.0-16.0); Immature Granulocytes % 0.4 %; Immature Granulocytes Absolute 0.02 #; Lymphocytes # 0.8 10*3/uL (1.4-4.0); Lymphocytes % 16.3 % (21.3-54.2); Mean Corpuscular HGB Conc 30.6 GM/DL (32-36); Mean Corpuscular Volume 89.6 FL (87-102); Mean Platelet Volume 10.9 FL (9.6-12.0); Monocytes % 10.8 % (1.7-12.7); Neutrophils % 71.3 % (38.7-73.9); Platelet Count 172 T/CUMM (130-400); Red Blood Count 3.46 MC/CUMM (3.8-5.5); Red Cell Distribution Width 15.8 % (9.3-17.3)
[2019-02-02 22:41] LABS: Alanine Aminotransferase 12 U/L (13-56); Albumin 3.1 G/DL (3.4-5.0); Alkaline Phosphatase 63 U/L (45-117); Aspartate Amino Transferase 13 U/L (0-37); Blood Urea Nitrogen 22 MG/DL (7-18); Glucose 98 MG/DL (74-106); Osmolality,Calculated 281.4 MOS/KG (273-304); Total Protein 6.4 G/DL (6.4-8.3)
[2019-02-02 22:42] LABS: Troponin I 0.308 NG/ML (0.00-0.045)
[2019-02-02] MEDS ORDERED: ENOXAPARIN 80 MG/0.8 ML SYRINGE SUBCUT STA (23:22)
[2019-02-02] MEDS ORDERED: ASPIRIN 325 MG TABLET PO STA (23:22)
[2019-02-02] MEDS ORDERED: ONDANSETRON 4 MG/2 ML VIAL IV STA (23:45)
[2019-02-02] MEDS ORDERED: MORPHINE 4 MG/1 ML VIAL IV STA (23:45)
[2019-02-02] MEDS ORDERED: ACETAMINOPHEN 325 MG TABLET PO PRN (23:48)
[2019-02-02] MEDS ORDERED: BISACODYL 5 MG TABLET PO PRN (23:48)
[2019-02-02] MEDS ORDERED: ZALEPLON 5 MG CAPSULE PO PRN (23:48)
[2019-02-02] MEDS ORDERED: ONDANSETRON 4 MG/2 ML VIAL IV PRN (23:48)
[2019-02-02] MEDS ORDERED: NICOTINE 21 MG/24 HR PATCH TRANSDERM PRN (23:48)
[2019-02-02] MEDS ORDERED: guaiFENesin/DM ER 600-30 MG TABLET PO PRN (23:48)
[2019-02-03 00:20] LABS: Risk Ratio 1.92; Thyroid Stimulating Hormone 2.16 uIU/ml (0.358-3.74); VLDL CHOLESTEROL 12.8 MG/DL
[2019-02-03] MEDS ORDERED: PANTOPRAZOLE 40 MG TABLET PO SCH (09:00)
[2019-02-03] MEDS: NITROGLYCERIN SL 0.4 MG TABLET SL PRN ×3 (10:23→10:33)
[2019-02-03] MEDS: GABAPENTIN 100 MG CAPSULE PO SCH ×2 (15:10→21:30)
[2019-02-03] MEDS: MORPHINE 4 MG/1 ML VIAL IV PRN ×3 (15:10→23:35)
[2019-02-03] MEDS: BUDESONIDE/FORMOTEROL 160-4.5 INHALER 6 GM INH SCH (21:28)
[2019-02-03] MEDS: FAMOTIDINE 20 MG TABLET PO SCH (21:29)
[2019-02-03] MEDS: ISOSORBIDE MONONITRATE 60 MG TABLET PO SCH (21:29)
[2019-02-03] MEDS: MONTELUKAST 10 MG TABLET PO SCH (21:29)
[2019-02-03] MEDS: CARVEDILOL 12.5 MG TABLET PO SCH (21:30)
[2019-02-03] MEDS: PANTOPRAZOLE 40 MG TABLET PO SCH (21:30)
[2019-02-03] MEDS: POTASSIUM CHLORIDE 20 MEQ TABLET PO SCH (21:30)
[2019-02-03] MEDS: TOPIRAMATE 25 MG TABLET PO SCH (21:30)
[2019-02-03] MEDS: RANOLAZINE 500 MG TABLET PO SCH (21:30)
[2019-02-03] MEDS: ZALEPLON 5 MG CAPSULE PO PRN (23:35)
[2019-02-04] MEDS: MORPHINE 4 MG/1 ML VIAL IV PRN ×5 (07:31→23:02)
[2019-02-04] MEDS: DULoxetine 30 MG CAPSULE PO SCH (08:18)
[2019-02-04] MEDS: RANOLAZINE 500 MG TABLET PO SCH ×2 (08:18→22:06)
[2019-02-04] MEDS: GABAPENTIN 100 MG CAPSULE PO SCH ×3 (08:19→22:08)
[2019-02-04] MEDS: SENNA 8.6 MG TABLET PO SCH (08:19)
[2019-02-04] MEDS: LISINOPRIL 5 MG TABLET PO SCH (08:20)
[2019-02-04] MEDS: FUROSEMIDE 40 MG TABLET PO SCH (08:20)
[2019-02-04] MEDS: PANTOPRAZOLE 40 MG TABLET PO SCH ×2 (08:20→22:07)
[2019-02-04] MEDS: POTASSIUM CHLORIDE 20 MEQ TABLET PO SCH ×2 (08:21→22:07)
[2019-02-04] MEDS: amLODIPine 5 MG TABLET PO SCH (08:21)
[2019-02-04] MEDS: TOPIRAMATE 25 MG TABLET PO SCH ×2 (08:21→22:06)
[2019-02-04] MEDS: ASPIRIN EC 81 MG TABLET PO SCH (08:21)
[2019-02-04] MEDS: CARVEDILOL 12.5 MG TABLET PO SCH ×2 (08:21→22:07)
[2019-02-04] MEDS: ATORVASTATIN 10 MG TABLET PO SCH (08:21)
[2019-02-04] MEDS: BUDESONIDE/FORMOTEROL 160-4.5 INHALER 6 GM INH SCH ×2 (08:22→22:12)
[2019-02-04] MEDS ORDERED: methylPREDNISolone 4 MG TABLET PO SCH (14:00)
[2019-02-04] MEDS: LIDOCAINE 5% PATCH TRANSDERM SCH (15:02)
[2019-02-04] MEDS: methylPREDNISolone 4 MG TABLET PO SCH ×2 (18:42→22:09)
[2019-02-04] MEDS: FAMOTIDINE 20 MG TABLET PO SCH (22:06)
[2019-02-04] MEDS: ISOSORBIDE MONONITRATE 60 MG TABLET PO SCH (22:08)
[2019-02-04] MEDS: MONTELUKAST 10 MG TABLET PO SCH (22:08)
[2019-02-04] MEDS: ZALEPLON 5 MG CAPSULE PO PRN (22:09)
[2019-02-05] MEDS: MORPHINE 4 MG/1 ML VIAL IV PRN (05:11)
[2019-02-05 05:55] LABS: Eosinophils % 0.8 % (0.00-10.9); Hematocrit 29.8 VOL% (35.7-47.0); Hemoglobin 9.3 GM/DL (12.0-16.0); Immature Granulocytes % 0.4 %; Immature Granulocytes Absolute 0.01 #; Lymphocytes # 0.4 10*3/uL (1.4-4.0); Lymphocytes % 15.6 % (21.3-54.2); Mean Corpuscular HGB Conc 31.2 GM/DL (32-36); Mean Corpuscular Volume 89.8 FL (87-102); Mean Platelet Volume 12.4 FL (9.6-12.0); Monocytes % 5.1 % (1.7-12.7); Neutrophils % 78.1 % (38.7-73.9); Platelet Count 127 T/CUMM (130-400); Red Blood Count 3.32 MC/CUMM (3.8-5.5); Red Cell Distribution Width 15.6 % (9.3-17.3); White Blood Count 2.6 T/CUMM (4-12)
[2019-02-05 06:07] LABS: Calcium 9.1 MG/DL (8.5-10.1); Osmolality,Calculated 280.8 MOS/KG (273-304)
[2019-02-05 06:19] LABS: Acanthocytes Few; Hypochromasia 1+; Microcytosis 1+
[2019-02-05 06:20] LABS: Target Cells Slight
[2019-02-05 08:21] VITALS: BP 148/70
[2019-02-05] MEDS: RANOLAZINE 500 MG TABLET PO SCH (08:50)
[2019-02-05] MEDS: LISINOPRIL 5 MG TABLET PO SCH (08:50)
[2019-02-05] MEDS: DULoxetine 30 MG CAPSULE PO SCH (08:50)
[2019-02-05] MEDS: methylPREDNISolone 4 MG TABLET PO SCH (08:50)
[2019-02-05] MEDS: TOPIRAMATE 25 MG TABLET PO SCH (08:50)
[2019-02-05] MEDS: GABAPENTIN 100 MG CAPSULE PO SCH (08:50)
[2019-02-05] MEDS: CARVEDILOL 12.5 MG TABLET PO SCH (08:51)
[2019-02-05] MEDS: SENNA 8.6 MG TABLET PO SCH (08:51)
[2019-02-05] MEDS: amLODIPine 5 MG TABLET PO SCH (08:51)
[2019-02-05] MEDS: ATORVASTATIN 10 MG TABLET PO SCH (08:52)
[2019-02-05] MEDS: PANTOPRAZOLE 40 MG TABLET PO SCH (08:52)
[2019-02-05] MEDS: FUROSEMIDE 40 MG TABLET PO SCH (08:52)
[2019-02-05] MEDS: LIDOCAINE 5% PATCH TRANSDERM SCH (08:53)
[2019-02-05] MEDS: ASPIRIN EC 81 MG TABLET PO SCH (08:53)
[2019-02-05] MEDS: BUDESONIDE/FORMOTEROL 160-4.5 INHALER 6 GM INH SCH (09:59)
== END 2019-02-05 12:10 | disposition home or self-care (01) ==
LOC: EDUNIT# → N.ED 21:31 → N.EDINP 21:31 → SUATTDRO 23:48 → N.TELEN 02-03 00:51
PROVIDERS: ADMIT Internal Medicine; ATTEND Internal Medicine

== ENCOUNTER 2019-03-03 05:07 | Inpatient (IN) ==
[2019-03-03] MEDS ORDERED: ALBUTEROL/IPRATROPIUM 3 ML NEB RESP TX STA (05:22)
[2019-03-03] MEDS ORDERED: methylPREDNISolone SOD SUC 125 MG/2 ML VIAL IV STA (05:22)
[2019-03-03] MEDS ORDERED: FUROSEMIDE 100 MG/10 ML VIAL IV STA (05:22)
[2019-03-03 05:29] LABS: Basophils % 0.5 % (0.0-0.8); Eosinophils # 0.2 10*3/uL (0.0-0.87); Eosinophils % 5.3 % (0.00-10.9); Hematocrit 32.8 VOL% (35.7-47.0); Hemoglobin 10.4 GM/DL (12.0-16.0); Immature Granulocytes % 0.3 %; Immature Granulocytes Absolute 0.01 #; Lymphocytes # 1.3 10*3/uL (1.4-4.0); Lymphocytes % 35.6 % (21.3-54.2); Mean Corpuscular HGB Conc 31.7 GM/DL (32-36); Mean Corpuscular Volume 87.7 FL (87-102); Mean Platelet Volume 11.4 FL (9.6-12.0); Monocytes % 9.6 % (1.7-12.7); Neutrophils % 48.7 % (38.7-73.9); Platelet Count 212 T/CUMM (130-400); Red Blood Count 3.74 MC/CUMM (3.8-5.5); Red Cell Distribution Width 16.6 % (9.3-17.3); White Blood Count 3.8 T/CUMM (4-12)
[2019-03-03 05:35] LABS: PT Patient Result 10.6 SECS
[2019-03-03 05:45] LABS: Albumin 4.1 G/DL (3.4-5.0); Bilirubin,Total 0.5 MG/DL (0.2-1.0); Calcium 9.3 MG/DL (8.5-10.1); Osmolality,Calculated 280.7 MOS/KG (273-304); Total Protein 7.7 G/DL (6.4-8.3)
[2019-03-03] MEDS ORDERED: NITROGLYCERIN 2% OINT 1 INCH/GM PACK TOP STA (05:53)
[2019-03-03] MEDS ORDERED: ONDANSETRON 4 MG/2 ML VIAL IV ONE (05:55)
[2019-03-03] MEDS ORDERED: MORPHINE 4 MG/1 ML VIAL IV STA (05:55)
[2019-03-03] MEDS ORDERED: LEVOFLOXACIN INJ 500 MG in PREMIX 1 EACH IV STA (05:58)
[2019-03-03] MEDS ORDERED: guaiFENesin/DM ER 600-30 MG TABLET PO PRN (06:42)
[2019-03-03] MEDS ORDERED: DEXTROSE 50% 25 GM/50 ML VIAL IV PRN (06:42)
[2019-03-03] MEDS ORDERED: GLUCAGON 1 MG VIAL IM PRN (06:42)
[2019-03-03] MEDS ORDERED: DOCUSATE SODIUM 100 MG CAPSULE PO PRN (06:42)
[2019-03-03] MEDS ORDERED: ONDANSETRON 4 MG/2 ML VIAL IV PRN (06:42)
[2019-03-03] MEDS ORDERED: NITROGLYCERIN SL 0.4 MG TABLET SL PRN (06:45)
[2019-03-03 07:03] LABS: Apearance,Urine CLEAR (Clear); Bilirubin,Urine Negative (Negative); Blood, Urine Negative (Negative); Glucose,Urine (UA) Negative (Negative); Hyaline Casts,Urine 1 /LPF (0-3); Ketones,Urine Negative (Negative); Nitrite,Urine Negative (Negative); Protein,Urine Negative; RBC,Urine 1 /HPF (0-4); Squamous Epithelial Cell,Urine Occasional /HPF (0-10); Urine Color Yellow (Yellow); Urine Specific Gravity 1.008 (1.001-1.035); Urine Urobilinogen < 2.0 EU/DL (0.2-1.0); WBC,Urine 2 /HPF (0-6)
[2019-03-03] MEDS: ALBUTEROL/IPRATROPIUM 3 ML NEB RESP TX SCH ×3 (08:12→19:36)
[2019-03-03] MEDS ORDERED: amLODIPine 5 MG TABLET PO SCH (09:00)
[2019-03-03] MEDS ORDERED: LISINOPRIL 5 MG TABLET PO SCH (09:00)
[2019-03-03] MEDS ORDERED: amLODIPine 5 MG TABLET PO ONE (09:30)
[2019-03-03] MEDS: ENOXAPARIN 40 MG/0.4 ML SYRINGE SUBCUT SCH (09:51)
[2019-03-03] MEDS: cefTRIAXone 2,000 MG in SYRINGE 1 EACH IV SCH (09:51)
[2019-03-03] MEDS: glipiZIDE 5 MG TABLET PO SCH (09:52)
[2019-03-03] MEDS: ACETAMINOPHEN 325 MG TABLET PO PRN (09:52)
[2019-03-03] MEDS: RANOLAZINE 500 MG TABLET PO SCH ×2 (09:52→20:26)
[2019-03-03] MEDS: DULoxetine 30 MG CAPSULE PO SCH (09:52)
[2019-03-03] MEDS: CARVEDILOL 12.5 MG TABLET PO SCH ×2 (09:53→20:26)
[2019-03-03] MEDS: ATORVASTATIN 10 MG TABLET PO SCH (09:53)
[2019-03-03] MEDS: SENNA 8.6 MG TABLET PO SCH (09:53)
[2019-03-03] MEDS: GABAPENTIN 100 MG CAPSULE PO SCH ×3 (09:54→20:26)
[2019-03-03] MEDS: PANTOPRAZOLE 40 MG TABLET PO SCH (09:54)
[2019-03-03] MEDS: BISACODYL 5 MG TABLET PO SCH (09:55)
[2019-03-03] MEDS: ASPIRIN EC 81 MG TABLET PO SCH (09:57)
[2019-03-03] MEDS: AZITHROMYCIN INJ 500 MG in SODIUM CHLORIDE 0.9% 250 ML IV SCH (10:13)
[2019-03-03] MEDS: BUDESONIDE/FORMOTEROL 160-4.5 INHALER 6 GM INH SCH ×2 (10:14→20:29)
[2019-03-03 10:20] LABS: Troponin I 0.229 NG/ML (0.00-0.045)
[2019-03-03 10:23] LABS: Risk Ratio 1.65; Thyroid Stimulating Hormone 1.68 uIU/ml (0.358-3.74)
[2019-03-03] MEDS: MORPHINE 4 MG/1 ML VIAL IV PRN ×2 (14:16→20:29)
[2019-03-03] MEDS: FUROSEMIDE 40 MG/4 ML VIAL IV SCH (16:39)
[2019-03-03] MEDS: ZOLPIDEM 5 MG TABLET PO PRN (20:26)
[2019-03-03] MEDS: ISOSORBIDE MONONITRATE 30 MG TABLET PO SCH (20:29)
[2019-03-03] MEDS: MONTELUKAST 10 MG TABLET PO SCH (20:29)
[2019-03-04] MEDS: ALBUTEROL/IPRATROPIUM 3 ML NEB RESP TX SCH ×4 (00:42→19:57)
[2019-03-04] MEDS: MORPHINE 4 MG/1 ML VIAL IV PRN (03:35)
[2019-03-04 04:04] LABS: Hematocrit 28.4 VOL% (35.7-47.0); Hemoglobin 8.5 GM/DL (12.0-16.0); Immature Granulocytes % 0.4 %; Immature Granulocytes Absolute 0.01 #; Lymphocytes # 0.6 10*3/uL (1.4-4.0); Lymphocytes % 22.6 % (21.3-54.2); Mean Corpuscular HGB Conc 29.9 GM/DL (32-36); Mean Corpuscular Volume 89.9 FL (87-102); Mean Platelet Volume 11.1 FL (9.6-12.0); Monocytes % 12.7 % (1.7-12.7); Neutrophils % 64.3 % (38.7-73.9); Platelet Count 188 T/CUMM (130-400); Red Blood Count 3.16 MC/CUMM (3.8-5.5); Red Cell Distribution Width 16.3 % (9.3-17.3); White Blood Count 2.8 T/CUMM (4-12)
[2019-03-04 04:21] LABS: Calcium 8.5 MG/DL (8.5-10.1); Osmolality,Calculated 286.8 MOS/KG (273-304)
[2019-03-04 04:29] LABS: Troponin I 0.426 NG/ML (0.00-0.045)
[2019-03-04] MEDS: FUROSEMIDE 40 MG/4 ML VIAL IV SCH ×2 (09:00→15:41)
[2019-03-04] MEDS: cefTRIAXone 2,000 MG in SYRINGE 1 EACH IV SCH (09:14)
[2019-03-04] MEDS: DULoxetine 30 MG CAPSULE PO SCH (09:43)
[2019-03-04] MEDS: BISACODYL 5 MG TABLET PO SCH (09:43)
[2019-03-04] MEDS: ENOXAPARIN 40 MG/0.4 ML SYRINGE SUBCUT SCH (09:43)
[2019-03-04] MEDS: ASPIRIN EC 81 MG TABLET PO SCH (09:43)
[2019-03-04] MEDS: GABAPENTIN 100 MG CAPSULE PO SCH ×3 (09:43→20:55)
[2019-03-04] MEDS: PANTOPRAZOLE 40 MG TABLET PO SCH (09:44)
[2019-03-04] MEDS: amLODIPine 10 MG TABLET PO SCH (09:44)
[2019-03-04] MEDS: glipiZIDE 5 MG TABLET PO SCH (09:44)
[2019-03-04] MEDS: SENNA 8.6 MG TABLET PO SCH (09:44)
[2019-03-04] MEDS: RANOLAZINE 500 MG TABLET PO SCH ×2 (09:44→20:55)
[2019-03-04] MEDS: ATORVASTATIN 10 MG TABLET PO SCH (09:44)
[2019-03-04] MEDS: CARVEDILOL 12.5 MG TABLET PO SCH ×2 (09:46→20:55)
[2019-03-04] MEDS: AZITHROMYCIN INJ 500 MG in SODIUM CHLORIDE 0.9% 250 ML IV SCH (09:52)
[2019-03-04] MEDS: BUDESONIDE/FORMOTEROL 160-4.5 INHALER 6 GM INH SCH ×2 (10:02→20:56)
[2019-03-04] MEDS: ACETAMINOPHEN 325 MG TABLET PO PRN (17:32)
[2019-03-04] MEDS: ISOSORBIDE MONONITRATE 30 MG TABLET PO SCH (20:55)
[2019-03-04] MEDS: ZOLPIDEM 5 MG TABLET PO PRN (20:56)
[2019-03-04] MEDS: MONTELUKAST 10 MG TABLET PO SCH (20:56)
[2019-03-05] MEDS: ALBUTEROL/IPRATROPIUM 3 ML NEB RESP TX SCH ×2 (01:14→07:20)
[2019-03-05 04:56] LABS: Eosinophils % 0.9 % (0.00-10.9); Hematocrit 25.2 VOL% (35.7-47.0); Hemoglobin 7.8 GM/DL (12.0-16.0); Immature Granulocytes % 0.3 %; Immature Granulocytes Absolute 0.01 #; Lymphocytes % 30.9 % (21.3-54.2); Mean Corpuscular Volume 88.1 FL (87-102); Mean Platelet Volume 11.1 FL (9.6-12.0); Neutrophils % 57.9 % (38.7-73.9); Platelet Count 171 T/CUMM (130-400); Red Blood Count 2.86 MC/CUMM (3.8-5.5); Red Cell Distribution Width 16.3 % (9.3-17.3); White Blood Count 3.2 T/CUMM (4-12)
[2019-03-05 05:20] LABS: Calcium 8.4 MG/DL (8.5-10.1); Osmolality,Calculated 285.7 MOS/KG (273-304)
[2019-03-05] MEDS ORDERED: LEVOFLOXACIN INJ 750 MG in PREMIX 1 EACH IV SCH (07:00)
[2019-03-05 08:07] LABS: Hematocrit 26.8 VOL% (35.7-47.0); Hemoglobin 8.3 GM/DL (12.0-16.0)
[2019-03-05] MEDS: ENOXAPARIN 40 MG/0.4 ML SYRINGE SUBCUT SCH (09:30)
[2019-03-05] MEDS: cefTRIAXone 2,000 MG in SYRINGE 1 EACH IV SCH (09:30)
[2019-03-05] MEDS: RANOLAZINE 500 MG TABLET PO SCH (09:31)
[2019-03-05] MEDS: DULoxetine 30 MG CAPSULE PO SCH (09:31)
[2019-03-05] MEDS: amLODIPine 10 MG TABLET PO SCH (09:32)
[2019-03-05] MEDS: PANTOPRAZOLE 40 MG TABLET PO SCH (09:32)
[2019-03-05] MEDS: ASPIRIN EC 81 MG TABLET PO SCH (09:32)
[2019-03-05] MEDS: CARVEDILOL 12.5 MG TABLET PO SCH (09:32)
[2019-03-05] MEDS: BISACODYL 5 MG TABLET PO SCH (09:32)
[2019-03-05] MEDS: ATORVASTATIN 10 MG TABLET PO SCH (09:32)
[2019-03-05] MEDS: SENNA 8.6 MG TABLET PO SCH (09:32)
[2019-03-05] MEDS: glipiZIDE 5 MG TABLET PO SCH (09:32)
[2019-03-05] MEDS: GABAPENTIN 100 MG CAPSULE PO SCH (09:32)
[2019-03-05] MEDS: FUROSEMIDE 40 MG/4 ML VIAL IV SCH (09:33)
[2019-03-05] MEDS: BUDESONIDE/FORMOTEROL 160-4.5 INHALER 6 GM INH SCH (09:34)
[2019-03-05] MEDS: AZITHROMYCIN INJ 500 MG in SODIUM CHLORIDE 0.9% 250 ML IV SCH (09:41)
[2019-03-05 12:23] VITALS: BP 117/51
== END 2019-03-05 14:10 | disposition home or self-care (01) | DRG 190 ==
LOC: EDBD → EDUNIT# → SUATTDRO → N.ED 05:07 → N.EDINP 06:42 → N.TELEN 07:24
PROVIDERS: ADMIT Internal Medicine; ATTEND Internal Medicine

== ENCOUNTER 2019-03-16 17:11 | Observation (INO) ==
[2019-03-16 18:32] LABS: Basophils % 0.3 % (0.0-0.8); Eosinophils # 0.1 10*3/uL (0.0-0.87); Eosinophils % 4.5 % (0.00-10.9); Immature Granulocytes % 0.3 %; Immature Granulocytes Absolute 0.01 #; Lymphocytes # 1.2 10*3/uL (1.4-4.0); Lymphocytes % 37.6 % (21.3-54.2); Mean Corpuscular Volume 89.6 FL (87-102); Mean Platelet Volume 9.7 FL (9.6-12.0); Monocytes % 11.9 % (1.7-12.7); Neutrophils % 45.4 % (38.7-73.9); Platelet Count 217 T/CUMM (130-400); Red Blood Count 3.35 MC/CUMM (3.8-5.5); Red Cell Distribution Width 16.4 % (9.3-17.3); White Blood Count 3.1 T/CUMM (4-12)
[2019-03-16 18:41] LABS: PT Patient Result 10.4 SECS
[2019-03-16 18:52] LABS: Alanine Aminotransferase 21 U/L (13-56); Albumin 3.7 G/DL (3.4-5.0); Alkaline Phosphatase 68 U/L (45-117); Aspartate Amino Transferase 24 U/L (0-37); Bilirubin,Total < 0.39 MG/DL (0.2-1.0); Blood Urea Nitrogen 31 MG/DL (7-18); Calcium 8.9 MG/DL (8.5-10.1); Glucose 98 MG/DL (74-106); Osmolality,Calculated 287.3 MOS/KG (273-304); Total Protein 6.9 G/DL (6.4-8.3)
[2019-03-16] MEDS ORDERED: MORPHINE 4 MG/1 ML VIAL IV STA (18:56)
[2019-03-16] MEDS ORDERED: ONDANSETRON 4 MG/2 ML VIAL IV ONE (18:56)
[2019-03-16] MEDS ORDERED: GLUCAGON 1 MG VIAL IM PRN (21:01)
[2019-03-16] MEDS ORDERED: ACETAMINOPHEN 325 MG TABLET PO PRN (21:01)
[2019-03-16] MEDS ORDERED: DEXTROSE 50% 25 GM/50 ML VIAL IV PRN (21:01)
[2019-03-16] MEDS ORDERED: MORPHINE 4 MG/1 ML VIAL IV ONE (23:18)
[2019-03-16] MEDS ORDERED: MORPHINE 4 MG/1 ML VIAL IV PRN (23:22)
[2019-03-17] MEDS: SODIUM CHLORIDE 0.9% 1,000 ML IV SCH ×2 (01:46→14:05)
[2019-03-17 06:11] LABS: Basophils % 0.3 % (0.0-0.8); Eosinophils # 0.2 10*3/uL (0.0-0.87); Eosinophils % 4.8 % (0.00-10.9); Hematocrit 27.4 VOL% (35.7-47.0); Hemoglobin 8.4 GM/DL (12.0-16.0); Immature Granulocytes % 0.3 %; Immature Granulocytes Absolute 0.01 #; Lymphocytes # 1.3 10*3/uL (1.4-4.0); Mean Corpuscular HGB Conc 30.7 GM/DL (32-36); Mean Corpuscular Volume 88.7 FL (87-102); Mean Platelet Volume 10.6 FL (9.6-12.0); Monocytes % 8.7 % (1.7-12.7); Neutrophils % 47.9 % (38.7-73.9); Platelet Count 193 T/CUMM (130-400); Red Blood Count 3.09 MC/CUMM (3.8-5.5); Red Cell Distribution Width 16.4 % (9.3-17.3); White Blood Count 3.3 T/CUMM (4-12)
[2019-03-17 06:50] LABS: Albumin 3.4 G/DL (3.4-5.0); Bilirubin,Total 0.6 MG/DL (0.2-1.0); Osmolality,Calculated 288.1 MOS/KG (273-304); Risk Ratio 1.79; Thyroid Stimulating Hormone 1.32 uIU/ml (0.358-3.74); Total Protein 6.1 G/DL (6.4-8.3); VLDL CHOLESTEROL 8.8 MG/DL
[2019-03-17] MEDS ORDERED: NITROGLYCERIN SL 0.4 MG TABLET SL PRN (08:37)
[2019-03-17] MEDS ORDERED: ENOXAPARIN 30 MG/0.3 ML SYRINGE SUBCUT SCH (09:00)
[2019-03-17] MEDS ORDERED: CARVEDILOL 12.5 MG TABLET PO SCH (09:00)
[2019-03-17] MEDS ORDERED: ZALEPLON 5 MG CAPSULE PO PRN (09:00)
[2019-03-17] MEDS ORDERED: ATORVASTATIN 10 MG TABLET PO SCH (09:00)
[2019-03-17] MEDS: amLODIPine 5 MG TABLET PO SCH (10:24)
[2019-03-17] MEDS: RANOLAZINE 500 MG TABLET PO SCH ×2 (10:24→20:24)
[2019-03-17] MEDS: ISOSORBIDE MONONITRATE 30 MG TABLET PO SCH (10:24)
[2019-03-17] MEDS: ASPIRIN CHEW 81 MG TABLET PO SCH (10:24)
[2019-03-17] MEDS: DULoxetine 30 MG CAPSULE PO SCH (10:25)
[2019-03-17] MEDS: PANTOPRAZOLE 40 MG TABLET PO SCH (10:25)
[2019-03-17] MEDS: BUDESONIDE/FORMOTEROL 160-4.5 INHALER 6 GM INH SCH ×2 (10:51→20:25)
[2019-03-17] MEDS: FUROSEMIDE 40 MG TABLET PO SCH (16:00)
[2019-03-17] MEDS: CARVEDILOL 25 MG TABLET PO SCH ×2 (16:00→20:24)
[2019-03-17] MEDS ORDERED: MONTELUKAST 10 MG TABLET PO SCH (21:00)
[2019-03-17] MEDS ORDERED: SENNA 8.6 MG TABLET PO SCH (21:00)
[2019-03-17] MEDS ORDERED: FAMOTIDINE 20 MG TABLET PO SCH (21:00)
[2019-03-18] MEDS ORDERED: APIXABAN 2.5 MG TABLET PO SCH (09:00)
[2019-03-18] MEDS ORDERED: ATORVASTATIN 40 MG TABLET PO SCH (09:00)
[2019-03-18] MEDS: ASPIRIN CHEW 81 MG TABLET PO SCH (09:33)
[2019-03-18] MEDS: CARVEDILOL 25 MG TABLET PO SCH (09:33)
[2019-03-18] MEDS: ISOSORBIDE MONONITRATE 30 MG TABLET PO SCH (09:33)
[2019-03-18] MEDS: PANTOPRAZOLE 40 MG TABLET PO SCH (09:34)
[2019-03-18] MEDS: RANOLAZINE 500 MG TABLET PO SCH (09:34)
[2019-03-18] MEDS: DULoxetine 30 MG CAPSULE PO SCH (09:34)
[2019-03-18] MEDS: FUROSEMIDE 40 MG TABLET PO SCH (09:34)
[2019-03-18] MEDS: amLODIPine 5 MG TABLET PO SCH (09:34)
[2019-03-18] MEDS: BUDESONIDE/FORMOTEROL 160-4.5 INHALER 6 GM INH SCH (09:37)
[2019-03-18 12:15] VITALS: BP 125/58
== END 2019-03-18 15:30 | disposition home or self-care (01) ==
LOC: EDBD → EDUNIT# → N.TELES 17:11 → N.ED 17:11 → N.TELES 23:45
PROVIDERS: ADMIT Internal Medicine; ATTEND Internal Medicine

== ENCOUNTER 2019-04-30 23:24 | Inpatient (IN) ==
[2019-05-01 00:39] LABS: Basophils % 0.6 % (0.0-0.8); Eosinophils # 0.2 10*3/uL (0.0-0.87); Eosinophils % 6.1 % (0.00-10.9); Hematocrit 27.6 VOL% (35.7-47.0); Hemoglobin 8.3 GM/DL (12.0-16.0); Immature Granulocytes % 0.8 %; Immature Granulocytes Absolute 0.03 #; Lymphocytes # 0.9 10*3/uL (1.4-4.0); Lymphocytes % 25.4 % (21.3-54.2); Mean Corpuscular HGB Conc 30.1 GM/DL (32-36); Mean Corpuscular Volume 87.3 FL (87-102); Mean Platelet Volume 10.9 FL (9.6-12.0); Monocytes % 11.3 % (1.7-12.7); Neutrophils % 55.8 % (38.7-73.9); Platelet Count 171 T/CUMM (130-400); Red Blood Count 3.16 MC/CUMM (3.8-5.5); Red Cell Distribution Width 18.3 % (9.3-17.3); White Blood Count 3.6 T/CUMM (4-12)
[2019-05-01 01:22] LABS: Bilirubin,Total 0.4 MG/DL (0.2-1.0); Calcium 8.6 MG/DL (8.5-10.1); Total Protein 6.8 G/DL (6.4-8.3)
[2019-05-01 01:23] LABS: Albumin 3.5 G/DL (3.4-5.0); Osmolality,Calculated 286.7 MOS/KG (273-304)
[2019-05-01] MEDS ORDERED: LEVOFLOXACIN INJ 750 MG in PREMIX 1 EACH IV SCH (07:03)
[2019-05-01] MEDS ORDERED: ONDANSETRON 4 MG/2 ML VIAL IV PRN (07:03)
[2019-05-01] MEDS ORDERED: NITROGLYCERIN SL 0.4 MG TABLET SL PRN (07:03)
[2019-05-01] MEDS ORDERED: DOCUSATE SODIUM 100 MG CAPSULE PO PRN (07:03)
[2019-05-01] MEDS ORDERED: DEXTROSE 50% 25 GM/50 ML VIAL IV PRN (07:03)
[2019-05-01] MEDS ORDERED: GLUCAGON 1 MG VIAL IM PRN (07:03)
[2019-05-01] MEDS ORDERED: ALBUTEROL/IPRATROPIUM 3 ML NEB RESP TX PRN (07:03)
[2019-05-01] MEDS: ACETAMINOPHEN 325 MG TABLET PO PRN ×2 (07:34→15:34)
[2019-05-01] MEDS: INSULIN LISPRO 100 UNIT/ML SUBCUT SCH ×4 (07:39→22:03)
[2019-05-01] MEDS ORDERED: ATORVASTATIN 40 MG TABLET PO SCH (09:00)
[2019-05-01] MEDS: PANTOPRAZOLE 40 MG TABLET PO SCH ×2 (09:14→22:03)
[2019-05-01] MEDS: ASPIRIN CHEW 81 MG TABLET PO SCH (09:15)
[2019-05-01] MEDS: FUROSEMIDE 40 MG TABLET PO SCH (09:18)
[2019-05-01] MEDS ORDERED: MORPHINE 4 MG/1 ML VIAL IV STA (11:26)
[2019-05-01] MEDS: APIXABAN 2.5 MG TABLET PO SCH ×2 (11:56→22:03)
[2019-05-01] MEDS: RANOLAZINE 500 MG TABLET PO SCH ×2 (11:57→22:02)
[2019-05-01] MEDS: DULoxetine 30 MG CAPSULE PO SCH (11:57)
[2019-05-01] MEDS: ISOSORBIDE MONONITRATE 30 MG TABLET PO SCH (11:58)
[2019-05-01] MEDS: INDOMETHACIN 25 MG CAPSULE PO SCH ×2 (11:58→16:05)
[2019-05-01] MEDS: CARVEDILOL 25 MG TABLET PO SCH ×2 (11:58→22:02)
[2019-05-01] MEDS: tiZANidine 4 MG TABLET PO SCH ×3 (11:58→22:02)
[2019-05-01] MEDS: BUDESONIDE/FORMOTEROL 160-4.5 INHALER 6 GM INH SCH ×2 (12:01→22:17)
[2019-05-01] MEDS: amLODIPine 5 MG TABLET PO SCH (12:03)
[2019-05-01] MEDS: ALBUTEROL/IPRATROPIUM 3 ML NEB RESP TX SCH (19:46)
[2019-05-01] MEDS: IBUPROFEN 800 MG TABLET PO PRN (22:01)
[2019-05-01] MEDS: FAMOTIDINE 20 MG TABLET PO SCH (22:02)
[2019-05-01] MEDS: MONTELUKAST 10 MG TABLET PO SCH (22:02)
[2019-05-01] MEDS: ATORVASTATIN 40 MG TABLET PO SCH (22:02)
[2019-05-01] MEDS: SENNA 8.6 MG TABLET PO SCH (22:03)
[2019-05-01] MEDS: ZALEPLON 5 MG CAPSULE PO PRN (22:19)
[2019-05-02] MEDS: ALBUTEROL/IPRATROPIUM 3 ML NEB RESP TX SCH ×4 (00:26→20:15)
[2019-05-02 00:52] LABS: Basophils % 0.4 % (0.0-0.8); Eosinophils # 0.2 10*3/uL (0.0-0.87); Eosinophils % 7.3 % (0.00-10.9); Immature Granulocytes % 0.4 %; Immature Granulocytes Absolute 0.01 #; Lymphocytes # 0.7 10*3/uL (1.4-4.0); Lymphocytes % 31.8 % (21.3-54.2); Mean Corpuscular HGB Conc 30.4 GM/DL (32-36); Mean Corpuscular Volume 85.2 FL (87-102); Mean Platelet Volume 10.6 FL (9.6-12.0); Monocytes % 12.9 % (1.7-12.7); Neutrophils % 47.2 % (38.7-73.9); Platelet Count 153 T/CUMM (130-400); Red Cell Distribution Width 18.2 % (9.3-17.3); White Blood Count 2.3 T/CUMM (4-12)
[2019-05-02 01:14] LABS: Calcium 8.3 MG/DL (8.5-10.1); Osmolality,Calculated 289.5 MOS/KG (273-304)
[2019-05-02 04:29] LABS: Platelet Estimate Decreased; Polychromasia Few
[2019-05-02] MEDS: INSULIN LISPRO 100 UNIT/ML SUBCUT SCH ×4 (07:46→22:07)
[2019-05-02] MEDS: DULoxetine 30 MG CAPSULE PO SCH (09:18)
[2019-05-02] MEDS: RANOLAZINE 500 MG TABLET PO SCH ×2 (09:18→22:03)
[2019-05-02] MEDS: PANTOPRAZOLE 40 MG TABLET PO SCH ×2 (09:19→22:05)
[2019-05-02] MEDS: ASPIRIN CHEW 81 MG TABLET PO SCH (09:19)
[2019-05-02] MEDS: FUROSEMIDE 40 MG TABLET PO SCH (09:19)
[2019-05-02] MEDS: amLODIPine 5 MG TABLET PO SCH (09:20)
[2019-05-02] MEDS: tiZANidine 4 MG TABLET PO SCH ×3 (09:20→22:04)
[2019-05-02] MEDS: ISOSORBIDE MONONITRATE 30 MG TABLET PO SCH (09:20)
[2019-05-02] MEDS: APIXABAN 2.5 MG TABLET PO SCH ×2 (09:21→22:03)
[2019-05-02] MEDS: CARVEDILOL 25 MG TABLET PO SCH ×3 (09:21→22:06)
[2019-05-02] MEDS: BUDESONIDE/FORMOTEROL 160-4.5 INHALER 6 GM INH SCH ×2 (09:22→22:07)
[2019-05-02] MEDS: IBUPROFEN 800 MG TABLET PO PRN (12:15)
[2019-05-02] MEDS: FUROSEMIDE 40 MG/4 ML VIAL IV SCH (16:08)
[2019-05-02] MEDS ORDERED: SODIUM CHLORIDE 0.9% 1,000 ML IV PRN ×2 (17:19→17:42)
[2019-05-02 17:52] LABS: % Iron Saturation 7.1 % (18-50)
[2019-05-02] MEDS: SENNA 8.6 MG TABLET PO SCH (22:03)
[2019-05-02] MEDS: MONTELUKAST 10 MG TABLET PO SCH (22:04)
[2019-05-02] MEDS: FAMOTIDINE 20 MG TABLET PO SCH (22:11)
[2019-05-02] MEDS: ZALEPLON 5 MG CAPSULE PO PRN (22:11)
[2019-05-02] MEDS: ATORVASTATIN 40 MG TABLET PO SCH (22:11)
[2019-05-03] MEDS: ALBUTEROL/IPRATROPIUM 3 ML NEB RESP TX SCH ×4 (00:44→20:19)
[2019-05-03 04:43] LABS: Basophils % 0.6 % (0.0-0.8); Eosinophils # 0.2 10*3/uL (0.0-0.87); Eosinophils % 6.5 % (0.00-10.9); Hematocrit 27.5 VOL% (35.7-47.0); Hemoglobin 8.7 GM/DL (12.0-16.0); Immature Granulocytes % 0.3 %; Immature Granulocytes Absolute 0.01 #; Lymphocytes # 0.8 10*3/uL (1.4-4.0); Lymphocytes % 22.8 % (21.3-54.2); Mean Corpuscular HGB Conc 31.6 GM/DL (32-36); Mean Corpuscular Volume 86.2 FL (87-102); Mean Platelet Volume 10.4 FL (9.6-12.0); Monocytes % 12.7 % (1.7-12.7); Neutrophils % 57.1 % (38.7-73.9); Platelet Count 149 T/CUMM (130-400); Red Blood Count 3.19 MC/CUMM (3.8-5.5); Red Cell Distribution Width 17.5 % (9.3-17.3); White Blood Count 3.4 T/CUMM (4-12)
[2019-05-03 05:14] LABS: Calcium 8.3 MG/DL (8.5-10.1)
[2019-05-03] MEDS: LEVOFLOXACIN INJ 750 MG in PREMIX 1 EACH IV SCH (06:29)
[2019-05-03] MEDS: INSULIN LISPRO 100 UNIT/ML SUBCUT SCH ×4 (08:39→21:25)
[2019-05-03] MEDS: FUROSEMIDE 40 MG/4 ML VIAL IV SCH (10:12)
[2019-05-03] MEDS: RANOLAZINE 500 MG TABLET PO SCH ×2 (10:13→20:43)
[2019-05-03] MEDS: PANTOPRAZOLE 40 MG TABLET PO SCH (10:13)
[2019-05-03] MEDS: CARVEDILOL 25 MG TABLET PO SCH ×2 (10:14→20:43)
[2019-05-03] MEDS: ASPIRIN CHEW 81 MG TABLET PO SCH (10:14)
[2019-05-03] MEDS: APIXABAN 2.5 MG TABLET PO SCH ×2 (10:14→20:43)
[2019-05-03] MEDS: DULoxetine 30 MG CAPSULE PO SCH (10:14)
[2019-05-03] MEDS: ISOSORBIDE MONONITRATE 30 MG TABLET PO SCH (10:15)
[2019-05-03] MEDS: amLODIPine 5 MG TABLET PO SCH (10:15)
[2019-05-03] MEDS: IRON SUCROSE 200 MG in SODIUM CHLORIDE 0.9% 100 ML IV SCH (10:15)
[2019-05-03] MEDS: BUDESONIDE/FORMOTEROL 160-4.5 INHALER 6 GM INH SCH ×2 (10:15→20:45)
[2019-05-03] MEDS: tiZANidine 4 MG TABLET PO SCH ×3 (10:15→20:45)
[2019-05-03] MEDS: FAMOTIDINE 20 MG TABLET PO SCH (20:43)
[2019-05-03] MEDS: ATORVASTATIN 40 MG TABLET PO SCH (20:43)
[2019-05-03] MEDS: MIRTAZAPINE 15 MG TABLET PO SCH (20:44)
[2019-05-03] MEDS: MONTELUKAST 10 MG TABLET PO SCH (20:44)
[2019-05-03] MEDS: SENNA 8.6 MG TABLET PO SCH (20:46)
[2019-05-03] MEDS: ZALEPLON 5 MG CAPSULE PO PRN (20:50)
[2019-05-04] MEDS: ALBUTEROL/IPRATROPIUM 3 ML NEB RESP TX SCH ×4 (01:25→19:36)
[2019-05-04] MEDS: CARVEDILOL 25 MG TABLET PO SCH ×2 (10:02→20:50)
[2019-05-04] MEDS: RANOLAZINE 500 MG TABLET PO SCH ×2 (10:02→20:49)
[2019-05-04] MEDS: DULoxetine 30 MG CAPSULE PO SCH (10:02)
[2019-05-04] MEDS: ASPIRIN CHEW 81 MG TABLET PO SCH (10:03)
[2019-05-04] MEDS: amLODIPine 5 MG TABLET PO SCH (10:03)
[2019-05-04] MEDS: APIXABAN 2.5 MG TABLET PO SCH ×2 (10:03→20:50)
[2019-05-04] MEDS: ISOSORBIDE MONONITRATE 30 MG TABLET PO SCH (10:03)
[2019-05-04] MEDS: PANTOPRAZOLE 40 MG TABLET PO SCH (10:04)
[2019-05-04] MEDS: IRON SUCROSE 200 MG in SODIUM CHLORIDE 0.9% 100 ML IV SCH (10:04)
[2019-05-04] MEDS: tiZANidine 4 MG TABLET PO SCH ×3 (10:04→20:50)
[2019-05-04] MEDS: INSULIN LISPRO 100 UNIT/ML SUBCUT SCH ×4 (10:05→20:50)
[2019-05-04] MEDS: BUDESONIDE/FORMOTEROL 160-4.5 INHALER 6 GM INH SCH ×2 (10:10→20:50)
[2019-05-04] MEDS: MONTELUKAST 10 MG TABLET PO SCH (20:49)
[2019-05-04] MEDS: FAMOTIDINE 20 MG TABLET PO SCH (20:49)
[2019-05-04] MEDS: SENNA 8.6 MG TABLET PO SCH (20:50)
[2019-05-04] MEDS: MIRTAZAPINE 15 MG TABLET PO SCH (20:50)
[2019-05-04] MEDS: ZALEPLON 5 MG CAPSULE PO PRN (20:50)
[2019-05-04] MEDS: ATORVASTATIN 40 MG TABLET PO SCH (20:50)
[2019-05-05] MEDS: ALBUTEROL/IPRATROPIUM 3 ML NEB RESP TX SCH ×3 (00:35→15:32)
[2019-05-05 06:41] LABS: Calcium 8.7 MG/DL (8.5-10.1); Osmolality,Calculated 279.2 MOS/KG (273-304)
[2019-05-05] MEDS: LEVOFLOXACIN INJ 750 MG in PREMIX 1 EACH IV SCH (07:06)
[2019-05-05] MEDS: INSULIN LISPRO 100 UNIT/ML SUBCUT SCH ×2 (08:06→14:57)
[2019-05-05] MEDS: BUDESONIDE/FORMOTEROL 160-4.5 INHALER 6 GM INH SCH (09:05)
[2019-05-05] MEDS: DULoxetine 30 MG CAPSULE PO SCH (09:06)
[2019-05-05] MEDS: CARVEDILOL 25 MG TABLET PO SCH (09:06)
[2019-05-05] MEDS: APIXABAN 2.5 MG TABLET PO SCH (09:06)
[2019-05-05] MEDS: RANOLAZINE 500 MG TABLET PO SCH (09:06)
[2019-05-05] MEDS: amLODIPine 5 MG TABLET PO SCH (09:06)
[2019-05-05] MEDS: ISOSORBIDE MONONITRATE 30 MG TABLET PO SCH (09:06)
[2019-05-05] MEDS: ASPIRIN CHEW 81 MG TABLET PO SCH (09:07)
[2019-05-05] MEDS: PANTOPRAZOLE 40 MG TABLET PO SCH (09:07)
[2019-05-05] MEDS: tiZANidine 4 MG TABLET PO SCH ×2 (09:07→15:28)
[2019-05-05] MEDS: IRON SUCROSE 200 MG in SODIUM CHLORIDE 0.9% 100 ML IV SCH (09:08)
[2019-05-05 12:47] VITALS: BP 124/61
== END 2019-05-05 16:15 | disposition home health service (06) | DRG 194 ==
LOC: EDBD → EDUNIT# → N.ED 23:24 → N.EDINP 05-01 05:53 → N.2E 05-01 12:35
PROVIDERS: ADMIT Internal Medicine; ATTEND Internal Medicine

== ENCOUNTER 2019-05-12 09:18 | Inpatient (IN) ==
[2019-05-12] MEDS ORDERED: ASPIRIN 325 MG TABLET PO STA (09:47)
[2019-05-12] MEDS ORDERED: DILTIAZEM 50 MG/10 ML VIAL IV STA ×2 (09:47→10:29)
[2019-05-12] MEDS ORDERED: NITROGLYCERIN 2% OINT 1 INCH/GM PACK TOP STA (09:47)
[2019-05-12] MEDS ORDERED: ONDANSETRON 4 MG/2 ML VIAL IV ONE (09:47)
[2019-05-12] MEDS ORDERED: ALBUTEROL/IPRATROPIUM 3 ML NEB RESP TX STA (09:47)
[2019-05-12] MEDS ORDERED: FUROSEMIDE 40 MG/4 ML VIAL IV STA (10:29)
[2019-05-12] MEDS ORDERED: ALBUTEROL 2.5 MG/3 ML NEB RESP TX STA (10:29)
[2019-05-12] MEDS ORDERED: methylPREDNISolone SOD SUC 125 MG/2 ML VIAL IV STA (10:29)
[2019-05-12] MEDS ORDERED: MORPHINE 4 MG/1 ML VIAL IV ONE (10:30)
[2019-05-12 11:00] LABS: Basophils % 0.4 % (0.0-0.8); Eosinophils # 0.2 10*3/uL (0.0-0.87); Eosinophils % 2.2 % (0.00-10.9); Hematocrit 36.4 VOL% (35.7-47.0); Hemoglobin 11.3 GM/DL (12.0-16.0); Immature Granulocytes % 0.4 %; Immature Granulocytes Absolute 0.03 #; Lymphocytes # 1.6 10*3/uL (1.4-4.0); Mean Corpuscular Volume 87.7 FL (87-102); Mean Platelet Volume 11.7 FL (9.6-12.0); Monocytes % 7.8 % (1.7-12.7); Neutrophils % 67.2 % (38.7-73.9); Platelet Count 203 T/CUMM (130-400); Red Blood Count 4.15 MC/CUMM (3.8-5.5); Red Cell Distribution Width 20.1 % (9.3-17.3); White Blood Count 7.2 T/CUMM (4-12)
[2019-05-12 11:10] LABS: PT Patient Result 11.2 SECS (9.6-12.2)
[2019-05-12 11:20] LABS: Albumin 3.9 G/DL (3.4-5.0); Bilirubin,Total 1.2 MG/DL (0.2-1.0); Calcium 8.9 MG/DL (8.5-10.1); Osmolality,Calculated 290.1 MOS/KG (273-304); Total Protein 7.3 G/DL (6.4-8.3)
[2019-05-12 11:25] LABS: ABG Base Excess -3.3 MMOL/L (-2.5-2.5); ABG HCO3 23.1 MMOL/L (20-26); ABG PCO2 47.3 MM HG (35-48); ABG PH 7.306 (7.35-7.45); ABG PO2 63.5 MM HG (80-95); ABG TCO2 24.5 MMOL/L (23-27)
[2019-05-12 11:25] LABS: Troponin I 0.212 NG/ML (0.00-0.045)
[2019-05-12] MEDS ORDERED: PROMETHAZINE 25 MG TABLET PO PRN (11:51)
[2019-05-12] MEDS ORDERED: ACETAMINOPHEN 325 MG TABLET PO PRN (11:51)
[2019-05-12] MEDS ORDERED: DEXTROSE 50% 25 GM/50 ML VIAL IV PRN (11:54)
[2019-05-12] MEDS ORDERED: GLUCAGON 1 MG VIAL IM PRN (11:54)
[2019-05-12] MEDS ORDERED: POTASSIUM CHLORIDE RIDER 10 MEQ in PREMIX 1 EACH IV PRN (11:58)
[2019-05-12] MEDS ORDERED: POTASSIUM CHLORIDE 20 MEQ TABLET PO PRN (11:58)
[2019-05-12] MEDS ORDERED: MAGNESIUM SULF RIDER 2 GM in PREMIX 1 EACH IV PRN (11:58)
[2019-05-12] MEDS ORDERED: MAGNESIUM SULF RIDER 4 GM in PREMIX 1 EACH IV PRN (11:58)
[2019-05-12] MEDS ORDERED: NITROGLYCERIN SL 0.4 MG TABLET SL PRN (11:59)
[2019-05-12] MEDS ORDERED: PANTOPRAZOLE 40 MG TABLET PO SCH (12:00)
[2019-05-12] MEDS ORDERED: ENOXAPARIN 40 MG/0.4 ML SYRINGE SUBCUT SCH (12:00)
[2019-05-12 13:02] LABS: Apearance,Urine CLEAR (Clear); Bilirubin,Urine Negative (Negative); Blood, Urine Small mg/dL (Negative); Glucose,Urine (UA) Negative (Negative); Hyaline Casts,Urine 9 /LPF (0-3); Ketones,Urine Negative (Negative); Mucus,Urine Occasional /LPF (Occasional); Nitrite,Urine Negative (Negative); Protein,Urine Negative; RBC,Urine 1 /HPF (0-4); Squamous Epithelial Cell,Urine Occasional /HPF (0-10); Urine Color Yellow (Yellow); Urine Specific Gravity 1.012 (1.001-1.035); Urine Urobilinogen < 2.0 EU/DL (0.2-1.0); WBC,Urine 1 /HPF (0-6)
[2019-05-12] MEDS: SPIRONOLACTONE 25 MG TABLET PO SCH ×2 (14:04→20:27)
[2019-05-12] MEDS: metOLazone 5 MG TABLET PO SCH (14:04)
[2019-05-12] MEDS: FUROSEMIDE INJ 100 MG in SODIUM CHLORIDE 0.9% 90 ML IV SCH (14:04)
[2019-05-12] MEDS: METOPROLOL TARTRATE 25 MG TABLET PO SCH ×2 (14:06→20:26)
[2019-05-12] MEDS: ENOXAPARIN 80 MG/0.8 ML SYRINGE SUBCUT SCH (15:45)
[2019-05-12] MEDS: INSULIN LISPRO 100 UNIT/ML SUBCUT SCH ×2 (15:52→20:25)
[2019-05-12] MEDS: MORPHINE 4 MG/1 ML VIAL IV PRN (20:01)
[2019-05-12] MEDS: LISINOPRIL 5 MG TABLET PO SCH (20:26)
[2019-05-12] MEDS: MIRTAZAPINE 15 MG TABLET PO SCH (20:26)
[2019-05-12] MEDS: MONTELUKAST 10 MG TABLET PO SCH (20:26)
[2019-05-12] MEDS: SENNA 8.6 MG TABLET PO SCH (20:26)
[2019-05-12] MEDS: ISOSORBIDE MONONITRATE 30 MG TABLET PO SCH (20:27)
[2019-05-12] MEDS: POTASSIUM CHLORIDE 20 MEQ TABLET PO SCH (20:27)
[2019-05-12] MEDS: FAMOTIDINE 20 MG TABLET PO SCH (20:27)
[2019-05-12] MEDS: RANOLAZINE 500 MG TABLET PO SCH (20:27)
[2019-05-12] MEDS: ATORVASTATIN 10 MG TABLET PO SCH (20:27)
[2019-05-12] MEDS: BUDESONIDE/FORMOTEROL 160-4.5 INHALER 6 GM INH SCH (20:28)
[2019-05-13] MEDS: MORPHINE 4 MG/1 ML VIAL IV PRN ×3 (00:01→20:44)
[2019-05-13 05:35] LABS: Hematocrit 33.2 VOL% (35.7-47.0); Hemoglobin 10.2 GM/DL (12.0-16.0); Immature Granulocytes % 0.3 %; Immature Granulocytes Absolute 0.01 #; Lymphocytes # 0.5 10*3/uL (1.4-4.0); Mean Corpuscular HGB Conc 30.7 GM/DL (32-36); Mean Corpuscular Volume 88.8 FL (87-102); Mean Platelet Volume 11.2 FL (9.6-12.0); Monocytes % 6.9 % (1.7-12.7); Neutrophils % 79.8 % (38.7-73.9); Platelet Count 193 T/CUMM (130-400); Red Blood Count 3.74 MC/CUMM (3.8-5.5); Red Cell Distribution Width 19.8 % (9.3-17.3); White Blood Count 3.8 T/CUMM (4-12)
[2019-05-13 06:15] LABS: Albumin 3.4 G/DL (3.4-5.0); Bilirubin,Total 0.8 MG/DL (0.2-1.0); Calcium 8.6 MG/DL (8.5-10.1); Osmolality,Calculated 289.5 MOS/KG (273-304); Risk Ratio 2.04; Thyroid Stimulating Hormone 0.506 uIU/ml (0.358-3.74); Total Protein 6.8 G/DL (6.4-8.3); VLDL CHOLESTEROL 8.6 MG/DL
[2019-05-13] MEDS: RANOLAZINE 500 MG TABLET PO SCH ×2 (09:46→22:06)
[2019-05-13] MEDS: SPIRONOLACTONE 25 MG TABLET PO SCH ×2 (09:46→22:07)
[2019-05-13] MEDS: amLODIPine 2.5 MG TABLET PO SCH (09:47)
[2019-05-13] MEDS: DULoxetine 30 MG CAPSULE PO SCH (09:47)
[2019-05-13] MEDS: LISINOPRIL 5 MG TABLET PO SCH ×2 (09:47→22:04)
[2019-05-13] MEDS: metOLazone 5 MG TABLET PO SCH (09:47)
[2019-05-13] MEDS: METOPROLOL TARTRATE 25 MG TABLET PO SCH ×2 (09:48→22:08)
[2019-05-13] MEDS: FERROUS SULFATE 325 MG TABLET PO SCH (09:48)
[2019-05-13] MEDS: ASPIRIN CHEW 81 MG TABLET PO SCH (09:48)
[2019-05-13] MEDS: glipiZIDE 5 MG TABLET PO SCH (09:48)
[2019-05-13] MEDS: PANTOPRAZOLE 40 MG TABLET PO SCH (09:49)
[2019-05-13] MEDS: INSULIN LISPRO 100 UNIT/ML SUBCUT SCH ×4 (10:05→22:10)
[2019-05-13] MEDS: POTASSIUM CHLORIDE 20 MEQ TABLET PO SCH ×2 (10:12→22:11)
[2019-05-13] MEDS: FUROSEMIDE INJ 100 MG in SODIUM CHLORIDE 0.9% 90 ML IV SCH ×3 (11:21→20:42)
[2019-05-13] MEDS: BUDESONIDE/FORMOTEROL 160-4.5 INHALER 6 GM INH SCH (12:59)
[2019-05-13] MEDS: ENOXAPARIN 80 MG/0.8 ML SYRINGE SUBCUT SCH (15:48)
[2019-05-13] MEDS: ONDANSETRON 4 MG/2 ML VIAL IV PRN (20:44)
[2019-05-13] MEDS: MIRTAZAPINE 15 MG TABLET PO SCH (22:06)
[2019-05-13] MEDS: SENNA 8.6 MG TABLET PO SCH (22:07)
[2019-05-13] MEDS: ISOSORBIDE MONONITRATE 30 MG TABLET PO SCH (22:08)
[2019-05-13] MEDS: ATORVASTATIN 10 MG TABLET PO SCH (22:09)
[2019-05-13] MEDS: MONTELUKAST 10 MG TABLET PO SCH (22:10)
[2019-05-13] MEDS: FAMOTIDINE 20 MG TABLET PO SCH (22:36)
[2019-05-14] MEDS: ZALEPLON 5 MG CAPSULE PO PRN ×2 (00:07→21:36)
[2019-05-14] MEDS: BUDESONIDE/FORMOTEROL 160-4.5 INHALER 6 GM INH SCH ×3 (01:31→23:52)
[2019-05-14] MEDS: ONDANSETRON 4 MG/2 ML VIAL IV PRN (02:40)
[2019-05-14] MEDS: MORPHINE 4 MG/1 ML VIAL IV PRN (02:40)
[2019-05-14] MEDS: FUROSEMIDE INJ 100 MG in SODIUM CHLORIDE 0.9% 90 ML IV SCH (05:23)
[2019-05-14] MEDS: RANOLAZINE 500 MG TABLET PO SCH ×2 (09:40→21:34)
[2019-05-14] MEDS: METOPROLOL TARTRATE 25 MG TABLET PO SCH ×2 (09:40→21:34)
[2019-05-14] MEDS: POTASSIUM CHLORIDE 20 MEQ TABLET PO SCH ×2 (09:40→21:37)
[2019-05-14] MEDS: DULoxetine 30 MG CAPSULE PO SCH (09:41)
[2019-05-14] MEDS: PANTOPRAZOLE 40 MG TABLET PO SCH (09:41)
[2019-05-14] MEDS: FERROUS SULFATE 325 MG TABLET PO SCH (09:41)
[2019-05-14] MEDS: metOLazone 5 MG TABLET PO SCH (09:41)
[2019-05-14] MEDS: LISINOPRIL 5 MG TABLET PO SCH ×2 (09:42→21:33)
[2019-05-14] MEDS: ASPIRIN CHEW 81 MG TABLET PO SCH (09:42)
[2019-05-14] MEDS: glipiZIDE 5 MG TABLET PO SCH (09:42)
[2019-05-14] MEDS: amLODIPine 2.5 MG TABLET PO SCH (09:42)
[2019-05-14] MEDS: SPIRONOLACTONE 25 MG TABLET PO SCH ×2 (09:42→21:35)
[2019-05-14] MEDS: INSULIN LISPRO 100 UNIT/ML SUBCUT SCH ×4 (10:19→21:41)
[2019-05-14 10:26] LABS: Calcium 8.6 MG/DL (8.5-10.1); Osmolality,Calculated 286.8 MOS/KG (273-304)
[2019-05-14] MEDS: ENOXAPARIN 80 MG/0.8 ML SYRINGE SUBCUT SCH (16:00)
[2019-05-14] MEDS: SENNA 8.6 MG TABLET PO SCH (21:35)
[2019-05-14] MEDS: ISOSORBIDE MONONITRATE 30 MG TABLET PO SCH (21:35)
[2019-05-14] MEDS: ATORVASTATIN 10 MG TABLET PO SCH (21:36)
[2019-05-14] MEDS: MONTELUKAST 10 MG TABLET PO SCH (21:37)
[2019-05-14] MEDS: FAMOTIDINE 20 MG TABLET PO SCH (21:37)
[2019-05-14] MEDS: MIRTAZAPINE 15 MG TABLET PO SCH (21:41)
[2019-05-15] MEDS: metOLazone 5 MG TABLET PO SCH (08:50)
[2019-05-15] MEDS: DULoxetine 30 MG CAPSULE PO SCH (08:50)
[2019-05-15] MEDS: LISINOPRIL 5 MG TABLET PO SCH ×2 (08:50→22:14)
[2019-05-15] MEDS: amLODIPine 2.5 MG TABLET PO SCH (08:50)
[2019-05-15] MEDS: POTASSIUM CHLORIDE 20 MEQ TABLET PO SCH ×2 (08:51→22:15)
[2019-05-15] MEDS: RANOLAZINE 500 MG TABLET PO SCH ×2 (08:51→22:14)
[2019-05-15] MEDS: SPIRONOLACTONE 25 MG TABLET PO SCH ×2 (08:51→22:15)
[2019-05-15] MEDS: FERROUS SULFATE 325 MG TABLET PO SCH (08:51)
[2019-05-15] MEDS: ASPIRIN CHEW 81 MG TABLET PO SCH (08:51)
[2019-05-15] MEDS: glipiZIDE 5 MG TABLET PO SCH (08:51)
[2019-05-15] MEDS: PANTOPRAZOLE 40 MG TABLET PO SCH (08:52)
[2019-05-15] MEDS: FUROSEMIDE 40 MG TABLET PO SCH (08:52)
[2019-05-15] MEDS: METOPROLOL TARTRATE 25 MG TABLET PO SCH ×2 (08:52→22:15)
[2019-05-15] MEDS: INSULIN LISPRO 100 UNIT/ML SUBCUT SCH ×4 (08:56→22:13)
[2019-05-15] MEDS: BUDESONIDE/FORMOTEROL 160-4.5 INHALER 6 GM INH SCH ×2 (08:56→22:20)
[2019-05-15 09:01] LABS: Calcium 8.4 MG/DL (8.5-10.1); Osmolality,Calculated 278.4 MOS/KG (273-304)
[2019-05-15] MEDS: ENOXAPARIN 80 MG/0.8 ML SYRINGE SUBCUT SCH (15:48)
[2019-05-15] MEDS: ZALEPLON 5 MG CAPSULE PO PRN (22:14)
[2019-05-15] MEDS: MONTELUKAST 10 MG TABLET PO SCH (22:14)
[2019-05-15] MEDS: ATORVASTATIN 10 MG TABLET PO SCH (22:15)
[2019-05-15] MEDS: SENNA 8.6 MG TABLET PO SCH (22:15)
[2019-05-15] MEDS: ISOSORBIDE MONONITRATE 30 MG TABLET PO SCH (22:16)
[2019-05-15] MEDS: FAMOTIDINE 20 MG TABLET PO SCH (22:16)
[2019-05-15] MEDS: MIRTAZAPINE 15 MG TABLET PO SCH (22:16)
[2019-05-16] MEDS: INSULIN LISPRO 100 UNIT/ML SUBCUT SCH ×2 (07:46→13:21)
[2019-05-16] MEDS: SPIRONOLACTONE 25 MG TABLET PO SCH (09:23)
[2019-05-16] MEDS: METOPROLOL TARTRATE 25 MG TABLET PO SCH (09:23)
[2019-05-16] MEDS: POTASSIUM CHLORIDE 20 MEQ TABLET PO SCH (09:23)
[2019-05-16] MEDS: amLODIPine 2.5 MG TABLET PO SCH (09:23)
[2019-05-16] MEDS: PANTOPRAZOLE 40 MG TABLET PO SCH (09:23)
[2019-05-16] MEDS: DULoxetine 30 MG CAPSULE PO SCH (09:23)
[2019-05-16] MEDS: LISINOPRIL 5 MG TABLET PO SCH (09:23)
[2019-05-16] MEDS: FUROSEMIDE 40 MG TABLET PO SCH (09:23)
[2019-05-16] MEDS: metOLazone 5 MG TABLET PO SCH (09:23)
[2019-05-16] MEDS: RANOLAZINE 500 MG TABLET PO SCH (09:24)
[2019-05-16] MEDS: ASPIRIN CHEW 81 MG TABLET PO SCH (09:24)
[2019-05-16] MEDS: glipiZIDE 5 MG TABLET PO SCH (09:24)
[2019-05-16] MEDS: FERROUS SULFATE 325 MG TABLET PO SCH (09:24)
[2019-05-16] MEDS: BUDESONIDE/FORMOTEROL 160-4.5 INHALER 6 GM INH SCH (10:51)
[2019-05-16 11:55] VITALS: BP 128/52
== END 2019-05-16 14:12 | disposition home health service (06) | DRG 291 ==
LOC: EDUNIT# → EDBD → N.ED 09:18 → N.EDINP 11:51 → SUATTDRO 11:51 → N.2E 12:15 → N.TELEN 12:56
PROVIDERS: ADMIT Internal Medicine Infectious Disease; ATTEND Internal Medicine

== ENCOUNTER 2019-06-18 15:06 | Inpatient (IN) ==
[2019-06-18] MEDS ORDERED: ALBUTEROL/IPRATROPIUM 3 ML NEB RESP TX STA (16:03)
[2019-06-18 17:40] LABS: Apearance,Urine CLEAR (Clear); Bacteria,Urine Moderate /HPF (Few); Bilirubin,Urine Negative (Negative); Blood, Urine Negative (Negative); Glucose,Urine (UA) Negative (Negative); Hyaline Casts,Urine 9 /LPF (0-3); Ketones,Urine Negative (Negative); Mucus,Urine Occasional /LPF (Occasional); Nitrite,Urine Negative (Negative); Protein,Urine Negative; RBC,Urine 1 /HPF (0-4); Squamous Epithelial Cell,Urine Occasional /HPF (0-10); Urine Color Yellow (Yellow); Urine Specific Gravity 1.008 (1.001-1.035); Urine Urobilinogen < 2.0 EU/DL (0.2-1.0); WBC,Urine 2 /HPF (0-6)
[2019-06-18 17:46] LABS: Barbiturates Screen,Urine Negative (Negative); Benzodiazepines Screen,Urine Negative (Negative); Cannabinoid Screen,Urine Negative (Negative); Opiate Screen,Urine Negative (Negative); Phencyclidine Screen,Urine Negative (Negative)
[2019-06-18] MEDS ORDERED: KETOROLAC 30 MG/1 ML VIAL IV STA (17:47)
[2019-06-18] MEDS ORDERED: KETOROLAC 30 MG/1 ML VIAL ONE (17:48)
[2019-06-18] MEDS ORDERED: AMPICILLIN/SULBACTAM 3,000 MG in SODIUM CHLORIDE 0.9% 100 ML IV STA (17:52)
[2019-06-18 18:09] LABS: Basophils % 0.8 % (0.0-0.8); Eosinophils # 0.3 10*3/uL (0.0-0.87); Eosinophils % 8.6 % (0.00-10.9); Hematocrit 33.3 VOL% (35.7-47.0); Hemoglobin 10.5 GM/DL (12.0-16.0); Immature Granulocytes % 0.3 %; Immature Granulocytes Absolute 0.01 #; Lymphocytes # 1.3 10*3/uL (1.4-4.0); Lymphocytes % 35.7 % (21.3-54.2); Mean Corpuscular HGB Conc 31.5 GM/DL (32-36); Neutrophils % 43.6 % (38.7-73.9); Platelet Count 178 T/CUMM (130-400); White Blood Count 3.7 T/CUMM (4-12)
[2019-06-18 18:21] LABS: PT Patient Result 10.4 SECS (9.6-12.2); Partial Thromboplastin Time 25.1 SECS (20.8-36.0)
[2019-06-18 18:29] LABS: Alanine Aminotransferase 30 U/L (13-56); Albumin 3.8 G/DL (3.4-5.0); Alkaline Phosphatase 110 U/L (45-117); Aspartate Amino Transferase 25 U/L (0-37); Blood Urea Nitrogen 36 MG/DL (7-18); Calcium 9.2 MG/DL (8.5-10.1); Estimated Glom Filtration Rate 41 ML/MIN; Glucose 101 MG/DL (74-106)
[2019-06-18 18:31] LABS: Troponin I 0.206 NG/ML (0.00-0.045)
[2019-06-18] MEDS ORDERED: SODIUM CHLORIDE 0.9% 500 ML IV STA (18:40)
[2019-06-18] MEDS ORDERED: NICOTINE 21 MG/24 HR PATCH TRANSDERM PRN (21:32)
[2019-06-18] MEDS ORDERED: diphenhydrAMINE CAP 25 MG CAPSULE PO PRN (21:32)
[2019-06-18] MEDS ORDERED: BISACODYL 5 MG TABLET PO PRN (21:32)
[2019-06-18] MEDS ORDERED: ALBUTEROL/IPRATROPIUM 3 ML NEB RESP TX PRN (21:32)
[2019-06-18] MEDS: MORPHINE 4 MG/1 ML VIAL IV PRN (22:06)
[2019-06-18] MEDS ORDERED: NITROGLYCERIN SL 0.4 MG TABLET SL PRN (23:55)
[2019-06-19] MEDS: MORPHINE 4 MG/1 ML VIAL IV PRN ×5 (01:45→22:17)
[2019-06-19] MEDS: RANOLAZINE 500 MG TABLET PO SCH ×3 (01:46→20:19)
[2019-06-19] MEDS: MONTELUKAST 10 MG TABLET PO SCH ×2 (01:46→20:18)
[2019-06-19] MEDS: MIRTAZAPINE 15 MG TABLET PO SCH ×2 (01:46→20:18)
[2019-06-19] MEDS: SENNA 8.6 MG TABLET PO SCH ×2 (01:47→20:19)
[2019-06-19] MEDS: LISINOPRIL 5 MG TABLET PO SCH ×3 (01:47→20:19)
[2019-06-19] MEDS: PANTOPRAZOLE 40 MG TABLET PO SCH ×3 (01:48→20:19)
[2019-06-19] MEDS: ATORVASTATIN 10 MG TABLET PO SCH ×2 (01:48→20:19)
[2019-06-19] MEDS: ISOSORBIDE MONONITRATE 30 MG TABLET PO SCH ×2 (01:48→20:20)
[2019-06-19] MEDS: ZOLPIDEM 5 MG TABLET PO PRN ×2 (01:50→20:19)
[2019-06-19 02:31] LABS: Bilirubin,Total 0.5 MG/DL (0.2-1.0); Calcium 8.6 MG/DL (8.5-10.1); Osmolality,Calculated 284.8 MOS/KG (273-304); Total Protein 6.1 G/DL (6.4-8.3)
[2019-06-19] MEDS ORDERED: GLUCAGON 1 MG VIAL IM PRN ×2 (05:48→12:11)
[2019-06-19] MEDS ORDERED: DEXTROSE 50% 25 GM/50 ML VIAL IV PRN ×2 (05:48→12:11)
[2019-06-19] MEDS: amLODIPine 2.5 MG TABLET PO SCH (08:48)
[2019-06-19] MEDS: FUROSEMIDE 40 MG TABLET PO SCH (08:49)
[2019-06-19] MEDS: DULoxetine 30 MG CAPSULE PO SCH (08:49)
[2019-06-19] MEDS: carvediloL 12.5 MG TABLET PO SCH ×2 (08:49→16:06)
[2019-06-19] MEDS: FERROUS SULFATE 325 MG TABLET PO SCH (08:49)
[2019-06-19] MEDS: ASPIRIN CHEW 81 MG TABLET PO SCH (08:50)
[2019-06-19] MEDS: BUDESONIDE/FORMOTEROL 160-4.5 INHALER 6 GM INH SCH ×2 (08:51→20:22)
[2019-06-19] MEDS: POTASSIUM CHLORIDE 20 MEQ TABLET PO SCH ×2 (12:08→20:19)
[2019-06-19] MEDS: INSULIN REGULAR 100 UNIT/ML SUBCUT SCH ×3 (14:16→20:29)
[2019-06-19] MEDS: cefTRIAXone 2,000 MG in SYRINGE 1 EACH IV SCH (15:23)
[2019-06-19] MEDS: RANITIDINE HCL 300 MG PO SCH (20:20)
[2019-06-20] MEDS: MORPHINE 4 MG/1 ML VIAL IV PRN ×5 (02:12→22:43)
[2019-06-20] MEDS: AMPICILLIN/SULBACTAM 3,000 MG in SODIUM CHLORIDE 0.9% 100 ML IV SCH (05:03)
[2019-06-20 05:22] LABS: Basophils % 0.6 % (0.0-0.8); Eosinophils # 0.3 10*3/uL (0.0-0.87); Eosinophils % 6.8 % (0.00-10.9); Hematocrit 28.8 VOL% (35.7-47.0); Hemoglobin 8.9 GM/DL (12.0-16.0); Immature Granulocytes % 0.4 %; Immature Granulocytes Absolute 0.02 #; Lymphocytes % 20.2 % (21.3-54.2); Mean Corpuscular HGB Conc 30.9 GM/DL (32-36); Mean Corpuscular Volume 91.1 FL (87-102); Mean Platelet Volume 10.6 FL (9.6-12.0); Monocytes % 13.2 % (1.7-12.7); Neutrophils % 58.8 % (38.7-73.9); Platelet Count 148 T/CUMM (130-400); Red Blood Count 3.16 MC/CUMM (3.8-5.5); White Blood Count 4.8 T/CUMM (4-12)
[2019-06-20 07:50] LABS: Osmolality,Calculated 279.2 MOS/KG (273-304)
[2019-06-20] MEDS: PANTOPRAZOLE 40 MG TABLET PO SCH ×2 (09:20→20:55)
[2019-06-20] MEDS: FERROUS SULFATE 325 MG TABLET PO SCH (09:20)
[2019-06-20] MEDS: RANOLAZINE 500 MG TABLET PO SCH (09:21)
[2019-06-20] MEDS: carvediloL 12.5 MG TABLET PO SCH ×2 (09:21→16:40)
[2019-06-20] MEDS: ASPIRIN CHEW 81 MG TABLET PO SCH (09:21)
[2019-06-20] MEDS: FUROSEMIDE 40 MG TABLET PO SCH (09:22)
[2019-06-20] MEDS: DULoxetine 30 MG CAPSULE PO SCH (09:22)
[2019-06-20] MEDS: LISINOPRIL 5 MG TABLET PO SCH (09:22)
[2019-06-20] MEDS: amLODIPine 2.5 MG TABLET PO SCH (09:22)
[2019-06-20] MEDS: INSULIN REGULAR 100 UNIT/ML SUBCUT SCH ×4 (09:24→21:35)
[2019-06-20] MEDS: BUDESONIDE/FORMOTEROL 160-4.5 INHALER 6 GM INH SCH ×2 (09:26→20:59)
[2019-06-20] MEDS: POTASSIUM CHLORIDE 20 MEQ TABLET PO SCH (09:26)
[2019-06-20] MEDS ORDERED: SODIUM POLYSTYRENE SULFATE 15 GM/60 ML BOTTLE PO ONE (11:18)
[2019-06-20] MEDS: ONDANSETRON 4 MG/2 ML VIAL IV PRN ×2 (12:30→17:59)
[2019-06-20] MEDS: cefTRIAXone 2,000 MG in SYRINGE 1 EACH IV SCH (12:31)
[2019-06-20] MEDS: guaiFENesin/DM ER 600-30 MG TABLET PO PRN (20:54)
[2019-06-20] MEDS: SENNA 8.6 MG TABLET PO SCH (20:54)
[2019-06-20] MEDS: ATORVASTATIN 10 MG TABLET PO SCH (20:54)
[2019-06-20] MEDS: ISOSORBIDE MONONITRATE 30 MG TABLET PO SCH (20:55)
[2019-06-20] MEDS: ZOLPIDEM 5 MG TABLET PO PRN (20:55)
[2019-06-20] MEDS: MONTELUKAST 10 MG TABLET PO SCH (20:55)
[2019-06-20] MEDS: MIRTAZAPINE 15 MG TABLET PO SCH (20:55)
[2019-06-20] MEDS: RANITIDINE HCL 300 MG PO SCH (20:56)
[2019-06-21] MEDS: MORPHINE 4 MG/1 ML VIAL IV PRN ×5 (04:45→21:09)
[2019-06-21 04:50] LABS: Basophils % 0.5 % (0.0-0.8); Eosinophils # 0.2 10*3/uL (0.0-0.87); Eosinophils % 5.6 % (0.00-10.9); Hematocrit 27.1 VOL% (35.7-47.0); Hemoglobin 8.3 GM/DL (12.0-16.0); Immature Granulocytes % 0.3 %; Immature Granulocytes Absolute 0.01 #; Lymphocytes # 0.9 10*3/uL (1.4-4.0); Lymphocytes % 23.5 % (21.3-54.2); Mean Corpuscular HGB Conc 30.6 GM/DL (32-36); Mean Corpuscular Volume 91.2 FL (87-102); Mean Platelet Volume 10.6 FL (9.6-12.0); Monocytes % 15.2 % (1.7-12.7); Neutrophils % 54.9 % (38.7-73.9); Platelet Count 131 T/CUMM (130-400); Red Blood Count 2.97 MC/CUMM (3.8-5.5); Red Cell Distribution Width 20.1 % (9.3-17.3)
[2019-06-21 05:10] LABS: Calcium 8.1 MG/DL (8.5-10.1); Osmolality,Calculated 280.7 MOS/KG (273-304)
[2019-06-21] MEDS: RANITIDINE HCL 300 MG PO SCH ×2 (07:59→21:08)
[2019-06-21] MEDS: POTASSIUM CHLORIDE 20 MEQ TABLET PO SCH (08:00)
[2019-06-21] MEDS: AMPICILLIN/SULBACTAM 3,000 MG in SODIUM CHLORIDE 0.9% 100 ML IV SCH ×2 (08:01→08:02)
[2019-06-21] MEDS: INSULIN REGULAR 100 UNIT/ML SUBCUT SCH ×4 (08:11→21:08)
[2019-06-21] MEDS: DULoxetine 30 MG CAPSULE PO SCH (09:46)
[2019-06-21] MEDS: amLODIPine 2.5 MG TABLET PO SCH (09:46)
[2019-06-21] MEDS: ASPIRIN CHEW 81 MG TABLET PO SCH (09:47)
[2019-06-21] MEDS: PANTOPRAZOLE 40 MG TABLET PO SCH ×2 (09:47→21:06)
[2019-06-21] MEDS: carvediloL 12.5 MG TABLET PO SCH ×2 (09:47→16:55)
[2019-06-21] MEDS: FERROUS SULFATE 325 MG TABLET PO SCH (09:47)
[2019-06-21] MEDS: BUDESONIDE/FORMOTEROL 160-4.5 INHALER 6 GM INH SCH ×2 (09:47→21:08)
[2019-06-21] MEDS ORDERED: SODIUM POLYSTYRENE SULFATE 15 GM/60 ML BOTTLE PO STA (10:31)
[2019-06-21] MEDS: SODIUM CHLORIDE 0.45% 1,000 ML IV SCH (13:59)
[2019-06-21] MEDS: cefTRIAXone 2,000 MG in SYRINGE 1 EACH IV SCH (14:00)
[2019-06-21] MEDS: ZOLPIDEM 5 MG TABLET PO PRN (21:06)
[2019-06-21] MEDS: MONTELUKAST 10 MG TABLET PO SCH (21:06)
[2019-06-21] MEDS: guaiFENesin/DM ER 600-30 MG TABLET PO PRN (21:06)
[2019-06-21] MEDS: ATORVASTATIN 10 MG TABLET PO SCH (21:06)
[2019-06-21] MEDS: TAMSULOSIN 0.4 MG CAPSULE PO SCH (21:06)
[2019-06-21] MEDS: ISOSORBIDE MONONITRATE 30 MG TABLET PO SCH (21:06)
[2019-06-21] MEDS: MIRTAZAPINE 15 MG TABLET PO SCH (21:07)
[2019-06-21] MEDS: SENNA 8.6 MG TABLET PO SCH (21:08)
[2019-06-22] MEDS: MORPHINE 4 MG/1 ML VIAL IV PRN ×3 (01:18→10:33)
[2019-06-22 05:14] LABS: Basophils % 0.3 % (0.0-0.8); Eosinophils # 0.1 10*3/uL (0.0-0.87); Eosinophils % 3.6 % (0.00-10.9); Hematocrit 25.1 VOL% (35.7-47.0); Hemoglobin 7.8 GM/DL (12.0-16.0); Immature Granulocytes % 0.3 %; Immature Granulocytes Absolute 0.01 #; Lymphocytes # 0.7 10*3/uL (1.4-4.0); Lymphocytes % 16.8 % (21.3-54.2); Mean Corpuscular HGB Conc 31.1 GM/DL (32-36); Mean Corpuscular Volume 90.6 FL (87-102); Mean Platelet Volume 11.5 FL (9.6-12.0); Monocytes % 15.1 % (1.7-12.7); Neutrophils % 63.9 % (38.7-73.9); Platelet Count 122 T/CUMM (130-400); Red Blood Count 2.77 MC/CUMM (3.8-5.5); Red Cell Distribution Width 19.7 % (9.3-17.3); White Blood Count 3.9 T/CUMM (4-12)
[2019-06-22 05:40] LABS: Calcium 7.8 MG/DL (8.5-10.1)
[2019-06-22 05:47] LABS: Calcium 7.6 MG/DL (8.5-10.1); Osmolality,Calculated 283.2 MOS/KG (273-304)
[2019-06-22] MEDS: INSULIN REGULAR 100 UNIT/ML SUBCUT SCH ×4 (07:49→22:36)
[2019-06-22] MEDS: FERROUS SULFATE 325 MG TABLET PO SCH (09:07)
[2019-06-22] MEDS: BUDESONIDE/FORMOTEROL 160-4.5 INHALER 6 GM INH SCH ×2 (09:07→22:39)
[2019-06-22] MEDS: ASPIRIN CHEW 81 MG TABLET PO SCH (09:07)
[2019-06-22] MEDS: carvediloL 12.5 MG TABLET PO SCH ×2 (09:07→16:24)
[2019-06-22] MEDS: DULoxetine 30 MG CAPSULE PO SCH (09:07)
[2019-06-22] MEDS: amLODIPine 2.5 MG TABLET PO SCH (09:07)
[2019-06-22] MEDS: PANTOPRAZOLE 40 MG TABLET PO SCH ×2 (09:07→22:35)
[2019-06-22] MEDS: SODIUM CHLORIDE 0.45% 1,000 ML IV SCH (10:38)
[2019-06-22 15:57] LABS: % Iron Saturation 13.9 % (18-50)
[2019-06-22] MEDS: ACETAMINOPHEN 325 MG TABLET PO PRN (17:34)
[2019-06-22] MEDS: guaiFENesin/DM ER 600-30 MG TABLET PO PRN (19:37)
[2019-06-22] MEDS: SENNA 8.6 MG TABLET PO SCH (22:36)
[2019-06-22] MEDS: MONTELUKAST 10 MG TABLET PO SCH (22:36)
[2019-06-22] MEDS: TAMSULOSIN 0.4 MG CAPSULE PO SCH (22:36)
[2019-06-22] MEDS: ATORVASTATIN 10 MG TABLET PO SCH (22:36)
[2019-06-22] MEDS: ISOSORBIDE MONONITRATE 30 MG TABLET PO SCH (22:36)
[2019-06-22] MEDS: RANITIDINE HCL 300 MG PO SCH (22:37)
[2019-06-22] MEDS: MIRTAZAPINE 15 MG TABLET PO SCH (22:59)
[2019-06-23] MEDS: ACETAMINOPHEN 325 MG TABLET PO PRN ×2 (02:41→09:22)
[2019-06-23] MEDS: SODIUM CHLORIDE 0.45% 1,000 ML IV SCH (04:49)
[2019-06-23 06:31] LABS: Basophils % 0.3 % (0.0-0.8); Eosinophils # 0.2 10*3/uL (0.0-0.87); Hematocrit 26.2 VOL% (35.7-47.0); Hemoglobin 8.2 GM/DL (12.0-16.0); Immature Granulocytes % 0.3 %; Immature Granulocytes Absolute 0.01 #; Lymphocytes # 0.6 10*3/uL (1.4-4.0); Lymphocytes % 20.7 % (21.3-54.2); Mean Corpuscular HGB Conc 31.3 GM/DL (32-36); Mean Corpuscular Volume 89.1 FL (87-102); Mean Platelet Volume 11.1 FL (9.6-12.0); Neutrophils % 57.7 % (38.7-73.9); Platelet Count 145 T/CUMM (130-400); Red Blood Count 2.94 MC/CUMM (3.8-5.5); Red Cell Distribution Width 19.7 % (9.3-17.3)
[2019-06-23 06:55] LABS: Calcium 8.4 MG/DL (8.5-10.1); Osmolality,Calculated 293.1 MOS/KG (273-304)
[2019-06-23 07:15] LABS: Anisocytosis 1+; Band Neutrophils 2 % (0-10); Eosinophils 7 % (0-10); Lymphocytes 20 % (20-55); Microcytosis 1+; Ovalocytes 1+; Platelet Estimate Adequate; Segmented Neutrophils 54 % (50-85); Total Cells Counted 100
[2019-06-23 07:25] LABS: Osmolality,Calculated 288.5 MOS/KG (273-304)
[2019-06-23] MEDS: INSULIN REGULAR 100 UNIT/ML SUBCUT SCH ×2 (08:49→12:12)
[2019-06-23] MEDS: DULoxetine 30 MG CAPSULE PO SCH (09:21)
[2019-06-23] MEDS: PANTOPRAZOLE 40 MG TABLET PO SCH (09:21)
[2019-06-23] MEDS: FERROUS SULFATE 325 MG TABLET PO SCH (09:21)
[2019-06-23] MEDS: amLODIPine 2.5 MG TABLET PO SCH (09:21)
[2019-06-23] MEDS: BUDESONIDE/FORMOTEROL 160-4.5 INHALER 6 GM INH SCH (09:22)
[2019-06-23] MEDS: ASPIRIN CHEW 81 MG TABLET PO SCH (09:22)
[2019-06-23] MEDS: carvediloL 12.5 MG TABLET PO SCH (09:22)
[2019-06-23 12:19] VITALS: BP 181/83
== END 2019-06-23 16:02 | disposition home health service (06) | DRG 292 ==
LOC: EDBD → EDUNIT# → N.ED 15:06 → N.EDINP 21:32 → N.TELES 22:52
PROVIDERS: ADMIT Hospitalist; ATTEND Hospitalist

== ENCOUNTER 2019-06-24 08:05 | Inpatient (IN) ==
[2019-06-24] MEDS ORDERED: MAGNESIUM SULF RIDER 2 GM in PREMIX 1 EACH IV STA (08:13)
[2019-06-24] MEDS ORDERED: ALBUTEROL 2.5 MG/3 ML NEB RESP TX SCH (08:30)
[2019-06-24] MEDS ORDERED: NITROGLYCERIN DRIP 50 MG/250 ML BOTTLE IV SCH (08:30)
[2019-06-24] MEDS ORDERED: FUROSEMIDE 40 MG/4 ML VIAL IV STA (08:32)
[2019-06-24] MEDS ORDERED: PIPERACILLIN/TAZOBACTAM 3,375 MG in SODIUM CHLORIDE 0.9% 100 ML IV STA (08:32)
[2019-06-24 08:53] LABS: Basophils # 0.1 10*3/uL (0.0-0.2); Basophils % 0.9 % (0.0-0.8); Eosinophils # 0.2 10*3/uL (0.0-0.87); Eosinophils % 2.8 % (0.00-10.9); Hematocrit 34.7 VOL% (35.7-47.0); Hemoglobin 10.6 GM/DL (12.0-16.0); Immature Granulocytes % 0.3 %; Immature Granulocytes Absolute 0.02 #; Lymphocytes # 2.5 10*3/uL (1.4-4.0); Lymphocytes % 39.3 % (21.3-54.2); Mean Corpuscular HGB Conc 30.5 GM/DL (32-36); Mean Corpuscular Volume 91.6 FL (87-102); Mean Platelet Volume 10.3 FL (9.6-12.0); Monocytes % 10.6 % (1.7-12.7); Neutrophils % 46.1 % (38.7-73.9); Platelet Count 200 T/CUMM (130-400); Red Blood Count 3.79 MC/CUMM (3.8-5.5); Red Cell Distribution Width 20.3 % (9.3-17.3); White Blood Count 6.3 T/CUMM (4-12)
[2019-06-24 08:57] LABS: PT Patient Result 10.8 SECS (9.6-12.2)
[2019-06-24 09:00] LABS: Albumin 3.6 G/DL (3.4-5.0); Bilirubin,Total 0.7 MG/DL (0.2-1.0); Calcium 9.2 MG/DL (8.5-10.1); Osmolality,Calculated 290.3 MOS/KG (273-304); Total Protein 7.5 G/DL (6.4-8.3)
[2019-06-24] MEDS ORDERED: MORPHINE 4 MG/1 ML VIAL ONE (09:03)
[2019-06-24] MEDS ORDERED: MORPHINE 4 MG/1 ML VIAL IV STA (09:05)
[2019-06-24] MEDS ORDERED: ASPIRIN CHEW 81 MG TABLET PO STA (09:30)
[2019-06-24 09:39] LABS: Apearance,Urine CLEAR (Clear); Bacteria,Urine Occasional /HPF (Few); Bilirubin,Urine Negative (Negative); Blood, Urine Moderate mg/dL (Negative); Glucose,Urine (UA) Negative (Negative); Hyaline Casts,Urine 3 /LPF (0-3); Ketones,Urine Negative (Negative); Mucus,Urine Occasional /LPF (Occasional); Nitrite,Urine Negative (Negative); Protein,Urine Negative; RBC,Urine 1 /HPF (0-4); Squamous Epithelial Cell,Urine Occasional /HPF (0-10); Urine Color Yellow (Yellow); Urine Urobilinogen < 2.0 EU/DL (0.2-1.0); WBC,Urine 2 /HPF (0-6)
[2019-06-24] MEDS ORDERED: ALBUTEROL 2.5 MG/3 ML NEB RESP TX PRN (10:17)
[2019-06-24 10:30] LABS: ABG Base Excess -5.9 MMOL/L (-2.5-2.5); ABG HCO3 19.2 MMOL/L (20-26); ABG Oxygen Saturation 71.7 % (95-100); ABG PCO2 57.3 MM HG (35-48); ABG PO2 49.4 MM HG (80-95); ABG TCO2 21.3 MMOL/L (23-27); Allen Test Positive; Pt O2 Delivery Device Other
[2019-06-24 10:32] LABS: ABG PH 7.207 (7.35-7.45)
[2019-06-24] MEDS: FUROSEMIDE 100 MG/10 ML VIAL IV SCH ×2 (10:39→18:18)
[2019-06-24] MEDS ORDERED: ETOMIDATE 20 MG/10 ML VIAL IV ONE ×2 (11:07→11:10)
[2019-06-24] MEDS ORDERED: SUCCINYLCHOLINE 200 MG/10 ML VIAL ONE (11:08)
[2019-06-24] MEDS ORDERED: SUCCINYLCHOLINE 200 MG/10 ML VIAL IV ONE (11:10)
[2019-06-24] MEDS ORDERED: NOREPINEPHRINE 8 MG in SODIUM CHLORIDE 0.9% 242 ML IV PRN (11:20)
[2019-06-24] MEDS ORDERED: LIDOCAINE 2% 20 ML VIAL ONE (11:22)
[2019-06-24] MEDS ORDERED: PROPOFOL 1,000 MG/100 ML BOTTLE IV ONE (11:29)
[2019-06-24] MEDS: PROPOFOL 1,000 MG/100 ML BOTTLE IV SCH ×3 (11:30→21:16)
[2019-06-24] MEDS: dilTIAZem Drip 125 MG/125 ML PREMIX IV SCH (11:30)
[2019-06-24 11:45] LABS: ABG Base Excess -1.9 MMOL/L (-2.5-2.5); ABG HCO3 22.8 MMOL/L (20-26); ABG Oxygen Saturation 99.9 % (95-100); ABG PCO2 47.1 MM HG (35-48); ABG PH 7.322 (7.35-7.45); ABG TCO2 22.2 MMOL/L (23-27)
[2019-06-24] MEDS: MORPHINE 4 MG/1 ML VIAL IV PRN (11:50)
[2019-06-24 11:58] LABS: Barbiturates Screen,Urine Negative (Negative); Benzodiazepines Screen,Urine Negative (Negative); Cannabinoid Screen,Urine Negative (Negative); Opiate Screen,Urine Positive (Negative); Phencyclidine Screen,Urine Negative (Negative)
[2019-06-24] MEDS: CARVEDILOL 12.5 MG TABLET PO SCH ×2 (14:59→22:29)
[2019-06-24] MEDS: NITROGLYCERIN 2% OINT 1 INCH/GM PACK TOP SCH ×2 (14:59→22:30)
[2019-06-24] MEDS: amLODIPine 5 MG TABLET PO SCH (15:00)
[2019-06-24] MEDS: PANTOPRAZOLE 40 MG VIAL IV SCH (15:00)
[2019-06-24] MEDS ORDERED: GLUCAGON 1 MG VIAL IM PRN (21:14)
[2019-06-24] MEDS ORDERED: DEXTROSE 50% 25 GM/50 ML VIAL IV PRN (21:14)
[2019-06-24] MEDS: ENOXAPARIN 40 MG/0.4 ML SYRINGE SUBCUT SCH (22:29)
[2019-06-24] MEDS: INSULIN REGULAR 100 UNIT/ML SUBCUT SCH (22:43)
[2019-06-25 04:11] LABS: ABG Base Excess 2.1 MMOL/L (-2.5-2.5); ABG HCO3 25.3 MMOL/L (20-26); ABG Oxygen Saturation 99.4 % (95-100); ABG PCO2 34.1 MM HG (35-48); ABG PH 7.489 (7.35-7.45); ABG PO2 252.7 MM HG (80-95); ABG TCO2 26.4 MMOL/L (23-27); Allen Test Positive; Pt O2 Delivery Device Ventilator
[2019-06-25 05:04] LABS: Basophils % 0.1 % (0.0-0.8); Hemoglobin 8.7 GM/DL (12.0-16.0); Immature Granulocytes % 0.5 %; Immature Granulocytes Absolute 0.04 #; Lymphocytes # 0.7 10*3/uL (1.4-4.0); Lymphocytes % 8.5 % (21.3-54.2); Mean Corpuscular HGB Conc 32.2 GM/DL (32-36); Mean Corpuscular Volume 87.1 FL (87-102); Mean Platelet Volume 10.8 FL (9.6-12.0); Monocytes % 7.1 % (1.7-12.7); Neutrophils % 83.8 % (38.7-73.9); Platelet Count 181 T/CUMM (130-400); Red Cell Distribution Width 19.7 % (9.3-17.3); White Blood Count 7.9 T/CUMM (4-12)
[2019-06-25 05:40] LABS: Albumin 2.8 G/DL (3.4-5.0); Bilirubin,Total 0.7 MG/DL (0.2-1.0); Calcium 8.9 MG/DL (8.5-10.1); Osmolality,Calculated 296.7 MOS/KG (273-304)
[2019-06-25] MEDS: PROPOFOL 1,000 MG/100 ML BOTTLE IV SCH ×3 (06:16→20:02)
[2019-06-25] MEDS: INSULIN REGULAR 100 UNIT/ML SUBCUT SCH ×4 (07:44→21:25)
[2019-06-25] MEDS: FUROSEMIDE 100 MG/10 ML VIAL IV SCH ×2 (08:29→17:43)
[2019-06-25] MEDS: CARVEDILOL 12.5 MG TABLET PO SCH ×2 (08:29→21:42)
[2019-06-25] MEDS: NITROGLYCERIN 2% OINT 1 INCH/GM PACK TOP SCH (08:30)
[2019-06-25] MEDS: amLODIPine 5 MG TABLET PO SCH (08:30)
[2019-06-25] MEDS: dilTIAZem Drip 125 MG/125 ML PREMIX IV SCH (11:05)
[2019-06-25] MEDS: MORPHINE 4 MG/1 ML VIAL IV PRN ×4 (11:40→22:43)
[2019-06-25] MEDS: ASPIRIN CHEW 81 MG TABLET PO SCH (12:58)
[2019-06-25] MEDS: PANTOPRAZOLE 40 MG VIAL IV SCH (12:58)
[2019-06-25] MEDS: ISOSORBIDE DINITRATE 10 MG TABLET PO SCH ×2 (17:30→21:43)
[2019-06-25] MEDS: ONDANSETRON 4 MG/2 ML VIAL IV PRN ×2 (17:42→22:40)
[2019-06-25] MEDS: ATORVASTATIN 40 MG TABLET PO SCH (21:42)
[2019-06-25] MEDS: ENOXAPARIN 40 MG/0.4 ML SYRINGE SUBCUT SCH (21:43)
[2019-06-26] MEDS: PROPOFOL 1,000 MG/100 ML BOTTLE IV SCH ×3 (02:44→10:53)
[2019-06-26 03:25] LABS: Basophils % 0.3 % (0.0-0.8); Eosinophils # 0.2 10*3/uL (0.0-0.87); Eosinophils % 3.1 % (0.00-10.9); Hematocrit 26.5 VOL% (35.7-47.0); Hemoglobin 8.4 GM/DL (12.0-16.0); Immature Granulocytes % 0.5 %; Immature Granulocytes Absolute 0.03 #; Lymphocytes # 1.3 10*3/uL (1.4-4.0); Lymphocytes % 21.3 % (21.3-54.2); Mean Corpuscular HGB Conc 31.7 GM/DL (32-36); Mean Corpuscular Volume 88.6 FL (87-102); Mean Platelet Volume 10.8 FL (9.6-12.0); Monocytes % 12.2 % (1.7-12.7); Neutrophils % 62.6 % (38.7-73.9); Platelet Count 176 T/CUMM (130-400); Red Blood Count 2.99 MC/CUMM (3.8-5.5); Red Cell Distribution Width 20.2 % (9.3-17.3); White Blood Count 6.1 T/CUMM (4-12)
[2019-06-26 03:50] LABS: Calcium 8.3 MG/DL (8.5-10.1); Osmolality,Calculated 291.1 MOS/KG (273-304)
[2019-06-26] MEDS: MORPHINE 4 MG/1 ML VIAL IV PRN ×4 (04:05→23:09)
[2019-06-26 04:53] LABS: Allen Test Positive; Pt O2 Delivery Device Ventilator
[2019-06-26 04:54] LABS: ABG Base Excess 3.1 MMOL/L (-2.5-2.5); ABG HCO3 27.2 MMOL/L (20-26); ABG Oxygen Saturation 99.8 % (95-100); ABG PCO2 37.2 MM HG (35-48); ABG PH 7.467 (7.35-7.45); ABG TCO2 24.8 MMOL/L (23-27)
[2019-06-26] MEDS: INSULIN REGULAR 100 UNIT/ML SUBCUT SCH ×4 (08:18→20:34)
[2019-06-26] MEDS: FUROSEMIDE 100 MG/10 ML VIAL IV SCH (08:33)
[2019-06-26] MEDS: ISOSORBIDE DINITRATE 10 MG TABLET PO SCH ×3 (09:27→20:36)
[2019-06-26] MEDS: amLODIPine 5 MG TABLET PO SCH (09:27)
[2019-06-26] MEDS: ASPIRIN CHEW 81 MG TABLET PO SCH (09:27)
[2019-06-26] MEDS: CARVEDILOL 12.5 MG TABLET PO SCH ×2 (09:28→20:36)
[2019-06-26] MEDS: FUROSEMIDE 40 MG TABLET PO SCH (09:28)
[2019-06-26] MEDS ORDERED: POTASSIUM CHLORIDE 20 MEQ/15 ML UDCUP PO ONE (10:00)
[2019-06-26] MEDS: dilTIAZem Drip 125 MG/125 ML PREMIX IV SCH (10:53)
[2019-06-26] MEDS: PANTOPRAZOLE 40 MG VIAL IV SCH (10:53)
[2019-06-26] MEDS ORDERED: dilTIAZem Drip 125 MG/125 ML PREMIX IV PRN (10:55)
[2019-06-26] MEDS: CLORAZEPATE 7.5 MG TABLET PO SCH ×2 (14:16→20:35)
[2019-06-26] MEDS: ENOXAPARIN 40 MG/0.4 ML SYRINGE SUBCUT SCH (20:34)
[2019-06-26] MEDS: ATORVASTATIN 40 MG TABLET PO SCH (20:36)
[2019-06-27] MEDS: ONDANSETRON 4 MG/2 ML VIAL IV PRN (03:22)
[2019-06-27 05:08] LABS: Basophils % 0.4 % (0.0-0.8); Eosinophils # 0.4 10*3/uL (0.0-0.87); Eosinophils % 9.2 % (0.00-10.9); Hematocrit 25.4 VOL% (35.7-47.0); Hemoglobin 7.9 GM/DL (12.0-16.0); Immature Granulocytes % 0.7 %; Immature Granulocytes Absolute 0.03 #; Lymphocytes # 1.2 10*3/uL (1.4-4.0); Lymphocytes % 26.2 % (21.3-54.2); Mean Corpuscular HGB Conc 31.1 GM/DL (32-36); Mean Corpuscular Volume 90.4 FL (87-102); Mean Platelet Volume 10.3 FL (9.6-12.0); Monocytes % 9.8 % (1.7-12.7); Neutrophils % 53.7 % (38.7-73.9); Platelet Count 168 T/CUMM (130-400); Red Blood Count 2.81 MC/CUMM (3.8-5.5); Red Cell Distribution Width 19.7 % (9.3-17.3); White Blood Count 4.6 T/CUMM (4-12)
[2019-06-27 05:34] LABS: Prealbumin 13.2 MG/DL (20-40)
[2019-06-27] MEDS: MORPHINE 4 MG/1 ML VIAL IV PRN (05:34)
[2019-06-27 06:21] LABS: Calcium 8.7 MG/DL (8.5-10.1); Osmolality,Calculated 287.3 MOS/KG (273-304)
[2019-06-27] MEDS: INSULIN REGULAR 100 UNIT/ML SUBCUT SCH ×4 (07:47→23:56)
[2019-06-27] MEDS: ASPIRIN CHEW 81 MG TABLET PO SCH (08:20)
[2019-06-27] MEDS: FUROSEMIDE 40 MG TABLET PO SCH (08:20)
[2019-06-27] MEDS: ISOSORBIDE DINITRATE 10 MG TABLET PO SCH ×3 (08:20→21:10)
[2019-06-27] MEDS: CARVEDILOL 12.5 MG TABLET PO SCH (08:21)
[2019-06-27] MEDS: amLODIPine 5 MG TABLET PO SCH (08:21)
[2019-06-27] MEDS: CLORAZEPATE 7.5 MG TABLET PO SCH ×3 (08:21→21:10)
[2019-06-27] MEDS ORDERED: KETOROLAC 15 MG/1 ML VIAL IV ONE (08:52)
[2019-06-27] MEDS: ACETAMINOPHEN 325 MG TABLET PO PRN ×2 (09:36→13:25)
[2019-06-27] MEDS ORDERED: NICOTINE 21 MG/24 HR PATCH TRANSDERM PRN (11:25)
[2019-06-27] MEDS ORDERED: POTASSIUM CHLORIDE 20 MEQ TABLET PO ONE (12:02)
[2019-06-27] MEDS: LIDOCAINE 5% PATCH TRANSDERM SCH (13:23)
[2019-06-27] MEDS: TAMSULOSIN 0.4 MG CAPSULE PO SCH (21:10)
[2019-06-27] MEDS: ATORVASTATIN 40 MG TABLET PO SCH (21:10)
[2019-06-27] MEDS: MIRTAZAPINE 15 MG TABLET PO SCH (21:10)
[2019-06-28 05:10] LABS: Basophils % 0.7 % (0.0-0.8); Eosinophils # 0.5 10*3/uL (0.0-0.87); Eosinophils % 11.1 % (0.00-10.9); Hematocrit 28.6 VOL% (35.7-47.0); Hemoglobin 8.7 GM/DL (12.0-16.0); Immature Granulocytes % 0.7 %; Immature Granulocytes Absolute 0.03 #; Lymphocytes # 1.2 10*3/uL (1.4-4.0); Lymphocytes % 28.3 % (21.3-54.2); Mean Corpuscular HGB Conc 30.4 GM/DL (32-36); Mean Corpuscular Volume 91.1 FL (87-102); Mean Platelet Volume 10.3 FL (9.6-12.0); Monocytes % 10.6 % (1.7-12.7); Neutrophils % 48.6 % (38.7-73.9); Platelet Count 197 T/CUMM (130-400); Red Blood Count 3.14 MC/CUMM (3.8-5.5); Red Cell Distribution Width 19.2 % (9.3-17.3); White Blood Count 4.2 T/CUMM (4-12)
[2019-06-28 05:40] LABS: Calcium 8.9 MG/DL (8.5-10.1); Eosinophils 12 % (0-10); Lymphocytes 27 % (20-55); Myelocytes 1 %; Osmolality,Calculated 286.4 MOS/KG (273-304); Segmented Neutrophils 50 % (50-85); Total Cells Counted 100
[2019-06-28 05:41] LABS: Acanthocytes Few; Hypochromasia 1+; Microcytosis 1+; Ovalocytes Slight; Platelet Estimate Normal
[2019-06-28 05:42] LABS: Anisocytosis 1+
[2019-06-28] MEDS ORDERED: PANTOPRAZOLE 40 MG TABLET PO SCH (09:00)
[2019-06-28] MEDS: INSULIN REGULAR 100 UNIT/ML SUBCUT SCH ×4 (09:40→21:56)
[2019-06-28] MEDS ORDERED: HYDROmorphone 2 MG/1 ML VIAL SUBCUT PRN (10:01)
[2019-06-28] MEDS: ISOSORBIDE DINITRATE 10 MG TABLET PO SCH ×3 (10:28→20:45)
[2019-06-28] MEDS: FERROUS SULFATE 325 MG TABLET PO SCH (10:28)
[2019-06-28] MEDS: FUROSEMIDE 40 MG TABLET PO SCH (10:28)
[2019-06-28] MEDS: DULoxetine 30 MG CAPSULE PO SCH (10:28)
[2019-06-28] MEDS: CLORAZEPATE 7.5 MG TABLET PO SCH ×3 (10:29→20:44)
[2019-06-28] MEDS: PANTOPRAZOLE 40 MG TABLET PO SCH (10:29)
[2019-06-28] MEDS: amLODIPine 5 MG TABLET PO SCH (10:29)
[2019-06-28] MEDS: HYDROmorphone 2 MG/1 ML VIAL IV PRN ×4 (10:46→20:44)
[2019-06-28] MEDS: LIDOCAINE 5% PATCH TRANSDERM SCH (12:40)
[2019-06-28] MEDS: fentaNYL 25 MCG/HR PATCH TRANSDERM SCH (15:40)
[2019-06-28] MEDS: CARVEDILOL 6.25 MG TABLET PO SCH (18:10)
[2019-06-28] MEDS: TAMSULOSIN 0.4 MG CAPSULE PO SCH (20:44)
[2019-06-28] MEDS: ATORVASTATIN 40 MG TABLET PO SCH (20:44)
[2019-06-28] MEDS: MIRTAZAPINE 15 MG TABLET PO SCH (20:45)
[2019-06-29 04:55] LABS: Basophils % 0.3 % (0.0-0.8); Eosinophils # 0.4 10*3/uL (0.0-0.87); Eosinophils % 9.8 % (0.00-10.9); Hematocrit 27.5 VOL% (35.7-47.0); Hemoglobin 8.3 GM/DL (12.0-16.0); Immature Granulocytes % 0.8 %; Immature Granulocytes Absolute 0.03 #; Lymphocytes % 26.1 % (21.3-54.2); Mean Corpuscular HGB Conc 30.2 GM/DL (32-36); Mean Corpuscular Volume 91.4 FL (87-102); Mean Platelet Volume 10.3 FL (9.6-12.0); Monocytes % 11.8 % (1.7-12.7); Neutrophils % 51.2 % (38.7-73.9); Platelet Count 213 T/CUMM (130-400); Red Blood Count 3.01 MC/CUMM (3.8-5.5); Red Cell Distribution Width 18.8 % (9.3-17.3)
[2019-06-29 05:21] LABS: Calcium 8.6 MG/DL (8.5-10.1); Osmolality,Calculated 283.5 MOS/KG (273-304)
[2019-06-29] MEDS: DULoxetine 30 MG CAPSULE PO SCH (09:10)
[2019-06-29] MEDS: ISOSORBIDE MONONITRATE 30 MG TABLET PO SCH (09:11)
[2019-06-29] MEDS: CLORAZEPATE 7.5 MG TABLET PO SCH ×3 (09:11→20:10)
[2019-06-29] MEDS: amLODIPine 5 MG TABLET PO SCH (09:11)
[2019-06-29] MEDS: CARVEDILOL 6.25 MG TABLET PO SCH ×2 (09:11→16:35)
[2019-06-29] MEDS: FERROUS SULFATE 325 MG TABLET PO SCH (09:11)
[2019-06-29] MEDS: FUROSEMIDE 40 MG TABLET PO SCH (09:11)
[2019-06-29] MEDS: PANTOPRAZOLE 40 MG TABLET PO SCH (09:11)
[2019-06-29] MEDS: LIDOCAINE 5% PATCH TRANSDERM SCH (09:12)
[2019-06-29] MEDS: INSULIN REGULAR 100 UNIT/ML SUBCUT SCH ×4 (10:42→20:11)
[2019-06-29] MEDS: HYDROmorphone 2 MG/1 ML VIAL IV PRN ×3 (13:39→19:43)
[2019-06-29] MEDS: ASPIRIN CHEW 81 MG TABLET PO SCH (16:35)
[2019-06-29] MEDS: DICLOFENAC 1% GEL 100 GM TUBE TOP SCH ×2 (16:36→20:11)
[2019-06-29] MEDS: MIRTAZAPINE 15 MG TABLET PO SCH (20:10)
[2019-06-29] MEDS: ATORVASTATIN 40 MG TABLET PO SCH (20:10)
[2019-06-29] MEDS: TAMSULOSIN 0.4 MG CAPSULE PO SCH (20:11)
[2019-06-29] MEDS: MEROPENEM 1,000 MG in SODIUM CHLORIDE 0.9% 100 ML IV SCH (22:15)
[2019-06-29] MEDS: VANCOMYCIN INJ 1,250 MG in SODIUM CHLORIDE 0.9% 250 ML IV SCH (22:50)
[2019-06-30] MEDS: HYDROmorphone 2 MG/1 ML VIAL IV PRN ×5 (02:29→21:29)
[2019-06-30 05:06] LABS: Basophils % 0.5 % (0.0-0.8); Eosinophils # 0.4 10*3/uL (0.0-0.87); Eosinophils % 9.5 % (0.00-10.9); Hematocrit 28.2 VOL% (35.7-47.0); Hemoglobin 8.5 GM/DL (12.0-16.0); Immature Granulocytes % 0.8 %; Immature Granulocytes Absolute 0.03 #; Lymphocytes # 1.1 10*3/uL (1.4-4.0); Mean Corpuscular HGB Conc 30.1 GM/DL (32-36); Mean Corpuscular Volume 92.2 FL (87-102); Mean Platelet Volume 10.4 FL (9.6-12.0); Monocytes % 13.4 % (1.7-12.7); Neutrophils % 48.8 % (38.7-73.9); Platelet Count 217 T/CUMM (130-400); Red Blood Count 3.06 MC/CUMM (3.8-5.5); Red Cell Distribution Width 18.8 % (9.3-17.3); White Blood Count 3.9 T/CUMM (4-12)
[2019-06-30 05:39] LABS: Calcium 8.3 MG/DL (8.5-10.1); Osmolality,Calculated 271.4 MOS/KG (273-304)
[2019-06-30] MEDS: INSULIN REGULAR 100 UNIT/ML SUBCUT SCH ×4 (08:23→21:30)
[2019-06-30] MEDS: DULoxetine 30 MG CAPSULE PO SCH (08:37)
[2019-06-30] MEDS: FERROUS SULFATE 325 MG TABLET PO SCH (08:37)
[2019-06-30] MEDS: CLORAZEPATE 7.5 MG TABLET PO SCH ×3 (08:37→21:29)
[2019-06-30] MEDS: PANTOPRAZOLE 40 MG TABLET PO SCH (08:37)
[2019-06-30] MEDS: ASPIRIN CHEW 81 MG TABLET PO SCH (08:38)
[2019-06-30] MEDS: amLODIPine 5 MG TABLET PO SCH (08:38)
[2019-06-30] MEDS: DICLOFENAC 1% GEL 100 GM TUBE TOP SCH ×3 (08:38→21:32)
[2019-06-30] MEDS: CARVEDILOL 6.25 MG TABLET PO SCH ×2 (08:38→17:35)
[2019-06-30] MEDS: FUROSEMIDE 40 MG TABLET PO SCH (08:38)
[2019-06-30] MEDS: ISOSORBIDE MONONITRATE 30 MG TABLET PO SCH (08:38)
[2019-06-30] MEDS: LIDOCAINE 5% PATCH TRANSDERM SCH (10:42)
[2019-06-30] MEDS: MEROPENEM 1,000 MG in SODIUM CHLORIDE 0.9% 100 ML IV SCH ×2 (10:42→21:30)
[2019-06-30] MEDS ORDERED: LACTULOSE 20 GM/30 ML UDCUP PO PRN (13:16)
[2019-06-30] MEDS: POLYETHYLENE GLYCOL POWDER 17 GM PACK PO SCH (17:37)
[2019-06-30] MEDS: TAMSULOSIN 0.4 MG CAPSULE PO SCH (21:29)
[2019-06-30] MEDS: ATORVASTATIN 40 MG TABLET PO SCH (21:29)
[2019-06-30] MEDS: MIRTAZAPINE 15 MG TABLET PO SCH (21:29)
[2019-06-30] MEDS: DOCUSATE SODIUM 100 MG CAPSULE PO SCH (21:32)
[2019-06-30] MEDS: VANCOMYCIN INJ 1,250 MG in SODIUM CHLORIDE 0.9% 250 ML IV SCH (23:36)
[2019-07-01 05:18] LABS: Basophils % 0.5 % (0.0-0.8); Eosinophils # 0.3 10*3/uL (0.0-0.87); Eosinophils % 8.1 % (0.00-10.9); Hematocrit 26.5 VOL% (35.7-47.0); Immature Granulocytes Absolute 0.04 #; Lymphocytes # 0.9 10*3/uL (1.4-4.0); Lymphocytes % 23.6 % (21.3-54.2); Mean Corpuscular HGB Conc 30.2 GM/DL (32-36); Mean Platelet Volume 10.4 FL (9.6-12.0); Neutrophils % 50.8 % (38.7-73.9); Platelet Count 228 T/CUMM (130-400); Red Blood Count 2.88 MC/CUMM (3.8-5.5); White Blood Count 3.8 T/CUMM (4-12)
[2019-07-01 05:37] LABS: Osmolality,Calculated 272.5 MOS/KG (273-304)
[2019-07-01 05:42] LABS: Atypical Lymphocytes Few; Eosinophils 9 % (0-10); Hypochromasia 1+; Lymphocytes 21 % (20-55); Metamyelocytes 1 %; Microcytosis 1+; Ovalocytes Slight; Segmented Neutrophils 57 % (50-85); Total Cells Counted 100
[2019-07-01 05:43] LABS: Acanthocytes Few
[2019-07-01] MEDS ORDERED: SODIUM CHLORIDE 0.9% 1,000 ML IV SCH (08:30)
[2019-07-01] MEDS: CLORAZEPATE 7.5 MG TABLET PO SCH ×3 (09:05→23:32)
[2019-07-01] MEDS: DICLOFENAC 1% GEL 100 GM TUBE TOP SCH ×3 (09:05→23:32)
[2019-07-01] MEDS: INSULIN REGULAR 100 UNIT/ML SUBCUT SCH ×4 (09:33→23:31)
[2019-07-01] MEDS ORDERED: PROPOFOL 200 MG/20 ML VIAL IV ONE (12:26)
[2019-07-01] MEDS ORDERED: LIDOCAINE 2% 5 ML VIAL ONE (12:26)
[2019-07-01] MEDS: ASPIRIN CHEW 81 MG TABLET PO SCH (13:46)
[2019-07-01] MEDS: DULoxetine 30 MG CAPSULE PO SCH (13:46)
[2019-07-01] MEDS: ISOSORBIDE MONONITRATE 30 MG TABLET PO SCH (13:47)
[2019-07-01] MEDS: DOCUSATE SODIUM 100 MG CAPSULE PO SCH ×2 (13:48→23:31)
[2019-07-01] MEDS: FUROSEMIDE 40 MG TABLET PO SCH (13:48)
[2019-07-01] MEDS: PANTOPRAZOLE 40 MG TABLET PO SCH (13:48)
[2019-07-01] MEDS: CARVEDILOL 6.25 MG TABLET PO SCH ×2 (13:48→23:30)
[2019-07-01] MEDS: amLODIPine 5 MG TABLET PO SCH (13:49)
[2019-07-01] MEDS: FERROUS SULFATE 325 MG TABLET PO SCH (13:49)
[2019-07-01] MEDS: LIDOCAINE 5% PATCH TRANSDERM SCH (13:50)
[2019-07-01] MEDS: MEROPENEM 1,000 MG in SODIUM CHLORIDE 0.9% 100 ML IV SCH ×2 (13:55→23:32)
[2019-07-01] MEDS: POLYETHYLENE GLYCOL POWDER 17 GM PACK PO SCH (14:00)
[2019-07-01] MEDS: HYDROmorphone 2 MG/1 ML VIAL IV PRN (14:02)
[2019-07-01] MEDS: fentaNYL 25 MCG/HR PATCH TRANSDERM SCH (16:29)
[2019-07-01 21:12] VITALS: BP 130/55
[2019-07-01] MEDS: TAMSULOSIN 0.4 MG CAPSULE PO SCH (23:31)
[2019-07-01] MEDS: ATORVASTATIN 40 MG TABLET PO SCH (23:31)
[2019-07-01] MEDS: MIRTAZAPINE 15 MG TABLET PO SCH (23:32)
== END 2019-07-01 21:11 | disposition home or self-care (01) | DRG 208 ==
LOC: EDUNIT# → EDBD → N.ED 08:05 → SUATTDRO 09:34 → N.EDINP 09:34 → N.ICU 09:51 → N.3E 06-27 14:44
PROVIDERS: ADMIT Internal Medicine; ATTEND Internal Medicine

== ENCOUNTER 2019-07-19 21:37 | Inpatient (IN) ==
[2019-07-19] MEDS ORDERED: MORPHINE 4 MG/1 ML VIAL IV STA (22:21)
[2019-07-19] MEDS ORDERED: ONDANSETRON 4 MG/2 ML VIAL IV STA (22:21)
[2019-07-19 22:35] LABS: Basophils % 0.5 % (0.0-0.8); Eosinophils # 0.5 10*3/uL (0.0-0.87); Eosinophils % 10.6 % (0.00-10.9); Hematocrit 30.8 VOL% (35.7-47.0); Hemoglobin 9.2 GM/DL (12.0-16.0); Immature Granulocytes % 0.2 %; Immature Granulocytes Absolute 0.01 #; Lymphocytes # 1.2 10*3/uL (1.4-4.0); Lymphocytes % 26.6 % (21.3-54.2); Mean Corpuscular HGB Conc 29.9 GM/DL (32-36); Mean Corpuscular Volume 91.4 FL (87-102); Mean Platelet Volume 10.4 FL (9.6-12.0); Monocytes % 12.4 % (1.7-12.7); Neutrophils % 49.7 % (38.7-73.9); Platelet Count 187 T/CUMM (130-400); Red Blood Count 3.37 MC/CUMM (3.8-5.5); Red Cell Distribution Width 18.9 % (9.3-17.3); White Blood Count 4.4 T/CUMM (4-12)
[2019-07-19 22:46] LABS: Albumin 3.2 G/DL (3.4-5.0); Bilirubin,Total 0.5 MG/DL (0.2-1.0); Calcium 8.7 MG/DL (8.5-10.1); INR 1.1; Osmolality,Calculated 285.1 MOS/KG (273-304); Total Protein 6.5 G/DL (6.4-8.3)
[2019-07-19] MEDS ORDERED: ACETAMINOPHEN 500 MG TABLET PO STA (23:10)
[2019-07-19] MEDS ORDERED: ACETAMINOPHEN 500 MG TABLET ONE (23:11)
[2019-07-20] MEDS ORDERED: MORPHINE 4 MG/1 ML VIAL IV STA (00:30)
[2019-07-20] MEDS ORDERED: MORPHINE 4 MG/1 ML VIAL IV PRN (00:31)
[2019-07-20] MEDS ORDERED: diphenhydrAMINE CAP 25 MG CAPSULE PO PRN (00:31)
[2019-07-20] MEDS ORDERED: NICOTINE 21 MG/24 HR PATCH TRANSDERM PRN (00:31)
[2019-07-20] MEDS ORDERED: ONDANSETRON 4 MG/2 ML VIAL IV PRN (00:31)
[2019-07-20] MEDS ORDERED: ZALEPLON 5 MG CAPSULE PO PRN (02:09)
[2019-07-20] MEDS: HYDROmorphone 2 MG TABLET PO PRN ×3 (03:49→16:37)
[2019-07-20] MEDS: cefTRIAXone 1,000 MG in SYRINGE 1 EACH IV SCH (04:26)
[2019-07-20] MEDS: AZITHROMYCIN INJ 500 MG in SODIUM CHLORIDE 0.9% 250 ML IV SCH (04:29)
[2019-07-20 04:54] LABS: Basophils % 0.5 % (0.0-0.8); Eosinophils # 0.4 10*3/uL (0.0-0.87); Eosinophils % 11.5 % (0.00-10.9); Hematocrit 32.1 VOL% (35.7-47.0); Hemoglobin 9.7 GM/DL (12.0-16.0); Immature Granulocytes % 0.3 %; Immature Granulocytes Absolute 0.01 #; Lymphocytes # 1.1 10*3/uL (1.4-4.0); Lymphocytes % 30.2 % (21.3-54.2); Mean Corpuscular HGB Conc 30.2 GM/DL (32-36); Mean Corpuscular Volume 90.4 FL (87-102); Mean Platelet Volume 9.8 FL (9.6-12.0); Monocytes % 12.1 % (1.7-12.7); Neutrophils % 45.4 % (38.7-73.9); Platelet Count 172 T/CUMM (130-400); Red Blood Count 3.55 MC/CUMM (3.8-5.5); Red Cell Distribution Width 18.8 % (9.3-17.3); White Blood Count 3.6 T/CUMM (4-12)
[2019-07-20] MEDS: HEPARIN DRIP 25,000 UNITS/500 ML PREMIX IV SCH (05:33)
[2019-07-20 06:22] LABS: Acanthocytes 2+; Anisocytosis 1+; Band Neutrophils 2 % (0-10); Eosinophils 14 % (0-10); Lymphocytes 28 % (20-55); Macrocytosis 1+; Ovalocytes 1+; Platelet Estimate Normal; Segmented Neutrophils 44 % (50-85); Total Cells Counted 100
[2019-07-20] MEDS ORDERED: Sacubitril-Valsartan [Entresto] 1 TABLET PO SCH (09:00)
[2019-07-20] MEDS ORDERED: FUROSEMIDE 40 MG TABLET PO SCH (09:00)
[2019-07-20] MEDS: DICLOFENAC 1% GEL 100 GM TUBE TOP SCH ×3 (09:02→20:42)
[2019-07-20] MEDS: POLYETHYLENE GLYCOL POWDER 17 GM PACK PO SCH (09:02)
[2019-07-20] MEDS: DULoxetine 30 MG CAPSULE PO SCH (09:03)
[2019-07-20] MEDS: ASPIRIN CHEW 81 MG TABLET PO SCH (09:03)
[2019-07-20] MEDS: POTASSIUM CHLORIDE 20 MEQ PACK PO SCH (09:03)
[2019-07-20] MEDS: RANOLAZINE 500 MG TABLET PO SCH ×2 (09:03→20:37)
[2019-07-20] MEDS: CITALOPRAM 20 MG TABLET PO SCH (09:03)
[2019-07-20] MEDS: AMIODARONE 200 MG TABLET PO SCH ×2 (09:04→16:37)
[2019-07-20] MEDS: DOCUSATE SODIUM 100 MG CAPSULE PO SCH ×2 (09:04→20:38)
[2019-07-20] MEDS: carvediloL 6.25 MG TABLET PO SCH ×2 (09:04→16:37)
[2019-07-20] MEDS: amLODIPine 5 MG TABLET PO SCH (09:04)
[2019-07-20] MEDS: ISOSORBIDE MONONITRATE 30 MG TABLET PO SCH (09:04)
[2019-07-20] MEDS: PANTOPRAZOLE 40 MG TABLET PO SCH (09:04)
[2019-07-20] MEDS: FERROUS SULFATE 325 MG TABLET PO SCH (09:04)
[2019-07-20] MEDS ORDERED: ERGOCALCIFEROL 50,000 UNIT CAPSULE PO SCH (09:30)
[2019-07-20] MEDS: NITROGLYCERIN SL 0.4 MG TABLET SL PRN ×3 (10:54→11:07)
[2019-07-20] MEDS ORDERED: MORPHINE 4 MG/1 ML VIAL IV ONE (11:51)
[2019-07-20] MEDS: BUDESONIDE/FORMOTEROL 160-4.5 INHALER 6 GM INH SCH ×2 (12:22→20:40)
[2019-07-20] MEDS: FUROSEMIDE 40 MG/4 ML VIAL IV SCH (16:33)
[2019-07-20] MEDS: ACETAMINOPHEN 325 MG TABLET PO PRN (20:05)
[2019-07-20] MEDS: MIRTAZAPINE 15 MG TABLET PO SCH (20:36)
[2019-07-20] MEDS: SENNA 8.6 MG TABLET PO SCH (20:37)
[2019-07-20] MEDS: ATORVASTATIN 40 MG TABLET PO SCH (20:38)
[2019-07-20] MEDS: FAMOTIDINE 20 MG TABLET PO SCH (20:38)
[2019-07-20] MEDS: TAMSULOSIN 0.4 MG CAPSULE PO SCH (20:38)
[2019-07-20] MEDS: MONTELUKAST 10 MG TABLET PO SCH (20:38)
[2019-07-21] MEDS: HEPARIN DRIP 25,000 UNITS/500 ML PREMIX IV SCH (03:50)
[2019-07-21 04:53] LABS: Basophils % 0.8 % (0.0-0.8); Eosinophils # 0.4 10*3/uL (0.0-0.87); Eosinophils % 10.9 % (0.00-10.9); Hematocrit 29.4 VOL% (35.7-47.0); Hemoglobin 8.9 GM/DL (12.0-16.0); Immature Granulocytes % 0.3 %; Immature Granulocytes Absolute 0.01 #; Lymphocytes # 0.9 10*3/uL (1.4-4.0); Lymphocytes % 23.5 % (21.3-54.2); Mean Corpuscular HGB Conc 30.3 GM/DL (32-36); Mean Corpuscular Volume 90.7 FL (87-102); Mean Platelet Volume 10.6 FL (9.6-12.0); Monocytes % 12.9 % (1.7-12.7); Neutrophils % 51.6 % (38.7-73.9); Platelet Count 158 T/CUMM (130-400); Red Blood Count 3.24 MC/CUMM (3.8-5.5); Red Cell Distribution Width 18.5 % (9.3-17.3)
[2019-07-21] MEDS: cefTRIAXone 1,000 MG in SYRINGE 1 EACH IV SCH (04:59)
[2019-07-21] MEDS: AZITHROMYCIN INJ 500 MG in SODIUM CHLORIDE 0.9% 250 ML IV SCH (05:01)
[2019-07-21 05:06] LABS: Calcium 7.9 MG/DL (8.5-10.1); Osmolality,Calculated 275.1 MOS/KG (273-304)
[2019-07-21] MEDS: POTASSIUM CHLORIDE 20 MEQ PACK PO SCH (08:49)
[2019-07-21] MEDS: POLYETHYLENE GLYCOL POWDER 17 GM PACK PO SCH (08:50)
[2019-07-21] MEDS: CITALOPRAM 20 MG TABLET PO SCH (08:50)
[2019-07-21] MEDS: FERROUS SULFATE 325 MG TABLET PO SCH (08:50)
[2019-07-21] MEDS: amLODIPine 5 MG TABLET PO SCH (08:50)
[2019-07-21] MEDS: RANOLAZINE 500 MG TABLET PO SCH ×2 (08:50→21:52)
[2019-07-21] MEDS: DULoxetine 30 MG CAPSULE PO SCH (08:50)
[2019-07-21] MEDS: AMIODARONE 200 MG TABLET PO SCH ×2 (08:50→16:48)
[2019-07-21] MEDS: PANTOPRAZOLE 40 MG TABLET PO SCH (08:50)
[2019-07-21] MEDS: carvediloL 6.25 MG TABLET PO SCH (08:50)
[2019-07-21] MEDS: DOCUSATE SODIUM 100 MG CAPSULE PO SCH ×2 (08:51→21:53)
[2019-07-21] MEDS: ISOSORBIDE MONONITRATE 30 MG TABLET PO SCH (08:51)
[2019-07-21] MEDS: ASPIRIN CHEW 81 MG TABLET PO SCH (08:51)
[2019-07-21] MEDS: FUROSEMIDE 40 MG/4 ML VIAL IV SCH ×2 (08:51→17:56)
[2019-07-21] MEDS: DICLOFENAC 1% GEL 100 GM TUBE TOP SCH ×3 (09:04→21:57)
[2019-07-21] MEDS: BUDESONIDE/FORMOTEROL 160-4.5 INHALER 6 GM INH SCH ×2 (09:04→21:57)
[2019-07-21] MEDS: HYDROmorphone 2 MG TABLET PO PRN ×2 (09:11→16:48)
[2019-07-21] MEDS: ENOXAPARIN 100 MG/ML SYRINGE SUBCUT SCH (14:06)
[2019-07-21] MEDS: ACETAMINOPHEN 325 MG TABLET PO PRN (14:31)
[2019-07-21] MEDS: carvediloL 12.5 MG TABLET PO SCH (16:48)
[2019-07-21] MEDS: MIRTAZAPINE 15 MG TABLET PO SCH (21:52)
[2019-07-21] MEDS: MONTELUKAST 10 MG TABLET PO SCH (21:52)
[2019-07-21] MEDS: TAMSULOSIN 0.4 MG CAPSULE PO SCH (21:52)
[2019-07-21] MEDS: FAMOTIDINE 20 MG TABLET PO SCH (21:53)
[2019-07-21] MEDS: SENNA 8.6 MG TABLET PO SCH (21:53)
[2019-07-21] MEDS: ATORVASTATIN 40 MG TABLET PO SCH (21:57)
[2019-07-22] MEDS: ENOXAPARIN 100 MG/ML SYRINGE SUBCUT SCH ×2 (01:26→13:33)
[2019-07-22] MEDS: HYDROmorphone 2 MG TABLET PO PRN ×2 (03:36→21:25)
[2019-07-22] MEDS: cefTRIAXone 1,000 MG in SYRINGE 1 EACH IV SCH (03:37)
[2019-07-22] MEDS: AZITHROMYCIN INJ 500 MG in SODIUM CHLORIDE 0.9% 250 ML IV SCH (03:40)
[2019-07-22 04:40] LABS: Basophils % 0.3 % (0.0-0.8); Eosinophils # 0.2 10*3/uL (0.0-0.87); Eosinophils % 5.7 % (0.00-10.9); Hematocrit 29.5 VOL% (35.7-47.0); Hemoglobin 8.9 GM/DL (12.0-16.0); Immature Granulocytes % 0.3 %; Immature Granulocytes Absolute 0.01 #; Lymphocytes # 0.8 10*3/uL (1.4-4.0); Lymphocytes % 23.4 % (21.3-54.2); Mean Corpuscular HGB Conc 30.2 GM/DL (32-36); Mean Corpuscular Volume 90.5 FL (87-102); Mean Platelet Volume 10.6 FL (9.6-12.0); Monocytes % 14.7 % (1.7-12.7); Neutrophils % 55.6 % (38.7-73.9); Platelet Count 148 T/CUMM (130-400); Red Blood Count 3.26 MC/CUMM (3.8-5.5); Red Cell Distribution Width 18.6 % (9.3-17.3); White Blood Count 3.3 T/CUMM (4-12)
[2019-07-22 05:25] LABS: Calcium 8.1 MG/DL (8.5-10.1); Osmolality,Calculated 277.1 MOS/KG (273-304); Thyroid Stimulating Hormone 0.925 uIU/ml (0.358-3.74)
[2019-07-22] MEDS ORDERED: diphenhydrAMINE CAP 50 MG CAPSULE PO ONE (08:49)
[2019-07-22] MEDS ORDERED: DIAZEPAM 5 MG TABLET PO ONE (08:51)
[2019-07-22] MEDS: ISOSORBIDE MONONITRATE 30 MG TABLET PO SCH (09:07)
[2019-07-22] MEDS: DULoxetine 30 MG CAPSULE PO SCH (09:07)
[2019-07-22] MEDS: carvediloL 12.5 MG TABLET PO SCH (09:07)
[2019-07-22] MEDS: CITALOPRAM 20 MG TABLET PO SCH (09:08)
[2019-07-22] MEDS: AMIODARONE 200 MG TABLET PO SCH ×2 (09:08→17:47)
[2019-07-22] MEDS: FERROUS SULFATE 325 MG TABLET PO SCH (09:09)
[2019-07-22] MEDS: ASPIRIN CHEW 81 MG TABLET PO SCH (09:10)
[2019-07-22] MEDS: amLODIPine 5 MG TABLET PO SCH (09:11)
[2019-07-22] MEDS: PANTOPRAZOLE 40 MG TABLET PO SCH (09:11)
[2019-07-22] MEDS ORDERED: LIDOCAINE 1% 20 ML VIAL ONE (09:30)
[2019-07-22] MEDS ORDERED: MIDAZOLAM 2 MG/2 ML VIAL ONE (09:38)
[2019-07-22] MEDS ORDERED: HYDROmorphone 2 MG/1 ML VIAL ONE (09:38)
[2019-07-22] MEDS: DOCUSATE SODIUM 100 MG CAPSULE PO SCH ×2 (13:22→21:26)
[2019-07-22] MEDS: POLYETHYLENE GLYCOL POWDER 17 GM PACK PO SCH (13:22)
[2019-07-22] MEDS: FUROSEMIDE 40 MG/4 ML VIAL IV SCH ×2 (13:33→17:42)
[2019-07-22] MEDS: POTASSIUM CHLORIDE 20 MEQ PACK PO SCH (13:33)
[2019-07-22] MEDS: RANOLAZINE 500 MG TABLET PO SCH ×2 (13:33→21:24)
[2019-07-22] MEDS: BUDESONIDE/FORMOTEROL 160-4.5 INHALER 6 GM INH SCH ×2 (13:34→21:27)
[2019-07-22] MEDS: DICLOFENAC 1% GEL 100 GM TUBE TOP SCH ×3 (13:34→21:27)
[2019-07-22 20:34] LABS: Apearance,Urine CLEAR (Clear); Bacteria,Urine Occasional /HPF (Few); Bilirubin,Urine Negative (Negative); Blood, Urine Negative (Negative); Glucose,Urine (UA) Negative (Negative); Ketones,Urine Negative (Negative); Mucus,Urine Occasional /LPF (Occasional); Nitrite,Urine Negative (Negative); Protein,Urine Negative; Squamous Epithelial Cell,Urine Occasional /HPF (0-10); Urine Color Yellow (Yellow); Urine Specific Gravity 1.011 (1.001-1.035); Urine Urobilinogen < 2.0 EU/DL (0.2-1.0)
[2019-07-22] MEDS: MONTELUKAST 10 MG TABLET PO SCH (21:24)
[2019-07-22] MEDS: MIRTAZAPINE 15 MG TABLET PO SCH (21:25)
[2019-07-22] MEDS: carvediloL 25 MG TABLET PO SCH (21:26)
[2019-07-22] MEDS: FAMOTIDINE 20 MG TABLET PO SCH (21:26)
[2019-07-22] MEDS: SENNA 8.6 MG TABLET PO SCH (21:26)
[2019-07-22] MEDS: TAMSULOSIN 0.4 MG CAPSULE PO SCH (21:26)
[2019-07-22] MEDS: ATORVASTATIN 40 MG TABLET PO SCH (21:26)
[2019-07-22] MEDS: ACETAMINOPHEN 325 MG TABLET PO PRN (23:30)
[2019-07-23] MEDS: cefTRIAXone 1,000 MG in SYRINGE 1 EACH IV SCH (04:19)
[2019-07-23] MEDS: AZITHROMYCIN INJ 500 MG in SODIUM CHLORIDE 0.9% 250 ML IV SCH (04:31)
[2019-07-23 06:02] LABS: Basophils % 0.3 % (0.0-0.8); Eosinophils # 0.1 10*3/uL (0.0-0.87); Eosinophils % 3.5 % (0.00-10.9); Hematocrit 27.1 VOL% (35.7-47.0); Hemoglobin 8.5 GM/DL (12.0-16.0); Immature Granulocytes % 0.3 %; Immature Granulocytes Absolute 0.01 #; Lymphocytes # 0.5 10*3/uL (1.4-4.0); Lymphocytes % 17.1 % (21.3-54.2); Mean Corpuscular HGB Conc 31.4 GM/DL (32-36); Mean Corpuscular Volume 88.3 FL (87-102); Mean Platelet Volume 10.4 FL (9.6-12.0); Monocytes % 12.6 % (1.7-12.7); Neutrophils % 66.2 % (38.7-73.9); Platelet Count 142 T/CUMM (130-400); Red Blood Count 3.07 MC/CUMM (3.8-5.5); Red Cell Distribution Width 18.3 % (9.3-17.3); White Blood Count 2.9 T/CUMM (4-12)
[2019-07-23 06:19] LABS: Calcium 8.3 MG/DL (8.5-10.1); Osmolality,Calculated 278.8 MOS/KG (273-304)
[2019-07-23] MEDS: RANOLAZINE 500 MG TABLET PO SCH ×2 (08:47→22:00)
[2019-07-23] MEDS: CITALOPRAM 20 MG TABLET PO SCH (08:47)
[2019-07-23] MEDS: POTASSIUM CHLORIDE 20 MEQ PACK PO SCH (08:48)
[2019-07-23] MEDS: ASPIRIN CHEW 81 MG TABLET PO SCH (08:49)
[2019-07-23] MEDS: amLODIPine 5 MG TABLET PO SCH (08:49)
[2019-07-23] MEDS: ISOSORBIDE MONONITRATE 30 MG TABLET PO SCH (08:49)
[2019-07-23] MEDS: FERROUS SULFATE 325 MG TABLET PO SCH (08:49)
[2019-07-23] MEDS: AMIODARONE 200 MG TABLET PO SCH ×2 (08:49→18:04)
[2019-07-23] MEDS: DULoxetine 30 MG CAPSULE PO SCH (08:49)
[2019-07-23] MEDS: BUDESONIDE/FORMOTEROL 160-4.5 INHALER 6 GM INH SCH ×2 (08:50→22:01)
[2019-07-23] MEDS: POLYETHYLENE GLYCOL POWDER 17 GM PACK PO SCH (08:50)
[2019-07-23] MEDS: DOCUSATE SODIUM 100 MG CAPSULE PO SCH ×2 (08:50→22:01)
[2019-07-23] MEDS: carvediloL 25 MG TABLET PO SCH ×2 (08:50→22:01)
[2019-07-23] MEDS: PANTOPRAZOLE 40 MG TABLET PO SCH (08:50)
[2019-07-23] MEDS: DICLOFENAC 1% GEL 100 GM TUBE TOP SCH ×3 (08:51→22:05)
[2019-07-23] MEDS: FUROSEMIDE 40 MG/4 ML VIAL IV SCH ×2 (08:53→18:04)
[2019-07-23] MEDS: ENOXAPARIN 30 MG/0.3 ML SYRINGE SUBCUT SCH (08:59)
[2019-07-23] MEDS ORDERED: FUROSEMIDE 40 MG/4 ML VIAL IV ONE (13:15)
[2019-07-23] MEDS: FAMOTIDINE 20 MG TABLET PO SCH (22:00)
[2019-07-23] MEDS: MONTELUKAST 10 MG TABLET PO SCH (22:00)
[2019-07-23] MEDS: TAMSULOSIN 0.4 MG CAPSULE PO SCH (22:00)
[2019-07-23] MEDS: MIRTAZAPINE 15 MG TABLET PO SCH (22:00)
[2019-07-23] MEDS: ATORVASTATIN 40 MG TABLET PO SCH (22:01)
[2019-07-23] MEDS: SENNA 8.6 MG TABLET PO SCH (22:01)
[2019-07-24] MEDS: ACETAMINOPHEN 325 MG TABLET PO PRN (00:45)
[2019-07-24] MEDS: cefTRIAXone 1,000 MG in SYRINGE 1 EACH IV SCH (03:14)
[2019-07-24] MEDS: AZITHROMYCIN INJ 500 MG in SODIUM CHLORIDE 0.9% 250 ML IV SCH (03:18)
[2019-07-24 04:02] LABS: Basophils % 0.3 % (0.0-0.8); Eosinophils # 0.2 10*3/uL (0.0-0.87); Eosinophils % 4.8 % (0.00-10.9); Hematocrit 25.6 VOL% (35.7-47.0); Immature Granulocytes % 0.3 %; Immature Granulocytes Absolute 0.01 #; Lymphocytes # 0.8 10*3/uL (1.4-4.0); Lymphocytes % 22.8 % (21.3-54.2); Mean Corpuscular HGB Conc 31.3 GM/DL (32-36); Mean Corpuscular Volume 86.8 FL (87-102); Mean Platelet Volume 10.4 FL (9.6-12.0); Monocytes % 17.1 % (1.7-12.7); Neutrophils % 54.7 % (38.7-73.9); Platelet Count 148 T/CUMM (130-400); Red Blood Count 2.95 MC/CUMM (3.8-5.5); White Blood Count 3.3 T/CUMM (4-12)
[2019-07-24 04:16] LABS: Calcium 8.5 MG/DL (8.5-10.1); Osmolality,Calculated 283.5 MOS/KG (273-304)
[2019-07-24 04:38] LABS: Eosinophils 4 % (0-10); Lymphocytes 20 % (20-55); Nucleated Red Blood Cells 2 (0-5); Segmented Neutrophils 66 % (50-85); Total Cells Counted 100
[2019-07-24 04:39] LABS: Platelet Estimate Normal
[2019-07-24 05:43] LABS: Hypochromasia 1+; Macrocytosis 1+; Ovalocytes 2+
[2019-07-24 05:44] LABS: Acanthocytes Few; Anisocytosis 1+; Burr Cells 1+; Poikilocytosis 1+; Schistocytes Few
[2019-07-24] MEDS: AMIODARONE 200 MG TABLET PO SCH ×2 (08:40→17:02)
[2019-07-24] MEDS: POTASSIUM CHLORIDE 20 MEQ PACK PO SCH (08:40)
[2019-07-24] MEDS: ENOXAPARIN 30 MG/0.3 ML SYRINGE SUBCUT SCH (08:40)
[2019-07-24] MEDS: PANTOPRAZOLE 40 MG TABLET PO SCH (08:41)
[2019-07-24] MEDS: ASPIRIN CHEW 81 MG TABLET PO SCH (08:41)
[2019-07-24] MEDS: FERROUS SULFATE 325 MG TABLET PO SCH (08:41)
[2019-07-24] MEDS: amLODIPine 5 MG TABLET PO SCH (08:41)
[2019-07-24] MEDS: DULoxetine 30 MG CAPSULE PO SCH (08:41)
[2019-07-24] MEDS: RANOLAZINE 500 MG TABLET PO SCH (08:41)
[2019-07-24] MEDS: DOCUSATE SODIUM 100 MG CAPSULE PO SCH (08:42)
[2019-07-24] MEDS: ISOSORBIDE MONONITRATE 30 MG TABLET PO SCH (08:42)
[2019-07-24] MEDS: FUROSEMIDE 40 MG/4 ML VIAL IV SCH ×2 (08:42→17:02)
[2019-07-24] MEDS: carvediloL 25 MG TABLET PO SCH (08:42)
[2019-07-24] MEDS: CITALOPRAM 20 MG TABLET PO SCH (08:42)
[2019-07-24] MEDS: BUDESONIDE/FORMOTEROL 160-4.5 INHALER 6 GM INH SCH (08:43)
[2019-07-24] MEDS: POLYETHYLENE GLYCOL POWDER 17 GM PACK PO SCH (08:43)
[2019-07-24] MEDS: DICLOFENAC 1% GEL 100 GM TUBE TOP SCH ×2 (09:32→15:29)
[2019-07-24] MEDS ORDERED: SODIUM CHLORIDE 0.9% 1,000 ML IV PRN ×4 (10:30→13:53)
[2019-07-24 17:39] VITALS: BP 152/67
== END 2019-07-24 18:59 | disposition home health service (06) | DRG 286 ==
LOC: EDUNIT# → EDBD → N.EDINP 21:37 → N.ED 21:37 → SUATTDRO 07-20 00:10 → N.EDINP 07-20 01:44 → N.TELES 07-20 02:30
PROVIDERS: ADMIT Internal Medicine; ATTEND Internal Medicine

== ENCOUNTER 2019-07-25 21:04 | Inpatient (IN) ==
[2019-07-25] MEDS ORDERED: FUROSEMIDE 100 MG/10 ML VIAL IV STA (21:38)
[2019-07-25] MEDS ORDERED: ALBUTEROL/IPRATROPIUM 3 ML NEB RESP TX STA (21:38)
[2019-07-25] MEDS ORDERED: ONDANSETRON 4 MG/2 ML VIAL IV STA (21:38)
[2019-07-25] MEDS ORDERED: NITROGLYCERIN 2% OINT 1 INCH/GM PACK TOP STA (21:38)
[2019-07-25 21:45] LABS: Basophils % 0.5 % (0.0-0.8); Eosinophils # 0.2 10*3/uL (0.0-0.87); Hematocrit 34.9 VOL% (35.7-47.0); Hemoglobin 11.1 GM/DL (12.0-16.0); Immature Granulocytes % 0.2 %; Immature Granulocytes Absolute 0.01 #; Lymphocytes # 1.1 10*3/uL (1.4-4.0); Lymphocytes % 26.1 % (21.3-54.2); Mean Corpuscular HGB Conc 31.8 GM/DL (32-36); Mean Corpuscular Volume 86.6 FL (87-102); Mean Platelet Volume 9.8 FL (9.6-12.0); Monocytes % 12.9 % (1.7-12.7); Neutrophils % 56.3 % (38.7-73.9); Platelet Count 183 T/CUMM (130-400); Red Blood Count 4.03 MC/CUMM (3.8-5.5); Red Cell Distribution Width 18.5 % (9.3-17.3)
[2019-07-25 21:52] LABS: PT Patient Result 11.3 SECS (9.6-12.2)
[2019-07-25 22:06] LABS: Albumin 3.4 G/DL (3.4-5.0); Bilirubin,Total 0.6 MG/DL (0.2-1.0); Calcium 9.1 MG/DL (8.5-10.1); Osmolality,Calculated 286.1 MOS/KG (273-304); Total Protein 6.6 G/DL (6.4-8.3)
[2019-07-25] MEDS ORDERED: MORPHINE 4 MG/1 ML VIAL IV STA (22:21)
[2019-07-25 22:23] LABS: Apearance,Urine CLEAR (Clear); Bilirubin,Urine Negative (Negative); Blood, Urine Negative (Negative); Glucose,Urine (UA) Negative (Negative); Ketones,Urine Negative (Negative); Nitrite,Urine Negative (Negative); Protein,Urine Negative; RBC,Urine 2 /HPF (0-4); Squamous Epithelial Cell,Urine Occasional /HPF (0-10); Urine Color Yellow (Yellow); Urine Specific Gravity 1.016 (1.001-1.035); Urine Urobilinogen < 2.0 EU/DL (0.2-1.0); WBC,Urine 28 /HPF (0-6)
[2019-07-26] MEDS ORDERED: NITROGLYCERIN SL 0.4 MG TABLET SL PRN (00:14)
[2019-07-26] MEDS ORDERED: ZALEPLON 5 MG CAPSULE PO PRN (00:14)
[2019-07-26] MEDS ORDERED: ACETAMINOPHEN 325 MG TABLET PO PRN (00:14)
[2019-07-26] MEDS ORDERED: ONDANSETRON 4 MG/2 ML VIAL IV PRN (00:23)
[2019-07-26] MEDS: AMOXICILLIN/CLAV 875 MG TABLET PO SCH ×2 (01:38→10:34)
[2019-07-26] MEDS: ATORVASTATIN 40 MG TABLET PO SCH ×2 (01:38→21:26)
[2019-07-26] MEDS: FAMOTIDINE 20 MG TABLET PO SCH ×2 (01:39→21:26)
[2019-07-26] MEDS: MONTELUKAST 10 MG TABLET PO SCH ×2 (01:39→21:26)
[2019-07-26] MEDS: SENNA 8.6 MG TABLET PO SCH ×2 (01:40→21:28)
[2019-07-26] MEDS: MIRTAZAPINE 15 MG TABLET PO SCH ×2 (01:40→21:25)
[2019-07-26] MEDS: TAMSULOSIN 0.4 MG CAPSULE PO SCH ×2 (01:40→21:25)
[2019-07-26] MEDS: DOCUSATE SODIUM 100 MG CAPSULE PO SCH ×3 (01:41→21:25)
[2019-07-26] MEDS: RANOLAZINE 500 MG TABLET PO SCH ×3 (01:41→21:26)
[2019-07-26] MEDS: carvediloL 25 MG TABLET PO SCH ×3 (01:42→17:41)
[2019-07-26] MEDS: HYDROmorphone 2 MG TABLET PO PRN ×3 (03:57→23:01)
[2019-07-26 05:54] LABS: Basophils % 0.3 % (0.0-0.8); Eosinophils # 0.2 10*3/uL (0.0-0.87); Eosinophils % 5.7 % (0.00-10.9); Hematocrit 29.4 VOL% (35.7-47.0); Hemoglobin 9.3 GM/DL (12.0-16.0); Immature Granulocytes % 0.6 %; Immature Granulocytes Absolute 0.02 #; Lymphocytes # 0.8 10*3/uL (1.4-4.0); Lymphocytes % 24.6 % (21.3-54.2); Mean Corpuscular HGB Conc 31.6 GM/DL (32-36); Mean Corpuscular Volume 86.5 FL (87-102); Mean Platelet Volume 10.7 FL (9.6-12.0); Monocytes % 15.3 % (1.7-12.7); Neutrophils % 53.5 % (38.7-73.9); Platelet Count 155 T/CUMM (130-400); Red Cell Distribution Width 18.2 % (9.3-17.3); White Blood Count 3.3 T/CUMM (4-12)
[2019-07-26 06:30] LABS: Calcium 8.6 MG/DL (8.5-10.1); Osmolality,Calculated 279.5 MOS/KG (273-304)
[2019-07-26] MEDS ORDERED: ERGOCALCIFEROL 50,000 UNIT CAPSULE PO SCH (09:00)
[2019-07-26] MEDS ORDERED: CITALOPRAM 20 MG TABLET PO SCH ×2 (09:00→13:55)
[2019-07-26] MEDS: POLYETHYLENE GLYCOL POWDER 17 GM PACK PO SCH (10:21)
[2019-07-26] MEDS: FUROSEMIDE 40 MG/4 ML VIAL IV SCH ×2 (10:33→17:42)
[2019-07-26] MEDS: POTASSIUM CHLORIDE 20 MEQ PACK PO SCH (10:33)
[2019-07-26] MEDS: AMIODARONE 200 MG TABLET PO SCH ×2 (10:33→17:41)
[2019-07-26] MEDS: ASPIRIN CHEW 81 MG TABLET PO SCH (10:34)
[2019-07-26] MEDS: FERROUS SULFATE 325 MG TABLET PO SCH (10:34)
[2019-07-26] MEDS: PANTOPRAZOLE 40 MG TABLET PO SCH (10:34)
[2019-07-26] MEDS: amLODIPine 5 MG TABLET PO SCH (10:34)
[2019-07-26] MEDS: ISOSORBIDE MONONITRATE 30 MG TABLET PO SCH (10:34)
[2019-07-26] MEDS: DULoxetine 30 MG CAPSULE PO SCH (10:45)
[2019-07-26] MEDS ORDERED: ALUM/MAG/SIMETH/LIDO VISC 1:1 30 ML BOTTLE PO ONE (13:52)
[2019-07-26] MEDS: DICLOFENAC 1% GEL 100 GM TUBE TOP SCH ×3 (13:53→21:29)
[2019-07-26] MEDS ORDERED: CITALOPRAM 20 MG TABLET PO ONE (13:55)
[2019-07-26] MEDS: LIDOCAINE 5% PATCH TRANSDERM SCH (14:14)
[2019-07-26] MEDS: cefTRIAXone 1,000 MG in SYRINGE 1 EACH IV SCH (17:42)
[2019-07-27 05:14] LABS: Basophils % 0.7 % (0.0-0.8); Eosinophils # 0.2 10*3/uL (0.0-0.87); Hematocrit 28.9 VOL% (35.7-47.0); Hemoglobin 9.2 GM/DL (12.0-16.0); Immature Granulocytes % 0.3 %; Immature Granulocytes Absolute 0.01 #; Lymphocytes # 0.9 10*3/uL (1.4-4.0); Lymphocytes % 31.1 % (21.3-54.2); Mean Corpuscular HGB Conc 31.8 GM/DL (32-36); Mean Corpuscular Volume 87.6 FL (87-102); Mean Platelet Volume 10.3 FL (9.6-12.0); Monocytes % 12.9 % (1.7-12.7); Platelet Count 147 T/CUMM (130-400); Red Cell Distribution Width 18.1 % (9.3-17.3)
[2019-07-27 05:39] LABS: Calcium 8.6 MG/DL (8.5-10.1)
[2019-07-27] MEDS: PANTOPRAZOLE 40 MG TABLET PO SCH (08:34)
[2019-07-27] MEDS: LIDOCAINE 5% PATCH TRANSDERM SCH (08:34)
[2019-07-27] MEDS: AMIODARONE 200 MG TABLET PO SCH ×2 (08:34→16:28)
[2019-07-27] MEDS: RANOLAZINE 500 MG TABLET PO SCH ×2 (08:34→21:23)
[2019-07-27] MEDS: DOCUSATE SODIUM 100 MG CAPSULE PO SCH ×2 (08:34→21:24)
[2019-07-27] MEDS: DULoxetine 30 MG CAPSULE PO SCH (08:34)
[2019-07-27] MEDS: carvediloL 25 MG TABLET PO SCH ×2 (08:34→16:28)
[2019-07-27] MEDS: amLODIPine 5 MG TABLET PO SCH (08:35)
[2019-07-27] MEDS: ASPIRIN CHEW 81 MG TABLET PO SCH (08:35)
[2019-07-27] MEDS: FERROUS SULFATE 325 MG TABLET PO SCH (08:35)
[2019-07-27] MEDS: ISOSORBIDE MONONITRATE 30 MG TABLET PO SCH (08:35)
[2019-07-27] MEDS: FUROSEMIDE 40 MG/4 ML VIAL IV SCH ×2 (08:38→16:10)
[2019-07-27] MEDS: BUDESONIDE/FORMOTEROL 160-4.5 INHALER 6 GM INH SCH ×2 (08:39→21:33)
[2019-07-27] MEDS: CITALOPRAM 20 MG TABLET PO SCH (08:39)
[2019-07-27] MEDS: POTASSIUM CHLORIDE 20 MEQ PACK PO SCH (08:39)
[2019-07-27] MEDS: DICLOFENAC 1% GEL 100 GM TUBE TOP SCH ×3 (08:55→21:24)
[2019-07-27] MEDS: POLYETHYLENE GLYCOL POWDER 17 GM PACK PO SCH (08:55)
[2019-07-27] MEDS: HYDROmorphone 2 MG TABLET PO PRN (13:05)
[2019-07-27] MEDS: cefTRIAXone 1,000 MG in SYRINGE 1 EACH IV SCH (16:10)
[2019-07-27] MEDS ORDERED: ALUMINUM/MAGNES/SIMETH MAX STR 30 ML UDCUP PO PRN (21:10)
[2019-07-27] MEDS: TAMSULOSIN 0.4 MG CAPSULE PO SCH (21:23)
[2019-07-27] MEDS: ATORVASTATIN 40 MG TABLET PO SCH (21:23)
[2019-07-27] MEDS: MIRTAZAPINE 15 MG TABLET PO SCH (21:23)
[2019-07-27] MEDS: MONTELUKAST 10 MG TABLET PO SCH (21:23)
[2019-07-27] MEDS: FAMOTIDINE 20 MG TABLET PO SCH (21:24)
[2019-07-27] MEDS: SENNA 8.6 MG TABLET PO SCH (21:24)
[2019-07-28 06:38] LABS: Calcium 8.8 MG/DL (8.5-10.1); Osmolality,Calculated 284.5 MOS/KG (273-304)
[2019-07-28] MEDS: LIDOCAINE 5% PATCH TRANSDERM SCH (09:09)
[2019-07-28] MEDS: CITALOPRAM 20 MG TABLET PO SCH (09:10)
[2019-07-28] MEDS: RANOLAZINE 500 MG TABLET PO SCH ×2 (09:10→20:46)
[2019-07-28] MEDS: AMIODARONE 200 MG TABLET PO SCH ×2 (09:10→17:15)
[2019-07-28] MEDS: DOCUSATE SODIUM 100 MG CAPSULE PO SCH ×2 (09:10→20:45)
[2019-07-28] MEDS: POTASSIUM CHLORIDE 20 MEQ PACK PO SCH (09:10)
[2019-07-28] MEDS: PANTOPRAZOLE 40 MG TABLET PO SCH (09:11)
[2019-07-28] MEDS: hydrALAZINE 25 MG TABLET PO SCH ×3 (09:11→20:46)
[2019-07-28] MEDS: ASPIRIN CHEW 81 MG TABLET PO SCH (09:11)
[2019-07-28] MEDS: DULoxetine 30 MG CAPSULE PO SCH (09:11)
[2019-07-28] MEDS: FERROUS SULFATE 325 MG TABLET PO SCH (09:11)
[2019-07-28] MEDS: ISOSORBIDE DINITRATE 20 MG TABLET PO SCH ×3 (09:11→20:45)
[2019-07-28] MEDS: carvediloL 25 MG TABLET PO SCH ×2 (09:11→17:15)
[2019-07-28] MEDS: DICLOFENAC 1% GEL 100 GM TUBE TOP SCH ×3 (09:12→20:51)
[2019-07-28] MEDS: POLYETHYLENE GLYCOL POWDER 17 GM PACK PO SCH (09:12)
[2019-07-28] MEDS: BUDESONIDE/FORMOTEROL 160-4.5 INHALER 6 GM INH SCH ×2 (09:19→20:50)
[2019-07-28] MEDS: FUROSEMIDE 40 MG/4 ML VIAL IV SCH (09:20)
[2019-07-28] MEDS: FUROSEMIDE 40 MG TABLET PO SCH (17:15)
[2019-07-28] MEDS: cefTRIAXone 1,000 MG in SYRINGE 1 EACH IV SCH (17:16)
[2019-07-28] MEDS: MIRTAZAPINE 15 MG TABLET PO SCH (20:44)
[2019-07-28] MEDS: TAMSULOSIN 0.4 MG CAPSULE PO SCH (20:44)
[2019-07-28] MEDS: MONTELUKAST 10 MG TABLET PO SCH (20:45)
[2019-07-28] MEDS: FAMOTIDINE 20 MG TABLET PO SCH (20:45)
[2019-07-28] MEDS: ATORVASTATIN 40 MG TABLET PO SCH (20:46)
[2019-07-28] MEDS: SENNA 8.6 MG TABLET PO SCH (20:46)
[2019-07-29 05:52] LABS: Basophils % 0.3 % (0.0-0.8); Eosinophils # 0.1 10*3/uL (0.0-0.87); Eosinophils % 4.4 % (0.00-10.9); Hematocrit 28.8 VOL% (35.7-47.0); Hemoglobin 9.2 GM/DL (12.0-16.0); Immature Granulocytes % 0.3 %; Immature Granulocytes Absolute 0.01 #; Lymphocytes # 0.8 10*3/uL (1.4-4.0); Lymphocytes % 26.3 % (21.3-54.2); Mean Corpuscular HGB Conc 31.9 GM/DL (32-36); Mean Corpuscular Volume 86.2 FL (87-102); Mean Platelet Volume 11.6 FL (9.6-12.0); Neutrophils % 54.7 % (38.7-73.9); Platelet Count 163 T/CUMM (130-400); Red Blood Count 3.34 MC/CUMM (3.8-5.5); Red Cell Distribution Width 18.3 % (9.3-17.3); White Blood Count 2.9 T/CUMM (4-12)
[2019-07-29 06:17] LABS: Calcium 8.5 MG/DL (8.5-10.1); Osmolality,Calculated 277.1 MOS/KG (273-304)
[2019-07-29] MEDS: POTASSIUM CHLORIDE 20 MEQ PACK PO SCH (09:03)
[2019-07-29] MEDS: ISOSORBIDE DINITRATE 20 MG TABLET PO SCH ×2 (09:04→15:51)
[2019-07-29] MEDS: DOCUSATE SODIUM 100 MG CAPSULE PO SCH (09:04)
[2019-07-29] MEDS: carvediloL 25 MG TABLET PO SCH (09:04)
[2019-07-29] MEDS: CITALOPRAM 20 MG TABLET PO SCH (09:04)
[2019-07-29] MEDS: DULoxetine 30 MG CAPSULE PO SCH (09:04)
[2019-07-29] MEDS: FUROSEMIDE 40 MG TABLET PO SCH (09:04)
[2019-07-29] MEDS: RANOLAZINE 500 MG TABLET PO SCH (09:04)
[2019-07-29] MEDS: AMIODARONE 200 MG TABLET PO SCH (09:04)
[2019-07-29] MEDS: hydrALAZINE 25 MG TABLET PO SCH ×2 (09:04→15:51)
[2019-07-29] MEDS: ASPIRIN CHEW 81 MG TABLET PO SCH (09:04)
[2019-07-29] MEDS: LIDOCAINE 5% PATCH TRANSDERM SCH (09:04)
[2019-07-29] MEDS: PANTOPRAZOLE 40 MG TABLET PO SCH (09:04)
[2019-07-29] MEDS: FERROUS SULFATE 325 MG TABLET PO SCH (09:04)
[2019-07-29] MEDS: POLYETHYLENE GLYCOL POWDER 17 GM PACK PO SCH (09:10)
[2019-07-29] MEDS: DICLOFENAC 1% GEL 100 GM TUBE TOP SCH ×2 (09:11→15:51)
[2019-07-29 12:09] VITALS: BP 119/59
[2019-07-29 12:31] LABS: Calcium 8.5 MG/DL (8.5-10.1); Osmolality,Calculated 278.2 MOS/KG (273-304)
[2019-07-29] MEDS: BUDESONIDE/FORMOTEROL 160-4.5 INHALER 6 GM INH SCH (15:51)
== END 2019-07-29 15:25 | disposition home health service (06) | DRG 291 ==
LOC: N.ED 21:04 → N.EDINP 23:14 → INTOOBSV 23:14 → N.5E 23:32 → SUATTDRO 07-26 14:34
PROVIDERS: ADMIT Internal Medicine; ATTEND Internal Medicine

== ENCOUNTER 2019-07-31 20:12 | Inpatient (IN) ==
[2019-07-31] MEDS ORDERED: ASPIRIN 325 MG TABLET PO STA (20:27)
[2019-07-31] MEDS ORDERED: FUROSEMIDE 40 MG/4 ML VIAL IV STA (20:27)
[2019-07-31] MEDS ORDERED: ALBUTEROL/IPRATROPIUM 3 ML NEB RESP TX STA (20:27)
[2019-07-31] MEDS ORDERED: ONDANSETRON 4 MG/2 ML VIAL IV STA (20:27)
[2019-07-31 20:34] LABS: Basophils % 0.4 % (0.0-0.8); Hemoglobin 10.4 GM/DL (12.0-16.0); Immature Granulocytes % 0.4 %; Immature Granulocytes Absolute 0.01 #; Lymphocytes # 0.6 10*3/uL (1.4-4.0); Lymphocytes % 21.2 % (21.3-54.2); Mean Corpuscular HGB Conc 31.5 GM/DL (32-36); Mean Corpuscular Volume 86.4 FL (87-102); Mean Platelet Volume 10.8 FL (9.6-12.0); Monocytes % 5.1 % (1.7-12.7); Neutrophils % 72.9 % (38.7-73.9); Platelet Count 200 T/CUMM (130-400); Red Blood Count 3.82 MC/CUMM (3.8-5.5); Red Cell Distribution Width 17.9 % (9.3-17.3); White Blood Count 2.7 T/CUMM (4-12)
[2019-07-31 20:39] LABS: INR 1.1
[2019-07-31 20:56] LABS: Albumin 3.5 G/DL (3.4-5.0); Bilirubin,Total 0.6 MG/DL (0.2-1.0); Calcium 8.8 MG/DL (8.5-10.1); Osmolality,Calculated 280.2 MOS/KG (273-304); Total Protein 6.8 G/DL (6.4-8.3)
[2019-07-31 21:10] LABS: ABG Base Excess -4.6 MMOL/L (-2.5-2.5); ABG HCO3 20.5 MMOL/L (20-26); ABG Oxygen Saturation 91.9 % (95-100); ABG PCO2 37.7 MM HG (35-48); ABG PH 7.346 (7.35-7.45); ABG PO2 68.2 MM HG (80-95); ABG TCO2 18.8 MMOL/L (23-27); Allen Test Positive
[2019-07-31] MEDS ORDERED: CALCIUM GLUCONATE 1,000 MG in SODIUM CHLORIDE 0.9% 100 ML IV ONE (21:21)
[2019-07-31] MEDS ORDERED: SODIUM POLYSTYRENE SULFATE 15 GM/60 ML BOTTLE PO STA (21:23)
[2019-07-31] MEDS ORDERED: methylPREDNISolone SOD SUC 125 MG/2 ML VIAL IV STA (21:24)
[2019-07-31] MEDS ORDERED: CALCIUM GLUCONATE 1,000 MG/10 ML VIAL IV ONE (21:47)
[2019-07-31] MEDS ORDERED: MORPHINE 4 MG/1 ML VIAL ONE (21:54)
[2019-07-31] MEDS ORDERED: MORPHINE 4 MG/1 ML VIAL IV STA (21:58)
[2019-07-31] MEDS ORDERED: NICOTINE 21 MG/24 HR PATCH TRANSDERM PRN (22:20)
[2019-07-31] MEDS ORDERED: ONDANSETRON 4 MG/2 ML VIAL IV PRN (22:20)
[2019-07-31] MEDS ORDERED: diphenhydrAMINE CAP 25 MG CAPSULE PO PRN (22:20)
[2019-07-31] MEDS ORDERED: guaiFENesin/DM ER 600-30 MG TABLET PO PRN (22:20)
[2019-07-31] MEDS ORDERED: hydrALAZINE 20 MG/1 ML VIAL IV PRN (22:20)
[2019-08-01] MEDS: ALBUTEROL/IPRATROPIUM 3 ML NEB RESP TX SCH ×4 (00:39→20:19)
[2019-08-01] MEDS: MORPHINE 4 MG/1 ML VIAL IV PRN ×6 (01:07→22:33)
[2019-08-01 06:45] LABS: Albumin 3.4 G/DL (3.4-5.0); Bilirubin,Total 0.8 MG/DL (0.2-1.0); Calcium 8.6 MG/DL (8.5-10.1); Total Protein 6.9 G/DL (6.4-8.3)
[2019-08-01 07:00] LABS: Apearance,Urine CLEAR (Clear); Bilirubin,Urine Negative (Negative); Blood, Urine Negative (Negative); Glucose,Urine (UA) Negative (Negative); Hyaline Casts,Urine 15 /LPF (0-3); Ketones,Urine Negative (Negative); Mucus,Urine Occasional /LPF (Occasional); Nitrite,Urine Negative (Negative); Protein,Urine Negative; RBC,Urine 5 /HPF (0-4); Squamous Epithelial Cell,Urine Occasional /HPF (0-10); Urine Color Yellow (Yellow); Urine Specific Gravity 1.009 (1.001-1.035); Urine Urobilinogen < 2.0 EU/DL (0.2-1.0); WBC,Urine 3 /HPF (0-6)
[2019-08-01] MEDS: FUROSEMIDE 40 MG/4 ML VIAL IV SCH ×2 (08:15→16:31)
[2019-08-01] MEDS ORDERED: ACETAMINOPHEN 325 MG TABLET PO PRN (10:45)
[2019-08-01] MEDS: ASPIRIN CHEW 81 MG TABLET PO SCH (12:22)
[2019-08-01] MEDS: carvediloL 25 MG TABLET PO SCH ×2 (12:22→22:32)
[2019-08-01] MEDS: CITALOPRAM 40 MG TABLET PO SCH (12:22)
[2019-08-01] MEDS: ERGOCALCIFEROL 50,000 UNIT CAPSULE PO SCH (12:23)
[2019-08-01] MEDS: BUDESONIDE/FORMOTEROL 160-4.5 INHALER 6 GM INH SCH ×2 (12:23→22:32)
[2019-08-01] MEDS: ISOSORBIDE DINITRATE 20 MG TABLET PO SCH ×2 (16:31→22:32)
[2019-08-01] MEDS: AMIODARONE 200 MG TABLET PO SCH (16:31)
[2019-08-01] MEDS: hydrALAZINE 25 MG TABLET PO SCH ×2 (16:31→22:33)
[2019-08-01] MEDS ORDERED: DOCUSATE SODIUM 100 MG CAPSULE PO SCH (21:00)
[2019-08-01] MEDS: POTASSIUM CHLORIDE 20 MEQ PACK PO SCH (22:23)
[2019-08-01] MEDS: MIRTAZAPINE 15 MG TABLET PO SCH (22:32)
[2019-08-01] MEDS: MONTELUKAST 10 MG TABLET PO SCH (22:32)
[2019-08-02] MEDS: ALBUTEROL/IPRATROPIUM 3 ML NEB RESP TX SCH ×4 (00:26→19:42)
[2019-08-02] MEDS: MORPHINE 4 MG/1 ML VIAL IV PRN (05:41)
[2019-08-02] MEDS ORDERED: POLYETHYLENE GLYCOL POWDER 17 GM PACK PO SCH (09:00)
[2019-08-02] MEDS: PANTOPRAZOLE 40 MG TABLET PO SCH (09:10)
[2019-08-02] MEDS: AMIODARONE 200 MG TABLET PO SCH ×2 (09:10→18:04)
[2019-08-02] MEDS: CITALOPRAM 40 MG TABLET PO SCH (09:10)
[2019-08-02] MEDS: POTASSIUM CHLORIDE 20 MEQ PACK PO SCH ×2 (09:11→22:32)
[2019-08-02] MEDS: predniSONE 20 MG TABLET PO SCH (09:11)
[2019-08-02] MEDS: FERROUS SULFATE 325 MG TABLET PO SCH (09:12)
[2019-08-02] MEDS: DULoxetine 30 MG CAPSULE PO SCH (09:12)
[2019-08-02] MEDS: carvediloL 25 MG TABLET PO SCH ×2 (09:12→22:30)
[2019-08-02] MEDS: FUROSEMIDE 40 MG/4 ML VIAL IV SCH ×2 (09:13→18:04)
[2019-08-02] MEDS: hydrALAZINE 25 MG TABLET PO SCH ×3 (09:13→22:30)
[2019-08-02] MEDS: ASPIRIN CHEW 81 MG TABLET PO SCH (09:13)
[2019-08-02] MEDS: ISOSORBIDE DINITRATE 20 MG TABLET PO SCH ×3 (09:13→22:30)
[2019-08-02] MEDS: BUDESONIDE/FORMOTEROL 160-4.5 INHALER 6 GM INH SCH ×2 (09:14→22:31)
[2019-08-02] MEDS: CHOLESTYRAMINE 4 GM PACK PO SCH ×2 (12:36→22:31)
[2019-08-02] MEDS: MONTELUKAST 10 MG TABLET PO SCH (22:30)
[2019-08-02] MEDS: MIRTAZAPINE 15 MG TABLET PO SCH (22:30)
[2019-08-03] MEDS: ALBUTEROL/IPRATROPIUM 3 ML NEB RESP TX SCH ×4 (00:07→20:12)
[2019-08-03 07:05] LABS: Eosinophils % 0.2 % (0.00-10.9); Hematocrit 30.4 VOL% (35.7-47.0); Hemoglobin 9.5 GM/DL (12.0-16.0); Immature Granulocytes % 0.7 %; Immature Granulocytes Absolute 0.03 #; Lymphocytes # 0.6 10*3/uL (1.4-4.0); Lymphocytes % 14.4 % (21.3-54.2); Mean Corpuscular HGB Conc 31.3 GM/DL (32-36); Mean Corpuscular Volume 88.4 FL (87-102); Mean Platelet Volume 10.8 FL (9.6-12.0); Monocytes % 13.3 % (1.7-12.7); NRBC # 0.04 10*3/uL; Neutrophils % 71.4 % (38.7-73.9); Platelet Count 197 T/CUMM (130-400); Red Blood Count 3.44 MC/CUMM (3.8-5.5); Red Cell Distribution Width 17.7 % (9.3-17.3); White Blood Count 4.3 T/CUMM (4-12)
[2019-08-03 07:24] LABS: Calcium 7.9 MG/DL (8.5-10.1); Osmolality,Calculated 276.7 MOS/KG (273-304)
[2019-08-03] MEDS: carvediloL 25 MG TABLET PO SCH ×2 (08:35→20:49)
[2019-08-03] MEDS: DULoxetine 30 MG CAPSULE PO SCH (08:35)
[2019-08-03] MEDS: FERROUS SULFATE 325 MG TABLET PO SCH (08:35)
[2019-08-03] MEDS: hydrALAZINE 25 MG TABLET PO SCH ×3 (08:35→21:21)
[2019-08-03] MEDS: PANTOPRAZOLE 40 MG TABLET PO SCH (08:36)
[2019-08-03] MEDS: ISOSORBIDE DINITRATE 20 MG TABLET PO SCH ×3 (08:36→20:49)
[2019-08-03] MEDS: ASPIRIN CHEW 81 MG TABLET PO SCH (08:36)
[2019-08-03] MEDS: AMIODARONE 200 MG TABLET PO SCH ×2 (08:36→17:32)
[2019-08-03] MEDS: CITALOPRAM 40 MG TABLET PO SCH (08:36)
[2019-08-03] MEDS: predniSONE 20 MG TABLET PO SCH (08:36)
[2019-08-03] MEDS: BUDESONIDE/FORMOTEROL 160-4.5 INHALER 6 GM INH SCH ×2 (08:37→21:22)
[2019-08-03] MEDS: POTASSIUM CHLORIDE 20 MEQ PACK PO SCH ×2 (08:37→20:53)
[2019-08-03] MEDS: FUROSEMIDE 40 MG/4 ML VIAL IV SCH ×2 (08:38→15:32)
[2019-08-03] MEDS: MORPHINE 4 MG/1 ML VIAL IV PRN ×4 (08:43→22:46)
[2019-08-03] MEDS: CHOLESTYRAMINE 4 GM PACK PO SCH ×2 (12:03→21:21)
[2019-08-03] MEDS: HYDROmorphone 2 MG TABLET PO PRN (15:32)
[2019-08-03] MEDS ORDERED: LOPERAMIDE 2 MG CAPSULE PO PRN (15:47)
[2019-08-03] MEDS: MONTELUKAST 10 MG TABLET PO SCH (20:49)
[2019-08-03] MEDS: MIRTAZAPINE 15 MG TABLET PO SCH (20:50)
[2019-08-04] MEDS: ALBUTEROL/IPRATROPIUM 3 ML NEB RESP TX SCH ×4 (01:28→19:31)
[2019-08-04] MEDS: MORPHINE 4 MG/1 ML VIAL IV PRN (03:17)
[2019-08-04 06:34] LABS: Eosinophils % 0.5 % (0.00-10.9); Hematocrit 30.2 VOL% (35.7-47.0); Hemoglobin 9.4 GM/DL (12.0-16.0); Immature Granulocytes % 0.2 %; Immature Granulocytes Absolute 0.01 #; Lymphocytes # 0.6 10*3/uL (1.4-4.0); Lymphocytes % 14.5 % (21.3-54.2); Mean Corpuscular HGB Conc 31.1 GM/DL (32-36); Mean Corpuscular Volume 87.3 FL (87-102); Mean Platelet Volume 11.2 FL (9.6-12.0); Monocytes % 15.5 % (1.7-12.7); NRBC # 0.05 10*3/uL; Neutrophils % 69.3 % (38.7-73.9); Platelet Count 201 T/CUMM (130-400); Red Blood Count 3.46 MC/CUMM (3.8-5.5); Red Cell Distribution Width 17.9 % (9.3-17.3); White Blood Count 4.1 T/CUMM (4-12)
[2019-08-04 06:57] LABS: Calcium 7.9 MG/DL (8.5-10.1); Osmolality,Calculated 281.4 MOS/KG (273-304)
[2019-08-04] MEDS: HYDROmorphone 2 MG TABLET PO PRN ×2 (08:00→18:51)
[2019-08-04] MEDS: hydrALAZINE 25 MG TABLET PO SCH ×3 (09:13→20:58)
[2019-08-04] MEDS: PANTOPRAZOLE 40 MG TABLET PO SCH (09:13)
[2019-08-04] MEDS: ASPIRIN CHEW 81 MG TABLET PO SCH (09:13)
[2019-08-04] MEDS: CITALOPRAM 40 MG TABLET PO SCH (09:13)
[2019-08-04] MEDS: FUROSEMIDE 40 MG/4 ML VIAL IV SCH ×2 (09:14→16:11)
[2019-08-04] MEDS: carvediloL 25 MG TABLET PO SCH ×2 (09:14→20:58)
[2019-08-04] MEDS: predniSONE 20 MG TABLET PO SCH (09:14)
[2019-08-04] MEDS: AMIODARONE 200 MG TABLET PO SCH ×2 (09:14→16:08)
[2019-08-04] MEDS: ISOSORBIDE DINITRATE 20 MG TABLET PO SCH ×3 (09:14→20:58)
[2019-08-04] MEDS: POTASSIUM CHLORIDE 20 MEQ PACK PO SCH ×2 (09:14→20:58)
[2019-08-04] MEDS: CHOLESTYRAMINE 4 GM PACK PO SCH ×2 (09:14→20:59)
[2019-08-04] MEDS: FERROUS SULFATE 325 MG TABLET PO SCH (09:14)
[2019-08-04] MEDS: DULoxetine 30 MG CAPSULE PO SCH (09:14)
[2019-08-04] MEDS: BUDESONIDE/FORMOTEROL 160-4.5 INHALER 6 GM INH SCH ×2 (09:23→20:58)
[2019-08-04] MEDS: NITROGLYCERIN SL 0.4 MG TABLET SL PRN (19:30)
[2019-08-04] MEDS: MIRTAZAPINE 15 MG TABLET PO SCH (20:58)
[2019-08-04] MEDS: MONTELUKAST 10 MG TABLET PO SCH (20:58)
[2019-08-05] MEDS: ALBUTEROL/IPRATROPIUM 3 ML NEB RESP TX SCH ×4 (00:38→19:17)
[2019-08-05] MEDS: HYDROmorphone 2 MG TABLET PO PRN ×2 (04:54→14:40)
[2019-08-05 06:57] LABS: Eosinophils % 0.3 % (0.00-10.9); Hematocrit 30.4 VOL% (35.7-47.0); Hemoglobin 9.6 GM/DL (12.0-16.0); Immature Granulocytes % 0.6 %; Immature Granulocytes Absolute 0.02 #; Lymphocytes # 0.6 10*3/uL (1.4-4.0); Lymphocytes % 18.2 % (21.3-54.2); Mean Corpuscular HGB Conc 31.6 GM/DL (32-36); Mean Corpuscular Volume 86.1 FL (87-102); Mean Platelet Volume 11.4 FL (9.6-12.0); Monocytes % 13.8 % (1.7-12.7); NRBC # 0.04 10*3/uL; Neutrophils % 67.1 % (38.7-73.9); Platelet Count 203 T/CUMM (130-400); Red Blood Count 3.53 MC/CUMM (3.8-5.5); Red Cell Distribution Width 17.7 % (9.3-17.3); White Blood Count 3.4 T/CUMM (4-12)
[2019-08-05 07:28] LABS: Calcium 8.2 MG/DL (8.5-10.1); Osmolality,Calculated 283.2 MOS/KG (273-304)
[2019-08-05] MEDS: CHOLESTYRAMINE 4 GM PACK PO SCH ×2 (08:19→22:12)
[2019-08-05] MEDS: FUROSEMIDE 40 MG/4 ML VIAL IV SCH ×2 (08:21→15:40)
[2019-08-05] MEDS: AMIODARONE 200 MG TABLET PO SCH ×2 (08:21→17:50)
[2019-08-05] MEDS: ASPIRIN CHEW 81 MG TABLET PO SCH (08:21)
[2019-08-05] MEDS: CITALOPRAM 40 MG TABLET PO SCH (08:22)
[2019-08-05] MEDS: POTASSIUM CHLORIDE 20 MEQ PACK PO SCH ×2 (08:22→22:10)
[2019-08-05] MEDS: DULoxetine 30 MG CAPSULE PO SCH (08:24)
[2019-08-05] MEDS: ISOSORBIDE DINITRATE 20 MG TABLET PO SCH ×3 (08:24→22:08)
[2019-08-05] MEDS: PANTOPRAZOLE 40 MG TABLET PO SCH (08:24)
[2019-08-05] MEDS: carvediloL 25 MG TABLET PO SCH ×2 (08:24→22:07)
[2019-08-05] MEDS: hydrALAZINE 25 MG TABLET PO SCH ×3 (08:25→22:08)
[2019-08-05] MEDS: FERROUS SULFATE 325 MG TABLET PO SCH (08:25)
[2019-08-05] MEDS: predniSONE 20 MG TABLET PO SCH (08:25)
[2019-08-05] MEDS: BUDESONIDE/FORMOTEROL 160-4.5 INHALER 6 GM INH SCH ×2 (08:25→22:15)
[2019-08-05] MEDS: NITROGLYCERIN SL 0.4 MG TABLET SL PRN (12:28)
[2019-08-05] MEDS: MIRTAZAPINE 15 MG TABLET PO SCH (22:08)
[2019-08-05] MEDS: MONTELUKAST 10 MG TABLET PO SCH (22:08)
[2019-08-05] MEDS: BISACODYL 5 MG TABLET PO PRN (22:17)
[2019-08-06] MEDS: ALBUTEROL/IPRATROPIUM 3 ML NEB RESP TX SCH ×4 (00:37→19:33)
[2019-08-06 06:24] LABS: Basophils % 0.3 % (0.0-0.8); Eosinophils % 0.8 % (0.00-10.9); Hematocrit 29.2 VOL% (35.7-47.0); Hemoglobin 9.3 GM/DL (12.0-16.0); Immature Granulocytes % 0.5 %; Immature Granulocytes Absolute 0.02 #; Lymphocytes # 0.7 10*3/uL (1.4-4.0); Lymphocytes % 17.8 % (21.3-54.2); Mean Corpuscular HGB Conc 31.8 GM/DL (32-36); Mean Corpuscular Volume 85.6 FL (87-102); Mean Platelet Volume 11.1 FL (9.6-12.0); Monocytes % 12.5 % (1.7-12.7); NRBC # 0.03 10*3/uL; Neutrophils % 68.1 % (38.7-73.9); Platelet Count 210 T/CUMM (130-400); Red Blood Count 3.41 MC/CUMM (3.8-5.5); Red Cell Distribution Width 17.7 % (9.3-17.3); White Blood Count 3.8 T/CUMM (4-12)
[2019-08-06 06:42] LABS: Calcium 8.1 MG/DL (8.5-10.1); Osmolality,Calculated 287.8 MOS/KG (273-304)
[2019-08-06] MEDS: CHOLESTYRAMINE 4 GM PACK PO SCH ×2 (09:33→20:57)
[2019-08-06] MEDS: POTASSIUM CHLORIDE 20 MEQ PACK PO SCH ×2 (09:34→20:56)
[2019-08-06] MEDS: carvediloL 25 MG TABLET PO SCH ×2 (09:34→20:57)
[2019-08-06] MEDS: DULoxetine 30 MG CAPSULE PO SCH (09:35)
[2019-08-06] MEDS: AMIODARONE 200 MG TABLET PO SCH ×2 (09:35→16:59)
[2019-08-06] MEDS: ASPIRIN CHEW 81 MG TABLET PO SCH (09:36)
[2019-08-06] MEDS: predniSONE 20 MG TABLET PO SCH (09:36)
[2019-08-06] MEDS: APIXABAN 2.5 MG TABLET PO SCH ×2 (09:36→20:57)
[2019-08-06] MEDS: FERROUS SULFATE 325 MG TABLET PO SCH (09:36)
[2019-08-06] MEDS: hydrALAZINE 25 MG TABLET PO SCH ×3 (09:36→20:56)
[2019-08-06] MEDS: CITALOPRAM 40 MG TABLET PO SCH (09:36)
[2019-08-06] MEDS: ISOSORBIDE DINITRATE 20 MG TABLET PO SCH ×3 (09:37→20:57)
[2019-08-06] MEDS: PANTOPRAZOLE 40 MG TABLET PO SCH (09:37)
[2019-08-06] MEDS: FUROSEMIDE 40 MG/4 ML VIAL IV SCH ×2 (09:37→15:55)
[2019-08-06] MEDS: BUDESONIDE/FORMOTEROL 160-4.5 INHALER 6 GM INH SCH ×2 (09:39→20:57)
[2019-08-06] MEDS ORDERED: PROPOFOL 200 MG/20 ML VIAL IV ONE (10:31)
[2019-08-06] MEDS ORDERED: LIDOCAINE 2% 5 ML VIAL ONE (10:31)
[2019-08-06] MEDS ORDERED: ETOMIDATE 40 MG/20 ML VIAL IV ONE (10:31)
[2019-08-06] MEDS: BISACODYL 5 MG TABLET PO PRN (18:20)
[2019-08-06] MEDS: MIRTAZAPINE 15 MG TABLET PO SCH (20:56)
[2019-08-06] MEDS: MONTELUKAST 10 MG TABLET PO SCH (20:57)
[2019-08-06] MEDS ORDERED: SODIUM PHOSPHATE ENEMA 133 ML BOTTLE RECTAL ONE (22:02)
[2019-08-07] MEDS: ALBUTEROL/IPRATROPIUM 3 ML NEB RESP TX SCH ×4 (00:04→19:09)
[2019-08-07 05:58] LABS: Eosinophils % 0.5 % (0.00-10.9); Hematocrit 28.5 VOL% (35.7-47.0); Hemoglobin 9.2 GM/DL (12.0-16.0); Immature Granulocytes % 0.5 %; Immature Granulocytes Absolute 0.02 #; Lymphocytes # 0.8 10*3/uL (1.4-4.0); Lymphocytes % 18.8 % (21.3-54.2); Mean Corpuscular HGB Conc 32.3 GM/DL (32-36); Mean Corpuscular Volume 86.1 FL (87-102); Mean Platelet Volume 11.4 FL (9.6-12.0); NRBC # 0.02 10*3/uL; Neutrophils % 68.2 % (38.7-73.9); Platelet Count 204 T/CUMM (130-400); Red Blood Count 3.31 MC/CUMM (3.8-5.5); Red Cell Distribution Width 18.1 % (9.3-17.3)
[2019-08-07 06:19] LABS: Calcium 8.2 MG/DL (8.5-10.1); Osmolality,Calculated 289.7 MOS/KG (273-304)
[2019-08-07 06:25] LABS: Calcium 8.2 MG/DL (8.5-10.1); Osmolality,Calculated 289.8 MOS/KG (273-304)
[2019-08-07] MEDS: CHOLESTYRAMINE 4 GM PACK PO SCH ×2 (08:52→20:24)
[2019-08-07] MEDS: FERROUS SULFATE 325 MG TABLET PO SCH (08:52)
[2019-08-07] MEDS: DULoxetine 30 MG CAPSULE PO SCH (08:52)
[2019-08-07] MEDS: POTASSIUM CHLORIDE 20 MEQ PACK PO SCH ×2 (08:52→20:24)
[2019-08-07] MEDS ORDERED: POLYETHYLENE GLYCOL POWDER 17 GM PACK PO PRN (08:57)
[2019-08-07] MEDS: APIXABAN 2.5 MG TABLET PO SCH ×2 (08:58→20:24)
[2019-08-07] MEDS: PANTOPRAZOLE 40 MG TABLET PO SCH (08:58)
[2019-08-07] MEDS: ASPIRIN CHEW 81 MG TABLET PO SCH (08:58)
[2019-08-07] MEDS: predniSONE 20 MG TABLET PO SCH (08:58)
[2019-08-07] MEDS: hydrALAZINE 25 MG TABLET PO SCH ×3 (08:58→20:24)
[2019-08-07] MEDS: ISOSORBIDE DINITRATE 20 MG TABLET PO SCH ×3 (08:58→20:24)
[2019-08-07] MEDS: AMIODARONE 200 MG TABLET PO SCH ×2 (08:58→16:27)
[2019-08-07] MEDS: carvediloL 25 MG TABLET PO SCH ×2 (08:58→20:24)
[2019-08-07] MEDS: CITALOPRAM 40 MG TABLET PO SCH (08:58)
[2019-08-07] MEDS: FUROSEMIDE 40 MG/4 ML VIAL IV SCH ×2 (08:59→16:27)
[2019-08-07] MEDS: BUDESONIDE/FORMOTEROL 160-4.5 INHALER 6 GM INH SCH ×2 (09:00→20:24)
[2019-08-07] MEDS: MIRTAZAPINE 15 MG TABLET PO SCH (20:24)
[2019-08-07] MEDS: MONTELUKAST 10 MG TABLET PO SCH (20:24)
[2019-08-08] MEDS: ALBUTEROL/IPRATROPIUM 3 ML NEB RESP TX SCH ×4 (00:15→20:25)
[2019-08-08 06:07] LABS: Eosinophils % 0.2 % (0.00-10.9); Hematocrit 30.3 VOL% (35.7-47.0); Hemoglobin 9.5 GM/DL (12.0-16.0); Immature Granulocytes % 0.4 %; Immature Granulocytes Absolute 0.02 #; Lymphocytes # 0.8 10*3/uL (1.4-4.0); Lymphocytes % 17.3 % (21.3-54.2); Mean Corpuscular HGB Conc 31.4 GM/DL (32-36); Mean Corpuscular Volume 85.8 FL (87-102); Mean Platelet Volume 10.7 FL (9.6-12.0); Monocytes % 10.7 % (1.7-12.7); Neutrophils % 71.4 % (38.7-73.9); Platelet Count 216 T/CUMM (130-400); Red Blood Count 3.53 MC/CUMM (3.8-5.5); Red Cell Distribution Width 18.3 % (9.3-17.3); White Blood Count 4.6 T/CUMM (4-12)
[2019-08-08 06:28] LABS: Calcium 8.5 MG/DL (8.5-10.1); Osmolality,Calculated 295.1 MOS/KG (273-304)
[2019-08-08] MEDS ORDERED: predniSONE 10 MG TABLET ONE (08:11)
[2019-08-08] MEDS: CHOLESTYRAMINE 4 GM PACK PO SCH ×2 (08:49→20:42)
[2019-08-08] MEDS: DULoxetine 30 MG CAPSULE PO SCH (08:49)
[2019-08-08] MEDS: POTASSIUM CHLORIDE 20 MEQ PACK PO SCH ×2 (08:49→20:42)
[2019-08-08] MEDS: CITALOPRAM 40 MG TABLET PO SCH (08:50)
[2019-08-08] MEDS: PANTOPRAZOLE 40 MG TABLET PO SCH (08:50)
[2019-08-08] MEDS: hydrALAZINE 25 MG TABLET PO SCH ×3 (08:50→20:42)
[2019-08-08] MEDS: ISOSORBIDE DINITRATE 20 MG TABLET PO SCH ×3 (08:50→20:42)
[2019-08-08] MEDS: FUROSEMIDE 40 MG/4 ML VIAL IV SCH ×2 (08:50→16:05)
[2019-08-08] MEDS: carvediloL 25 MG TABLET PO SCH ×2 (08:50→20:42)
[2019-08-08] MEDS: ASPIRIN CHEW 81 MG TABLET PO SCH (08:50)
[2019-08-08] MEDS: APIXABAN 2.5 MG TABLET PO SCH ×2 (08:50→20:42)
[2019-08-08] MEDS: AMIODARONE 200 MG TABLET PO SCH (08:50)
[2019-08-08] MEDS: FERROUS SULFATE 325 MG TABLET PO SCH (08:50)
[2019-08-08] MEDS: predniSONE 20 MG TABLET PO SCH (08:51)
[2019-08-08] MEDS: BUDESONIDE/FORMOTEROL 160-4.5 INHALER 6 GM INH SCH ×2 (08:51→20:44)
[2019-08-08] MEDS: ERGOCALCIFEROL 50,000 UNIT CAPSULE PO SCH (10:11)
[2019-08-08] MEDS: MONTELUKAST 10 MG TABLET PO SCH (20:42)
[2019-08-08] MEDS: MIRTAZAPINE 15 MG TABLET PO SCH (20:43)
[2019-08-09] MEDS: ALBUTEROL/IPRATROPIUM 3 ML NEB RESP TX SCH ×3 (01:14→13:30)
[2019-08-09 06:17] LABS: Basophils % 0.2 % (0.0-0.8); Eosinophils # 0.1 10*3/uL (0.0-0.87); Hematocrit 30.3 VOL% (35.7-47.0); Hemoglobin 9.8 GM/DL (12.0-16.0); Immature Granulocytes % 1.4 %; Immature Granulocytes Absolute 0.07 #; Lymphocytes # 0.9 10*3/uL (1.4-4.0); Lymphocytes % 19.1 % (21.3-54.2); Mean Corpuscular HGB Conc 32.3 GM/DL (32-36); Mean Corpuscular Volume 85.8 FL (87-102); Mean Platelet Volume 10.8 FL (9.6-12.0); Monocytes % 10.4 % (1.7-12.7); Neutrophils % 67.9 % (38.7-73.9); Platelet Count 218 T/CUMM (130-400); Red Blood Count 3.53 MC/CUMM (3.8-5.5); Red Cell Distribution Width 18.5 % (9.3-17.3); White Blood Count 4.9 T/CUMM (4-12)
[2019-08-09 06:32] LABS: Calcium 8.5 MG/DL (8.5-10.1); Osmolality,Calculated 290.4 MOS/KG (273-304)
[2019-08-09] MEDS ORDERED: AMIODARONE 200 MG TABLET PO SCH (09:00)
[2019-08-09] MEDS: POTASSIUM CHLORIDE 20 MEQ PACK PO SCH (09:23)
[2019-08-09] MEDS: CHOLESTYRAMINE 4 GM PACK PO SCH (09:23)
[2019-08-09] MEDS: FUROSEMIDE 40 MG/4 ML VIAL IV SCH (09:23)
[2019-08-09] MEDS: carvediloL 25 MG TABLET PO SCH (09:23)
[2019-08-09] MEDS: ASPIRIN CHEW 81 MG TABLET PO SCH (09:24)
[2019-08-09] MEDS: ISOSORBIDE DINITRATE 20 MG TABLET PO SCH ×2 (09:24→15:04)
[2019-08-09] MEDS: PANTOPRAZOLE 40 MG TABLET PO SCH (09:24)
[2019-08-09] MEDS: FERROUS SULFATE 325 MG TABLET PO SCH (09:24)
[2019-08-09] MEDS: DULoxetine 30 MG CAPSULE PO SCH (09:24)
[2019-08-09] MEDS: APIXABAN 2.5 MG TABLET PO SCH (09:24)
[2019-08-09] MEDS: CITALOPRAM 40 MG TABLET PO SCH (09:24)
[2019-08-09] MEDS: hydrALAZINE 25 MG TABLET PO SCH ×2 (09:25→15:04)
[2019-08-09] MEDS: BUDESONIDE/FORMOTEROL 160-4.5 INHALER 6 GM INH SCH (09:33)
[2019-08-09 12:32] VITALS: BP 118/57
[2019-08-09] MEDS ORDERED: FUROSEMIDE 80 MG TABLET PO SCH (16:00)
== END 2019-08-09 17:05 | disposition home health service (06) | DRG 682 ==
LOC: EDUNIT# → EDBD → N.ED 20:12 → N.EDINP 20:12 → N.TELES 22:55 → SUATTDRO 08-01 15:19
PROVIDERS: ADMIT Hospitalist; ATTEND Internal Medicine

== ENCOUNTER 2019-08-12 12:56 | Inpatient (IN) ==
[2019-08-12] MEDS ORDERED: FUROSEMIDE 100 MG/10 ML VIAL IV STA (13:24)
[2019-08-12] MEDS ORDERED: ONDANSETRON 4 MG/2 ML VIAL IV STA (13:24)
[2019-08-12] MEDS ORDERED: MORPHINE 4 MG/1 ML VIAL IV STA (13:25)
[2019-08-12] MEDS ORDERED: NITROGLYCERIN DRIP 50 MG/250 ML BOTTLE IV PRN (13:25)
[2019-08-12 13:38] LABS: Basophils % 0.1 % (0.0-0.8); Eosinophils # 0.1 10*3/uL (0.0-0.87); Eosinophils % 1.6 % (0.00-10.9); Hematocrit 37.9 VOL% (35.7-47.0); Hemoglobin 11.8 GM/DL (12.0-16.0); Immature Granulocytes % 0.5 %; Immature Granulocytes Absolute 0.04 #; Lymphocytes # 2.4 10*3/uL (1.4-4.0); Lymphocytes % 27.6 % (21.3-54.2); Mean Corpuscular HGB Conc 31.1 GM/DL (32-36); Mean Corpuscular Volume 88.8 FL (87-102); Mean Platelet Volume 12.1 FL (9.6-12.0); Monocytes % 6.7 % (1.7-12.7); Neutrophils % 63.5 % (38.7-73.9); Platelet Count 216 T/CUMM (130-400); Red Blood Count 4.27 MC/CUMM (3.8-5.5); Red Cell Distribution Width 19.9 % (9.3-17.3); White Blood Count 8.7 T/CUMM (4-12)
[2019-08-12] MEDS ORDERED: DILTIAZEM 50 MG/10 ML VIAL IV STA (13:49)
[2019-08-12 13:58] LABS: INR 1.1; PT Patient Result 11.8 SECS (9.6-12.2); Partial Thromboplastin Time 21.5 SECS (20.8-36.0)
[2019-08-12 14:04] LABS: Albumin 3.4 G/DL (3.4-5.0); Bilirubin,Total 0.9 MG/DL (0.2-1.0); Calcium 8.5 MG/DL (8.5-10.1); Osmolality,Calculated 290.7 MOS/KG (273-304); Total Protein 7.1 G/DL (6.4-8.3)
[2019-08-12] MEDS: dilTIAZem Drip 125 MG/125 ML PREMIX IV SCH (14:12)
[2019-08-12 14:31] LABS: Apearance,Urine Slightly Hazy (Clear); Bilirubin,Urine Negative (Negative); Blood, Urine Small mg/dL (Negative); Glucose,Urine (UA) Negative (Negative); Ketones,Urine Negative (Negative); Nitrite,Urine Negative (Negative); Protein,Urine 30 MG/DL; RBC,Urine 1 /HPF (0-4); Squamous Epithelial Cell,Urine Occasional /HPF (0-10); Urine Color Yellow (Yellow); Urine Specific Gravity 1.009 (1.001-1.035); Urine Urobilinogen < 2.0 EU/DL (0.2-1.0); WBC,Urine 1 /HPF (0-6)
[2019-08-12 14:45] LABS: ABG Base Excess -7.5 MMOL/L (-2.5-2.5); ABG HCO3 21.4 MMOL/L (20-26); ABG Oxygen Saturation 83.5 % (95-100); ABG PCO2 58.9 MM HG (35-48); ABG PO2 64.6 MM HG (80-95); ABG TCO2 23.2 MMOL/L (23-27); Allen Test Positive
[2019-08-12 14:48] LABS: ABG PH 7.178 (7.35-7.45)
[2019-08-12] MEDS ORDERED: ROCURONIUM 100 MG/10 ML VIAL IV ONE (15:09)
[2019-08-12] MEDS ORDERED: ETOMIDATE 20 MG/10 ML VIAL IV ONE (15:09)
[2019-08-12] MEDS ORDERED: ALBUTEROL 2.5 MG/3 ML NEB RESP TX PRN ×2 (15:17→15:21)
[2019-08-12] MEDS ORDERED: ONDANSETRON 4 MG/2 ML VIAL IV PRN (15:17)
[2019-08-12] MEDS ORDERED: ACETAMINOPHEN 325 MG TABLET PO PRN (15:17)
[2019-08-12] MEDS ORDERED: DOCUSATE SODIUM 100 MG CAPSULE PO PRN (15:17)
[2019-08-12] MEDS ORDERED: HYDROmorphone 2 MG TABLET PO PRN (15:21)
[2019-08-12] MEDS ORDERED: ERGOCALCIFEROL 50,000 UNIT CAPSULE PO SCH (15:30)
[2019-08-12] MEDS: PROPOFOL 1,000 MG/100 ML BOTTLE IV SCH (16:00)
[2019-08-12 16:14] LABS: ABG Base Excess -5.8 MMOL/L (-2.5-2.5); ABG HCO3 20.9 MMOL/L (20-26); ABG Oxygen Saturation 89.9 % (95-100); ABG PCO2 45.9 MM HG (35-48); ABG PH 7.277 (7.35-7.45); ABG PO2 69.9 MM HG (80-95); ABG TCO2 22.3 MMOL/L (23-27); Allen Test Positive; Pt O2 Delivery Device Ventilator
[2019-08-12] MEDS: AMIODARONE 200 MG TABLET PO SCH (18:14)
[2019-08-12] MEDS: RANOLAZINE 500 MG TABLET PO SCH (18:14)
[2019-08-12] MEDS: PANTOPRAZOLE 40 MG VIAL IV SCH (18:14)
[2019-08-12] MEDS: carvediloL 25 MG TABLET PO SCH (20:17)
[2019-08-12] MEDS: hydrALAZINE 25 MG TABLET PO SCH (20:17)
[2019-08-12] MEDS: ATORVASTATIN 40 MG TABLET PO SCH (20:17)
[2019-08-12] MEDS: ENOXAPARIN 30 MG/0.3 ML SYRINGE SUBCUT SCH (20:17)
[2019-08-12] MEDS: ISOSORBIDE DINITRATE 20 MG TABLET PO SCH (20:18)
[2019-08-12] MEDS: MONTELUKAST 10 MG TABLET PO SCH (20:18)
[2019-08-12] MEDS: POTASSIUM CHLORIDE 20 MEQ PACK PO SCH (20:18)
[2019-08-12] MEDS: BUDESONIDE/FORMOTEROL 160-4.5 INHALER 6 GM INH SCH (20:18)
[2019-08-12] MEDS ORDERED: MIRTAZAPINE 15 MG TABLET PO SCH (21:00)
[2019-08-13] MEDS: FUROSEMIDE 40 MG/4 ML VIAL IV SCH ×2 (00:20→12:58)
[2019-08-13 03:03] LABS: ABG Base Excess -0.3 MMOL/L (-2.5-2.5); ABG HCO3 24.2 MMOL/L (20-26); ABG PCO2 29.2 MM HG (35-48); ABG TCO2 19.9 MMOL/L (23-27); Allen Test Positive; Pt O2 Delivery Device Ventilator
[2019-08-13] MEDS: RANOLAZINE 500 MG TABLET PO SCH ×2 (04:30→15:38)
[2019-08-13] MEDS: PROPOFOL 1,000 MG/100 ML BOTTLE IV SCH ×3 (04:32→22:50)
[2019-08-13 05:58] LABS: Basophils % 0.1 % (0.0-0.8); Eosinophils % 0.1 % (0.00-10.9); Hematocrit 31.9 VOL% (35.7-47.0); Hemoglobin 10.2 GM/DL (12.0-16.0); Immature Granulocytes % 0.7 %; Immature Granulocytes Absolute 0.09 #; Lymphocytes # 0.7 10*3/uL (1.4-4.0); Lymphocytes % 5.8 % (21.3-54.2); Mean Corpuscular Volume 85.8 FL (87-102); Mean Platelet Volume 11.8 FL (9.6-12.0); Monocytes % 4.7 % (1.7-12.7); Neutrophils % 88.6 % (38.7-73.9); Platelet Count 192 T/CUMM (130-400); Red Blood Count 3.72 MC/CUMM (3.8-5.5); Red Cell Distribution Width 18.9 % (9.3-17.3); White Blood Count 12.9 T/CUMM (4-12)
[2019-08-13 06:37] LABS: Albumin 2.6 G/DL (3.4-5.0); Total Protein 5.5 G/DL (6.4-8.3)
[2019-08-13] MEDS: POTASSIUM CHLORIDE 20 MEQ PACK PO SCH ×2 (08:24→21:09)
[2019-08-13] MEDS: hydrALAZINE 25 MG TABLET PO SCH ×3 (08:24→21:09)
[2019-08-13] MEDS: ASPIRIN CHEW 81 MG TABLET PO SCH (08:24)
[2019-08-13] MEDS: ISOSORBIDE DINITRATE 20 MG TABLET PO SCH ×3 (08:24→21:09)
[2019-08-13] MEDS: AMIODARONE 200 MG TABLET PO SCH ×2 (08:24→16:40)
[2019-08-13] MEDS: FERROUS SULFATE 325 MG TABLET PO SCH (08:25)
[2019-08-13] MEDS: carvediloL 25 MG TABLET PO SCH ×2 (08:25→21:09)
[2019-08-13] MEDS: SENNA 8.6 MG TABLET PO SCH (08:25)
[2019-08-13] MEDS: BUDESONIDE/FORMOTEROL 160-4.5 INHALER 6 GM INH SCH ×2 (08:26→21:10)
[2019-08-13] MEDS ORDERED: CITALOPRAM 40 MG TABLET PO SCH (09:00)
[2019-08-13] MEDS ORDERED: DULoxetine 30 MG CAPSULE PO SCH (09:00)
[2019-08-13] MEDS ORDERED: BIOTIN 10000 MCG PO SCH (09:00)
[2019-08-13] MEDS: MORPHINE 4 MG/1 ML VIAL IV PRN ×3 (10:15→22:18)
[2019-08-13] MEDS ORDERED: GLUCAGON 1 MG VIAL IM PRN (11:39)
[2019-08-13] MEDS ORDERED: DEXTROSE 50% 25 GM/50 ML VIAL IV PRN (11:39)
[2019-08-13] MEDS: INSULIN REGULAR 100 UNIT/ML SUBCUT SCH ×2 (13:07→18:03)
[2019-08-13] MEDS: MENTHOL/ZINC OXIDE OINT 71 GM JAR TOP SCH ×2 (15:37→21:10)
[2019-08-13] MEDS: PANTOPRAZOLE 40 MG VIAL IV SCH (15:37)
[2019-08-13] MEDS: dilTIAZem Drip 125 MG/125 ML PREMIX IV SCH (15:37)
[2019-08-13] MEDS: MONTELUKAST 10 MG TABLET PO SCH (21:07)
[2019-08-13] MEDS: ENOXAPARIN 30 MG/0.3 ML SYRINGE SUBCUT SCH (21:08)
[2019-08-13] MEDS: SACUBITRIL/VALSARTAN 49-51 MG TABLET PO SCH (21:09)
[2019-08-13] MEDS: ATORVASTATIN 40 MG TABLET PO SCH (21:09)
[2019-08-14] MEDS: INSULIN REGULAR 100 UNIT/ML SUBCUT SCH ×4 (00:30→18:29)
[2019-08-14] MEDS: FUROSEMIDE 40 MG/4 ML VIAL IV SCH ×2 (00:58→14:15)
[2019-08-14 03:37] LABS: ABG Base Excess 2.2 MMOL/L (-2.5-2.5); ABG HCO3 26.4 MMOL/L (20-26); ABG Oxygen Saturation 99.2 % (95-100); ABG PCO2 30.3 MM HG (35-48); ABG PH 7.515 (7.35-7.45); ABG TCO2 21.8 MMOL/L (23-27); Allen Test Positive; Pt O2 Delivery Device Ventilator
[2019-08-14] MEDS: PROPOFOL 1,000 MG/100 ML BOTTLE IV SCH ×2 (04:15→15:36)
[2019-08-14] MEDS: RANOLAZINE 500 MG TABLET PO SCH ×2 (04:30→16:40)
[2019-08-14 05:14] LABS: Basophils % 0.1 % (0.0-0.8); Eosinophils # 0.1 10*3/uL (0.0-0.87); Eosinophils % 1.5 % (0.00-10.9); Hematocrit 28.6 VOL% (35.7-47.0); Hemoglobin 9.2 GM/DL (12.0-16.0); Immature Granulocytes % 0.4 %; Immature Granulocytes Absolute 0.03 #; Lymphocytes # 0.9 10*3/uL (1.4-4.0); Lymphocytes % 13.1 % (21.3-54.2); Mean Corpuscular HGB Conc 32.2 GM/DL (32-36); Mean Corpuscular Volume 85.4 FL (87-102); Monocytes % 8.5 % (1.7-12.7); Neutrophils % 76.4 % (38.7-73.9); Platelet Count 146 T/CUMM (130-400); Red Blood Count 3.35 MC/CUMM (3.8-5.5); Red Cell Distribution Width 19.3 % (9.3-17.3); White Blood Count 6.7 T/CUMM (4-12)
[2019-08-14 05:35] LABS: Osmolality,Calculated 287.4 MOS/KG (273-304)
[2019-08-14 05:39] LABS: Prealbumin 15.9 MG/DL (20-40)
[2019-08-14] MEDS ORDERED: FUROSEMIDE 40 MG/4 ML VIAL IV ONE (08:00)
[2019-08-14] MEDS: MORPHINE 4 MG/1 ML VIAL IV PRN ×4 (08:33→21:42)
[2019-08-14 08:56] LABS: ABG Base Excess -0.2 MMOL/L (-2.5-2.5); ABG HCO3 24.3 MMOL/L (20-26); ABG Oxygen Saturation 99.2 % (95-100); ABG PCO2 43.1 MM HG (35-48); ABG PH 7.373 (7.35-7.45); ABG TCO2 22.9 MMOL/L (23-27); Allen Test Positive; Pt O2 Delivery Device Ventilator
[2019-08-14] MEDS: hydrALAZINE 25 MG TABLET PO SCH (09:12)
[2019-08-14] MEDS: ISOSORBIDE DINITRATE 20 MG TABLET PO SCH ×3 (09:12→21:18)
[2019-08-14] MEDS: SENNA 8.6 MG TABLET PO SCH (09:12)
[2019-08-14] MEDS: carvediloL 25 MG TABLET PO SCH ×2 (09:12→21:18)
[2019-08-14] MEDS: FERROUS SULFATE 325 MG TABLET PO SCH (09:12)
[2019-08-14] MEDS: SACUBITRIL/VALSARTAN 49-51 MG TABLET PO SCH ×2 (09:12→21:17)
[2019-08-14] MEDS: POTASSIUM CHLORIDE 20 MEQ PACK PO SCH ×2 (09:13→21:18)
[2019-08-14] MEDS: MENTHOL/ZINC OXIDE OINT 71 GM JAR TOP SCH ×2 (09:13→21:20)
[2019-08-14] MEDS: BUDESONIDE/FORMOTEROL 160-4.5 INHALER 6 GM INH SCH ×2 (09:14→23:15)
[2019-08-14] MEDS: AMIODARONE 200 MG TABLET PO SCH ×2 (09:22→16:40)
[2019-08-14] MEDS: ASPIRIN CHEW 81 MG TABLET PO SCH (12:39)
[2019-08-14] MEDS: MONTELUKAST 10 MG TABLET PO SCH (21:18)
[2019-08-14] MEDS: ATORVASTATIN 40 MG TABLET PO SCH (21:18)
[2019-08-14] MEDS: ENOXAPARIN 30 MG/0.3 ML SYRINGE SUBCUT SCH (21:18)
[2019-08-15] MEDS: INSULIN REGULAR 100 UNIT/ML SUBCUT SCH ×4 (00:22→18:09)
[2019-08-15] MEDS: RANOLAZINE 500 MG TABLET PO SCH ×2 (02:32→15:37)
[2019-08-15] MEDS: FUROSEMIDE 40 MG/4 ML VIAL IV SCH ×2 (02:32→14:07)
[2019-08-15] MEDS: MORPHINE 4 MG/1 ML VIAL IV PRN ×4 (02:34→20:52)
[2019-08-15 05:54] LABS: Basophils % 0.2 % (0.0-0.8); Eosinophils # 0.1 10*3/uL (0.0-0.87); Hematocrit 29.6 VOL% (35.7-47.0); Hemoglobin 9.2 GM/DL (12.0-16.0); Immature Granulocytes % 0.4 %; Immature Granulocytes Absolute 0.02 #; Lymphocytes # 0.8 10*3/uL (1.4-4.0); Lymphocytes % 16.1 % (21.3-54.2); Mean Corpuscular HGB Conc 31.1 GM/DL (32-36); Mean Corpuscular Volume 87.8 FL (87-102); Mean Platelet Volume 10.9 FL (9.6-12.0); Monocytes % 9.3 % (1.7-12.7); Platelet Count 137 T/CUMM (130-400); Red Blood Count 3.37 MC/CUMM (3.8-5.5); Red Cell Distribution Width 19.2 % (9.3-17.3); White Blood Count 4.7 T/CUMM (4-12)
[2019-08-15 06:00] LABS: Calcium 7.8 MG/DL (8.5-10.1)
[2019-08-15] MEDS: SENNA 8.6 MG TABLET PO SCH (09:53)
[2019-08-15] MEDS: SACUBITRIL/VALSARTAN 49-51 MG TABLET PO SCH ×2 (09:53→20:50)
[2019-08-15] MEDS: POTASSIUM CHLORIDE 20 MEQ PACK PO SCH ×2 (09:54→20:51)
[2019-08-15] MEDS: MENTHOL/ZINC OXIDE OINT 71 GM JAR TOP SCH ×2 (09:54→20:51)
[2019-08-15] MEDS: BUDESONIDE/FORMOTEROL 160-4.5 INHALER 6 GM INH SCH ×2 (09:54→20:51)
[2019-08-15] MEDS: ASPIRIN CHEW 81 MG TABLET PO SCH (09:54)
[2019-08-15] MEDS: ISOSORBIDE DINITRATE 20 MG TABLET PO SCH ×3 (09:54→20:50)
[2019-08-15] MEDS: carvediloL 25 MG TABLET PO SCH ×2 (09:54→20:50)
[2019-08-15] MEDS: PANTOPRAZOLE 40 MG TABLET PO SCH (09:54)
[2019-08-15] MEDS: AMIODARONE 200 MG TABLET PO SCH ×2 (09:54→17:25)
[2019-08-15] MEDS: FERROUS SULFATE 325 MG TABLET PO SCH (09:54)
[2019-08-15] MEDS: MONTELUKAST 10 MG TABLET PO SCH (20:50)
[2019-08-15] MEDS: ATORVASTATIN 40 MG TABLET PO SCH (20:51)
[2019-08-15] MEDS: ENOXAPARIN 30 MG/0.3 ML SYRINGE SUBCUT SCH (20:52)
[2019-08-16] MEDS: MORPHINE 4 MG/1 ML VIAL IV PRN ×2 (01:00→10:11)
[2019-08-16] MEDS: INSULIN REGULAR 100 UNIT/ML SUBCUT SCH ×3 (01:03→13:14)
[2019-08-16] MEDS: FUROSEMIDE 40 MG/4 ML VIAL IV SCH ×2 (01:07→13:15)
[2019-08-16] MEDS: RANOLAZINE 500 MG TABLET PO SCH (05:22)
[2019-08-16 05:33] LABS: Basophils % 0.3 % (0.0-0.8); Eosinophils # 0.2 10*3/uL (0.0-0.87); Eosinophils % 3.8 % (0.00-10.9); Hematocrit 30.1 VOL% (35.7-47.0); Hemoglobin 9.3 GM/DL (12.0-16.0); Immature Granulocytes % 0.5 %; Immature Granulocytes Absolute 0.02 #; Lymphocytes # 0.7 10*3/uL (1.4-4.0); Lymphocytes % 18.7 % (21.3-54.2); Mean Corpuscular HGB Conc 30.9 GM/DL (32-36); Mean Corpuscular Volume 88.3 FL (87-102); Mean Platelet Volume 11.7 FL (9.6-12.0); Monocytes % 11.8 % (1.7-12.7); Neutrophils % 64.9 % (38.7-73.9); Platelet Count 143 T/CUMM (130-400); Red Blood Count 3.41 MC/CUMM (3.8-5.5); Red Cell Distribution Width 18.7 % (9.3-17.3); White Blood Count 3.9 T/CUMM (4-12)
[2019-08-16 05:50] LABS: Osmolality,Calculated 286.7 MOS/KG (273-304)
[2019-08-16 09:44] LABS: Troponin I 0.115 NG/ML (0.00-0.045)
[2019-08-16] MEDS: MENTHOL/ZINC OXIDE OINT 71 GM JAR TOP SCH (10:01)
[2019-08-16] MEDS: AMIODARONE 200 MG TABLET PO SCH (10:06)
[2019-08-16] MEDS: POTASSIUM CHLORIDE 20 MEQ PACK PO SCH (10:06)
[2019-08-16] MEDS: ISOSORBIDE DINITRATE 20 MG TABLET PO SCH (10:06)
[2019-08-16] MEDS: FERROUS SULFATE 325 MG TABLET PO SCH (10:07)
[2019-08-16] MEDS: PANTOPRAZOLE 40 MG TABLET PO SCH (10:07)
[2019-08-16] MEDS: carvediloL 25 MG TABLET PO SCH (10:07)
[2019-08-16] MEDS: SENNA 8.6 MG TABLET PO SCH (10:07)
[2019-08-16] MEDS: ASPIRIN CHEW 81 MG TABLET PO SCH (10:07)
[2019-08-16] MEDS: BUDESONIDE/FORMOTEROL 160-4.5 INHALER 6 GM INH SCH (10:09)
[2019-08-16] MEDS: SACUBITRIL/VALSARTAN 49-51 MG TABLET PO SCH (11:08)
[2019-08-16 11:57] VITALS: BP 117/45
== END 2019-08-16 14:37 | disposition hospice, home (50) | DRG 208 ==
LOC: EDUNIT# → N.ED 12:56 → N.EDINP 15:17 → SUATTDRO 15:17 → N.CC 16:39 → N.TELEN 08-14 20:13
PROVIDERS: ADMIT Internal Medicine; ATTEND Family Medicine

== ENCOUNTER 2019-09-03 08:16 | Observation (INO) ==
[2019-09-03] MEDS ORDERED: TUBERCULIN SKIN TEST 0.1 ML SYRINGE INTRADERM ONE (09:57)
[2019-09-03] MEDS ORDERED: MORPHINE 4 MG/1 ML VIAL IV PRN (12:25)
[2019-09-03] MEDS ORDERED: BISACODYL 5 MG TABLET PO PRN (12:25)
[2019-09-03] MEDS ORDERED: ONDANSETRON 4 MG/2 ML VIAL IV PRN (12:25)
[2019-09-03] MEDS ORDERED: AZELASTINE NASAL 137 MCG/SPRAY 30 ML BOTTLE BOTH NARES PRN (12:29)
[2019-09-03] MEDS ORDERED: ERGOCALCIFEROL 50,000 UNIT CAPSULE PO SCH (12:30)
[2019-09-03] MEDS ORDERED: ENOXAPARIN 30 MG/0.3 ML SYRINGE SUBCUT SCH (13:00)
[2019-09-03 14:27] LABS: Basophils % 0.2 % (0.0-0.8); Hematocrit 31.5 VOL% (35.7-47.0); Hemoglobin 10.2 GM/DL (12.0-16.0); Immature Granulocytes Absolute 0.05 #; Lymphocytes # 0.2 10*3/uL (1.4-4.0); Mean Corpuscular HGB Conc 32.4 GM/DL (32-36); Mean Corpuscular Volume 81.8 FL (87-102); Mean Platelet Volume 11.3 FL (9.6-12.0); Monocytes % 9.3 % (1.7-12.7); NRBC # 0.02 10*3/uL; Neutrophils % 85.5 % (38.7-73.9); Platelet Count 238 T/CUMM (130-400); Red Blood Count 3.85 MC/CUMM (3.8-5.5); Red Cell Distribution Width 18.2 % (9.3-17.3); White Blood Count 5.3 T/CUMM (4-12)
[2019-09-03 14:46] LABS: Albumin 2.4 G/DL (3.4-5.0); Bilirubin,Total 0.7 MG/DL (0.2-1.0); Calcium 8.6 MG/DL (8.5-10.1); Osmolality,Calculated 292.7 MOS/KG (273-304); Total Protein 6.5 G/DL (6.4-8.3)
[2019-09-03] MEDS: FUROSEMIDE 40 MG/4 ML VIAL IV SCH (14:47)
[2019-09-03 14:52] LABS: Band Neutrophils 3 % (0-10); Burr Cells 3+; Lymphocytes 3 % (20-55); Nucleated Red Blood Cells 2 (0-5); Polychromasia 1+; Segmented Neutrophils 84 % (50-85); Target Cells 1+; Total Cells Counted 100
[2019-09-03 14:53] LABS: Anisocytosis Slight; Macrocytosis Slight; Microcytosis Slight; Platelet Estimate Normal; Poikilocytosis 2+
[2019-09-03] MEDS ORDERED: ALBUTEROL 2.5 MG/3 ML NEB RESP TX PRN (15:00)
[2019-09-03] MEDS: ISOSORBIDE DINITRATE 20 MG TABLET PO SCH ×2 (15:01→22:14)
[2019-09-03] MEDS: GABAPENTIN 100 MG CAPSULE PO SCH (15:02)
[2019-09-03] MEDS: carvediloL 25 MG TABLET PO SCH ×2 (15:26→22:14)
[2019-09-03] MEDS: RANOLAZINE 500 MG TABLET PO SCH (15:26)
[2019-09-03] MEDS ORDERED: MELATONIN 3 MG TABLET PO SCH (21:00)
[2019-09-03] MEDS ORDERED: CITALOPRAM 20 MG TABLET PO SCH (21:00)
[2019-09-03] MEDS ORDERED: MONTELUKAST 10 MG TABLET PO SCH (21:00)
[2019-09-03] MEDS ORDERED: ATORVASTATIN 40 MG TABLET PO SCH (21:00)
[2019-09-03] MEDS: MENTHOL/ZINC OXIDE OINT 71 GM JAR TOP SCH (22:12)
[2019-09-03] MEDS: SACUBITRIL/VALSARTAN 49-51 MG TABLET PO SCH (22:13)
[2019-09-03] MEDS: AMIODARONE 200 MG TABLET PO SCH (22:14)
[2019-09-03] MEDS: DOCUSATE SODIUM 100 MG CAPSULE PO SCH (22:14)
[2019-09-03] MEDS: BUDESONIDE/FORMOTEROL 160-4.5 INHALER 6 GM INH SCH (22:59)
[2019-09-04] MEDS: RANOLAZINE 500 MG TABLET PO SCH (03:25)
[2019-09-04 07:59] VITALS: BP 94/40
[2019-09-04] MEDS ORDERED: FERROUS SULFATE 325 MG TABLET PO SCH (08:00)
[2019-09-04] MEDS ORDERED: SENNA 8.6 MG TABLET PO SCH (09:00)
[2019-09-04] MEDS ORDERED: NON-FORMULARY MEDICATION (Biotin 10,000 MCG) PO SCH (09:00)
[2019-09-04] MEDS ORDERED: PANTOPRAZOLE 40 MG TABLET PO SCH (09:00)
[2019-09-04] MEDS ORDERED: ASPIRIN CHEW 81 MG TABLET PO SCH (09:00)
[2019-09-04] MEDS: AMIODARONE 200 MG TABLET PO SCH (09:33)
[2019-09-04] MEDS: GABAPENTIN 100 MG CAPSULE PO SCH (09:33)
[2019-09-04] MEDS: FUROSEMIDE 40 MG/4 ML VIAL IV SCH (09:34)
[2019-09-04] MEDS: carvediloL 25 MG TABLET PO SCH (09:34)
[2019-09-04] MEDS: ISOSORBIDE DINITRATE 20 MG TABLET PO SCH (09:34)
[2019-09-04] MEDS: DOCUSATE SODIUM 100 MG CAPSULE PO SCH (09:36)
[2019-09-04] MEDS: SACUBITRIL/VALSARTAN 49-51 MG TABLET PO SCH (09:38)
[2019-09-04] MEDS: MENTHOL/ZINC OXIDE OINT 71 GM JAR TOP SCH (09:38)
[2019-09-04] MEDS: BUDESONIDE/FORMOTEROL 160-4.5 INHALER 6 GM INH SCH (09:39)
== END 2019-09-04 12:48 ==
LOC: EDBD → EDUNIT# → N.ED 08:16 → N.EDINP 08:16 → N.3E 14:23
PROVIDERS: ADMIT Internal Medicine; ATTEND Internal Medicine